=== PATIENT | female | born 1975 | race Caucasian/White ===

== ENCOUNTER 2021-10-15 09:28 | Emergency (ER) | payer OTHER, SELFPAY ==
[2021-10-15 09:35] VITALS: BP 112/79; PULSE 80; RESP 16; TEMP 37.4; O2SAT 98
--- NOTE | 2021-10-15 10:00 | ED.URI ---
HPI - URI/Sore Throat General Chief Complaint: Upper Respiratory Infection Stated Complaint: Sore Throat Time Seen by Provider: 10/15/21 10:01 Source: patient and RN notes reviewed Mode of arrival: ambulatory Limitations: no limitations History of Present Illness HPI Narrative: 46-year-old female presents concern for sore throat. Reports symptoms started several days ago. 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 Reports she has been taking Mucinex DM. She denies fever, bodies, chills, sweats. She reports painful swallowing. Reports she been vaccinated for Covid. MD elicited complaint: sore throat Related Data Allergies Allergy/AdvReac Type Severity Reaction Status Date / Time No Known Allergies Allergy Verified 10/15/21 10:04 Review of Systems Review of Systems: CONSTITUTIONAL: Denies malaise, chills, sweats, or fever. EYES: Denies visual changes, redness, or discharge. ENT: Reports rhinorrhea, sore throat. Denies congestion, sinus pain, otalgia CARDIOVASCULAR: Denies chest pain, palpitations, or edema. RESPIRATORY: Denies cough or dyspnea. GASTROINTESTINAL: Denies abdominal pain, nausea, vomiting, diarrhea SKIN: Denies rash or itching. MUSCULOSKELETAL: Denies myalgia. NEUROLOGIC: Denies headache. All systems reviewed & are unremarkable except as noted in HPI and below PMFSH Past Medical History Medical History BMI 37.0-37.9, adult BMI 39.0-39.9,adult Family History Family History Other Depression Diabetes mellitus Family history of hypercholesterolemia Hypertension Social History Social History Alcohol intake: never Substance use: never Substance use type: does not use Comments At time of signature, agree with nursing past medical, surgical, social and family history. There is no relevant family history pertinent to the presenting complaint Exam Narrative: GENERAL: Well-appearing, well-nourished, and in no acute distress. HEAD: Normocephalic EYES: PERRLA, conjunctivae clear ENT: Nares clear, clear discharge. Mucous membranes moist. TM pearly nance with dull light reflex bilaterally; no tragal tenderness. Oropharynx not erythematous without lesions. Tonsils not present, no drooling, no hoarseness, no trismus, uvula midline. NECK: Supple. No lymphadenopathy CHEST: Clear to auscultation, breath sounds equal. No wheezing, rhonchi, rales, or stridor. No respiratory distress, speaks in full sentences. HEART: Regular rate and rhythm. No murmur heard. SKIN: Warm, dry, no rash. NEURO: Alert and oriented x3. PSYCH: Normal mood and affect Course Course Emergency Course: Patient is aware of diagnosis, understands and agrees to treatment plan. Anticipatory guidance given. Patient agrees to follow-up as directed and is aware of reasons to seek care at the emergency department. Portions of this record may have been created with voice recognition software Vital Signs Vital signs: Vital Signs Temperature 99.3 F 10/15/21 09:35 Pulse Rate 80 10/15/21 09:35 Respiratory Rate 16 10/15/21 09:35 Blood Pressure 112/79 10/15/21 09:35 Pulse Oximetry 98 10/15/21 09:35 Temperature 99.3 F 10/15/21 09:35 Pulse Rate 80 10/15/21 09:35 Respiratory Rate 16 10/15/21 09:35 Blood Pressure 112/79 10/15/21 09:35 Pulse Oximetry 98 10/15/21 09:35 Reviewed. MDM - URI/Sore Throat MDM Narrative Medical decision making narrative: Differential diagnosis considered: Bejarano virus, strep pharyngitis, allergic rhinitis, upper respiratory tract infection, sinusitis, rhinosinusitis, nasopharyngitis. viral pharyngitis, otitis media, otitis externa, pneumonia, bronchitis, viral cough syndrome, viral syndrome, and influenza. Exam findings show no acute concerns or changes; patient is non-toxic appearing and is in
== END 2021-10-15 10:27 | disposition home or self-care (01) ==
PROVIDERS: Emergency Provider Nurse Practitioner; PCP Family Medicine
DX: J06.9 Acute upper respiratory infection, unspecified (principal); E78.00 Pure hypercholesterolemia, unspecified; I10 Essential (primary) hypertension; M19.90 Unspecified osteoarthritis, unspecified site
CPT/HCPCS: 87081; 87880; 99213; G0463

== ENCOUNTER 2021-11-04 18:29 | Emergency (ER) | payer OTHER, SELFPAY ==
--- NOTE | 2021-11-04 18:32 | ED.EAR ---
HPI - Ear Problem General Chief complaint: Upper Respiratory Infection Stated complaint: Ear Pain Time Seen by Provider: 11/04/21 18:32 Source: patient and RN notes reviewed History of Present Illness HPI Narrative: Patient is a 46-year-old female who presents the urgent care with complaints of bilateral ear pain and a mild sore throat off and on for the last 3 weeks. Patient states that she was seen at our facility as well as with her PCP and were placed on 2 rounds of azithromycin. Patient states symptoms have not improved and she is continued Mucinex, Flonase, Singulair, Zyrtec-D. Patient denies of any fever, chills, nausea, vomiting. Patient states that her Covid test was negative over the last couple weeks. No other acute complaints. No acute distress noted. Patient aware the plan of care. Some parts of this dictation were generated by voice recognition software and may contain typographical and/or grammatical inaccuracies. Related Data Allergies Allergy/AdvReac Type Severity Reaction Status Date / Time No Known Allergies Allergy Verified 10/15/21 10:04 Review of Systems Review of Systems: CONSTITUTIONAL: Denies fever, chills, or sweats. EYES: Denies visual changes, redness, or discharge. ENT: Denies rhinorrhea, congestion. Reports of sore throat and bilateral otalgia with hoarseness CARDIOVASCULAR: Denies chest pain, palpitations, or edema. RESPIRATORY: Denies cough or dyspnea. GASTROINTESTINAL: Denies abdominal pain, nausea, vomiting, or diarrhea. GENITOURINARY: Denies dysuria or hematuria. SKIN: Denies rash or itching. MUSCULOSKELETAL: Denies back pain, joint pain, or myalgia. NEUROLOGIC: Denies headache, numbness, or weakness. All other systems reviewed are negative, except as documented in HPI. [facility] Past Medical History Medical History BMI 37.0-37.9, adult BMI 39.0-39.9,adult Family History Family History Other Depression Diabetes mellitus Family history of hypercholesterolemia Hypertension Social History Social History Alcohol intake: never Substance use: never Substance use type: does not use Comments At the time of my signature, I reviewed and agree with the nursing past medical, surgical, social, and family history. There is no relevant family history pertinent to the patient complaint. Exam Narrative: GENERAL: This is a well-nourished, well-developed patient, in no apparent distress. HEAD: normocephalic, atraumatic. EYES: PERRL. Sclera clear/white. Vision is grossly intact. EARS: External ears normal, auditory canals clear and without drainage, mild fluid noted bilaterally without otitis. TMs normal without perforation. Hearing grossly intact. NOSE: External nose normal with no obvious nasal discharge, nares without redness, no rhinorrhea. THROAT: Mucous membranes moist, posterior pharynx clear. Moderate postnasal drainage NECK: Neck supple CARDIOVASCULAR: Regular rate and rhythm without murmurs, gallops, or rubs. RESPIRATORY: Clear to auscultation. Breath sounds equal bilaterally. No wheezes, rales, or rhonchi. SKIN: warm, intact with no suspicious lesions or rash, good texture and turgor. NEURO: awake, alert, and oriented to person, place and time. There were no obvious focal neurologic abnormalities. EXTREMITIES: No clubbing, cyanosis, or edema. Course Vital Signs Vital signs: Vital Signs Temperature 98.7 F 11/04/21 18:34 Pulse Rate 88 11/04/21 18:34 Respiratory Rate 16 11/04/21 18:34 Blood Pressure 135/70 11/04/21 18:34 Pulse Oximetry 100 11/04/21 18:34 Temperature 98.7 F 11/04/21 18:43 Pulse Rate 88 11/04/21 18:43 Respiratory Rate 16 11/04/21 18:43 Blood Pressure 135/70 11/04/21 18:43 Pulse Oximetry 100 11/04/21 18:43 Reviewed Medical Decision Making MDM Narrative Medical
[2021-11-04 18:34] VITALS: BP 135/70; PULSE 88; RESP 16; TEMP 37.1; O2SAT 100
[2021-11-04 18:43] VITALS: BP 135/70; PULSE 88; RESP 16; TEMP 37.1; O2SAT 100
== END 2021-11-04 18:50 | disposition home or self-care (01) ==
PROVIDERS: Emergency Provider Nurse Practitioner Family; PCP Family Medicine
DX: J32.9 Chronic sinusitis, unspecified (principal)
CPT/HCPCS: 99213; G0463

== ENCOUNTER 2021-12-04 09:15 | Emergency (ER) | payer OTHER, SELFPAY ==
[2021-12-04 09:27] VITALS: BP 136/70; PULSE 115; RESP 20; TEMP 37.4; O2SAT 98
--- NOTE | 2021-12-04 09:41 | ED.URI ---
HPI - URI/Sore Throat General Chief Complaint: Upper Respiratory Infection Stated Complaint: upper respirtory Time Seen by Provider: 12/04/21 09:42 Source: patient and family History of Present Illness HPI Narrative: Patient presents with a 4-week history of nasal congestion sinus pressure and postnasal drainage patient denies any shortness of breath no chest pain. Patient uses Flonase nasal spray daily as prescribed by primary care provider. Patient states 3 weeks ago she was given prednisone and it helped her symptoms immensely. Related Data Allergies Allergy/AdvReac Type Severity Reaction Status Date / Time No Known Allergies Allergy Verified 10/15/21 10:04 Review of Systems Review of Systems: CONSTITUTIONAL: Denies chills, or sweats. Reports fever and generalized body aches EYES: Denies visual changes, redness, or discharge. ENT: Denies otalgia. Reports nasal congestion runny nose and sore throat CARDIOVASCULAR: Denies chest pain, palpitations, or edema. RESPIRATORY: Denies dyspnea. Reports occasional cough GASTROINTESTINAL: Denies abdominal pain, nausea, vomiting, or diarrhea. GENITOURINARY: Denies dysuria or hematuria. SKIN: Denies rash or itching. MUSCULOSKELETAL: Denies back pain, joint pain, or myalgia. Reports generalized body aches NEUROLOGIC: Denies headache, numbness, or weakness. PSYCHIATRIC: Denies anxiety or depression. PMFSH Past Medical History Medical History BMI 37.0-37.9, adult BMI 39.0-39.9,adult Family History Family History Other Depression Diabetes mellitus Family history of hypercholesterolemia Hypertension Social History Social History Alcohol intake: never Substance use: never Substance use type: does not use Comments At time of signature, agree with nursing past medical, surgical, social and family history. There is no relevant family history pertinent to the presenting complaint Exam Narrative: The patient is a well-developed, well-nourished in no acute distress. SKIN: Skin is warm and dry without erythema, swelling or exudate. There is good turgor. No tenting. HEAD: Atraumatic. Normocephalic. No temporal or scalp tenderness. EYES: Moist and bright. Sclera and conjunctivae normal. No discharge. PERRLA. Extraocular motions intact. Gross visual acuity intact. EARS: Pinna is normal shape and contour. Clear external auditory canals. TM pearly barton with good cone of light, no erythema or suppuration. Bilateral cerumen noted no gross hearing deficit. NOSE: pink, moist mucosa with good air movement. Clear rhinorrhea without nasal flaring. Septum midline. Mouth: moist mucous membranes. Mild maxillary sinus tenderness THROAT; mild erythema noted to posterior oropharynx with moderate postnasal drainage. Without exudate or ulceration.. Uvula midline. Normal movement of soft palate. NECK: Supple and nontender with full range of motion without discomfort. No meningeal signs. LUNGS: Equal and bilateral breath sounds without wheezes, rales or rhonchi. CHEST: The chest wall is without retractions or use of accessory muscles. HEART: Has a regular rate and rhythm without murmur, gallops, click or rub. ABDOMEN: Soft, nontender with positive active bowel sounds. No rebound tenderness. EXTREMITIES: Without cyanosis, clubbing or edema. Equal 2+ distal pulses and 2 second capillary refill noted. NEUROLOGIC: alert, active, . The patient moves all extremities with normal muscle strength. Normal muscle tone is noted. Normal coordination is noted. NO focal neurological findings noted. Course Course Level of Care: Express Care Visit Vital Signs Vital signs: Vital Signs Temperature 37.4 C 12/04/21 09:27 Pulse Rate 115 H 12/04/21 09:27 Respiratory Rate 20 12/04/21 09:27 Blood Pressure 136/70 12/04/21 09:27 Pulse Oximetry 98
== END 2021-12-04 10:08 | disposition home or self-care (01) ==
PROVIDERS: Emergency Provider Nurse Practitioner Family; PCP Family Medicine
DX: J32.9 Chronic sinusitis, unspecified (principal); E78.00 Pure hypercholesterolemia, unspecified; I10 Essential (primary) hypertension; M19.90 Unspecified osteoarthritis, unspecified site
CPT/HCPCS: 99213; G0463

== ENCOUNTER 2021-12-12 08:32 | Outpatient (RCR) | payer OTHER, SELFPAY ==
[2021-12-12 10:26] VITALS: BP 143/71; PULSE 102; RESP 20; TEMP 35.9; O2SAT 98
[2021-12-12] MEDS: ACETAMINOPHEN 325 MG TABLET 650 MG PO (10:32)
[2021-12-12] MEDS: diphenhydrAMINE HCl CAP 25 MG CAPSULE PO (10:32)
[2021-12-12] MEDS: FAMOTIDINE 20 MG TABLET PO (10:32)
[2021-12-12 11:59] VITALS: BP 123/65; PULSE 79; O2SAT 98
== END 2021-12-12 16:09 ==
LOC: AMCINF 08:32
PROVIDERS: PCP Family Medicine; Visit Provider Internal Medicine Hematology & Oncology
DX: U07.1 COVID-19 (principal); I10 Essential (primary) hypertension; E11.9 Type 2 diabetes mellitus without complications; Z90.5 Acquired absence of kidney
CPT/HCPCS: A9270; M0247; Q0247

== ENCOUNTER 2022-08-04 12:51 | Outpatient (CLI) | payer OTHER, SELFPAY ==
[2022-08-04 13:05] LABS: Basophils Absolute Auto 0.1 K/mm3 (0.0-0.1); Basophils Percent Auto 0.7 % (0.2-1.2); Eosinophils Absolute Auto 0.2 K/mm3 (0-0.3); Hemoglobin 11.5 g/dL (12.0-15.0); Immature Granulocyte Absolute 0.03 K/mm3 (0.00-0.031); Immature Granulocyte Percent A 0.3 % (0-0.5); Lymphocytes Absolute Auto 3.83 K/mm3 (0.9-3.2); Lymphocytes Percent Auto 37.8 % (18.3-44.2); Mean Corpuscular HGB Conc 32.9 g/dl (32-36); Mean Corpuscular Hemoglobin 27.8 pg (26-34); Mean Corpuscular Volume 84.5 fl (80-100); Monocytes Absolute Auto 0.8 K/mm3 (0.1-0.6); Monocytes Percent Auto 7.5 % (2.6-8.5); Neutrophils Absolute Auto 5.3 K/mm3 (1.3-6.7); Neutrophils Percent Auto 51.7 % (45.5-73.1); Platelet Count Result 522 k/mm3 (150-375); Red Blood Count 4.14 M/mm3 (4.2-5.4); Red Cell Distribution Width 13.3 % (11.5-14.5); White Blood Count 10.1 K/mm3 (4.5-10.0)
[2022-08-04 13:17] LABS: Alanine Aminotransferase 33 U/L (6-35); Albumin Level 3.5 g/dL (3.5-5.1); Alkaline Phosphatase 129 U/L (38-126); Anion Gap 6 mmol/L (8-16); Aspartate Amino Transferase 29 U/L (14-36); Bilirubin,Total 0.4 mg/dL (0.2-1.3); Blood Urea Nitrogen 17 mg/dL (7-17); Calcium 9.1 mg/dL (8.4-10.2); Carbon Dioxide 34 mmol/L (22-30); Chloride 99 mmol/L (98-107); Estimated Glomerular Filt Rate > 60; Glucose 203 mg/dL (65-110); Potassium 3.3 mmol/L (3.4-5.0); Sodium 139 mmol/L (137-145)
== END 2022-08-04 12:52 | disposition home or self-care (01) ==
LOC: ANHLAB 12:54
PROVIDERS: PCP Family Medicine; Visit Provider Nurse Practitioner Family
DX: R58 Hemorrhage, not elsewhere classified (principal); A09 Infectious gastroenteritis and colitis, unspecified
CPT/HCPCS: 36415; 80053; 85025

== ENCOUNTER 2022-08-16 16:56 | Outpatient (CLI) | payer OTHER, SELFPAY ==
[2022-08-16 17:10] LABS: Hematocrit 39.8 % (37.0-47.0); Hemoglobin 13.1 g/dL (12.0-15.0); Mean Corpuscular HGB Conc 32.9 g/dl (32-36); Mean Corpuscular Hemoglobin 28.1 pg (26-34); Mean Corpuscular Volume 85.4 fl (80-100); Mean Platelet Volume 9.4 fl (7.4-10.4); Platelet Count Result 308 k/mm3 (150-375); Red Blood Count 4.66 M/mm3 (4.2-5.4)
[2022-08-16 17:21] LABS: Alkaline Phosphatase 138 U/L (38-126); Potassium 3.3 mmol/L (3.4-5.0)
[2022-08-16 18:02] LABS: Iron 60 ug/dL (37-170)
[2022-08-16 18:11] LABS: Percent Iron Saturation 15 % (20-50)
== END 2022-08-16 16:57 | disposition home or self-care (01) ==
LOC: ANHLAB 16:58
PROVIDERS: PCP Family Medicine; Visit Provider Nurse Practitioner Family
DX: R74.8 Abnormal levels of other serum enzymes (principal); D64.9 Anemia, unspecified; E87.6 Hypokalemia
CPT/HCPCS: 36415; 83540; 83550; 84075; 84132; 85027

== ENCOUNTER 2022-09-26 16:40 | Outpatient (CLI) | payer OTHER, SELFPAY | END 2022-09-26 16:41 | disposition home or self-care (01) | LOC: ANHLAB 16:43 | PROVIDERS: PCP Family Medicine; Visit Provider Nurse Practitioner Family | DX: E87.6 Hypokalemia (principal) | CPT/HCPCS: 36415; 84132 ==

== ENCOUNTER 2022-09-28 16:03 | Outpatient (CLI) | payer OTHER, SELFPAY ==
--- NOTE | ~2022-09-28 | US_ITS ---
EXAMINATION: US pelvic complete w TV DATE: 09/28/2022 17:02 INDICATION: Irregular menstruation. Vaginal bleeding. Comparison:Ultrasound dated 07/16/2022 TECHNIQUE: Multiple transabdominal and endovaginal sonographic images of the pelvis performed. FINDINGS: The uterus measures 9.6 x 4.9 x 5.5 cm. Cervix appears thickened and heterogeneous measurin g 10 mm. The endometrium measures 7 mm. There is a uterine fibroid at the fundus of the uterus measur ing 3.1 x 2.9 x 2.4 cm. The right ovary measures 4.1 x 3.1 x 2 cm and the left ovary is surgically absent. There are multiple right ovarian cysts, largest measuring 3 cm. There is no free fluid in the pelvis. There are no abnormal masses seen on either side. IMPRESSION: 1. Mildly enlarged uterus containing 3.1 cm fibroid at the fundus. 2: Thickened heterogeneous appearance to the cervix. Recommend clinical examination. Reviewed, dictated and finalized at location B. IMPRESSION: 1. Mildly enlarged uterus containing 3.1 cm fibroid at the fundus. 2: Thickened heterogeneous appearance to the cervix. Recommend clinical examin ation.
== END 2022-09-28 16:04 | disposition home or self-care (01) ==
LOC: ANHIMG 16:05
PROVIDERS: PCP Family Medicine; Visit Provider Obstetrics & Gynecology
DX: N93.9 Abnormal uterine and vaginal bleeding, unspecified (principal); N85.2 Hypertrophy of uterus; D25.9 Leiomyoma of uterus, unspecified; R93.89 Abnormal findings on diagnostic imaging of other specified body structures
CPT/HCPCS: 76830; 76856

== ENCOUNTER 2022-10-05 17:09 | Outpatient (CLI) | payer OTHER, SELFPAY ==
[2022-10-05 17:27] LABS: Potassium 3.3 mmol/L (3.4-5.0)
== END 2022-10-05 17:10 | disposition home or self-care (01) ==
LOC: ANHLAB 17:09
PROVIDERS: PCP Family Medicine; Visit Provider Nurse Practitioner Family
DX: E87.6 Hypokalemia (principal)
CPT/HCPCS: 36415; 84132

== ENCOUNTER 2022-10-24 12:00 | Outpatient (CLI) | payer OTHER, SELFPAY ==
[2022-10-24 12:32] LABS: Anion Gap 7 mmol/L (8-16); Blood Urea Nitrogen 15 mg/dL (7-17); Calcium 8.9 mg/dL (8.4-10.2); Carbon Dioxide 25 mmol/L (22-30); Chloride 104 mmol/L (98-107); Estimated Glomerular Filt Rate > 60; Glucose 163 mg/dL (65-110); Potassium 3.6 mmol/L (3.4-5.0); Sodium 136 mmol/L (137-145)
== END 2022-10-24 12:01 | disposition home or self-care (01) ==
LOC: ANHLAB 12:02
PROVIDERS: PCP Family Medicine; Visit Provider Nurse Practitioner Family
DX: E87.6 Hypokalemia (principal); L65.9 Nonscarring hair loss, unspecified
CPT/HCPCS: 36415; 80048; 84443

== ENCOUNTER 2022-11-01 16:51 | Outpatient (CLI) | payer OTHER, SELFPAY ==
[2022-11-01 18:26] LABS: Iron 61 ug/dL (37-170)
[2022-11-01 18:36] LABS: Percent Iron Saturation 15 % (20-50)
== END 2022-11-01 16:52 | disposition home or self-care (01) ==
LOC: ANHLAB 16:53
PROVIDERS: PCP Family Medicine; Visit Provider Physician Assistant Medical
DX: L65.9 Nonscarring hair loss, unspecified (principal)
CPT/HCPCS: 36415; 82728; 83540; 83550

== ENCOUNTER 2022-12-20 16:39 | Outpatient (CLI) | payer OTHER, SELFPAY ==
[2022-12-20 17:18] LABS: Basophils Absolute Auto 0.1 K/mm3 (0.0-0.1); Basophils Percent Auto 0.5 % (0.2-1.2); Eosinophils Absolute Auto 0.2 K/mm3 (0-0.3); Hematocrit 44.7 % (37.0-47.0); Hemoglobin 14.7 g/dL (12.0-15.0); Immature Granulocyte Absolute 0.02 K/mm3 (0.00-0.031); Immature Granulocyte Percent A 0.2 % (0-0.5); Lymphocytes Absolute Auto 3.62 K/mm3 (0.9-3.2); Lymphocytes Percent Auto 34.7 % (18.3-44.2); Mean Corpuscular HGB Conc 32.9 g/dl (32-36); Mean Corpuscular Hemoglobin 27.1 pg (26-34); Mean Corpuscular Volume 82.3 fl (80-100); Mean Platelet Volume 9.7 fl (7.4-10.4); Monocytes Absolute Auto 0.6 K/mm3 (0.1-0.6); Monocytes Percent Auto 6.1 % (2.6-8.5); Neutrophils Absolute Auto 5.9 K/mm3 (1.3-6.7); Neutrophils Percent Auto 56.5 % (45.5-73.1); Platelet Count Result 326 k/mm3 (150-375); Red Blood Count 5.43 M/mm3 (4.2-5.4); Red Cell Distribution Width 13.4 % (11.5-14.5); White Blood Count 10.4 K/mm3 (4.5-10.0)
[2022-12-20 17:30] LABS: Alanine Aminotransferase 26 U/L (6-35); Albumin Level 4.3 g/dL (3.5-5.1); Alkaline Phosphatase 140 U/L (38-126); Anion Gap 8 mmol/L (8-16); Aspartate Amino Transferase 20 U/L (14-36); Bilirubin,Total 0.5 mg/dL (0.2-1.3); Blood Urea Nitrogen 17 mg/dL (7-17); Calcium 9.1 mg/dL (8.4-10.2); Carbon Dioxide 31 mmol/L (22-30); Chloride 99 mmol/L (98-107); Estimated Glomerular Filt Rate > 60; Glucose 123 mg/dL (65-110); Potassium 3.2 mmol/L (3.4-5.0); Sodium 138 mmol/L (137-145)
[2022-12-20 20:51] LABS: Vitamin D 25 Hydroxy 61.1 ng/mL
[2022-12-20 21:26] LABS: Iron 60 ug/dL (37-170); Percent Iron Saturation 14 % (20-50)
[2022-12-24 12:51] LABS: DHEA-Sulfate 25 mcg/dL (19-231)
[2022-12-27 12:04] LABS: Testosterone Free 3.3 pg/mL (0.1-6.4); Testosterone Total 26 ng/dL (2-45)
== END 2022-12-20 16:40 | disposition home or self-care (01) ==
LOC: ANHLAB 16:45
PROVIDERS: PCP Family Medicine; Visit Provider Nurse Practitioner Family
DX: L65.0 Telogen effluvium (principal); L21.8 Other seborrheic dermatitis
CPT/HCPCS: 36415; 80053; 82306; 82627; 82728; 83540; 83550; 84402; 84403; 85025

== ENCOUNTER 2023-01-02 16:15 | Outpatient (CLI) | payer OTHER, SELFPAY ==
[2023-01-02 17:54] LABS: Potassium 3.5 mmol/L (3.4-5.0)
== END 2023-01-02 16:16 | disposition home or self-care (01) ==
PROVIDERS: PCP Family Medicine; Visit Provider Nurse Practitioner Family
DX: E87.6 Hypokalemia (principal)
CPT/HCPCS: 36415; 84132

== ENCOUNTER 2023-01-02 16:47 | Outpatient (CLI) | payer OTHER, SELFPAY ==
--- NOTE | ~2023-01-02 | MM_ITS ---
EXAMINATION: MM screening ammon BI w [place] HISTORY: Screening TECHNIQUE: Craniocaudal and mediolateral oblique 3-D tomosynthesis images were obtained and synthetic 2-D images were generated. CAD analysis was submitted and interpreted. COMPARISON: No prior mammogram is available for comparison at this institution. BREAST PARENCHYMAL COMPOSITION: There are scattered areas of fibroglandular density. FINDINGS: There is no evidence of suspicious mass, calcification, or architectural distortion to sugg est malignancy in either breast. There has been no suspicious interval change. IMPRESSION: 1. No mammographic evidence of malignancy. 2. Recommend routine screening mammography in one year. BI-RADS Category 1: Negative Reviewed, dictated and finalized at location A. RER ORCHARD
== END 2023-01-02 16:48 | disposition home or self-care (01) ==
PROVIDERS: PCP Family Medicine; Visit Provider Obstetrics & Gynecology
DX: Z12.31 Encounter for screening mammogram for malignant neoplasm of breast (principal)
CPT/HCPCS: 36415; 77063; 77067; 84132

== ENCOUNTER 2023-03-23 09:39 | Emergency (ER) | payer OTHER, SELFPAY ==
[2023-03-23 09:46] VITALS: BP 120/69; PULSE 88; RESP 20; TEMP 36.9; O2SAT 100
--- NOTE | 2023-03-23 10:11 | ED.URI ---
HPI - URI/Sore Throat General Chief Complaint: Upper Respiratory Infection Stated Complaint: cold/congestion History of Present Illness HPI Narrative: Patient presents with nasal congestion sinus pressure and head congestion. Patient also reports a sore throat but denies any trouble swallowing no drooling. Patient states she takes Zyrtec daily Flonase and Singulair. Related Data Home Medications Medication Instructions Recorded Confirmed esomeprazole magnesium 20 mg 20 mg PO DAILY PRN Acid Reflux 07/24/22 03/23/23 capsule,delayed release (Nexium) ferrous sulfate 325 mg (65 mg 650 mg PO QAM 02/06/23 03/23/23 iron) tablet Allergies Allergy/AdvReac Type Severity Reaction Status Date / Time No Known Allergies Allergy Verified 03/23/23 10:07 Review of Systems Review of Systems: CONSTITUTIONAL: Denies chills, or sweats. Reports fever and generalized body aches EYES: Denies visual changes, redness, or discharge. ENT: Denies otalgia. Reports nasal congestion runny nose and sore throat CARDIOVASCULAR: Denies chest pain, palpitations, or edema. RESPIRATORY: Denies dyspnea. Reports occasional cough GASTROINTESTINAL: Denies abdominal pain, nausea, vomiting, or diarrhea. GENITOURINARY: Denies dysuria or hematuria. SKIN: Denies rash or itching. MUSCULOSKELETAL: Denies back pain, joint pain, or myalgia. Reports generalized body aches NEUROLOGIC: Denies headache, numbness, or weakness. PSYCHIATRIC: Denies anxiety or depression. [facility] Past Medical History Medical History BMI 36.0-36.9,adult BMI 37.0-37.9, adult BMI 39.0-39.9,adult Diabetes GERD (gastroesophageal reflux disease) High cholesterol Rash Screening mammogram, encounter for Surgical History Surgical History History of cholecystectomy (11/18/20) History of left salpingo-oophorectomy (05/22/18) RA LSO, left adnexal mass--benign History of tonsillectomy (~1997) S/P skin biopsy (~1998) benign Family History Family History Father Atrial fibrillation Other Depression Diabetes mellitus Family history of hypercholesterolemia Hypertension Social History Social History Smoking status: Never smoker Alcohol intake: never Substance use: never Substance use type: does not use Living arrangements: other Additional living arrangements comments: Occupation/Education: occupation 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 There is no relevant family history pertinent to the presenting complaint Exam Narrative: The patient is a well-developed, well-nourished in no acute distress. SKIN: Skin is warm and dry without erythema, swelling or exudate. There is good turgor. No tenting. HEAD: Atraumatic. Normocephalic. No temporal or scalp tenderness. Moderate maxillary sinus tenderness with TURP relates inflamed and reddened EYES: Moist and bright. Sclera and conjunctivae normal. No discharge. PERRLA. Extraocular motions intact. Gross visual acuity intact. EARS: Pinna is normal shape and contour. Clear external auditory canals. TM pearly barton with good cone of light, no erythema or suppuration. Bilateral cerumen noted no gross hearing deficit. NOSE: pink, moist mucosa with good air movement. Clear rhinorrhea without nasal flaring. Septum midline. Mouth: moist mucous membranes. THROAT; mild erythema noted to posterior oropharynx with moderate postnasal drainage. Without exudate or ulceration.. Uvula midline. Normal movement of soft palate. NECK: Supple and nontender with full range o
== END 2023-03-23 10:20 | disposition home or self-care (01) ==
PROVIDERS: Emergency Provider Nurse Practitioner Family; PCP Family Medicine
DX: J32.9 Chronic sinusitis, unspecified (principal); J20.9 Acute bronchitis, unspecified; E11.9 Type 2 diabetes mellitus without complications; K21.9 Gastro-esophageal reflux disease without esophagitis; E78.00 Pure hypercholesterolemia, unspecified
CPT/HCPCS: 87081; 87880; 99213; G0463

== ENCOUNTER 2023-05-01 11:19 | Outpatient (CLI) | payer OTHER, SELFPAY ==
[2023-05-01 11:32] LABS: Basophils Absolute Auto 0.1 K/mm3 (0.0-0.1); Basophils Percent Auto 0.6 % (0.2-1.2); Eosinophils Absolute Auto 0.2 K/mm3 (0-0.3); Eosinophils Percent Auto 1.4 % (0-4.4); Hematocrit 46.7 % (37.0-47.0); Hemoglobin 15.8 g/dL (12.0-15.0); Immature Granulocyte Absolute 0.04 K/mm3 (0.00-0.031); Immature Granulocyte Percent A 0.4 % (0-0.5); Lymphocytes Absolute Auto 3.14 K/mm3 (0.9-3.2); Lymphocytes Percent Auto 28.4 % (18.3-44.2); Mean Corpuscular HGB Conc 33.8 g/dl (32-36); Mean Corpuscular Volume 82.8 fl (80-100); Mean Platelet Volume 9.2 fl (7.4-10.4); Monocytes Absolute Auto 0.8 K/mm3 (0.1-0.6); Monocytes Percent Auto 7.3 % (2.6-8.5); Neutrophils Absolute Auto 6.8 K/mm3 (1.3-6.7); Neutrophils Percent Auto 61.9 % (45.5-73.1); Platelet Count Result 352 k/mm3 (150-375); Red Blood Count 5.64 M/mm3 (4.2-5.4); Red Cell Distribution Width 12.7 % (11.5-14.5); White Blood Count 11.1 K/mm3 (4.5-10.0)
[2023-05-01 15:16] LABS: Erythrocyte Sedimentation Rate 14 mm/hr (0-20)
[2023-05-01 16:54] LABS: Alanine Aminotransferase 29 U/L (6-35); Albumin Level 4.5 g/dL (3.5-5.1); Alkaline Phosphatase 113 U/L (38-126); Anion Gap 8 mmol/L (8-16); Aspartate Amino Transferase 26 U/L (14-36); Bilirubin,Total 0.5 mg/dL (0.2-1.3); Blood Urea Nitrogen 15 mg/dL (7-17); CRP 0.6 mg/dL (<1.0); Calcium 9.8 mg/dL (8.4-10.2); Carbon Dioxide 32 mmol/L (22-30); Chloride 100 mmol/L (98-107); Estimated Glomerular Filt Rate > 60; Glucose 88 mg/dL (65-110); Potassium 3.9 mmol/L (3.4-5.0); Sodium 140 mmol/L (137-145)
[2023-05-01 21:07] LABS: Iron 63 ug/dL (37-170)
[2023-05-01 21:18] LABS: Percent Iron Saturation 15 % (20-50)
== END 2023-05-01 11:20 | disposition home or self-care (01) ==
LOC: ANHLAB 11:21
PROVIDERS: PCP Family Medicine; Visit Provider Internal Medicine Hematology & Oncology
DX: D80.9 Immunodeficiency with predominantly antibody defects, unspecified (principal); E61.1 Iron deficiency; D75.1 Secondary polycythemia
CPT/HCPCS: 36415; 80053; 82668; 82728; 83540; 83550; 85025; 85652; 86140

== ENCOUNTER 2023-05-17 14:08 | Outpatient (CLI) | payer OTHER, SELFPAY ==
[2023-05-17 16:07] LABS: Immunoglobulin A 153 mg/dL (70-400); Immunoglobulin G 1139 mg/dL (700-1600); Immunoglobulin M 110 mg/dL (40-230)
[2023-05-24 15:45] LABS: CALR Exon 9 Mutation Not Detected (Not Detected); CSF3R Exon 14/17 Mutation Not Detected (Not Detected); JAK2 Exon 12 Mutation Not Detected (Not Detected); JAK2 V617F Mutation Not Detected (Not Detected); MPL Exon 10 Mutation Not Detected (Not Detected); Specimen Source Blood
== END 2023-05-17 14:09 | disposition home or self-care (01) ==
PROVIDERS: PCP Family Medicine; Visit Provider Internal Medicine Hematology & Oncology
DX: D75.1 Secondary polycythemia (principal); D72.829 Elevated white blood cell count, unspecified
CPT/HCPCS: 36415; 81219; 81270; 81279; 81339; 81479; 82784; 88184

== ENCOUNTER 2023-05-28 10:43 | Outpatient (CLI) | payer OTHER, SELFPAY ==
[2023-05-31 13:11] LABS: BCR/abl Prior Result Not Given
[2023-05-31 13:57] LABS: BCR/abl P190 Not Detected; BCR/abl P210 Not Detected
[2023-05-31 13:58] LABS: BCR/abl P190 Chg YES; BCR/abl P210 Chg YES
== END 2023-05-28 10:44 | disposition home or self-care (01) ==
LOC: ANHLAB 10:45
PROVIDERS: PCP Family Medicine; Visit Provider Internal Medicine Hematology & Oncology
DX: D72.829 Elevated white blood cell count, unspecified (principal)
CPT/HCPCS: 36415; 81206; 81207

== ENCOUNTER 2023-06-24 11:26 | Outpatient (CLI) | payer OTHER, SELFPAY ==
--- NOTE | 2023-06-24 11:42 | ECG_ITS ---
Measurements Intervals [place] Rate: 87 P: 44 NH: 162 QRS: 32 QRSD: 93 T: 62 QT: 357 QTc: 430 Interpretive Statements SINUS RHYTHM MINIMAL Q WAVES- INFERIOR LEADS BORDERLINE ECG NO PREVIOUS ECG AVAILABLE FOR COMPARISON Electronically Signed On 06-24-2023 11:53:24 CDT by Andrew Arroyo D.O.
== END 2023-06-24 11:27 | disposition home or self-care (01) ==
LOC: ANHSURGERY 11:31
PROVIDERS: PCP Family Medicine; Visit Provider Obstetrics & Gynecology
DX: I10 Essential (primary) hypertension (principal); Z01.818 Encounter for other preprocedural examination; R94.31 Abnormal electrocardiogram [ECG] [EKG]
CPT/HCPCS: 93005

== ENCOUNTER 2023-06-28 00:31 | Day surgery (SDC) | payer OTHER, SELFPAY ==
--- NOTE | 2023-06-21 14:55 | SUR.PREOP ---
Report to the Outpatient Waiting Room, entrance under the green pavilion located off [facility], at time 1100 on date 06/28/23. Planned Procedure Time: 1300. Time changes happen often and if your time is changed the preop area will call you the afternoon before. - You and your visitor will be asked to self-screen and do not enter if you have any COVID symptoms. - A mask is optional within the hospital at this time. Patients may have clear liquids (water, carbonated beverages, clear teas, apple juice) until 3 hours prior to surgery with a maximum of 20 ounces. - No food from midnight until time of surgery - Infants may have breast milk until 4 hours before surgery, infant formula 6 hours prior to surgery. - Children will be allowed to drink immediately following surgery. If applicable, please bring a bottle or sippy cup to assist with drinking. Juice, water, soda, and popsicles are readily available. For infants on formula, please bring formula the day of surgery. Pacifiers are allowed. Take the following medications with a SIP of water the morning of surgery: TRAMADOL DO NOT STOP ANY OF YOUR OTHER PRESCRIPTION MEDICATIONS PRIOR TO SURGERY ?EXCEPT THE FOLLOWING Medications to discontinue per physician ____CALL DR MATTSON'S OFFICE IN REGARDS TO PAUSING ASPIRIN BEFORE SURGERY Date to take last dose Please no make-up, nail divehi, hairspray, perfume, deodorant, or body powder the day of surgery. No jewelry (including any body piercings) or valuables the day of surgery, leave them at home. Please take a shower or bath the night before, or the morning of, surgery with an antibacterial soap. Wear comfortable, loose fitting clothing. Children are encouraged to wear pajamas. - Jewelry must be removed prior to entering the operating room. Rings and piercings that are not removed may be cut off. - The hospital will not accept responsibility for valuables. - Please leave all valuables, including medications, at home the day of surgery. If you are going home after surgery, a licensed transport truck driver must drive you home. - NO public transportation without another adult if you receive anesthesia. - We recommend that an adult stay with you for 24 hours following discharge. - We also recommend that you do not drive, make important decision, drink alcoholic beverages, or take any drugs that were not prescribed by your health care provider for at least 24 hours after your discharge time. For Pediatric surgeries, we recommend two adults accompany the child home. Follow any additional instructions given to you from your surgeon. If you or anyone in your household have experienced Covid symptoms in the past week, please notify your surgeon or the nurse liaison at the phone number below for possible testing. Telephone instructions given to DONELL MEDRANO and asked if any additional questions and then verbalized understanding. Patient advised to call surgeon office or pre surgery nurse liaison [phone] if any additional questions.
[2023-06-21 15:20] VITALS: BMI 31.1
--- NOTE | 2023-06-27 08:16 | WPDANESEPPF ---
Anes - Initial Pre Proc Eval Procedure: Operation Date: 06/28/23 13:00 Proposed Procedures p Hysteroscopy, Dilatation and Curettage, Cecile Endometrial Ablation, Laparoscopic Bilateral Salpingectomy - Sajan Sellers MD Date/Time: 06/27/23 08:16 Surgeon: Sajan Sellers MD Pre Op Diagnosis: abn uterine bleeding, desires sterilization Patient Data Age: 47 Gender: F Height: 1.83 m Weight: 104 kg Allergies Allergy/AdvReac Type Severity Reaction Status Date / Time No Known Allergies Allergy Verified 06/28/23 12:26 Home Medications Medication Instructions Recorded Confirmed Type fluticasone propionate 50 1 spray intranasal DAILY #54.6 mL 04/09/22 06/28/23 Rx mcg/actuation nasal spray,suspension (Allergy Relief (fluticasone)) tramadol 50 mg tablet 50 mg PO Q6H PRN arthritic pain 09/14/22 06/28/23 Rx #180 tabs potassium chloride 10 mEq 10 meq PO DAILY #90 tabs 11/12/22 06/28/23 Rx tablet,extended release (Klor-Con) trazodone 100 mg tablet 100 mg PO QHS #90 tabs 12/21/22 06/28/23 Rx ferrous sulfate 325 mg (65 mg 650 mg PO HS 02/06/23 06/28/23 History iron) tablet semaglutide 2 mg/dose (8 mg/3 mL) 2 mg (0.75 mL) subcut WEEKLY #3 mL 05/09/23 06/28/23 Rx subcutaneous pen injector (Ozempic) progesterone micronized 100 mg 100 mg PO QPM #90 caps 05/13/23 06/28/23 Rx capsule (Prometrium) aspirin 81 mg tablet,delayed 81 mg PO DAILY 05/28/23 06/28/23 History release (Adult Aspirin Regimen) metformin 500 mg tablet 500 mg PO BID 05/29/23 06/28/23 History atorvastatin 40 mg tablet 40 mg PO HS 06/21/23 06/28/23 History celecoxib 100 mg capsule (Celebrex) 100 mg PO DAILY 06/21/23 06/28/23 History cetirizine 10 mg tablet 10 mg PO DAILY 06/21/23 06/28/23 History hydrochlorothiazide 25 mg tablet 12.5 mg PO DAILY 06/21/23 06/28/23 History montelukast 10 mg tablet 10 mg PO HS 06/21/23 06/28/23 History Patient hx anesthesia problems: none Family hx anesthesia problems: none Results Review: All pre-operative results and documents have been reviewed as part of the pre-operative evaluation. [facility] Past Medical History Medical History (Updated 06/27/23 @ 08:16 by Jonathan Soler, ) Anemia BMI 36.0-36.9,adult BMI 37.0-37.9, adult BMI 39.0-39.9,adult Diabetes Dysplasia of one kidney Elevated WBC count Essential hypertension GERD (gastroesophageal reflux disease) High cholesterol Rash Screening mammogram, encounter for Surgical History Surgical History History of cholecystectomy (11/18/20) History of left salpingo-oophorectomy (05/22/18) RA LSO, left adnexal mass--benign History of tonsillectomy (~1997) S/P skin biopsy (~1998) benign Family History Family History Father Atrial fibrillation Other Depression Diabetes mellitus Family history of hypercholesterolemia Hypertension Social History Social History (Updated 05/29/23 @ 14:16 by ALENA Paz) Smoking status: Never smoker Substance use: never Substance use type: does not use Lack of Transportation: No Lack of Food: Never True Current Housing: I Have Housing Concerned About Future Housing: No Difficulty Paying Gas/Electric Bills: No Difficulty Paying for Meds: No Currently Unemployed: No Education: Master's Degree or Higher Difficulty w/ Childcare or Family Care: No Living arrangements: other Additional living arrangements comments: Occupation/Education: occupation 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
[2023-06-28] VITALS (8 sets, daily range): BP systolic 115–134; BP diastolic 56–78; PULSE 61–87; RESP 2–20; TEMP 36.8–36.9; O2SAT 99–100
--- NOTE | 2023-06-28 11:53 | WPDHPUPDATE1 ---
History and Physical Update Update Date/Time: 06/28/23 11:53 History and Physical has been reviewed, including an updated exam of the patient. There are NO changes in the patient's condition. Risks, benefits, and alternatives have been discussed and questions answered. Patient agrees to proceed with procedure.
[2023-06-28] MEDS: LACTATED RINGERS 1,000 ML 30 ML IV CONT ×2 (12:13→14:00)
[2023-06-28] MEDS: ACETAMINOPHEN 500 MG TABLET 1000 MG PO (12:17)
[2023-06-28] MEDS: KETOROLAC 15 MG/ML VIAL (*BKC) IV PUSH (12:25)
[2023-06-28 12:54] LABS: Glucose Point of Care 109 mg/dl (65-105)
[2023-06-28] MEDS: ceFAZolin 2 GM/D5W 50 ML 2 GM/50 ML BAG IVPB (13:05)
--- NOTE | 2023-06-28 13:53 | W.PM.PROC2 ---
Procedure Note - Detailed Date of Procedure 06/28/23 Pre-op Diagnosis 1. Menometrorrhagia 2. Fibroid uterus 3. Undesired fertility Post-op Diagnosis Same Procedure Performed 1. Hysteroscopy with uterine curettings 2. Endometrial ablation 3. Laparoscopic right salpingectomy Surgeon Sajan Sellers MD Anesthesia General Findings Hysteroscopic exam revealed endometrial thickening but no abnormalities Laparoscopic evaluation revealed enlarged fibroid uterus with evidence of prior left salpingectomy Description of Procedure Patient prepped and draped usual manner for this procedure. Cervical instruments were placed for uterine mobility later in the case. Abdominal trocar sites were placed under direct visualization, instruments then placed as well. Findings were noted as above, mesial salpinx on the right was cauterized and cut the right tube was removed without difficulty. There was no bleeding, gas was allowed to escape, trocars removed and trocar sites were approximated using 4-0 Monocryl and skin glue. Cervix was dilated to allow the hysteroscope to find which revealed findings as above. Curettings were obtained, ablation instrument was placed, and instrument was activated. Cavity assessment was performed and the instrument after was complete cycle was removed. Hysteroscopic exam revealed good destruction throughout no other abnormalities appreciated. At this point the procedure was considered terminated with immediate postoperative condition excellent and she was sent to recovery room in stable condition. Estimated Blood Loss 10 Drains No Packing No Pathology Yes Complications No immediate complications Condition Stable Disposition PACU [facility] Billing Surgery - Charge Forward: Surgery Billing
[2023-06-28 14:07] LABS: Glucose Point of Care 112 mg/dl (65-105)
[2023-06-28] MEDS: fentaNYL CITRATE INJ (*CRX) 100 MCG/2 ML VIAL 25 MCG IV PUSH ×4 (14:20→14:32)
[2023-06-28] MEDS: ONDANSETRON INJ 4 MG/2 ML VIAL IV PUSH (14:32)
== END 2023-06-28 15:50 | disposition home or self-care (01) ==
PROVIDERS: PCP Family Medicine; Visit Provider Obstetrics & Gynecology
PROC: 0UDB8ZZ Extraction of Endometrium, Via Natural or Artificial Opening Endoscopic (ICD-10-PCS; CPT 58558; principal; 2023-06-28 13:00)
DX: N92.1 Excessive and frequent menstruation with irregular cycle (principal); Z30.2 Encounter for sterilization; N83.8 Other noninflammatory disorders of ovary, fallopian tube and broad ligament; E11.9 Type 2 diabetes mellitus without complications; D64.9 Anemia, unspecified; K21.9 Gastro-esophageal reflux disease without esophagitis; E78.00 Pure hypercholesterolemia, unspecified; Z79.82 Long term (current) use of aspirin; Z79.899 Other long term (current) drug therapy; E66.9 Obesity, unspecified; Z68.31 Body mass index [BMI] 31.0-31.9, adult
CPT/HCPCS: 58661; 58563; 82948; 88302; 88305; 93005; A9270; J0690; J1100; J1885; J2250; J2405; J2704; J3010; J7120

== ENCOUNTER 2023-07-13 09:19 | Outpatient (CLI) | payer OTHER, SELFPAY ==
[2023-07-13 10:03] LABS: Basophils Absolute Auto 0.1 K/mm3 (0.0-0.1); Eosinophils Absolute Auto 0.5 K/mm3 (0-0.3); Eosinophils Percent Auto 4.8 % (0-4.4); Hematocrit 43.7 % (37.0-47.0); Hemoglobin 14.4 g/dL (12.0-15.0); Immature Granulocyte Absolute 0.04 K/mm3 (0.00-0.031); Immature Granulocyte Percent A 0.4 % (0-0.5); Lymphocytes Absolute Auto 3.35 K/mm3 (0.9-3.2); Lymphocytes Percent Auto 32.1 % (18.3-44.2); Mean Corpuscular Hemoglobin 27.8 pg (26-34); Mean Corpuscular Volume 84.4 fl (80-100); Mean Platelet Volume 9.6 fl (7.4-10.4); Monocytes Absolute Auto 0.6 K/mm3 (0.1-0.6); Monocytes Percent Auto 5.4 % (2.6-8.5); Neutrophils Absolute Auto 5.9 K/mm3 (1.3-6.7); Neutrophils Percent Auto 56.3 % (45.5-73.1); Platelet Count Result 386 k/mm3 (150-375); Red Blood Count 5.18 M/mm3 (4.2-5.4); Red Cell Distribution Width 12.7 % (11.5-14.5); White Blood Count 10.4 K/mm3 (4.5-10.0)
[2023-07-13 10:19] LABS: Anion Gap 10 mmol/L (8-16); Blood Urea Nitrogen 14 mg/dL (7-17); Calcium 8.9 mg/dL (8.4-10.2); Carbon Dioxide 26 mmol/L (22-30); Chloride 101 mmol/L (98-107); Cholesterol 128 mg/dL (0-200); Estimated Glomerular Filt Rate > 60; Glucose 136 mg/dL (65-110); HDL Direct 32 mg/dL; Potassium 3.7 mmol/L (3.4-5.0); Sodium 137 mmol/L (137-145); Triglycerides 291 mg/dL (<150)
[2023-07-13 10:23] LABS: LDL Cholesterol Direct 58 mg/dL
[2023-07-13 10:34] LABS: Iron 81 ug/dL (37-170)
[2023-07-13 10:43] LABS: Percent Iron Saturation 22 % (20-50)
== END 2023-07-13 09:20 | disposition home or self-care (01) ==
PROVIDERS: PCP Family Medicine; Visit Provider Physician Assistant Medical
DX: D64.9 Anemia, unspecified (principal); E11.9 Type 2 diabetes mellitus without complications; I10 Essential (primary) hypertension; R79.89 Other specified abnormal findings of blood chemistry; E78.5 Hyperlipidemia, unspecified
CPT/HCPCS: 36415; 80048; 80061; 83540; 83550; 85025

== ENCOUNTER 2023-09-10 10:29 | Emergency (ER) | payer OTHER, SELFPAY ==
[2023-09-10 10:37] VITALS: BP 110/67; PULSE 117; RESP 16; TEMP 36.8; O2SAT 98
--- NOTE | 2023-09-10 11:03 | ED.GENADULT ---
HPI - General Adult General Chief complaint: Upper Respiratory Infection Stated complaint: Congestion Source: patient Mode of arrival: ambulatory Limitations: no limitations History of Present Illness HPI narrative: Patient presents for evaluation of sick symptoms since last week. Symptoms include sinus congestion, sore throat, thick green nasal drainage, ear pressure, chills, cough and body aches. No objective fever, nausea, vomiting, diarrhea. 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 She tried taking Mucinex and some other OTC agents for her symptoms but symptoms persist. She does not smoke. Related Data Home Medications Medication Instructions Recorded Confirmed ferrous sulfate 325 mg (65 mg 650 mg PO HS 02/06/23 09/10/23 iron) tablet montelukast 10 mg tablet 10 mg PO HS 06/21/23 09/10/23 aspirin 81 mg tablet,delayed 81 mg PO DAILY PRN 07/08/23 07/15/23 release (Adult Aspirin Regimen) celecoxib 200 mg capsule (Celebrex) 200 mg PO DAILY 07/08/23 09/10/23 metformin 500 mg tablet 1,000 mg PO BID 07/08/23 09/10/23 tolterodine 4 mg capsule,extended 4 mg PO DAILY 09/10/23 09/10/23 release 24 hr Allergies Allergy/AdvReac Type Severity Reaction Status Date / Time No Known Allergies Allergy Verified 09/10/23 10:46 Review of Systems Review of Systems: CONSTITUTIONAL: Reports chills and fatigue. Denies fever. EYES: Denies visual changes, redness, or discharge. ENT: Reports bilateral ear pressure, sore throat, nasal congestion and thick green drainage. CARDIOVASCULAR: Denies chest pain, palpitations, or edema. RESPIRATORY reports cough. Denies shortness of breath. GASTROINTESTINAL: Denies abdominal pain, nausea, vomiting, or diarrhea. GENITOURINARY: Denies dysuria or hematuria. SKIN: Denies rash or itching. MUSCULOSKELETAL: Reports generalized body aches. NEUROLOGIC: Reports headache. Denies numbness, dizziness, or weakness. PSYCHIATRIC: Denies anxiety or depression. [facility] Past Medical History Medical History Anemia BMI 36.0-36.9,adult BMI 37.0-37.9, adult BMI 39.0-39.9,adult Diabetes Dysplasia of one kidney Elevated WBC count Essential hypertension GERD (gastroesophageal reflux disease) High cholesterol Rash Screening mammogram, encounter for Surgical History Surgical History History of cholecystectomy (11/18/20) History of hysteroscopy (06/28/23) Hysteroscopy with uterine curettings/ Endometrial ablation/ Laparoscopic right salpingectomy History of left salpingo-oophorectomy (05/22/18) RA LSO, left adnexal mass--benign History of tonsillectomy (~1997) S/P skin biopsy (~1998) benign Family History Family History Father Atrial fibrillation Other Depression Diabetes mellitus Family history of hypercholesterolemia Hypertension Social History Social History Smoking status: Never smoker Substance use: never Substance use type: does not use Lack of Transportation: No Lack of Food: Never True Current Housing: I Have Housing Concerned About Future Housing: No Difficulty Paying Gas/Electric Bills: No Difficulty Paying for Meds: No Currently Unemployed: No Education: Master's Degree or Higher Difficulty w/ Childcare or Family Care: No Living arrangements: other Additional living arrangements comments: Occupation/Education: occupation 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 HEAD: Normocephalic,
== END 2023-09-10 11:26 | disposition home or self-care (01) ==
PROVIDERS: Emergency Provider Nurse Practitioner; PCP Family Medicine
DX: J01.90 Acute sinusitis, unspecified (principal); Z20.822 Contact with and (suspected) exposure to COVID-19; Z79.84 Long term (current) use of oral hypoglycemic drugs; E11.9 Type 2 diabetes mellitus without complications; I10 Essential (primary) hypertension; K21.9 Gastro-esophageal reflux disease without esophagitis; E78.00 Pure hypercholesterolemia, unspecified; D64.9 Anemia, unspecified; Z79.82 Long term (current) use of aspirin
CPT/HCPCS: 87426; 87804; 99213; C9803; G0463

== ENCOUNTER 2023-09-26 16:39 | Outpatient (CLI) | payer OTHER, SELFPAY ==
--- NOTE | ~2023-09-26 | XR_ITS ---
EXAMINATION: XR chest 2V DATE: 09/26/2023 16:54 INDICATION: Cough TECHNIQUE: PA and lateral views of the chest are obtained. COMPARISON: None available FINDINGS: There is mild atelectasis of the left lung base. No pleural effusion or pneumothorax. The c ardiomediastinal silhouette is normal. The visualized bones and soft tissues are unremarkable. IMPRESSION: 1. Mild atelectasis of the left lung base Reviewed, dictated and finalized at location F.
== END 2023-09-26 16:40 | disposition home or self-care (01) ==
PROVIDERS: PCP Family Medicine; Visit Provider Nurse Practitioner Family
DX: J98.11 Atelectasis (principal); R05.9 Cough, unspecified
CPT/HCPCS: 71046

== ENCOUNTER 2023-12-16 13:59 | Outpatient (CLI) | payer OTHER, SELFPAY ==
[2023-12-16 14:12] LABS: Basophils Absolute Auto 0.1 K/mm3 (0.0-0.1); Basophils Percent Auto 0.6 % (0.2-1.2); Eosinophils Absolute Auto 0.2 K/mm3 (0-0.3); Eosinophils Percent Auto 1.8 % (0-4.4); Hematocrit 45.6 % (37.0-47.0); Hemoglobin 14.9 g/dL (12.0-15.0); Immature Granulocyte Absolute 0.03 K/mm3 (0.00-0.031); Immature Granulocyte Percent A 0.3 % (0-0.5); Lymphocytes Absolute Auto 3.08 K/mm3 (0.9-3.2); Lymphocytes Percent Auto 30.7 % (18.3-44.2); Mean Corpuscular HGB Conc 32.7 g/dl (32-36); Mean Corpuscular Hemoglobin 26.6 pg (26-34); Mean Corpuscular Volume 81.3 fl (80-100); Mean Platelet Volume 9.5 fl (7.4-10.4); Monocytes Absolute Auto 0.6 K/mm3 (0.1-0.6); Monocytes Percent Auto 6.2 % (2.6-8.5); Neutrophils Absolute Auto 6.1 K/mm3 (1.3-6.7); Neutrophils Percent Auto 60.4 % (45.5-73.1); Platelet Count Result 346 k/mm3 (150-375); Red Blood Count 5.61 M/mm3 (4.2-5.4); Red Cell Distribution Width 13.1 % (11.5-14.5)
[2023-12-16 14:17] LABS: Blood Urea Nitrogen 21 mg/dL (8-26); Carbon Dioxide 25 mmol/L (22-30); Chloride 100 mmol/L (98-109); Estimated Glomerular Filt Rate > 60; Glucose 155 mg/dL (70-105); Ionized Calcium (POC) 1.22 mmol/L (1.11-1.31); Potassium 3.8 mmol/L (3.5-4.9); Sodium 141 mmol/L (138-146)
[2023-12-16 16:34] LABS: Alanine Aminotransferase 22 U/L (6-35); Alkaline Phosphatase 136 U/L (38-126); Anion Gap 8 mmol/L (8-16); Aspartate Amino Transferase 18 U/L (14-36); Bilirubin,Total 0.6 mg/dL (0.2-1.3); Blood Urea Nitrogen 20 mg/dL (7-17); Calcium 9.3 mg/dL (8.4-10.2); Carbon Dioxide 28 mmol/L (22-30); Chloride 101 mmol/L (98-107); Estimated Glomerular Filt Rate > 60; Glucose 155 mg/dL (65-110); Potassium 3.9 mmol/L (3.4-5.0); Sodium 137 mmol/L (137-145)
== END 2023-12-16 14:00 | disposition home or self-care (01) ==
PROVIDERS: PCP Family Medicine; Visit Provider Internal Medicine Hematology & Oncology
DX: D72.829 Elevated white blood cell count, unspecified (principal)
CPT/HCPCS: 36415; 80047; 80053; 85025

== ENCOUNTER 2024-03-02 11:16 | Outpatient (CLI) | payer OTHER, SELFPAY ==
[2024-03-02 11:40] LABS: Basophils Absolute Auto 0.1 K/mm3 (0.0-0.1); Basophils Percent Auto 0.7 % (0.2-1.2); Eosinophils Absolute Auto 0.3 K/mm3 (0-0.3); Immature Granulocyte Absolute 0.03 K/mm3 (0.00-0.031); Immature Granulocyte Percent A 0.3 % (0-0.5); Lymphocytes Absolute Auto 2.88 K/mm3 (0.9-3.2); Lymphocytes Percent Auto 28.5 % (18.3-44.2); Mean Corpuscular HGB Conc 32.6 g/dl (32-36); Mean Corpuscular Hemoglobin 26.7 pg (26-34); Mean Corpuscular Volume 81.9 fl (80-100); Mean Platelet Volume 9.5 fl (7.4-10.4); Monocytes Absolute Auto 0.7 K/mm3 (0.1-0.6); Monocytes Percent Auto 6.7 % (2.6-8.5); Neutrophils Absolute Auto 6.1 K/mm3 (1.3-6.7); Neutrophils Percent Auto 60.8 % (45.5-73.1); Platelet Count Result 364 k/mm3 (150-375); Red Blood Count 5.25 M/mm3 (4.2-5.4); Red Cell Distribution Width 12.6 % (11.5-14.5); White Blood Count 10.1 K/mm3 (4.5-10.0)
[2024-03-02 11:44] LABS: Carbon Dioxide 26 mmol/L (22-30); Chloride 101 mmol/L (98-109); Ionized Calcium (POC) 1.24 mmol/L (1.11-1.31); Sodium 139 mmol/L (138-146)
[2024-03-02 11:45] LABS: Blood Urea Nitrogen 11 mg/dL (8-26); Estimated Glomerular Filt Rate > 60; Glucose 117 mg/dL (70-105)
== END 2024-03-02 11:17 | disposition home or self-care (01) ==
LOC: ANHLAB 11:23
PROVIDERS: PCP Family Medicine; Visit Provider Internal Medicine Hematology & Oncology
DX: D75.1 Secondary polycythemia (principal)
CPT/HCPCS: 36415; 80047; 85025

== ENCOUNTER 2024-05-04 09:57 | Outpatient (CLI) | payer OTHER, SELFPAY ==
--- NOTE | ~2024-05-04 | MM_ITS ---
EXAMINATION: MM screening ammon BI w florence HISTORY: Screening TECHNIQUE: Craniocaudal and mediolateral oblique 3-D tomosynthesis images were obtained and synthetic 2-D images were generated. CAD analysis was submitted and interpreted. COMPARISON: 01/02/2023 BREAST PARENCHYMAL COMPOSITION: There are scattered areas of fibroglandular density. FINDINGS: There is no evidence of suspicious mass, calcification, or architectural distortion to sugg est malignancy in either breast. There has been no suspicious interval change. IMPRESSION: 1. No mammographic evidence of malignancy. 2. Recommend routine screening mammography in one year. BI-RADS Category 1: Negative Reviewed, dictated and finalized at location B.
== END 2024-05-04 09:58 | disposition home or self-care (01) ==
LOC: ANHIMG 10:01
PROVIDERS: PCP Family Medicine; Visit Provider Obstetrics & Gynecology
DX: Z12.31 Encounter for screening mammogram for malignant neoplasm of breast (principal)
CPT/HCPCS: 77063; 77067

== ENCOUNTER 2024-07-22 17:01 | Emergency (ER) | payer OTHER, SELFPAY | END 2024-07-22 17:30 | disposition home or self-care (01) | PROVIDERS: Emergency Provider Nurse Practitioner Family; PCP Family Medicine | DX: Z53.21 Procedure and treatment not carried out due to patient leaving prior to being seen by health care provider (principal) | CPT/HCPCS: 99199 ==

== ENCOUNTER 2024-09-26 08:10 | Outpatient (CLI) | payer OTHER, SELFPAY ==
[2024-09-26 09:20] LABS: Cortisol Random 1.39 ug/dL
== END 2024-09-26 08:11 | disposition home or self-care (01) ==
LOC: ANHLAB 08:13
PROVIDERS: PCP Family Medicine; Visit Provider Family Medicine
DX: G47.00 Insomnia, unspecified (principal); E11.9 Type 2 diabetes mellitus without complications; R63.5 Abnormal weight gain; I10 Essential (primary) hypertension
CPT/HCPCS: 36415; 82533

== ENCOUNTER 2024-10-02 09:34 | Outpatient (CLI) | payer OTHER, SELFPAY ==
[2024-10-02 09:48] LABS: Basophils Absolute Auto 0.1 K/mm3 (0.0-0.1); Basophils Percent Auto 0.5 % (0.2-1.2); Eosinophils Absolute Auto 0.1 K/mm3 (0-0.3); Eosinophils Percent Auto 0.6 % (0-4.4); Hemoglobin 14.2 g/dL (12.0-15.0); Immature Granulocyte Absolute 0.05 K/mm3 (0.00-0.031); Immature Granulocyte Percent A 0.4 % (0-0.5); Lymphocytes Absolute Auto 3.44 K/mm3 (0.9-3.2); Lymphocytes Percent Auto 26.6 % (18.3-44.2); Mean Corpuscular HGB Conc 32.3 g/dl (32-36); Mean Corpuscular Hemoglobin 26.8 pg (26-34); Mean Corpuscular Volume 83.2 fl (80-100); Mean Platelet Volume 9.4 fl (7.4-10.4); Monocytes Absolute Auto 0.9 K/mm3 (0.1-0.6); Monocytes Percent Auto 7.2 % (2.6-8.5); Neutrophils Absolute Auto 8.4 K/mm3 (1.3-6.7); Neutrophils Percent Auto 64.7 % (45.5-73.1); Platelet Count Result 340 k/mm3 (150-375); Red Blood Count 5.29 M/mm3 (4.2-5.4); Red Cell Distribution Width 12.1 % (11.5-14.5)
[2024-10-02 09:53] LABS: Blood Urea Nitrogen 18 mg/dL (8-26); Carbon Dioxide 29 mmol/L (22-30); Chloride 101 mmol/L (98-109); Estimated Glomerular Filt Rate > 60; Glucose 133 mg/dL (70-105); Potassium 4.1 mmol/L (3.5-4.9); Sodium 140 mmol/L (138-146)
== END 2024-10-02 09:35 | disposition home or self-care (01) ==
LOC: ANHLAB 09:37
PROVIDERS: PCP Family Medicine; Visit Provider Internal Medicine Hematology & Oncology
DX: D75.1 Secondary polycythemia (principal)
CPT/HCPCS: 36415; 80047; 85025

== ENCOUNTER 2024-11-28 11:08 | Outpatient (CLI) | payer OTHER, SELFPAY ==
[2024-12-01 02:19] LABS: FSH 5.5 mIU/mL
[2024-12-04 05:29] LABS: Estradiol, Ultrasensitive 109 pg/mL
== END 2024-11-28 11:09 | disposition home or self-care (01) ==
LOC: ANHLAB 11:09
PROVIDERS: PCP Family Medicine; Visit Provider Obstetrics & Gynecology
DX: L65.9 Nonscarring hair loss, unspecified (principal)
CPT/HCPCS: 36415; 82670; 83001

== ENCOUNTER 2024-12-05 11:28 | Emergency (ER) | payer OTHER, SELFPAY ==
[2024-12-05 11:34] VITALS: BP 107/88; PULSE 88; RESP 18; TEMP 37.3; O2SAT 98
--- NOTE | 2024-12-05 11:52 | ED_ITS ---
HPI - URI/Sore Throat General Chief Complaint: Upper Respiratory Infection Stated Complaint: SORE THROAT Time Seen by Provider: 12/05/24 11:53 Source: patient, RN notes reviewed and old records reviewed Mode of arrival: ambulatory Limitations: no limitations History of Present Illness HPI Narrative: 49-year-old female presents to the [facility] with complaints of a sore throat and congestion as well as feeling like everything is ?swollen. ? Patient has been taking Benadryl and using Flonase. Symptoms started approximately 6 days ago. Related Data Home Medications ?Medication ?Instructions ?Recorded ?Confirmed ?Last Taken ?Type hydrochlorothiazide 25 mg tablet 12.5 mg .Route .COMPLEX 11/05/23 12/05/24 Unknown History omeprazole 20 mg capsule,delayed mg 12/05/24 Unknown History release Allergies Allergy/AdvReac Type Severity Reaction Status Date / Time No Known Allergies Allergy Verified 12/05/24 11:30 Review of Systems Review of Systems: All systems reviewed & are unremarkable except as noted in HPI and below Constitutional: Constitutional: Reports no additional constitutional complaints ENT: Reports as per HPI Cardiovascular: Cardiovascular: Reports no additional cardiovascular complaints, Denies chest pain and Denies dyspnea Respiratory: Respiratory: Reports no additional respiratory complaints, Denies chest congestion, Denies cough and Denies dyspnea Musculoskeletal: Musculoskeletal: Reports no additional musculoskeletal complaints Integumentary/Breasts: Skin/Breast: Reports system reviewed and no additional complaints, except as docu PMFSH Past Medical History Medical History BMI 34.0-34.9,adult KAYDEN (stress urinary incontinence, female) Consultation for female sterilization Urine frequency Irritation of left eye Elevated WBC count Hair loss Screening mammogram, encounter for GERD (gastroesophageal reflux disease) Sciatic nerve pain Hypokalemia Anemia Blood loss Travelers' diarrhea Menometrorrhagia Diabetes High cholesterol Rash COVID-19 BMI 37.0-37.9, adult Dysplasia of one kidney Essential hypertension Surgical History Surgical History History of hysteroscopy (06/28/23) Hysteroscopy with uterine curettings/ Endometrial ablation/ Laparoscopic right salpingectomy S/P skin biopsy (~1998) benign History of tonsillectomy (~1997) History of left salpingo-oophorectomy (05/22/18) RA LSO, left adnexal mass--benign History of cholecystectomy (11/18/20) Family History Family History Father Atrial fibrillation Pleurisy Diabetes mellitus Mother No problems noted. Sibling No problems noted. Other Depression Family history of hypercholesterolemia Hypertension Social History Social History Smoking status: Never smoker Second hand tobacco smoke exposure: No Alcohol intake: never Substance use: never Substance use type: does not use Do You Feel Safe in your Home?: Yes Lack of Transportation: No Lack of Food: Never True Current Housing: I Have Housing Concerned About Future Housing: No Difficulty Paying Gas/Electric Bills: No Difficulty Paying for Meds: No Currently Unemployed: No Education: Master's Degree or Higher Difficulty w/ Childcare or Family Care: No Living arrangements: with family Additional living arrangements comments: Occupation/Education: occupation 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 Gender identity (if verbalized by the patient): Female Sexual Orientation (if Verbalized by the Patient): Straight or Heterosexual Spiritual care concerns: No Comments At the time of my signature, I reviewed and agree with the nursing past medical, surgical, social, and family history. There is no relevant family history pertinent to the patient complaint. Exam Const: General: cooperative, healthy appearing, comfortable, no acute distress, well developed, alert and well nourished Nutritional Appearance: well nourished Orientation/consciousness: patient oriented x3 Limitations: no limitations HENMT: Head: normal to inspection Ears: hearing grossly normal bilaterally, external ears normal, EAC's normal, mastoids normal, no periauricular adenopathy and TM abnormal with fluid behind the TM bilateral Mouth: Yes Normal oral and palatal mucosa present, Yes lip normal, Yes tongue normal and Yes moist mucous membranes Throat: posterior oropharynx normal, uvula midline, postnasal drainage and no uvular edema Eyes: General: appearance normal, both eyes and all related structures Alignment and Position: alignment normal Eyelids: eyelids normal Neck: Neck: normal visual inspection, full ROM, no lymphadenopathy and no meningeal signs Chest: Chest palpation & inspection: normal inspection of the chest Resp: Effort & Inspection: normal respiratory effort and able to speak in complete sentences Auscultation: clear to auscultation bilaterally, no crackles, no rales, no rhonchi and no wheezes Cardio: Rate: regular rate Skin: General skin exam: normal color and no rashes or lesions noted Neuro: General: patient oriented x3, gait normal, moves all extremities and no meningeal signs Cognition (Neuro): normal cognition Speech: normal speech Gait exam (Neuro): Normal gait present Extrem: General: normal to inspection, full ROM, capillary refill normal and normal gait Psych: Appearance: grossly normal and well kempt Mental Status: mental status grossly normal Speech and movement: Normal speech and movement present and Clear speech present Affect: normal affect Attitude: cooperative Course Course Level of Care: Express Care Visit Vital Signs Vital signs: Vital Signs Temperature 99.1 F 12/05/24 11:34 Pulse Rate 88 12/05/24 11:34 Respiratory Rate 18 12/05/24 11:34 Blood Pressure 107/88 12/05/24 11:34 Pulse Oximetry 98 12/05/24 11:34 Oxygen Delivery Room Air 12/05/24 11:34 Temperature 99.1 F 12/05/24 11:34 Pulse Rate 88 12/05/24 11:34 Respiratory Rate 18 12/05/24 11:34 Blood Pressure 107/88 12/05/24 11:34 Pulse Oximetry 98 12/05/24 11:34 Oxygen Delivery Room Air 12/05/24 11:34 Reviewed MDM - URI/Sore Throat MDM Narrative Medical decision making narrative: Patient sitting in exam room. Nontoxic, vitals stable. Patient in no acute distress. Patient presents with 6 days of URI symptoms. Discussed is most likely viral, will treat with antibiotics due to his patient's past medical history. Patient appropriate for outpatient treatment and follow-up Discharge instructions reviewed with patient, as well as provided in writing per nursing staff. The instructions also include specific and strict return/GO TO THE ER as well as f/u information. All questions have been answered, and the patient deny any further questions with discharge and discharge plan. Some parts of this dictation were generated by voice recognition software and may contain typographical and/or grammatical inaccuracies. Differential Diagnosis Differential diagnosis: Likely upper respiratory infection, otitis media, sinusitis, viral infection, bronchitis and pharyngitis Lab Data Labs: Lab Results 12/05/24 Range/Units 12:27 POC Grp A Strep Screen Negative (Negative) Reviewed Critical Care Time Critical Care Time Critical Care Time: No Discharge Plan Discharge Clinical Impression: PND (post-nasal drip) Sinusitis Qualifiers: Sinusitis location: pansinusitis Chronicity: acute Recurrence: not specified as recurrent Qualified Code(s): J01.40 - Acute pansinusitis, unspecified Patient Disposition: Home, Self-Care Condition: Stable Instructions: Antibiotic Form, Sinusitis (ED), Postnasal Drip (DC) Additional Instructions: Your rapid strep swab was negative today at [facility]. A throat culture will be sent to the laboratory for further testing. If the test is positive, you will receive a phone call within 48 hours and an appropriate antibiotic will be initiated at that time. It is very important to treat your symptoms. Drink plenty of water, Gatorade, Pedialyte, ice pops or Jell-O. -Alternate Tylenol and Motrin per package directions for fever or pain. You can alternate every 4 hours -Antihistamine medication such as Zyrtec/Claritin/Luz Elena during the day can h elp improve symptoms. -doing daily nasal irrigations can help relieve pressure your sinuses. Things like a Neti pot -Use Flonase twice a day for 5 days then daily to help reduce the inflammation and dry up your sinuses. -You can also use Mucinex. Be sure to drink plenty of water with this medication at least 8 ounces with every dose and it is important to drink 8 to 10 glasses of water per day. Water is a natural decongestant -Eat and drink things that are easy to swallow, like tea or soup, or popsicles. -Oral rinses such as: Salt water gargles and/or may use topical anesthetic (eg. Chloraseptic spray) or lozenges to relieve dryness or throat pain). -Frequent hand washing or hand chief nursing executive is one of the best ways to prevent spread of infection. -Using a vaporizer or humidifier at night will also help thin secretions and help with coughing up phlegm. -Follow up with primary care provider in 7-10 days if condition is not improving - For new or worsening symptoms go directly to the nearest ER Patient Language: Frisian Prescriptions: New amoxicillin-pot clavulanate 875-125 mg tablet 1 tablet PO Q12H Qty: 14 0RF methylprednisolone [Medrol (Ammon)] 4 mg tablets,dose pack See Rx Instructions PO .COMPLEX Qty: 21 0RF Rx Instructions: orally per package directions No Action omeprazole 20 mg capsule,delayed release(DR/EC) tramadol 50 mg tablet See Rx Instructions PO Q6H PRN (Reason: arthritic pain) Qty: 180 1RF Rx Instructions: 1-2 tabs orally every 6 hours PRN; 3mo supply hydrochlorothiazide 25 mg tablet 12.5 mg .ROUTE .COMPLEX Rx Instructions: 12.5 mg; Linzess 145 mcg capsule 145 mcg PO DAILY Qty: 30 2RF omeprazole 40 mg capsule,delayed release(DR/EC) 40 mg PO DAILY Qty: 30 2RF atorvastatin 40 mg tablet See Rx Instructions .ROUTE .COMPLEX Qty: 90 3RF Dose Instruction: TAKE 1 TABLET DAILY AT BEDTIME Rx Instructions: TAKE 1 TABLET DAILY AT BEDTIME tolterodine 4 mg capsule,extended release 24hr 4 mg PO DAILY Qty: 90 1RF trazodone 100 mg tablet 100 mg PO QHS Qty: 90 1RF metformin 500 mg tablet See Rx Instructions .ROUTE .COMPLEX Qty: 360 3RF Dose Instruction: TAKE 2 TABLETS (1000 MG) TWICE A DAY (FOLLOW UP EVERY 3 MONTHS) Rx Instructions: TAKE 2 TABLETS (1000 MG) TWICE A DAY (FOLLOW UP EVERY 3 MONTHS) fluticasone propionate [Allergy Relief (fluticasone)] 50 mcg/actuation spray,suspension 1 spray NASAL DAILY Qty: 54.6 2RF Rx Instructions: 3 month supply celecoxib [Celebrex] 100 mg capsule 100 mg PO BID Qty: 180 3RF loratadine [Claritin] 10 mg tablet 10 mg PO DAILY PRN (Reason: allergic symptoms) Qty: 90 0RF progesterone micronized 200 mg capsule 200 mg PO QHS 30 Days Qty: 90 0RF Follow-up/Referrals: Kana Rankin MD [Primary Care Provider] - 2 Weeks ([facility] follow-up) Stand Alone Forms: Work/School Release IP Time of Disposition: 12:24
[2024-12-05 12:29] LABS: EDSTREPNEGPOS1 Negative (Negative)
--- OUTSIDE RECORDS SUMMARY | 2024-12-12 16:27 | XMS_ITS | Encounter Summary ---
Author Organization [facility] Address [address] [place] [address] Care Team Providers Care General Sales Manager Name Role Phone Kana Rankin MD Primary Care Provider [phone] Encounter Details Date Type Department Care Team (Late st Contact Info) Description 12/27/2023 External Device Data [facility] ABSTRACTION Provider, Abstract NO ADDRESS ON FILE Social History Tobacco Use Types Packs/Day Years Used Date Smoking Tobacco: Never Assessed Sex and Gender Information Value Date Recorded Sex Assigned at Not on file Gender Identity Not on file Sexual Orientation Not on file documented as of this encounter Plan of Treatment Upcoming Encounters Date Type Department Care Team (Late st Contact Info) Description 04/29/2025 11:00 AM CDT Office Visit [facility] Oncology and Hematology - [address] [place] [address] Eduard Baumann MD [address] [facility] [address] [place] [address] documented as of this encounter Visit Diagnoses Not on filedocumented in this encounter Care Teams General Sales Manager Relationship Specialty Start Date End Date Kana Rankin MD [address] [place] [address] PCP - General Family Practice 05/01/23 documented as of this encounter
--- OUTSIDE RECORDS SUMMARY | 2024-12-12 16:27 | XMS_ITS | Encounter Summary ---
Author Organization [facility] [employer] [facility] Address [address] [place] [address] Care Team Providers Care Mess Attendant Crew Name Role Phone Kana Rankin MD Primary Care Provider [phone] Encounter Details Date Type Department Care Team (Late st Contact Info) Description 05/27/2023 Orders Only [facility] Oncology and Hematology - [address] [place] [id number] Eduard Baumann MD [facility] [employer] [address] [place] [address] Social History Tobacco Use Types Packs/Day Years Used Date Smoking Tobacco: Never Assessed Sex and Gender Information Value Date Recorded Sex Assigned at Not on file Gender Identity Not on file Sexual Orientation Not on file documented as of this encounter Plan of Treatment Upcoming Encounters Date Type Department Care Team (Late st Contact Info) Description 04/29/2025 11:00 AM CDT Office Visit [facility] Oncology and Hematology - [address] [place] [phone] Eduard Baumann MD [address] [employer] [address] [place] [address] documented as of this encounter Procedures Procedure Name Priority Date/Time Associated Diagnosis Comments JAK2 MUTATION Routine 05/17/2023 9:45 AM CDT documented in this encounter Results * JAK2 MUTATION (05/17/2023 9:45 AM CDT) Blood BLOOD SPECIMEN / Unknown Eduard Baumann MD CHEMISTRY ORDERABLES documented in this encounter Visit Diagnoses Not on filedocumented in this encounter Care Teams Mess Attendant Crew Relationship Specialty Start Date End Date Kana Rankin MD [address] [place] [address] PCP - General Family Practice 05/01/23 documented as of this encounter
--- OUTSIDE RECORDS SUMMARY | 2024-12-12 16:27 | XMS_ITS | Encounter Summary ---
Author Organization [facility] Address [address] [place] [address] Care Team Providers Care Senior Linux Unix Administrator Name Role Phone Kana Rankin MD Primary Care Provider [phone] Encounter Details Date Type Department Care Team (Late st Contact Info) Description 11/13/2023 External Device Data STL ABSTRACTION Provider, Abstract [...] Description 04/29/2025 11:00 AM CDT Office Visit [facility] Oncology and Hematology - [address] [place] [address] Eduard Baumann MD [address] [facility] [address] [place] [address] documented as of this encounter Visit Diagnoses Not on filedocumented in this encounter Care Teams Senior Linux Unix Administrator Relationship Specialty Start Date End Date Kana Rankin MD [address] [place] [address] PCP - General Family Practice 05/01/23 documented as of this encounter
--- OUTSIDE RECORDS SUMMARY | 2024-12-12 16:27 | XMS_ITS | Encounter Summary ---
Author Organization [facility] Address [address] [place] [address] Care Team Providers Care Promotional Advertising Assistant Name Role Phone Kana Rankin MD Primary Care Provider [phone] Encounter Details Date Type Department Care Team (Late st Contact Info) Description 07/23/2024 External Device Data [facility] ABSTRACTION Provider, Abstract NO ADDRESS ON FILE Social History Tobacco Use Types Packs/Day Years Used Date Smoking Tobacco: Never Alcohol Use Standard Drinks/Week Comments Yes 0 (1 standard drink = 0.6 oz pur e alcohol) socaily Sex and Gender Information Value Date Recorded Sex Assigned at Not on file Gender Identity Not on file Sexual Orientation Not on file documented as of this encounter Plan of Treatment Upcoming Encounters Date Type Department Care Team (Late st Contact Info) Description 04/29/2025 11:00 AM CDT Office Visit [facility] Oncology and Hematology - [place] [place] [address] [address] [place] [address] Eduard Baumann MD [address] [place] [address] [address] [place] [address] documented as of this encounter Visit Diagnoses Not on filedocumented in this encounter Care Teams Promotional Advertising Assistant Relationship Specialty Start Date End Date Kana Rankin MD [address] [place] [address] PCP - General Family Practice 05/01/23 documented as of this encounter
--- OUTSIDE RECORDS SUMMARY | 2024-12-12 16:27 | XMS_ITS | Encounter Summary ---
Author Organization [facility] Address [address] [place] [address] Care Team Providers Care Civil Transportation Engineer Name Role Phone Kana Rankin MD Primary Care Provider [phone] Encounter Details Date Type Department Care Team (Late st Contact Info) Description 12/29/2023 External Device Data STL ABSTRACTION Provider, Abstract [...] Description 04/29/2025 11:00 AM CDT Office Visit [facility] Oncology and Hematology - [address] [place] [address] Eduard Baumann MD [address] [facility] [address] [place] [address] documented as of this encounter Visit Diagnoses Not on filedocumented in this encounter Care Teams Civil Transportation Engineer Relationship Specialty Start Date End Date Kana Rankin MD [address] [place] [address] PCP - General Family Practice 05/01/23 documented as of this encounter
--- OUTSIDE RECORDS SUMMARY | 2024-12-12 16:27 | XMS_ITS | Encounter Summary ---
Author Organization [facility] Address [address] [place] [address] Care Team Providers Care Ic Designer Custom Name Role Phone Kana Rankin MD Primary Care Provider [phone] Encounter Details Date Type Department Care Team (Late st Contact Info) Description 12/10/2023 External Device Data STL ABSTRACTION Provider, Abstract [...] Description 04/29/2025 11:00 AM CDT Office Visit [facility] Oncology and Hematology - [address] [place] [address] Eduard Baumann MD [address] [facility] [address] [place] [address] documented as of this encounter Visit Diagnoses Not on filedocumented in this encounter Care Teams Ic Designer Custom Relationship Specialty Start Date End Date Kana Rankin MD [address] [place] [address] PCP - General Family Practice 05/01/23 documented as of this encounter
--- OUTSIDE RECORDS SUMMARY | 2024-12-12 16:27 | XMS_ITS | Encounter Summary ---
Author Organization [facility]3] [facility] Address [address] [place] [address] Care Team Providers Care Sports Medicine Coordinator Name Role Phone Kana Rankin MD Primary Care Provider [phone] Reason for Visit * Reason Comments Follow Up Encounter Details Date Type Department Care Team (Late st Contact Info) Description 06/12/2023 3:45 PM CDT Video Visit [facility] ([facility] Oncology and Hematology - [address] [facility] [address] [place] [address] Eduard Baumann MD [address] [facility] [address] [place] [address] Leukocytosis, unspecified type (Primary Dx) Social History Tobacco Use Types Packs/Day Years Used Date Smoking Tobacco: Never Assessed Sex and Gender Information Value Date Recorded Sex Assigned at Not on file Gender Identity Not on file Sexual Orientation Not on file documented as of this encounter Progress Notes * Eduard Baumann MD - 06/12/2023 6:01 PM CDT HEMATOLOGY / ONCOLOGY PROGRESS NOTE Patient Identification: Name: Lorelei Hall Age: 47 y.o. Sex: female : 1975 DIAGNOSIS Leukocytosis Erythrocytosis CURRENT TREATMENT Expectant TREATMENT HISTORY SUBJECTIVE This is a video visit with patient. She denies any night sweats fever chills and weight loss. Denies any chest pain and abdominal pain. No other signs of infection. Review of system Constitutional: Patient did not mention fevers, sweats, fatigue, malaise, weight loss HEENT: Patient did not mention sinus congestion, hearing or vision problems Respiratory: Patient did not mention cough, dyspnea, wheeze Cardiovascular: Patient did not mention chest pain, exertional chest pressure/discomfort, nausea, syncope, shortness of breath GI: Patient did not mention constipation, diarrhea, dsyphagia, reflux symptoms, vomiting, melena : Patient did not mention dysuria, frequency, incontinence, urgency Integumentary system: no lymphadenopathy, sweats, flushing Musculoskeletal: Patient not mention: myalgia, arthralgia Neurological: Patient did not mention blurry or disturbed vision, numbness/weakness, dizziness Skin: No lumps, bumps or rashes. 12 point review system was reviewed Objective: Vital signs in last 24 hours: As per nursing note Exam: This is a video visit. [facility] Labs from May 01, 2023 showed erythropoietin level 8.0 immunoglobin G 1139 IgA 153 IgM 110 iron 63 saturation 15% ferritin 28 C-reactive protein 0.6 JAK2 mutation negative ESR 14 hemoglobin 11.1 hematocrit 46.7 hemoglobin 15.8 @IMAGEIMP@ Assessment: Plan: There are no problems to display for this patient. 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 Erythropoietin level. Could be secondary to obesity. Previous labs showed hematocrit of 46.7. No need for phlebotomy. Continue baby aspirin. Leukocytosis. Flow cytometric analysis showed no evidence of leukemia and lymphoma. Testing for theBCR ABL translocation came back negative for CML. Reactive markers were normal. At this point we will continue to observe and see her back in 6 months with repeat labs. Arthralgia. Continue Celebrex. . 06/12/2023 Eduard Baumann MD Patient's identity confirmed yes Patient gave verbal consent to have these services billed to their insurance and expressed understanding that co-insurance and deductible may apply: yes This encounter was completed via two-way synchronous audio and video communication. documented in this encounter Plan of Treatment Upcoming Encounters Date Type Department Care Team (Late st Contact Info) Description 04/29/2025 11:00 AM CDT Office Visit [facility] Oncology and Hematology - [address] [place] [address] Eduard Baumann MD [address] [facility] [address] [place] [address] documented as of this encounter Visit Diagnoses Diagnosis Leukocytosis, unspecified type- Primary documented in this encounter Care Teams Sports Medicine Coordinator Relationship Specialty Start Date End Date Kana Rankin MD [address] [place] [address] PCP - General Family Practice 05/01/23 documented as of this encounter
--- OUTSIDE RECORDS SUMMARY | 2024-12-12 16:27 | XMS_ITS | Encounter Summary ---
Author Organization [facility] Address [address] [place] [address] Care Team Providers Care Meat Grader Name Role Phone Kana Rankin MD Primary Care Provider [phone] Reason for Visit * CT Scan (Routine) - Closed Specialty Diagnoses / Procedures Referred By Zoe arndt Referred To Contact Diagnoses Stomach ache Procedures CT ABDOMEN [place] [address] [place] [address] Referral ID Status Reason Start Date Expiration Date Visits Re quested Visits Authorized [id number] Closed 03/03/2024 06/01/2024 1 1 Encounter Details Date Type Department Care Team (Late Contact Info) Description 03/08/2024 9:00 AM CDT Ancillary Procedure [facility] [address] [place] [address] [place] [address] [place] [address] Stomach ache Social History Tobacco Use Types Packs/Day Years [...] Encounters Date Type Department Care Team (Late Contact Info) Description 04/29/2025 11:00 AM CDT Office Visit [facility] Oncology and Hematology - Anibal [facility] [address] [place] [address] Eduard Baumann MD [address] [facility] [address] [place] [address] documented as of this encounter Procedures Procedure Name Priority Date/Time Associated Diagnosis Comments CT ABDOMEN PELVIS WO CONTRAST Routine 03/08/2024 9:11 AM CDT Stomach ache documented in this encounter Results * CT ABDOMEN PELVIS WO CONTRAST (03/08/2024 9:11 AM CDT) Anatomical Region Laterality Modality Abdomen Computed Tomogra phy 03/08/2024 9:00 AM CDT Impressions 03/09/2024 7:34 AM CDT IMPRESSION: The right kidney is mildly compensatorily large. There is lobulation of the left kidney consistent with the sequelae of chronic scarring. There are 3 calcifications versus stones of the left kidney. 3.3 cm cyst of the right ovary. Mild anterolisthesis of L4 upon L5. Narrative 03/09/2024 7:34 AM CDT EXAM: CT ABDOMEN PELVIS WO CONTRAST DATE: 03/09/2024 7:24 AM HISTORY: Stomach ache TECHNIQUE: Helically acquired images were obtained from hemidiaphragms to the pelvic floor without IV contrast. COMPARISON: None. FINDINGS: ??On these images without IV contrast, which limits solid organ evaluation, the liver, spleen, adrenal glands and pancreas are unremarkable. There has been a cholecystectomy. The right kidney is mildly compensatorily large but otherwise normal. There is abnormal lobulation of the left kidney most consistent with the sequelae of chronic scarring. There are 3 round calcifications of the left kidney consistent with calcifications versus stones. The largest measures 6.5 mm. The abdominal aorta is normal in caliber. The appendix is normal. Small and large bowel loops are normal in caliber. No abnormalities of the stomach are noted. The uterus and bladder are unremarkable. There is a 3.3 cm cyst of the right ovary. A tampon is present in the vagina. Lung bases are clear. There is grade 1 anterolisthesis of L4 upon L5 measuring 3 mm. Procedure Note Josefina Gupta MD - 03/09/2024 EXAM: CT ABDOMEN PELVIS WO CONTRAST DATE: 03/09/2024 7:24 AM HISTORY: Stomach ache TECHNIQUE: Helically acquired images were obtained from hemidiaphragms to the pelvic floor without IV contrast. COMPARISON: None. FINDINGS: On these images without IV contrast, which limits solid organ evaluation, the liver, spleen, adrenal glands and pancreas are unremarkable. There has been a cholecystectomy. The right kidney is mildly compensatorily large but otherwise normal. There is abnormal lobulation of the left kidney most consistent with the sequelae of chronic scarring. There are 3 round calcifications of the left kidney consistent with calcifications versus stones. The largest measures 6.5 mm. The abdominal aorta is normal in caliber. The appendix is normal. Small and large bowel loops are normal in caliber. No abnormalities of the stomach are noted. The uterus and bladder are unremarkable. There is a 3.3 cm cyst of the right ovary. A tampon is present in the vagina. Lung bases are clear. There is grade 1 anterolisthesis of L4 upon L5 measuring 3 mm. IMPRESSION: The right kidney is mildly compensatorily large. There is lobulation of the left kidney consistent with the sequelae of chronic scarring. There are 3 calcifications versus stones of the left kidney. 3.3 cm cyst of the right ovary. Mild anterolisthesis of L4 upon L5. Srikanth Robledo MD CT ORDERABLES documented in this encounter Visit Diagnoses Diagnosis Stomach ache Dyspepsia and other specified disorders of function of stomach documented in this encounter Care Teams Meat Grader Relationship Specialty Start Date End Date Kana Rankin MD [address] [place] [address] PCP - General Family Practice 05/01/23 documented as of this encounter
--- OUTSIDE RECORDS SUMMARY | 2024-12-12 16:27 | XMS_ITS | Encounter Summary ---
Author Organization [facility] Address [address] [place] [address] Care Team Providers Care Emergency Medicine Nurse Practitioner Name Role Phone Kana Rankin MD Primary Care Provider [phone] Encounter Details Date Type Department Care Team (Late st Contact Info) Description 09/15/2024 External Device Data STL ABSTRACTION Provider, Abstract [...] Description 04/29/2025 11:00 AM CDT Office Visit [facility] Oncology and Hematology - [address] [place] [address] Eduard Baumann MD [address] [place] [address] [address] [place] [address] documented as of this encounter Visit Diagnoses Not on filedocumented in this encounter Care Teams Emergency Medicine Nurse Practitioner Relationship Specialty Start Date End Date Kana Rankin MD [address] [place] [address] PCP - General Family Practice 05/01/23 documented as of this encounter
--- OUTSIDE RECORDS SUMMARY | 2024-12-12 16:27 | XMS_ITS | Clinical Summary ---
Author Organization [facility] Address [address] [place] [address] Care Team Providers Care Zoning Engineer Name Role Phone Kana Rankin MD Primary Care Provider [phone] Allergies No known active allergies Medications Medication Sig Dispensed Refills Start Date End Date Status celecoxib (CeleBREX) 100 mg capsule 04/04/2021 Active cetirizine (ZyrTEC) 10 mg tablet Take 10 mg by mouth. Ac tive montelukast (SINGULAIR) 10 mg tablet Take 10 mg by mouth daily at bedtime. Active acetaminophen (TYLENOL) 325 mg tablet Take 650 mg by mouth. 08/20/2020 Act juana traZODone (DESYREL) 100 mg tablet 03/29/2021 Active Multivitamin Capsule Take 1 Capsule by mouth. Active metFORMIN (GLUCOPHAGE) 500 mg tablet Take 500 mg by mouth 2 times daily with meals. Active hydroCHLOROthiazide 25 mg tablet Take 25 mg by mouth daily. Active tirzepatide (Mounjaro) 7.5 mg/0.5 mL Pen Injector Inject by subcutaneous injection. Active Magnesium Oxide 420 mg Tablet Take by mouth. Active omeprazole (PriLOSEC) 20 mg Capsule, Delayed Release(E.C.) Take 20 mg by mouth daily. Active Active Problems No known active problems Encounters Date Type Department Care Team Description 10/02/2024 10:00 AM CDT Office Visit [facility] Oncology and Hematology [facility] [address] [place] [address] Elvia Benton MD Polycythemia, secondary (Primary Dx) 10/02/2024 Orders Only [facility] Oncology and Hematology [facility] [address] [place] [phone] Eduard Baumann MD 09/15/2024 External Device Data STL ABSTRACTION Provider, Abstract from Last 3 Months Family History Relation Name Status Comments Daughter Alive Father Alive Mother Alive Sister 1 Alive Sister 2 Alive Son Alive Social History Tobacco Use Types Packs/Day Years Used Date Smoking Tobacco: Never Tobacco Cessation:Counseling Given: Not Answered Alcohol Use Standard Drinks/Week Comments Yes 0 (1 standard drink = 0.6 oz pur e alcohol) socaily Sex and Gender Information Value Date Recorded Sex Assigned at Not on file Gender Identity Not on file Sexual Orientation Not on file Last Filed Vital Signs Vital Sign Reading Time Taken Comments Blood Pressure 118/76 10/02/2024 9:51 AM CDT Pulse 70 10/02/2024 9:51 AM CDT Temperature 36.6 ??C (97.8 ??F) 10/02/2024 9:51 AM CD T Respiratory Rate 16 10/02/2024 9:51 AM CDT Oxygen Saturation 98% 10/02/2024 9:51 AM CDT Inhaled Oxygen Concentration - - Weight 107.5 kg (237 lb) 10/02/2024 9:51 AM CDT Height - - Body Mass Index - - Plan of Treatment Upcoming Encounters Date Type Department Care Team (Late st Contact Info) Description 04/29/2025 11:00 AM CDT Office Visit [facility] Oncology and Hematology [facility] [address] [facility] [address] [place] [phone] Eduard Baumann MD [address] [facility] [address] [place] [address] Health Maintenance Due Date Last Done Comments Pre-Diabetes and Diabetes Screening 1975 PNEUMOCOCCAL VACCINE 0-64 YE ARS (1 of 2 - PCV) 1983 DTAP/TDAP/TD VACCINES (1 - Tdap) 1996 HEPATITIS B VACCINES (1 of 3 - 19+ 3-dose series) 1996 CERVICAL CANCER SCREENING 2007 BREAST CANCER SCREENING 2017 COLORECTAL SCREENING 2022 Colorectal Cancer Screening 2022 FIT-DNA Q 3 years 2022 FIT/FOBT Q 1 year 2022 Flex Sig/CT Colonography Q 5 years 2022 INFLUENZA VACCINE (#1) 2024 , 09/05/2019, 09/01/2014 COVID-19 Vaccine ( season) 2024, 02/17/2021 Procedures Procedure Name Priority Date/Time Associated Diagnosis Comments BASIC METABOLIC PANEL Routine 10/02/2024 11:57 AM CDT CBC WITH DIFFERENTIAL Routine 10/02/2024 11:54 AM CDT from Last 3 Months Results * BASIC METABOLIC PANEL (10/02/2024 11:57 AM CDT) Blood Eduard Baumann MD CHEMISTRY ORDERABLES * CBC WITH DIFFERENTIAL (10/02/2024 11:54 AM CDT) Blood Eduard Baumann MD HEMATOLOGY ORDERABLE S from Last 3 Months Care Teams Zoning Engineer Relationship Specialty Start Date End Date Kana Rankin MD [address] [place] [address] PCP - General Family Practice 05/01/23
--- OUTSIDE RECORDS SUMMARY | 2024-12-12 16:27 | XMS_ITS | Encounter Summary ---
Author Organization [facility] [employer] [facility] Address [address] [place] [address] Care Team Providers Care Spooler Operator Automatic Name Role Phone Kana Rankin MD Primary Care Provider [phone] Encounter Details Date Type Department Care Team (Late st Contact Info) Description 12/17/2023 Orders Only [facility] Oncology and Hematology - [address] [place] [address] Eduard Baumann MD [facility] [employer] [address] [place] [phone] Social History Tobacco Use Types Packs/Day Years Used Date Smoking Tobacco: Never Assessed Sex and Gender Information Value Date Recorded Sex Assigned at Not on file Gender Identity Not on file Sexual Orientation Not on file documented as of this encounter Plan of Treatment Upcoming Encounters Date Type Department Care Team (Late st Contact Info) Description 04/29/2025 11:00 AM CDT Office Visit [facility] Oncology and Hematology - [address] [place] [address] Eduard Baumann MD [address] [employer] [address] [place] [address] documented as of this encounter Procedures Procedure Name Priority Date/Time Associated Diagnosis Comments CBC WITH DIFFERENTIAL Routine 12/16/2023 10:01 AM FLOOR TECHNICIAN BASIC METABOLIC PANEL Routine 12/16/2023 10:00 AM FLOOR TECHNICIAN COMPREHENSIVE METABOLIC PANEL Routine 12/16/2023 9:26 AM FLOOR TECHNICIAN documented in this encounter Results * CBC WITH DIFFERENTIAL (12/16/2023 10:01 AM FLOOR TECHNICIAN) Blood Eduard Baumann MD HEMATOLOGY ORDERABLE S * BASIC METABOLIC PANEL (12/16/2023 10:00 AM FLOOR TECHNICIAN) Blood Eduard Baumann MD CHEMISTRY ORDERABLES * COMPREHENSIVE METABOLIC PANEL (12/16/2023 9:26 AM FLOOR TECHNICIAN) Blood Eduard Baumann MD CHEMISTRY ORDERABLES documented in this encounter Visit Diagnoses Not on filedocumented in this encounter Care Teams Spooler Operator Automatic Relationship Specialty Start Date End Date Kana Rankin MD [address] [place] [address] PCP - General Family Practice 05/01/23 documented as of this encounter
--- OUTSIDE RECORDS SUMMARY | 2024-12-12 16:27 | XMS_ITS | Encounter Summary ---
Author Organization [facility] [employer] [facility] Address [address] [place] [address] Care Team Providers Care Winch Stripper Name Role Phone Kana Rankin MD Primary Care Provider [phone] Encounter Details Date Type Department Care Team (Late Contact Info) Description 03/04/2024 Orders Only [facility] Oncology and Hematology - [address] [place] [address] Eduard Baumann MD [facility] [employer] [address] [place] [address] Social History Tobacco Use Types Packs/Day [...] Description 04/29/2025 11:00 AM CDT Office Visit [facility] Oncology and Hematology - [address] [place] [address] Eduard Baumann MD [address] [employer] [address] [place] [address] documented as of this encounter Procedures Procedure Name Priority Date/Time Associated Diagnosis Comments COMPREHENSIVE METABOLIC PANEL Routine 03/02/2024 9:46 AM CDT documented in this encounter Results * COMPREHENSIVE METABOLIC PANEL (03/02/2024 9:46 AM CDT) Blood Eduard Baumann MD CHEMISTRY ORDERABLES documented in this encounter Visit Diagnoses Not on filedocumented in this encounter Care Teams Winch Stripper Relationship Specialty Start Date End Date Kana Rankin MD [address] [place] [address] PCP - General Family Practice 05/01/23 documented as of this encounter
--- OUTSIDE RECORDS SUMMARY | 2024-12-12 16:27 | XMS_ITS | Encounter Summary ---
Author Organization [facility] [employer] Address [address] [place] [address] Care Team Providers Care Technical Support Consultant Name Role Phone Kana Rankin MD Primary Care Provider [phone] Encounter Details Date Type Department Care Team (Late st Contact Info) Description 05/02/2023 Orders Only [facility] Oncology and Hematology - [place] [address] [facility] [address] [place] [address] IcenogleRickeyna Dietary iron deficiency without anemia Social History Tobacco Use Types Packs/Day Years Used Date Smoking Tobacco: Never Assessed Sex and Gender Information Value Date Recorded Sex Assigned at Not on file Gender Identity Not on file Sexual Orientation Not on file documented as of this encounter Plan of Treatment Upcoming Encounters Date Type Department Care Team (Late st Contact Info) Description 04/29/2025 11:00 AM CDT Office Visit [facility] Oncology and Hematology - [place] [address] [place] [address] Eduard Baumann MD [address] [facility] [address] [place] [address] documented as of this encounter Visit Diagnoses Diagnosis Dietary iron deficiency without anemia Other disorders of iron metabolism documented in this encounter Care Teams Technical Support Consultant Relationship Specialty Start Date End Date Kana Rankin MD [address] [place] [address] PCP - General Family Practice 05/01/23 documented as of this encounter
--- OUTSIDE RECORDS SUMMARY | 2024-12-12 16:27 | XMS_ITS | Encounter Summary ---
Author Organization [facility] Address [address] [place] [address] Care Team Providers Care Radio Frequency Technician Name Role Phone Kana Rankin MD Primary Care Provider [phone] Encounter Details Date Type Department Care Team [...] Description 04/29/2025 11:00 AM CDT Office Visit [facility] Oncology and Hematology - [place] [address] [place] [address] [address] [place] [address] Eduard Baumann MD [address] [place] [address] [address] [place] [address] documented as of this encounter Visit Diagnoses Not on filedocumented in this encounter Care Teams Radio Frequency Technician Relationship Specialty Start Date End Date Kana Rankin MD [address] [place] [address] PCP - General Family Practice 05/01/23 documented as of this encounter
--- OUTSIDE RECORDS SUMMARY | 2024-12-12 16:27 | XMS_ITS | Encounter Summary ---
Author Organization [facility] Address [address] [place] [address] Care Team Providers Care Schedule Supervisor Name Role Phone Kana Rankin MD Primary Care Provider [phone] Encounter Details Date Type Department Care Team (Late st Contact Info) Description 08/18/2024 External Device Data STL ABSTRACTION Provider, Abstract [...] Description 04/29/2025 11:00 AM CDT Office Visit [facility] Oncology and Hematology - [place] [address] [place] [address] [address] [place] [address] Eduard Baumann MD [address] [place] [address] [address] [place] [address] documented as of this encounter Visit Diagnoses Not on filedocumented in this encounter Care Teams Schedule Supervisor Relationship Specialty Start Date End Date Kana Rankin MD [address] [place] [address] PCP - General Family Practice 05/01/23 documented as of this encounter
--- OUTSIDE RECORDS SUMMARY | 2024-12-12 16:27 | XMS_ITS | Encounter Summary ---
Author Organization [facility] Address [address] [place] [address] Care Team Providers Care Personal Development Mentor Name Role Phone Kana Rankin MD Primary Care Provider [phone] Encounter Details Date Type Department Care Team (Late st Contact Info) Description 06/02/2024 External Device Data STL ABSTRACTION Provider, Abstract [...] Description 04/29/2025 11:00 AM CDT Office Visit [facility] Oncology and Hematology - [place] [address] [place] [address] [address] [place] [address] Eduard Baumann MD [address] [place] [address] [address] [place] [address] documented as of this encounter Visit Diagnoses Not on filedocumented in this encounter Care Teams Personal Development Mentor Relationship Specialty Start Date End Date Kana Rankin MD [address] [place] [address] PCP - General Family Practice 05/01/23 documented as of this encounter
--- OUTSIDE RECORDS SUMMARY | 2024-12-12 16:27 | XMS_ITS | Encounter Summary ---
Author Organization [facility] [employer] [facility] Address [address] [place] [address] Care Team Providers Care Vice President Of Software Engineering Name Role Phone Kana Rankin MD Primary Care Provider [phone] Encounter Details Date Type Department Care Team (Late Contact Info) Description 10/02/2024 Orders Only [facility] Oncology and Hematology - Anibal [address] [place] [address] Eduard Baumann MD [facility] Service Seeking [address] [place] [address] Social History Tobacco Use Types Packs/Day [...] and Hematology - Anibal [address] [place] [address] Eduard Baumann MD [address] Se[address] [place] [address] documented as of this encounter Procedures Procedure Name Priority Date/Time Associated Diagnosis Comments BASIC METABOLIC PANEL Routine 10/02/2024 11:57 AM CDT CBC WITH DIFFERENTIAL Routine 10/02/2024 11:54 AM CDT documented in this encounter Results * BASIC METABOLIC PANEL (10/02/2024 11:57 AM CDT) Blood Eduard Baumann MD CHEMISTRY ORDERABLES * CBC WITH DIFFERENTIAL (10/02/2024 11:54 AM CDT) Blood Eduard Baumann MD HEMATOLOGY ORDERABLE S documented in this encounter Visit Diagnoses Not on filedocumented in this encounter Care Teams Vice President Of Software Engineering Relationship Specialty Start Date End Date Kana Rankin MD [address] [place] [address] PCP - General Family Practice 05/01/23 documented as of this encounter
--- OUTSIDE RECORDS SUMMARY | 2024-12-12 16:27 | XMS_ITS | Encounter Summary ---
Author Organization [facility] [employer] [facility] Address [address] [place] [address] Care Team Providers Care Forest Fire Equipment Operator Name Role Phone Kana Rankin MD Primary Care Provider [phone] Encounter Details Date Type Department Care Team (Late Contact Info) Description 05/31/2023 Orders Only [facility] Oncology and Hematology [address] [place] [phone] Eduard Baumann MD [facility] [employer] [address] [place] [address] Social History Tobacco Use Types Packs/Day Years Used Date Smoking Tobacco: Never Assessed Sex and Gender Information Value Date Recorded Sex Assigned at Not on file Gender Identity Not on file Sexual Orientation Not on file documented as of this encounter Plan of Treatment Upcoming Encounters Date Type Department Care Team (Late Contact Info) Description 04/29/2025 11:00 AM CDT Office Visit [facility] Oncology and Hematology - [place]ibal [address] [place] [address] Eduard Baumann MD [address] [address] [place] [address] documented as of this encounter Procedures Procedure Name Priority Date/Time Associated Diagnosis Comments BCR/ABL BY PCR Routine 05/28/2023 3:02 PM CDT documented in this encounter Results * BCR/ABL1, MONITORING QUANTITATIVE (05/28/2023 3:02 PM CDT) Eduard Baumann MD BODY FLUIDS AND STOO LS documented in this encounter Visit Diagnoses Not on filedocumented in this encounter Care Teams Forest Fire Equipment Operator Relationship Specialty Start Date End Date Kana Rankin MD [address] [place] [address] PCP - General Family Practice 05/01/23 documented as of this encounter
--- OUTSIDE RECORDS SUMMARY | 2024-12-12 16:27 | XMS_ITS | Encounter Summary ---
Author Organization [facility] [employer] [facility] Address [address] [place] [address] Care Team Providers Care Hot Shot Name Role Phone Kana Rankin MD Primary Care Provider [phone] Encounter Details Date Type Department Care Team (Late Contact Info) Description 05/23/2023 Orders Only [facility] Oncology and Hematology - [place]ibal [address] [place] [phone] Eduard Baumann MD [facility] [employer] [address] [place] [phone] Social History Tobacco Use Types Packs/Day Years Used Date Smoking Tobacco: Never Assessed Sex and Gender Information Value Date Recorded Sex Assigned at Not on file Gender Identity Not on file Sexual Orientation Not on file documented as of this encounter Plan of Treatment Upcoming Encounters Date Type Department Care Team (Late Contact Info) Description 04/29/2025 11:00 AM CDT Office Visit [facility] Oncology and Hematology - Anibal [address] [place] [address] Eduard Baumann MD [address] [employer] [address] [place] [address] documented as of this encounter Procedures Procedure Name Priority Date/Time Associated Diagnosis Comments FLOW CYTOMETRY REPORT Routine 05/22/2023 3:27 PM CDT PATHOLOGY REPORT Routine 05/20/2023 9:13 AM CDT documented in this encounter Results * FLOW CYTOMETRY REPORT (05/22/2023 3:27 PM CDT) Eduard Baumann MD PATHOLOGY/CYTOLOGY O RDERABLES * PATHOLOGY REPORT (05/20/2023 9:13 AM CDT) Eduard Baumann MD PATHOLOGY/CYTOLOGY O RDERABLES documented in this encounter Visit Diagnoses Not on filedocumented in this encounter Care Teams Hot Shot Relationship Specialty Start Date End Date Kana Rankin MD [address] [place] [address] PCP - General Family Practice 05/01/23 documented as of this encounter
--- OUTSIDE RECORDS SUMMARY | 2024-12-12 16:27 | XMS_ITS | Encounter Summary ---
Author Organization [facility] Address [address] [place] [address] Care Team Providers Care Open Hearth Melter Name Role Phone Kana Rankin MD Primary Care Provider [phone] Encounter Details Date Type Department Care Team (Late st Contact Info) Description 01/01/2024 External Device Data STL ABSTRACTION Provider, Abstract [...] Description 04/29/2025 11:00 AM CDT Office Visit [facility] Oncology and Hematology - [address] [place] [address] Eduard Baumann MD [address] [facility] [address] [place] [address] documented as of this encounter Visit Diagnoses Not on filedocumented in this encounter Care Teams Open Hearth Melter Relationship Specialty Start Date End Date Kana Rankin MD [address] [place] [address] PCP - General Family Practice 05/01/23 documented as of this encounter
--- OUTSIDE RECORDS SUMMARY | 2024-12-12 16:27 | XMS_ITS | Encounter Summary ---
Author Organization [facility] [employer] [facility] Address [address] [place] [address] Care Team Providers Care Lab Pack Chemist Name Role Phone Kana Rankin MD Primary Care Provider [phone] Encounter Details Date Type Department Care Team (Late st Contact Info) Description 05/07/2023 Orders Only [facility] Oncology and Hematology - Anibal [address] [place] [address] Eduard Baumann MD [facility] [employer] [address] [place] [address] Social History Tobacco Use Types Packs/Day Years Used Date Smoking Tobacco: Never Assessed Sex and Gender Information Value Date Recorded Sex Assigned at Not on file Gender Identity Not on file Sexual Orientation Not on file documented as of this encounter Plan of Treatment Upcoming Encounters Date Type Department Care Team (Late Contact Info) Description 04/29/2025 11:00 AM CDT Office Visit [facility] Oncology and Hematology - Anibal [address] [place] [address] Eduard Baumann MD [address] [employer] [address] [place] [address] documented as of this encounter Procedures Procedure Name Priority Date/Time Associated Diagnosis Comments ERYTHROPOIETIN LEVEL Routine 05/01/2023 9:33 AM CDT documented in this encounter Results * ERYTHROPOIETIN LEVEL (05/01/2023 9:33 AM CDT) Blood Eduard Baumann MD CHEMISTRY ORDERABLES documented in this encounter Visit Diagnoses Not on filedocumented in this encounter Care Teams Lab Pack Chemist Relationship Specialty Start Date End Date Kana Rankin MD [address] [place] [address] PCP - General Family Practice 05/01/23 documented as of this encounter
--- OUTSIDE RECORDS SUMMARY | 2024-12-12 16:27 | XMS_ITS | Encounter Summary ---
Author Organization [facility] [employer] [facility] Address [address] [place] [address] Care Team Providers Care Centrifugal Drier Operator Name Role Phone Kana Rankin MD Primary Care Provider [phone] Reason for Visit * Reason Comments Follow Up Encounter Details Date Type Department Care Team (Late st Contact Info) Description 05/28/2023 10:15 AM CDT Office Visit [facility] Oncology and Hematology - [place] [address] [place] [address] [address] [place] [address] Eduard Baumann MD [address] [facility] [address] [place] [address] Leukocytosis, unspecified type (Primary Dx) Social History Tobacco Use Types Packs/Day Years Used Date Smoking Tobacco: Never Assessed Sex and Gender Information Value Date Recorded Sex Assigned at Not on file Gender Identity Not on file Sexual Orientation Not on file documented as of this encounter Last Filed Vital Signs Vital Sign Reading Time Taken Comments Blood Pressure 123/71 05/28/2023 10:07 AM CDT Pulse 81 05/28/2023 10:07 AM CDT Temperature 36 ??C (96.8 ??F) 05/28/2023 10:07 AM CDT Respiratory Rate 10 05/28/2023 10:07 AM CDT Oxygen Saturation 97% 05/28/2023 10:07 AM CDT Inhaled Oxygen Concentration - - Weight 104.8 kg (231 lb) 05/28/2023 10:07 AM CDT Height - - Body Mass Index - - documented in this encounter Progress Notes * Eduard Baumann MD - 05/28/2023 10:30 AM CDT HEMATOLOGY / ONCOLOGY PROGRESS NOTE Patient Identification: Name: Lorelei Hall Age: 47 y.o. Sex: female : 1975 DIAGNOSIS Leukocytosis Erythrocytosis CURRENT TREATMENT Expectant TREATMENT HISTORY SUBJECTIVE Patient came into the office for follow-up visit. She denies any fevers and chills. Denies any chest pain or shortness of breath. No bleeding and bruising. No other new complaints. Review of system Constitutional: Patient did not [...] dizziness Skin: No lumps, bumps or rashes. Objective: Vital signs in last 24 hours: As per nursing note Exam: General appearance: alert, cooperative, no distress, appears stated age Head: normocephalic, without obvious abnormality, atraumatic Eyes: conjunctivae/corneas clear, EOM's intact Ears: normal external ear canals AU Nose: Nares normal. Septum midline. Mucosa normal. No drainage or sinus tenderness Throat: Lips, mucosa, and tongue normal. Teeth and gums normal Neck: supple, symmetrical, trachea midline. Lungs: clear to auscultation bilaterally Heart: regular rate and rhythm, S1, S2 normal, no murmur, click, rub or gallop Abdomen: soft, non-tender. Bowel sounds normal. No masses, No organomegaly Extremities: extremities normal, atraumatic, no cyanosis or edema Skin: Skin color, texture, turgor normal. No rashes or lesions Lymph nodes: No lymphadenopathy Neuro: No obvious focal deficit PATH LABS Labs from May 01, 2023 showed erythropoietin level 8.0 immunoglobin G 1139 IgA 153 IgM 110 iron 63 saturation 15% ferritin 28 C-reactive protein 0.6 JAK2 mutation negative ESR 14 hemoglobin 11.1 hematocrit 46.7 hemoglobin 15.8 @IMAGEIMP@ Assessment: Plan: There are no problems to display for this patient. 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 Erythropoietin level. Could be secondary to obesity. No need for phlebotomy. I recommended her to take baby aspirin on the days when she is not having menstrual bleeding. Leukocytosis. Flow cytometric analysis showed no evidence of leukemia or lymphoma. Reactive markersare normal. We will order testing for BCR ABL translocation. Video visit in 2 weeks. Frequent sinus infection. Immunoglobulin levels are normal. Arthralgia. She is on Celebrex. ? TOBACCO COUNSELING She is not a tobacco/nicotine user. 05/28/2023 Eduard Baumann MD documented in this encounter Plan of Treatment Upcoming Encounters Date Type Department Care Team (Late st Contact Info) Description 04/29/2025 11:00 AM CDT Office Visit [facility] Oncology and Hematology [facility] [address] [place] [address] [address] [place] [address] Eduard Baumann MD [address] [facility] [address] [place] [address] documented as of this encounter Visit Diagnoses Diagnosis Leukocytosis, unspecified type- Primary documented in this encounter Care Teams Centrifugal Drier Operator Relationship Specialty Start Date End Date Kana Rankin MD [address] [place] [phone] PCP - General Family Practice 05/01/23 documented as of this encounter
--- OUTSIDE RECORDS SUMMARY | 2024-12-12 16:27 | XMS_ITS | Encounter Summary ---
Author Organization [facility] [employer] [facility] Address [address] [place] [address] Care Team Providers Care Medical Research Associate Name Role Phone Kana Rankin MD Primary Care Provider [phone] Reason for Visit * Reason Comments Follow Up Encounter Details Date Type Department Care Team (Late st Contact Info) Description 10/02/2024 10:00 AM CDT Office Visit [facility] Oncology and Hematology - [place] [address] [place] [address] Elvia Benton MD [address] [place] [address] Polycythemia, secondary (Primary Dx) Social History Tobacco Use Types [...] documented in this encounter Progress Notes * Elvia Benton MD - 10/02/2024 5:18 PM CDT HEMATOLOGY / ONCOLOGY PROGRESS NOTE Patient Identification: Name: Lorelei Hall Age: 49 y.o. Sex: female : 1975 DIAGNOSIS Leukocytosis Erythrocytosis CURRENT TREATMENT Expectant TREATMENT HISTORY SUBJECTIVE Patient came to the office for follow-up visit. She denies any fevers and chills. She is complaining of some lower back pain and going to have CT scan done. Denies any dysuria but occasional blood inthe urine. No other new complaint. Review of system Constitutional: Patient did not mention fevers, sweats, denies any tiredness or fatigue. Weight andappetite stable. HEENT: Patient did not mention sinus congestion, [...] sweats, flushing Musculoskeletal: Patient not mention: myalgia, arthralgia, complain of lower back pain Neurological: Patient did not mention blurry or disturbed vision, numbness/weakness, dizziness Skin: No lumps, bumps or rashes. 12 point review of system was reviewed Objective: Vital signs in [...] No lymphadenopathy Neuro: No obvious focal deficit Exam as above LABS Labs from May 01, 2023 showed erythropoietin level 8.0 immunoglobin G 1139 IgA 153 IgM 110 iron 63 saturation 15% ferritin 28 C-reactive protein 0.6 JAK2 mutation negative ESR 14 hemoglobin 11.1 hematocrit 46.7 hemoglobin 15.8 Labs from December 16 showed WBC 10.0 hemoglobin 14.9 platelet 346,000 creatinine 0.8 Labs from March 02 showed WBC 10.1 hemoglobin 14 platelet 3 64,000 creatinine 0.7 Labs from 10/02/24 showed WBC 13 hemoglobin 14.2 platelet 340K Assessment: Plan: There are no problems to display for this patient. 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 Erythropoietin level. Could be secondary to obesity. Labs noted. Hematocrit and hemoglobin is stable. Continue baby aspirin. Recommended regular exercise and weight loss. No need for phlebotomy. Reactive leukocytosis. BCR-ABL translocation and flow cytometric analysis was negative for malignancy. WBC mildly elevated. Will continue to observe. Arthralgia. Stable on Celebrex. Back pain and hematuria. Patient is going to have CT scan done. She will follow- up with the primarycare physician. Will see Dr. Baumann in 6 months TOBACCO COUNSELING She is not a tobacco/nicotine user. 10/02/2024 documented in this encounter Plan of Treatment Upcoming Encounters Date Type Department Care Team (Late st Contact Info) Description 04/29/2025 11:00 AM CDT Office Visit [facility] Oncology and Hematology - [place] [address] [place] [address] [address] [place] [address] Eduard Baumann MD [address] [facility] [address] [place] [address] Scheduled Orders Name Type Priority Associated Diagnoses Orde r Schedule CBC WITH DIFFERENTIAL Lab Routine Polycythemia, secondary Expected: 04/01/2025, Expires: 10/02/2025 COMPREHENSIVE METABOLIC PANEL Lab Stat Polycythemia, secondary Expected: 04/01/2025, Expires: 10/02/2025 documented as of this encounter Visit Diagnoses Diagnosis Polycythemia, secondary- Primary documented in this encounter Care Teams Medical Research Associate Relationship Specialty Start Date End Date Kana Rankin MD [address] [place] [address] PCP - General Family Practice 05/01/23 documented as of this encounter
--- OUTSIDE RECORDS SUMMARY | 2024-12-12 16:27 | XMS_ITS | Encounter Summary ---
Author Organization [facility] [employer] [facility] Address [address] [place] [address] Care Team Providers Care Wash Rack Operator Name Role Phone Kana Rankin MD Primary Care Provider [phone] Reason for Visit * Reason Comments Follow Up Encounter Details Date Type Department Care Team (Late st Contact Info) Description 12/16/2023 2:15 PM BILL CLERK Office Visit [facility] Oncology and Hematology - [place] [address] [place] [address] [address] [place] [address] Eduard Baumann MD [address] [facility] [address] [place] [address] Polycythemia, secondary (Primary Dx) Social History Tobacco Use Types Packs/Day Years Used Date Smoking Tobacco: Never Assessed Sex and Gender Information Value Date Recorded Sex Assigned at Not on file Gender Identity Not on file Sexual Orientation Not on file documented as of this encounter Last Filed Vital Signs Vital Sign Reading Time Taken Comments Blood Pressure 141/88 12/16/2023 2:25 PM BILL CLERK Pulse 89 12/16/2023 2:23 PM BILL CLERK Temperature 36.3 ??C (97.3 ??F) 12/16/2023 2:23 PM CS T Respiratory Rate 10 12/16/2023 2:23 PM BILL CLERK Oxygen Saturation 96% 12/16/2023 2:23 PM BILL CLERK Inhaled Oxygen Concentration - - Weight 103.9 kg (229 lb) 12/16/2023 2:23 PM BILL CLERK Height - - Body Mass Index - - documented in this encounter Progress Notes * Eduard Baumann MD - 12/16/2023 3:55 PM CST HEMATOLOGY / ONCOLOGY PROGRESS NOTE Patient Identification: Name: Loerlei Hall Age: 48 y.o. Sex: female : 1975 DIAGNOSIS Leukocytosis Erythrocytosis CURRENT TREATMENT Expectant TREATMENT HISTORY SUBJECTIVE Patient came to the office for follow-up visit. She denies any bleeding and bruising. She has lost 2 pound weight. No chest pain and shortness of breath. No other new concerns. Review of system Constitutional: Patient did not mention fevers, sweats, denies any tiredness and fatigue, lost 2 pound weight. HEENT: Patient did not mention sinus congestion, [...] No obvious focal deficit Exam as above PATH LABS Labs from May 01, 2023 showed erythropoietin level 8.0 immunoglobin G 1139 IgA 153 IgM 110 iron 63 saturation 15% ferritin 28 C-reactive protein 0.6 JAK2 mutation negative ESR 14 hemoglobin 11.1 hematocrit 46.7 hemoglobin 15.8 Labs from December 16 showed WBC 10.0 hemoglobin 14.9 platelet 346,000 creatinine 0.8 @IMAGEIMP@ Assessment: Plan: There are no problems to display for this patient. 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 Erythropoietin level. Could be secondary to obesity. Labs showed stable hematocrit and hemoglobin. RBC count is slightly elevated. I have again recommended taking baby aspirin X of the days of the menstrual bleeding. I have recommended regular exerciseand weight loss. She will discontinue oral iron as well. No need for phlebotomy. Leukocytosis. Previous workup showed negative testing for BCR-ABL translocation and flow cytometricanalysis for leukemia. WBC normal. Will continue to observe. Arthralgia. Stable on Celebrex. Follow-up in 3 months. TOBACCO COUNSELING She is not a tobacco/nicotine user. 12/16/2023 Eduard Baumann MD CLERK documented in this encounter Plan of Treatment Upcoming Encounters Date Type Department Care Team (Late st Contact Info) Description 04/29/2025 11:00 AM CDT Office Visit [facility] Oncology and Hematology - [place] [address] [place] [address] [address] [place] [address] Eduard Baumann MD [address] [facility] [address] [place] [address] Scheduled Orders Name Type Priority Associated Diagnoses Orde r Schedule CBC WITH DIFFERENTIAL Lab Stat Polycythemia, secondary Expected: 03/09/2024, Expires: 12/16/2024 BASIC METABOLIC PANEL Lab Stat Polycythemia, secondary Expected: 03/09/2024, Expires: 12/16/2024 documented as of this encounter Visit Diagnoses Diagnosis Polycythemia, secondary- Primary documented in this encounter Care Teams Wash Rack Operator Relationship Specialty Start Date End Date Kana Rankin MD [address] [place] [phone] PCP - General Family Practice 05/01/23 documented as of this encounter
--- OUTSIDE RECORDS SUMMARY | 2024-12-12 16:27 | XMS_ITS | Encounter Summary ---
Author Organization [facility] Address [address] [place] [address] Care Team Providers Care Ell Tutor Name Role Phone Kana Rankin MD Primary Care Provider [phone] Encounter Details Date Type Department Care Team (Late st Contact Info) Description 01/21/2024 External Device Data STL ABSTRACTION Provider, Abstract [...] Description 04/29/2025 11:00 AM CDT Office Visit [facility] Oncology and Hematology - [address] [place] [address] Eduard Baumann MD [address] [facility] [address] [place] [address] documented as of this encounter Visit Diagnoses Not on filedocumented in this encounter Care Teams Ell Tutor Relationship Specialty Start Date End Date Kana Rankin MD [address] [place] [address] PCP - General Family Practice 05/01/23 documented as of this encounter
--- OUTSIDE RECORDS SUMMARY | 2024-12-12 16:27 | XMS_ITS | Encounter Summary ---
Author Organization [facility] Address [address] [place] [address] Care Team Providers Care Information Systems Director Name Role Phone Kana Rankin MD Primary Care Provider [phone] Encounter Details Date Type Department Care Team [...] Description 04/29/2025 11:00 AM CDT Office Visit [facility] Oncology and Hematology - [place]ibal [address] [place] [address] [address] [place] [address] Eduard Baumann MD [address] [place] [address] [address] [place] [address] documented as of this encounter Visit Diagnoses Not on filedocumented in this encounter Care Teams Information Systems Director Relationship Specialty Start Date End Date Kana Rankin MD [address] [place] [address] PCP - General Family Practice 05/01/23 documented as of this encounter
--- OUTSIDE RECORDS SUMMARY | 2024-12-12 16:27 | XMS_ITS | Encounter Summary ---
Author Organization [facility] Address [address] [place] [address] Care Team Providers Care Card Seller Name Role Phone Kana Rankin MD Primary Care Provider [phone] Reason for Visit * Reason Comments Follow Up Encounter Details Date Type Department Care Team (Late st Contact Info) Description 03/02/2024 11:30 AM CDT Office Visit [facility] Oncology and Hematology - Anibal [address] [facility] [address] [place] [address] Eduard Baumann MD [address] [facility] [address] [place] [address] Polycythemia, secondary (Primary Dx) Social [...] Sign Reading Time Taken Comments Blood Pressure 113/73 03/02/2024 11:48 AM CDT Pulse 88 03/02/2024 11:48 AM CDT Temperature 36.4 ??C (97.6 ??F) 03/02/2024 11:48 AM C DT Respiratory Rate 18 03/02/2024 11:48 AM CDT Oxygen Saturation 97% 03/02/2024 11:48 AM CDT Inhaled Oxygen Concentration - - Weight 105.2 kg (232 lb) 03/02/2024 11:48 AM CDT Height - - Body Mass Index - - documented in this encounter Progress Notes * Eduard Baumann MD - 03/02/2024 12:22 PM CDT HEMATOLOGY / ONCOLOGY PROGRESS NOTE Patient Identification: Name: Lorelei Hall Age: 48 y.o. Sex: female : [...] hemoglobin 14 platelet 3 64,000 creatinine 0.7 Assessment: Plan: There are no problems to display for this patient. 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 Erythropoietin level. Could be secondary to obesity. Labs noted. Hematocrit and hemoglobin is stable. Continue baby aspirin. I recommended regular exercise and weight loss. No need for phlebotomy. Reactive leukocytosis. BCR-ABL translocation and flow cytometric analysis was negative for malignancy. WBC stable. Will continue to observe. Arthralgia. Stable on Celebrex. Back pain and hematuria. Patient is going to have CT scan done. She will follow- up with the primarycare physician. TOBACCO COUNSELING She is not a tobacco/nicotine user. 03/02/2024 Eduard Baumann MD documented in this encounter Plan of Treatment Upcoming Encounters Date Type Department Care Team (Late st Contact Info) Description 04/29/2025 11:00 AM CDT Office Visit [facility] Oncology and Hematology - Anibal [address] [facility] [address] [place] [address] Eduard Baumann MD [address] [facility] [address] [place] [address] Scheduled Orders Name Type Priority Associated Diagnoses Orde r Schedule CBC WITH DIFFERENTIAL Lab Stat Polycythemia, secondary Expected: 09/01/2024, Expires: 03/02/2025 BASIC METABOLIC PANEL Lab Stat Polycythemia, secondary Expected: 09/01/2024, Expires: 03/02/2025 documented as of this encounter Visit Diagnoses Diagnosis Polycythemia, secondary- Primary documented in this encounter Care Teams Card Seller Relationship Specialty Start Date End Date Kana Rankin MD [address] [place] [address] PCP - General Family Practice 05/01/23 documented as of this encounter
--- OUTSIDE RECORDS SUMMARY | 2024-12-12 16:27 | XMS_ITS | Encounter Summary ---
Author Organization [facility] [employer] [facility] Address [address] [place] [address] Care Team Providers Care Wood Milling Machine Tender Name Role Phone Kana Rankin MD Primary Care Provider [phone] Encounter Details Date Type Department Care Team (Late Contact Info) Description 05/20/2023 Orders Only [facility] Oncology and Hematology - Anibal [address] [place] [address] Eduard Baumann MD [facility] [address] [place] [address] Social History Tobacco Use Types Packs/Day Years Used Date Smoking Tobacco: Never Assessed Sex and Gender Information Value Date Recorded Sex Assigned at Not on file Gender Identity Not on file Sexual Orientation Not on file documented as of this encounter Plan of Treatment Upcoming Encounters Date Type Department Care Team (Late Contact Info) Description 04/29/2025 11:00 AM CDT Office Visit [facility] Oncology and Hematology - Anibal [address] [place] [address] Eduard Baumann MD [address] [place] [address] documented as of this encounter Procedures Procedure Name Priority Date/Time Associated Diagnosis Comments IMMUNOGLOBULINS IGG IGA IGM Routine 05/17/2023 1:33 PM CDT documented in this encounter Results * IMMUNOGLOBULINS IGG IGA IGM (05/17/2023 1:33 PM CDT) Blood Eduard Baumann MD CHEMISTRY ORDERABLES documented in this encounter Visit Diagnoses Not on filedocumented in this encounter Care Teams Wood Milling Machine Tender Relationship Specialty Start Date End Date Kana Rankin MD [address] [place] [address] PCP - General Family Practice 05/01/23 documented as of this encounter
--- OUTSIDE RECORDS SUMMARY | 2024-12-12 16:28 | XMS_ITS | Encounter Summary ---
Author Organization [facility] Address [address] [place] [address] Care Team Providers Care Furniture Dipper Name Role Phone Kana Rankin MD Primary Care Provider [phone] Reason for Referral * Diagnostic Imaging (Routine) - Closed Specialty Diagnoses / Procedures Referred By Contac t Referred To Contact Diagnoses Pain in both knees, unspecified chronicity Procedures XR Knee Left 4 or More Views Bradley Hackett PA Phone: tel: fax: [place] [address] [place] [address] Referral ID Status Reason Start Date Expiration Date Visits Re quested Visits Authorized [id number] Closed 07/04/2020 08/03/2021 1 1 * Diagnostic Imaging (Routine) - Closed Specialty Diagnoses / Procedures Referred By Contac t Referred To Contact Diagnoses Pain in both knees, unspecified chronicity Procedures XR Knee Right 4 or More Views Bradley aHckett PA Phone: tel: fax: [place] [address] [place] [address] Referral ID Status Reason Start Date Expiration Date Visits Re quested Visits Authorized [id number] Closed 07/04/2020 08/03/2021 1 1 Reason for Visit * Diagnostic Imaging (Routine) - Closed Specialty Diagnoses / Procedures Referred By Contac t Referred To Contact Diagnoses Pain in both knees, unspecified chronicity Procedures XR Knee Right 4 or More Views Bradley Hackett PA Phone: tel: fax: [facility] [address] [address] [place] [address] Referral ID Status Reason Start Date Expiration Date Visits Re quested Visits Authorized [id number] Closed 07/04/2020 08/03/2021 1 1 Encounter Details Date Type Department Care Team (Latest Contact Info) Description 07/07/2020 1:15 PM CDT - 07/07/2020 11:59 PM CDT Hospital Encounter [id number] [address] [facility] [address] [place] [address] Gabino Montes MD [address] [place], [place] [id number] Bradley Hackett PA [address] [facility] [place], [place] [id number] Pain in both knees, unspecified chronicity Discharge Disposition: Discharge to home or self care Social History Tobacco Use Types Packs/Day Years Used Date Smoking Tobacco: Never Smokeless Tobacco: Never Alcohol Use Standard Drinks/Week Comments Yes 0 (1 standard drink = 0.6 oz pur e alcohol) Comments Unknown Sex and Gender Information Value Date Recorded Sex Assigned at Not on file 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 Gender Identity Not on file Sexual Orientation Straight 08/04/2020 2: 23 PM CDT 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 Not on file Not on file documented as of this encounter Medications at Time of Discharge albuterol HFA (PROVENTIL HFA,VENTOLIN HFA,PROAIR HFA) 90 mcg/actuation inhaler ProAir HFA 90 mcg/actuation aerosol inhaler celecoxib (CeleBREX) 200 mg capsule 200 in am and 100 in pm 1 04/09/2019 cetirizine (ZyrTEC) 10 mg tablet Take 1 tablet (10 mg total) by mouth vocational horticulture instructor before breakfast fluticasone propionate (FLONASE) 50 mcg/actuation nasal spray fluticasone propionate 50 mcg/actuation nasal spray,suspension hydroCHLOROthiaz lencho (HYDRODIURIL) 25 mg tabletIndication s:hypertension Take 1 tablet (25 mg total) by mouth vocational horticulture instructor before breakfast 1 05/11/2019 metFORMIN (GLUCOPHAGE) 500 mg tablet 1 tablet (500 mg total) 2 (two) times a day with meals 5 04/24/2019 montelukast (SINGULAIR) 10 mg tablet Take 1 tablet (10 mg total) by mouth nightly traZODone (DESYREL) 50 mg tablet Take 100 mg by mouth nightly 0 05/01/2019 atorvastatin (LIPITOR) 20 mg tablet Take 20 mg by mouth nightly 2 dexlansoprazole (DEXILANT) 60 mg capsule Dexilant 60 mg capsule, delayed release Take 1 capsule(s) every day by oral route for [address] (NexIUM) 40 mg capsule Take 40 mg by mouth daily before breakfast 2 traMADol (ULTRAM) 50 mg tablet Take 50 mg by mouth every 6 (six) hours 0 documented as of this encounter Discharge Disposition Disposition Code Departure Means Destination Discharge to home or self care documented in this encounter Plan of Treatment Not on file documented as of this encounter Procedures Procedure Name Priority Date/Time Associated Diagnosis Comments XR KNEE RIGHT 4 OR MORE VIEWS Schedule Routine, Read Routine (OP Routine) 07/07/2020 1:39 PM CDT Pain in both knees, unspecified chronicity XR KNEE LEFT 4 OR MORE VIEWS Schedule Routine, Read Routine (OP Routine) 07/07/2020 1:39 PM CDT Pain in both knees, unspecified chronicity documented in this encounter Results * XR Knee Left 4 or More Views (07/07/2020 1:39 PM CDT) Anatomical Region Laterality Modality Lower Extremities, Knee Left Computed Radiography 07/07/2020 1:46 PM CDT Impressions 07/07/2020 1:46 PM CDT 1. ??Mild right knee lateral and patellofemoral joint osteoarthritis. 2. ??Mild left knee patellofemoral joint osteoarthritis. 3. ??Unchanged low-grade chondroid lesion of the right distal femoral diaphysis. Electronically signed by: Bernadine Jensen MD Narrative 07/07/2020 1:46 PM CDT EXAMINATION: XR KNEE RIGHT 4 OR MORE VIEWS, XR KNEE LEFT 4 OR MORE VIEWS HISTORY: ??Bilateral knee pain FINDINGS: 4 views of each knee submitted for interpretation with comparison 05/21/2019. Right knee: No acute fracture or dislocation. No significant effusion. There is mild patellofemoral joint space narrowing and osteophyte formation in the lateral tibiofemoral and patellofemoral compartments. Unchanged 5.7 cm lesion demonstrating chondral mineralization within the intramedullary cavity of the distal left femoral diaphysis. There is no deep endosteal scalloping or fracture associated with this lesion. Left knee: Alignment is normal. No acute fracture or effusion. There is mild patellofemoral joint space narrowing. Procedure Note Stephanie Jensen MD - 07/07/2020 EXAMINATION: XR KNEE RIGHT 4 OR MORE VIEWS, XR KNEE LEFT 4 OR MORE VIEWS HISTORY: Bilateral knee pain FINDINGS: 4 views of each knee submitted for interpretation with comparison 05/21/2019. Right knee: No acute fracture or dislocation. No significant effusion. There is mild patellofemoral joint space narrowing and osteophyte formation in the lateral tibiofemoral and patellofemoral compartments. Unchanged 5.7 cm lesion demonstrating chondral mineralization within the intramedullary cavity of the distal left femoral diaphysis. There is no deep endosteal scalloping or fracture associated with this lesion. Left knee: Alignment is normal. No acute fracture or effusion. There is mild patellofemoral joint space narrowing. IMPRESSION: 1. Mild right knee lateral and patellofemoral joint osteoarthritis. 2. Mild left knee patellofemoral joint osteoarthritis. 3. Unchanged low-grade chondroid lesion of the right distal femoral diaphysis. Electronically signed by: Bernadine Jensen MD Bradley [facility] XR PROCEDURES Final Resul t * XR Knee Right 4 or More Views (07/07/2020 1:39 PM CDT) Anatomical Region Laterality Modality Lower Extremities, Knee Right Computed Radiography 07/07/2020 1:46 PM CDT Impressions 07/07/2020 1:46 PM CDT 1. ??Mild right knee lateral and patellofemoral joint osteoarthritis. 2. ??Mild left knee patellofemoral joint osteoarthritis. 3. ??Unchanged low-grade chondroid lesion of the right distal femoral diaphysis. Electronically signed by: Bernadine Jensen MD Narrative 07/07/2020 1:46 PM CDT EXAMINATION: XR KNEE RIGHT 4 OR MORE VIEWS, XR KNEE LEFT 4 OR MORE VIEWS HISTORY: ??Bilateral knee pain FINDINGS: 4 views of each knee submitted for interpretation with comparison 05/21/2019. Right knee: No acute fracture or dislocation. No significant effusion. There is mild patellofemoral joint space narrowing and osteophyte formation in the lateral tibiofemoral and patellofemoral compartments. Unchanged 5.7 cm lesion demonstrating chondral mineralization within the intramedullary cavity of the distal left femoral diaphysis. There is no deep endosteal scalloping or fracture associated with this lesion. Left knee: Alignment is normal. No acute fracture or effusion. There is mild patellofemoral joint space narrowing. Procedure Note Stephanie Jensen MD - 07/07/2020 EXAMINATION: XR KNEE RIGHT 4 OR MORE VIEWS, XR KNEE LEFT 4 OR MORE VIEWS HISTORY: Bilateral knee pain FINDINGS: 4 views of each knee submitted for interpretation with comparison 05/21/2019. Right knee: No acute fracture or dislocation. No significant effusion. There is mild patellofemoral joint space narrowing and osteophyte formation in the lateral tibiofemoral and patellofemoral compartments. Unchanged 5.7 cm lesion demonstrating chondral mineralization within the intramedullary cavity of the distal left femoral diaphysis. There is no deep endosteal scalloping or fracture associated with this lesion. Left knee: Alignment is normal. No acute fracture or effusion. There is mild patellofemoral joint space narrowing. IMPRESSION: 1. Mild right knee lateral and patellofemoral joint osteoarthritis. 2. Mild left knee patellofemoral joint osteoarthritis. 3. Unchanged low-grade chondroid lesion of the right distal femoral diaphysis. Electronically signed by: Bernadine Jensen MD Bradley [facility] XR PROCEDURES Final Resul t documented in this encounter Visit Diagnoses Diagnosis Pain in both knees, unspecified chronicity documented in this encounter Care Teams Furniture Dipper Relationship Specialty Start Date End Date Kana Rankin MD PCP - General Family Medicine 05/15/19 documented as of this encounter
--- OUTSIDE RECORDS SUMMARY | 2024-12-12 16:28 | XMS_ITS | Encounter Summary ---
Author Organization [facility] Address [address] [place] [address] Phone Care Team Providers Care Chief Customer Officer Name Role Phone Kana Rankin MD Primary Care Provider [phone] Encounter Details Date Type Department Care Team (Late st Contact Info) Description 08/26/2020 Telephone [facility] Surgery [address] [facility] 8th [place] [address] [place] [id number] Johana Siddiqi RN Social History Tobacco Use Types Packs/Day Years Used Date Smoking Tobacco: Never Smokeless Tobacco: Never Alcohol Use Standard Drinks/Week Comments Not Currently 0 (1 standard drink = 0.6 oz pur e alcohol) Comments No Sex and Gender Information Value Date Recorded Sex Assigned at Not on file 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 De Paz had signed Oxycodone prescription yesterday prior to 3:30 pm when I spoke with the pharmacist at [facility] stated they hadn't received a prescription. Patient advised Dr. De Paz discontinued and then re-prescribed this medication, again with the pharmacy having no record of receiving it an hour after. Patient advised tramadol 50mg PO q6hr prescribed via phone to her pharmacy per Dr. De Paz. Patient states she takes this medication regularly and it isn't effective. Nurse offered patient the ability to have someone picker / packer a physical script at our [place] office. Patient unsure if she can find someone to do so. Patient advised nurse she's going to reach out to her PCP for help prescribing. Nurse informed patient I will provide documentation to her PCP if this can help support her request documented in this encounter Plan of Treatment Not on file documented as of this encounter Visit Diagnoses Not on filedocumented in this encounter Care Teams Chief Customer Officer Relationship Specialty Start Date End Date Kana Rankin MD PCP - General Family Medicine 05/15/19 documented as of this encounter
--- OUTSIDE RECORDS SUMMARY | 2024-12-12 16:28 | XMS_ITS | Encounter Summary ---
Author Organization [facility] Address [address] [place] [address] Phone Care Team Providers Care Cloth Presser Name Role Phone Kana Rankin MD Primary Care Provider [phone] Reason for Referral * MRI/CAT/PET Scan (Routine) - Closed Specialty Diagnoses / Procedures Referred By Contac t Referred To Contact Radiology Diagnoses Right knee pain, unspecified chronicity Procedures MRI Thigh Femur Right WO Contrast Luly Cheney PA [address] [place] [address] Phone: tel: fax: [address] [address] Referral ID Status Reason Start Date Expiration Date Visits Re quested Visits Authorized [id number] Closed 04/30/2024 05/30/2025 1 1 Encounter Details Date Type Department Care Team (Late st Contact Info) Description 04/30/2024 Orders Only [facility] Orthopaedic Surgery [address] [facility] [address] [place] [address] Luly Cheney PA [address] [place] [address] Right knee pain, unspecified chronicity (Primary Dx) Social History Tobacco Use Types Packs/Day Years Used Date Smoking Tobacco: Never Smokeless Tobacco: Never Alcohol Use Standard Drinks/Week Comments Not Currently 0 (1 standard drink = 0.6 oz pur e alcohol) Comments No Sex and Gender Information Value Date Recorded Sex Assigned at Not on file 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 ??Unchanged 5 cm low-grade chondroid lesion of the right distal femoral shaft Electronically signed by: Tk Canales MD, PHD Narrative 05/10/2024 4:35 PM CDT EXAMINATION: MRI right femur without contrast HISTORY: ??Right distal femur chondroid lesion FINDINGS: Multisequence, multiplanar MRI images of the right femur were obtained without intravenous contrast utilizing a phased array coil. ??Radiographs from 04/30/2024 and back to 05/21/2019 were reviewed. Again noted is an approximately 5 cm low-grade chondroid lesion of the distal right femoral shaft without endosteal scalloping, soft tissue extension or associated pathologic fracture. ??The remainder of the marrow throughout the visualized right thigh and that of the left thigh appears normal without fracture, stress reaction, osteonecrosis, or marrow replacing lesion. ??The muscles of the anterior and posterior compartments of both thighs and proximal legs appear normal and symmetric in signal intensity without myositis or soft tissue lesion. The visualized sciatic nerves appear normal and symmetric. Procedure Note Tk Canales MD PhD - 05/10/2024 EXAMINATION: MRI right femur without contrast HISTORY: Right distal femur chondroid lesion FINDINGS: Multisequence, multiplanar MRI images of the right femur were obtained without intravenous contrast utilizing a phased array coil. Radiographs from 04/30/2024 and back to 05/21/2019 were reviewed. Again noted is an approximately 5 cm low-grade chondroid lesion of the distal right femoral shaft without endosteal scalloping, soft tissue extension or associated pathologic fracture. The remainder of the marrow throughout the visualized right thigh and that of the left thigh appears normal without fracture, stress reaction, osteonecrosis, or marrow replacing lesion. The muscles of the anterior and posterior compartments of both thighs and proximal legs appear normal and symmetric in signal intensity without myositis or soft tissue lesion. The visualized sciatic nerves appear normal and symmetric. IMPRESSION: 1. Unchanged 5 cm low-grade chondroid lesion of the right distal femoral shaft Electronically signed by: Tk Canales MD, PHD L[facility] MRI PROCEDURES Fin al Result documented in this encounter Visit Diagnoses Diagnosis Right knee pain, unspecified chronicity- Primary Right knee pain, unspecified chronicity documented in this encounter Care Teams Cloth Presser Relationship Specialty Start Date End Date Kana Rankin MD PCP - General Family Medicine 05/15/19 documented as of this encounter
--- OUTSIDE RECORDS SUMMARY | 2024-12-12 16:28 | XMS_ITS | Encounter Summary ---
Author Organization [facility] Address [address] [place] [address] Care Team Providers Care Global Marketing Specialist Name Role Phone Kana Rankin MD Primary Care Provider [phone] Encounter Details Date Type Department Care Team (Late st Contact Info) Description 08/17/2020 3:35 PM CDT Lab [address] [address] María De Paz MD [address] [facility] [id number] [place] [address] Pre-procedure lab exam Discharge Disposition: Discharge to home or self care Social History Tobacco Use Types Packs/Day Years Used Date Smoking Tobacco: Never Smokeless Tobacco: Never Alcohol Use Standard Drinks/Week Comments Not Currently 0 (1 standard drink = 0.6 oz pur e alcohol) Comments No Sex and Gender Information Value Date Recorded Sex Assigned at Not on file 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 Gender Identity Not on file Sexual Orientation Straight 08/04/2020 2: 23 PM CDT 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 Not on file Not on file documented as of this encounter Discharge Disposition Disposition Code Departure Means Destination Discharge to home or self care documented in this encounter Plan of Treatment Not on file documented as of this encounter Procedures Procedure Name Priority Date/Time Associated Diagnosis Comments COVID-19 CORONAVIRUS RNA Routine 08/17/2020 3:30 PM CDT Pre-procedure lab exam documented in this encounter Results * COVID-19 Coronavirus RNA Nasopharyngeal (08/17/2020 3:30 PM CDT) COVID-19 RNA Not Detected DEJA MURRAY (ROMMEL) Comment: Interpretive Data Testing performed at [facility]. The 2019-Novel Coronavirus Assay (COVID-19) Real Time RT-PCR assay is for in vitro diagnostic use under FDA emergency use authorization only. A negative RT-PCR result does not preclude infection with COVID-19 and should not be used as the sole basis for treatment or other patient management decisions. Additional sample types have been validated according to CLIA regulations. ?? Current Interpretive Data was last revised on 2020. Testing performed by: [facility], [address] [facility], [place]., [address] Nasopharyngeal 08/17/2020 3: 30 PM CDT 08/17/2020 11:18 PM CDT Narrative ANNE MURRAY (ROMMEL) - 08/18/2020 2:57 PM CDT Is the patient experiencing any symptoms consistent with COVID (eg. Fever, cough, shortness of breath)?->No What is the reason for testing?->Screening prior to scheduled (>12 hr) surgery or procedure us María De Paz MD LAB MICROBIOLOGY - [facility] AL ORDERABLES Final Result ANNE MURRAY (ROMMEL) 1 [facility] [place] [address] documented in this encounter Visit Diagnoses Diagnosis Pre-procedure lab exam Pre-procedural laboratory examination documented in this encounter Care Teams Global Marketing Specialist Relationship Specialty Start Date End Date Kana Rankin MD PCP - General Family Medicine 05/15/19 documented as of this encounter
--- OUTSIDE RECORDS SUMMARY | 2024-12-12 16:28 | XMS_ITS | Encounter Summary ---
Author Organization [facility] Address [address] [place] [address] Phone Care Team Providers Care Core Winder Machine Operator Name Role Phone Kana Rankin MD Primary Care Provider + [phone] Encounter Details Date Type Department Care Team (Late st Contact Info) Description 08/25/2020 Telephone [facility] Surgery [address] [facility] 8th [place] [address] [place] [address] Johana Siddiqi RN Social History Tobacco Use Types Packs/Day Years Used Date Smoking Tobacco: Never Smokeless Tobacco: Never Alcohol Use Standard Drinks/Week Comments Not Currently 0 (1 standard drink = 0.6 oz pur e alcohol) Comments No Sex and Gender Information Value Date Recorded Sex Assigned at Not on file 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 Nurse messagedDr. De Paz to inform her of same. Nurse reviewed comfort methods that can be used to alleviate pain and encouraged patient to take 650 mg of Tylenol scheduled. Patient encouraged to call our officenumber for on-call provider this evening if her pain medication remains unavailable. documented in this encounter Plan of Treatment Not on file documented as of this encounter Visit Diagnoses Not on filedocumented in this encounter Care Teams Core Winder Machine Operator Relationship Specialty Start Date End Date Kana Rankin MD PCP - General Family Medicine 05/15/19 documented as of this encounter
--- OUTSIDE RECORDS SUMMARY | 2024-12-12 16:28 | XMS_ITS | Encounter Summary ---
Author Organization [facility] Address [address] [place] [address] Phone Care Team Providers Care Control Technician Name Role Phone Kana Rankin MD Primary Care Provider + [phone] Encounter Details Date Type Department Care Team (Late st Contact Info) Description 08/25/2020 Telephone [facility] Surgery [address] [facility] 8th [place] [address] [place] [phone] Johana Siddiqi RN Social History Tobacco Use Types Packs/Day Years Used Date Smoking Tobacco: Never Smokeless Tobacco: Never Alcohol Use Standard Drinks/Week Comments Not Currently 0 (1 standard drink = 0.6 oz pur e alcohol) Comments No Sex and Gender Information Value Date Recorded Sex Assigned at Not on file 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 Order entered and sent to patient's pharmacy. Nurse spoke with pharmacy to advise them a new order would be sent. documented in this encounter Plan of Treatment Not on file documented as of this encounter Visit Diagnoses Not on filedocumented in this encounter Care Teams Control Technician Relationship Specialty Start Date End Date Kana Rankin MD PCP - General Family Medicine 05/15/19 documented as of this encounter
--- OUTSIDE RECORDS SUMMARY | 2024-12-12 16:28 | XMS_ITS | Encounter Summary ---
Author Organization [facility] Address [address] [place] [address] Phone Care Team Providers Care Cheese Sprayer Name Role Phone Kana Rankin MD Primary Care Provider + [phone] Encounter Details Date Type Department Care Team (Late st Contact Info) Description 08/25/2020 Telephone [facility] 8th [place] [address] [place] [address] Johana Siddiqi RN Social History Tobacco Use Types Packs/Day Years Used Date Smoking Tobacco: Never Smokeless Tobacco: Never Alcohol Use Standard Drinks/Week Comments Not Currently 0 (1 standard drink = 0.6 oz pur e alcohol) Comments No Sex and Gender Information Value Date Recorded Sex Assigned at Not on file Legal Sex Female 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 Request sent to Dr. De Paz for her review. Patient advised to alternate ice and heat, 15 minutes per hour as needed for comfort. We discussed propping herself up more and positioning with pillows to ease pulling on her incisions. Patient encouraged to take 650 mg of Tylenol scheduled until refill is approved or denied. We discussed taking Zofran to ease nausea due to pain. Patient encouraged to call or send a [employer] message with any questions or concerns. documented in this encounter Plan of Treatment Not on file documented as of this encounter Visit Diagnoses Not on filedocumented in this encounter Care Teams Cheese Sprayer Relationship Specialty Start Date End Date Kana Rankin MD PCP - General Family Medicine 05/15/19 documented as of this encounter
--- OUTSIDE RECORDS SUMMARY | 2024-12-12 16:28 | XMS_ITS | Encounter Summary ---
Author Organization [facility] Address [address] [place] [address] Care Team Providers Care Fresh Foods Technician Name Role Phone Kana Rankin MD Primary Care Provider [phone] Reason for Visit * Reason Comments Establish Care Encounter Details Date Type Department Care Team (Late st Contact Info) Description 05/01/2023 10:30 AM CDT Office Visit [facility] Oncology and Hematology - [place] [address] [place] [address] [address] [place] [address] Eduard Baumann MD [address] [facility] [address] [place] [address] Leukocytosis, unspecified type (Primary Dx); Polycythemia, secondary; Dietary iron deficiency without anemia; Immunoglobulin deficiency Social History Tobacco Use Types Packs/Day Years Used Date Smoking Tobacco: Never Assessed Sex and Gender Information Value Date Recorded Sex Assigned at Not on file Gender Identity Not on file Sexual Orientation Not on file documented as of this encounter Last Filed Vital Signs Vital Sign Reading Time Taken Comments Blood Pressure 114/72 05/01/2023 10:34 AM CDT Pulse 87 05/01/2023 10:34 AM CDT Temperature 36.2 ??C (97.2 ??F) 05/01/2023 10:34 AM C DT Respiratory Rate 10 05/01/2023 10:34 AM CDT Oxygen Saturation 97% 05/01/2023 10:34 AM CDT Inhaled Oxygen Concentration - - Weight 103 kg (227 lb) 05/01/2023 10:34 AM CDT Height - - Body Mass Index - - documented in this encounter Progress Notes * Eduard Baumann MD - 05/01/2023 11:09 AM CDT Hematology-oncology consult Note Requesting Physician Kana Rankin MD Primary Care Physician Kana Rankin MD Problem list There is no problem list on file for this patient. Previous TREATMENT ? Measurable Disease ? Reason for Visit Lorelei Hall is a 47 y.o. female who was referred for consultation for leukocytosis and erythrocytosis. History of present illness This is a pleasant 47-year-old female with history of arthralgia involving the knees and fingers along with diabetes and hypertension referred to me for leukocytosis and erythrocytosis. Patient had labs done in July 2022 due to heavy menstrual bleeding and found to have ovarian cyst andfibroid tumor. She was started on iron twice a day. She was also started on progesterone for bleeding cessation. Her labs done in July showed WBC count of 12,000. Hemoglobin was normal at 13.9 but iron level was low with iron saturation of 15%. He had recent labs done in December 2022 that showed persistently elevated WBC count of 10.4 with RBC count of 5.43 million. Iron level remains low at 14% iron saturation. She denies any night sweats and hot flashes. She has lost 45 pound weight since started Ozempic about a year ago. She denies any new lung bumps or lymphadenopathy. Denies any history of smoking and COPD. There is no history of sleep apnea. No other new complaints. Past Medical History Past Medical History: Diagnosis Date Diabetes mellitus Hyperlipidemia Hypertension Knee and finger arthralgia Surgical History Past Surgical History: Procedure Laterality Date HX CHOLECYSTECTOMY HX OVARY SURGERY Medications Current Outpatient Medications Medication Sig Dispense Refill celecoxib (CeleBREX) 100 mg capsule acetaminophen (TYLENOL) 325 mg tablet Take 650 mg by mouth. traZODone (DESYREL) 100 mg tablet metFORMIN (GLUCOPHAGE) 500 mg tablet Take 500 mg by mouth 2 times daily with meals. progesterone micronized (PROMETRIUM) 100 mg Capsule Take by mouth daily. hydroCHLOROthiazide 25 mg tablet Take 25 mg by mouth daily. semaglutide (Ozempic) 2 mg/dose (8 mg/3 mL) Pen Injector Inject by subcutaneous injection. cetirizine (ZyrTEC) 10 mg tablet Take 10 mg by mouth. montelukast (SINGULAIR) 10 mg tablet Take 10 mg by mouth daily at bedtime. Multivitamin Capsule Take 1 Capsule by mouth. No current facility-administered medications for this visit. Allergies No Known Allergies Immunizations: Immunization History Administered Date(s) Administered (SPIKEVAX) (12 YRS UP PRIMARY SERIES) COVID-19 VACCINE - MRNA-1273(PF) 100 MCG/0.5 ML IM SUSP 02/17/2021, 03/17/2021 Family History No family history on file. Social History Social History Tobacco Use Smoking status: Not on file Smokeless tobacco: Not on file Substance Use Topics Alcohol use: Not on file Review of Systems Constitutional: Patient did not mention fever; no night sweats; no anorexia; no weight loss; no fatique NEENT: Patient did not mention headache; no change in vision; no change in hearing; no sore throat;no dysphagia Respiratory: Patient did not mention shortness of breath; no pleuritic chest pain; no cough; no hemoptysis Cardiac: Patient did not mention cardiac-like chest pain; no palpitations; no orthopnea; no PND; noDOE Breasts: Patient did not mention tenderness; no masses GI: Patient did not mention abdominal pain; no nausea; no vomiting; no diarrhea; no hematochezia; no melena : Patient did not mention dysuria; no frequency; no hesitancy; no hematuria EXCEPTIONAL STUDENT EDUCATION AIDE: Musculosketetal: Patient did not mention bone pain; knees and fingers arthralgia; no joint swelling; no myalgia; Skin: Patient did not mention pruritis; no rash; no petechiae; no ecchymoses Endocrine: Patient did not mention polydipsia; no polyuria; no unusual weight gain Neuro: Patient did not mention headache; no change in vision; no sensory changes; no muscle weakness; no confusion; no seizures Psych: Patient did not mention anxiety; no depression; Physical Exam Vitals: As per nursing note Constitutional: Well developed, well nourished, no acute distress, non-toxic appearance Teeth and gum. No signs of infection or swelling. Eyes: PERRL, conjunctiva normal HEENT: Atraumatic, external ears normal, nose normal, oropharynx moist, no pharyngeal exudates. no sinus tenderness Neck- normal range of motion, no tenderness, supple Respiratory: No respiratory distress, normal breath sounds, no rales, no wheezing Cardiovascular: Normal rate, normal rhythm, no murmurs, no gallops, no rubs GI: Soft, nondistended, normal bowel sounds, nontender, no splenomegaly, no hepatomegaly, no mass, no rebound, no guarding : No costovertebral angle tenderness Musculoskeletal: No edema, no tenderness, no deformities. Back- no tenderness Integument: Well hydrated, no rash, Digits and nails inspection normal Lymphatic: No lymphadenopathy noted Neurologic: Alert & oriented x 3, CN 2-12 normal, normal motor function, normal sensory function, no focal deficits noted Psychiatric: Speech and behavior appropriate ? labs No results found for this or any previous visit (from the past 24 hour(s)). Labs from December 20, 2022 showed iron saturation 14% WBC 10.4 RBC count 5.4 million hemoglobin 14.7 platelet 326,000 neutrophils 56% lymphocyte 34% Pathology ? Imaging & Other Studies Performance Status? Assessment / Plan: ? Mild leukocytosis and elevated RBC count. Patient is a 47-year-old female with history ofarthralgia involving knees and fingers as well as diabetes and hypertension. She was started on oral iron twice a day when she was found to have iron deficiency without anemia in July 2022. At thattime she was having heavy menstrual bleeding and diagnosed with fibroid and ovarian cyst. She was st arted on progesterone for menstrual bleeding which has now improved. She has lost 45 pound weight in 1 year since Ozempic was started. Denies any night sweats fevers and chills. On my examination there is no evidence of lymphadenopathy and hepatosplenomegaly. Likely her leukocytosis due to arthralgi a and reactive in nature. We will check C-reactive protein, sedimentation rate and flow cytometry for leukemia. We discussed the differential diagnosis of erythrocytosis. She denies any history of smoking and COPD. No history of sleep apnea. She has lost significant weight recently. At this point we will checkerythropoietin level and JAK2 mutation. We will also check iron studies. Frequent sinus infection. We will check immunoglobulin levels. Type 2 diabetes. She is on Ozempic. Arthralgia. Patient is on Celebrex. Thank you very much for allowing me to participate in Lorelei Rafael's evaluation and management.Please feel free to contact if I can be of any further assistance in your patient???s care requiring hematology or oncology evaluation. Sincerely, ? ? Eduard Baumann M.D. cell TOBACCO COUNSELING She is not a tobacco/nicotine user. Eduard Baumann MD ,05/01/2023 11:09 AM ? Total time spent 60 minutes, two third of the total time spent counseling patient [id number]. CC:?Kana Rankin MD documented in this encounter Plan of Treatment Upcoming Encounters Date Type Department Care Team (Late st Contact Info) Description 04/29/2025 11:00 AM CDT Office Visit [facility] Oncology and Hematology - [place] [address] [facility] [address] [address] [place] [address] Eduard Baumann MD [address] [facility] [address] [place] [address] Scheduled Orders Name Type Priority Associated Diagnoses Orde r Schedule COMPREHENSIVE METABOLIC PANEL Lab Stat Dietary iron deficiency without anemia Expected: 05/01/2023, Expires: 05/01/2024 IRON, TIBC, AND PERCENT SATURATION Lab Routine Dietary iron deficiency without anemia Expected: 05/01/2023, Expires: 04/30/2024 documented as of this encounter Visit Diagnoses Diagnosis Leukocytosis, unspecified type- Primary Polycythemia, secondary Dietary iron deficiency without anemia Other disorders of iron metabolism 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 [address] PCP - General Family Practice 05/01/23 documented as of this encounter
--- OUTSIDE RECORDS SUMMARY | 2024-12-12 16:28 | XMS_ITS | Encounter Summary ---
Author Organization [facility] Healthcare Address [address] [place] [address] Care Team Providers Care Manager Interventional Name Role Phone Kana Rankin MD Primary Care Provider Encounter Details Date Type Department Care Team (Latest Contact Info) Description 08/19/2020 1:19 PM CDT - 08/20/2020 2:00 PM CDT Hospital Encounter [facility] [address] [place] [address] María De Paz MD [address] [facility] [id number] [place] [address] Symptomatic cholelithiasis Discharge Disposition: Discharge to home or self care Social History Tobacco Use Types Packs/Day Years Used Date Smoking Tobacco: Never Smokeless Tobacco: Never Alcohol Use Standard Drinks/Week Comments Not Currently 0 (1 standard drink = 0.6 oz pur e alcohol) Comments No Sex and Gender Information Value Date Recorded Sex Assigned at Not on file 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 Gender Identity Not on file Sexual Orientation Straight 08/04/2020 2: 23 PM CDT 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 Not on file Not on file Not on file documented as of this encounter Last Filed Vital Signs Vital Sign Reading Time Taken Comments Blood Pressure 141/70 08/20/2020 8:20 AM CDT Pulse 73 08/20/2020 8:20 AM CDT Temperature 37.1 ??C (98.8 ??F) 08/20/2020 8:20 AM CD T Respiratory Rate 16 08/20/2020 8:20 AM CDT Oxygen Saturation 97% 08/20/2020 8:20 AM CDT Inhaled Oxygen Concentration - - Weight 124.7 kg (275 lb) 08/19/2020 3:24 PM CDT Height 180.3 cm (5' 11 ) 08/19/2020 3:24 PM CDT Body Mass Index 38.35 08/19/2020 3:24 PM CDT documented in this encounter Discharge Diagnoses Diagnosis Calculus of gallbladder with chronic cholecystitis without obstruction - CALCULUS OF GALLBLADDER WITH CHRONIC CHOLECYSTITIS WITHOUT OBSTRUCTION Fatty (change of) liver, not elsewhere classified - FATTY (CHANGE OF) LIVER, NOT ELSEWHERE CLASSIFIED Essential (primary) hypertension - ESSENTIAL (PRIMARY) HYPERTENSION Unspecified essential hypertension Hyperlipidemia, unspecified - HYPERLIPIDEMIA, UNSPECIFIED Type 2 diabetes mellitus with diabetic polyneuropathy (HCC) - TYPE 2 DIABETES MELLITUS WITH DIABETIC POLYNEUROPATHY Gastro-esophageal reflux disease without esophagitis - GASTRO-ESOPHAGEAL REFLUX DISEASE WITHOUT ESOPHAGITIS Unspecified osteoarthritis, unspecified site - UNSPECIFIED OSTEOARTHRITIS, UNSPECIFIED SITE Morbid (severe) obesity due to excess calories (HCC) - MORBID (SEVERE) OBESITY DUE TO EXCESS CALORIES Unspecified asthma, uncomplicated - UNSPECIFIED ASTHMA, UNCOMPLICATED Body mass index (bmi) 38.0-38.9, adult - BODY MASS INDEX (BMI) 38.0-38.9, ADULT Other chronic pain - OTHER CHRONIC PAIN Major depressive disorder, single episode, unspecified - MAJOR DEPRESSIVE DISORDER, SINGLE EPISODE, UNSPECIFIED Anxiety disorder, unspecified - ANXIETY DISORDER, UNSPECIFIED 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) use of oral hypoglycemic drugs - FPC (CURRENT) USE OF ORAL HYPOGLYCEMIC DRUGS Other 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 (current) drug therapy - OTHER FPC (CURRENT) DRUG THERAPY custodial (current) use of non-steroidal anti-inflammatories (nsaid) - DIRECTOR OF ANNUAL GIVING (CURRENT) USE OF NON-STEROIDAL ANTI-INFLAMMATORIES (NSAID) Family history of ischemic heart disease and other diseases of the circulatory system - FAMILY HISTORY OF ISCHEMIC HEART DISEASE AND OTHER DISEASES OF THE CIRCULATORY SYSTEM documented in this encounter Discharge Summaries * Cassie Brunner MD - 08/20/2020 3:20 PM CDT Inpatient Discharge Summary BRIEF OVERVIEW Admitting Provider: María De Paz MD Discharge Provider: María De Paz MD Primary Care Physician at Discharge: Kana Rankin MD [phone] Admission Date: 08/19/2020 Discharge Date: 08/20/2020 Admission Location: [facility] Problems/Diagnoses: Principal Problem: Symptomatic cholelithiasis Active Problems: Asthma Essential hypertension Gastroesophageal reflux disease Hyperlipidemia Morbid obesity (CMS/HCC) Osteoarthritis Calculus of gallbladder without cholecystitis without obstruction Resolved Problems: No resolved hospital problems. DETAILS OF HOSPITAL STAY Presenting Problem/History of Present Illness: The patient is a 44 y.o. female with cholelithiasis. Patient reports having intermittent right upper quadrant abdominal pain over the summer, which is increased in frequency. She reports the pain is mainly located in the right upper quadrant. During prior ED visit, US notable for gallstone concerning for cholelithiasis. She was given the diagnosis symptomatic cholelithiasis and referred to us forsurgical evaluation. Patient states that the pain mainly occurs right upper quadrant having any fatty or heavy foods, it does not last for more than approximately 45 minutes to an hour, has never woken up at night has never had relenting ongoing symptoms. In review of her laboratory evaluation patient was found have an elevated white blood cell count of 12.2, no evidence of increase in AST ALT bilirubin or alk-phos. She presents for scheduled laparoscopic cholecystectomy. Hospital Course: The patient was admitted on 08/19/20 and taken to the operating room by María De Paz MD for alaparoscopic cholecystectomy. She tolerated the procedure well. Operative details were notable for intrahepatic gallbladder with significant fatty liver disease and gallbladder filled with multiple stones greater than 0.5cm. For full operative details, please see the dictated operative report. Post-operatively the patient was admitted to the MIS service for routine post-op management. On POD1, patient started ambulating, pain well controlled on oral pain meds, home medications were resumed and diet was advanced from clear liquid diet to regular diet. The patient was then discharge home on POD1 in stable condition, tolerating a regular diet, experiencing return of bowel functions, voiding spontaneously, ambulating well and with her pain well controlled on oral pain meds. She was instructedto follow up with María De Paz MD in clinic in 2-4 weeks. Active Issues Requiring Follow-up: S/p lap cholecystectomy, f/u with Dr. De Paz Test Results Pending at Discharge: Pending Labs Order Current Status CBC without differential Collected (08/20/20 0641) Surgical pathology Collected (08/19/20 8854) Operative Procedures Performed: Procedure(s): LAPAROSCOPIC CHOLECYSTECTOMY Other Procedures: none Pertinent Test Results: none Discharge Details Physical Exam at Discharge: Discharge Condition: good Pulse: 73 Resp: 16 BP: 141/70 Temp: 37.1 ??C (98.8 ??F) Weight: 124.7 kg (275 lb) Pertinent Exam Findings at Discharge: Gen: well-nourished, NAD, comfortable Neuro: non-focal Psych: alert and calm HEENT: normocephalic, atraumatic, MMM CV: regular rate Pulm: normal work of breathing Abd: soft, minimally tender, nondistended. Incisions c/d/i with glue. No drains. : no wright Ext: no deformities, intact pulses Skin: warm, no edema Discharge Disposition: home Code Status at Discharge: full Discharge Instructions: Activity Instructions Discharge Activity: Driving restrictions -Do not drive for while taking pain medications. Discharge Activity: Walking -You may walk as tolerated. Diet Instructions Adult Discharge Diet Diet Type: Low fat intake Instructions for follow-up (appointment date and time): Start out low fat. You can slowly increase fat intake as you tolerate. Other Instructions Call provider for: increased temperature -Temperature greater than 101 degrees F Call provider for: nausea, vomiting, diarrhea -If you have persistent nausea, vomiting or diarrhea that does not stop Call provider for: redness, tenderness, or signs of infection (pain, swelling, redness, odor or green/yellow discharge around incision site) Call provider for: severe uncontrolled pain Call provider if: you feel dizzy, very tired or like you may faint Care Instructions: Incisions -Keep incisions clean and dry Discharge Wound Type: Open to air -You may leave your incision open to air Discharge Wound Type: Skin Glue Special glue has been placed on your incision. It will flake off over 1 week. Do not pick, scratch or rub. This may cause it to come off before your incision has healed. Discharge Medications: Current Medications TAKE these medications acetaminophen 325 mg tablet Take 2 tablets (650 mg total) by mouth every 4 (four) hours as needed for pain For: pain Commonly known as: TYLENOL atorvastatin 20 mg tablet Take 20 mg by mouth nightly Commonly known as: LIPITOR celecoxib 200 mg capsule 200 in am and 100 in pm Commonly known as: CeleBREX cetirizine 10 mg tablet Take 10 mg by mouth convertible top installer before breakfast Commonly known as: ZyrTEC docusate sodium 100 mg capsule Take 1 capsule (100 mg total) by mouth 2 (two) times a day For: constipation Commonly known as: COLACE esomeprazole DR 40 mg capsule Take 40 mg by mouth daily before breakfast Commonly known as: NexIUM fish oil-dha-epa 1,200-144-216 mg capsule Take by mouth convertible top installer before breakfast fluticasone propionate 50 mcg/actuation nasal spray fluticasone propionate 50 mcg/actuation nasal spray,suspension Commonly known as: FLONASE hydroCHLOROthiazide 25 mg tablet Take 25 mg by mouth convertible top installer before breakfast For: high blood pressure Commonly known as: HYDRODIURIL metFORMIN 500 mg tablet 500 mg 2 (two) times a day with meals Commonly known as: GLUCOPHAGE montelukast 10 mg tablet Take 10 mg by mouth nightly Commonly known as: SINGULAIR multivitamin capsule Take 1 capsule by mouth convertible top installer before breakfast multivitamin with minerals tablet Take 1 tablet by mouth convertible top installer before breakfast For: hair skin nails vitamin ondansetron ODT 4 mg disintegrating tablet Take 1 tablet (4 mg total) by mouth every 6 (six) hours as needed for nausea or vomiting For: nausea and vomiting Commonly known as: ZOFRAN-ODT oxyCODONE 5 mg immediate release tablet Take 1 tablet (5 mg total) by mouth every 4 (four) hours as needed for pain For: pain Commonly known as: ROXICODONE ProAir HFA 90 mcg/actuation inhaler ProAir HFA 90 mcg/actuation aerosol inhaler Generic drug: albuterol HFA traMADoL 50 mg tablet Take 50 mg by mouth every 6 (six) hours Commonly known as: ULTRAM traZODone 50 mg tablet Take 100 mg by mouth nightly Commonly known as: DESYREL zinc 50 mg tablet Take by mouth nightly Outpatient Follow-Up: Future Appointments Date Time Provider Department Center 09/06/2020 2:30 PM aMría De Paz MD [facility] [address] Cosigned by María De Paz MD at 08/21/2020 7:09 AM CDT Associated attestation - María De Paz MD - 08/21/2020 7:09 AM CDT I have seen and examined the patient on 08/20/2020. I agree with the findings and plan of care as documented in the resident's/fellow's note. documented in this encounter Discharge Instructions * Discharge Instructions* María De Paz MD - 08/19/2020 6:45 PM CDT LAPAROSCOPIC OR ROBOTIC CHOLECYSTECTOMY Discharge Instructions WHAT YOU NEED TO KNOW: A laparoscopic cholecystectomy is surgery to remove your gallbladder through small incisions. CARE AFTER: Refer to this sheet in the next few weeks. These instructions provide you with information on caring for yourself after surgery. Your treatment has been planned according to current medical practices, but problems sometimes occur. Call our office at if you have any problems or questions after your surgery, Saturday through Saturday, 8am to 4pm. If necessary, to get in touch with the on-call doctor after hours or on the weekend you may call . RETURN OFFICE VISIT: Please return to my office for a post-operative appointment 2 to 4 weeks after discharge. Please call our office as soon as possible to schedule your follow-up appointment if one was not already madefor you. Our patient offices are located in the following locations, so please ensure the correct location when scheduling your appointment: ?? [facility], 8th Floor, [address] [place] [address] ?? [facility] [address], [address] [place] [address] ACTIVITY: ?? Walking is encouraged. Try to take a short (5 minute) walk around the house every hour while awake. Climbing stairs is also permitted. You may experience some discomfort with these activities for the first few days after surgery. ?? Avoid lifting more than 20 pounds for 10 to 14 days after surgery or placing stress on your skinincisions. ?? Limit activity to light exercise for 1 to 2 weeks after surgery. As you continue to feel better,you may then slowly increase your activity, including abdominal muscle exercises, back to your previous level over the next several weeks (for example, do 3 sit-ups 2 weeks after surgery, the next day 5 sit-ups, etc., until back to full power). If this increase in activity causes pain, then reduce the intensity back down and talk to your surgeon. You may resume sexual activity when comfortable. DRIVING: ??? Do not drive until you have been off prescription (narcotic) pain medication for 2 days, and you have minimal pain which would allow you to brake the car in an emergency. RECOVERY: ?? You may have some shoulder discomfort after surgery due to the gas (carbon dioxide) used to insufflate your abdomen during surgery. This pain should improve within 1 to 3 days after surgery. A heating pack on your shoulders or upper back may offer some relief. ?? You may return to work as soon as your pain is controlled and you feel comfortable. For many patients, this is 5 to 7 days after surgery depending on the physical requirements of your job (such asheavy lifting). Your surgeon can help you make this decision. If you need a letter listing any activity restrictions for work, please call the office. WOUND CARE: ?? You may place an ice pack over the skin incisions for 20 minutes at a time every 1 to 2 hours for the first few days after surgery. Use an ice pack or put crushed ice into a plastic bag and cover it with a towel before applying to your skin. Ice will help reduce pain and swelling at the incisionsites. ?? You may notice a small amount of bruising around the incisions. ?? Your skin incisions were closed with dissolving/absorbable suture underneath the skin, and covered either skin glue or steri-strips, gauze, and tape. ?? If covered with skin glue: ?? Do not remove the skin glue. It will peel off over the next 2 to 3 weeks. ?? You may shower hours 24 hours after surgery. ?? Do not scrub the incisions, but let soap and water run over it and gently pat the area dry. ?? If covered with steri-strips, gauze, and tape: ?? Remove the tape and gauze pad 2 days after surgery, but leave the steri- strips in place. Steri-stripes should be removed if they have not fallen of in 2 to 3 weeks. ?? You may shower 24 hours after surgery with the dressings in place. After the shower, remove gauze pads and tape (outer dressings) and leave the steri-strips (inner dressing) in place. Do not scrubthe incisions, but let soap and water run over them and gently pat them dry. ?? Please do not take tub baths or use swimming pools, hot tubs, or otherwise submerge the incisions under water for 2 weeks after surgery. This can cause an infection. ?? Check your incisions daily for signs of infection, such as redness, swelling, or pus. ?? Keep the wound clean and dry. ?? DO NOT use powders, lotion, or petroleum products on your incisions (Neosporin or Vaseline). DIET: ?? Resume a light diet today and advance to a regular diet as tolerated. Eat high fiber foods as fiber may prevent constipation and straining during bowel movements. Foods that contains fiber includefruits, vegetables, legumes, and whole grains. You may need to take pees-vss-gxkpsvv fiber supplements if you do not get enough fiber in your diet. Ask your healthcare provider if supplements are right for you. ?? Drink plenty of liquids (8 glasses or 64 ounces). Liquids may prevent constipation and strainingduring bowel movements. MEDICATIONS: ??? Resume your normal prescription medications as directed by your medical doctor. ??? Prescription pain medication, Vicodin/Josephine (Hydrocodone-Acetaminophen), was prescribed. You may take 1 to 2 tabs (5-10mg) every 4 to 6 hours as needed for pain. These medications have Tylenol included (325mg of Tylenol in each tab), and you SHOULD NOT take additional rhpe-cmg-debddkv plain Tylenol if you are taking 2 tabs of Vicodin/Josephine at a time. As the pain lessens, you may substitute ilvs-uuy-kkzumua plain Tylenol (325-500mg) for one or both of your prescription pain pills. DO NOT take more than 3,000mg (3 grams) of Tylenol in a 24 hour period. ??? DO NOT take Ibuprofen/Advil/Motrin for at least 24 hours after surgery. If these medications were safe for you to take before surgery, speak to your surgeon about when it may be safe for you to take these pain medications after surgery. ??? Prescription pain medication may cause constipation. Please take your prescribed stool softener(docusate or senna) until your bowel movements are regular. You may also need an mmqe-gse-wgjvpmy laxative (Miralax) in addition to the prescribed stool softener. ??? Contact the office if you think your medication is not helping or if you are having side effects. ??? Keep a list of all medication you are taking and bring the list and pill bottles to follow-up visits. GO TO THE EMERGENCY ROOM, URGENT CARE, OR CALL IF: ??? You feel lightheaded, dizzy, or faint. ??? You develop severe chest pain, difficulty breathing, or shortness of breath. ??? Your heart rate is greater than 120 beats per minute. ??? You develop severe abdominal pain. CALL THE OFFICE (8am to 4pm) OR AFTER HOURS LINE (after 4pm and weekends) IF: ??? Your skin or eyes are yellow, or your bowel movements are pale/barton. ??? You have a fever greater than 101.5o Fahrenheit. ??? You have concerns about your wounds or dressings: ??? There is redness, swelling, or increasing pain at the incision sites. ??? A large amount of blood soaks through the incisions or bandages. ??? There is yellowish-white fluid (pus) coming from the incisions. ??? There is a bad smell coming from the incisions. ??? There is any drainage from the incisions that last longer than 1 day. ??? Your pain does not get better after taking pain medication. ??? You feel sick to your stomach (nauseous) or throw up (vomit) and this lasts for more than 1 day. ??? You do not have a bowel movement for 3 days or more. ??? You develop diarrhea lasting 24 hours or more. ??? You develop any reaction or side effects to medicines given. ??? You develop a skin rash, hives, or itching. ??? You develop extreme leg or arm pain, significant swelling, redness, or they are warm and tender. documented in this encounter Medications at Time of Discharge albuterol HFA (PROVENTIL HFA,VENTOLIN HFA,PROAIR HFA) 90 mcg/actuation inhaler ProAir HFA 90 mcg/actuation aerosol inhaler celecoxib (CeleBREX) 200 mg capsule 200 in am and 100 in pm 1 04/09/2019 cetirizine (ZyrTEC) 10 mg tablet Take 1 tablet (10 mg total) by mouth convertible top installer before breakfast fish oil-dha-epa 1,200-144-216 mg capsule Take by mouth convertible top installer before breakfast fluticasone propionate (FLONASE) 50 mcg/actuation nasal spray fluticasone propionate 50 mcg/actuation nasal spray,suspension hydroCHLOROthiazide (HYDRODIURIL) 25 mg tabletIndications:h ypertension Take 1 tablet (25 mg total) by mouth convertible top installer before breakfast 1 05/11/2019 metFORMIN (GLUCOPHAGE) 500 mg tablet 1 tablet (500 mg total) 2 (two) times a day with meals 5 04/24/2019 montelukast (SINGULAIR) 10 mg tablet Take 1 tablet (10 mg total) by mouth nightly multivitamin capsule Take 1 capsule by mouth convertible top installer before breakfast traZODone (DESYREL) 50 mg tablet Take 100 mg by mouth nightly 0 05/01/2019 zinc 50 mg tablet Take by mouth nightly acetaminophen (TYLENOL) 325 mg tabletIndications:P ain Take 2 tablets (650 mg total) by mouth every 4 (four) hours as needed for pain 30 tablet 08/20/2020 docusate sodium (COLACE) 100 mg capsuleIndications: constipation Take 1 capsule (100 mg total) by mouth 2 (two) times a day 20 capsule 08/20/2020 ondansetron ODT (ZOFRAN-ODT) 4 mg disintegrating tabletIndications:N ausea and Vomiting Take 1 tablet (4 mg total) by mouth every 6 (six) hours as needed for nausea or vomiting 20 tablet 08/20/2020 atorvastatin (LIPITOR) 20 mg tablet Take 20 mg by mouth nightly 05/10/[address] (NexIUM) 40 mg capsule Take 40 mg by mouth daily before breakfast 05/10/20 22 multivitamin with minerals tabletIndications:h air skin nails vitamin Take 1 tablet by mouth convertible top installer before breakfast 05/10/20 22 traMADol (ULTRAM) 50 mg tablet Take 50 mg by mouth every 6 (six) hours 08/26/20 20 oxyCODONE (ROXICODONE) 5 mg immediate release tabletIndications:P ain Take 1 tablet (5 mg total) by mouth every 4 (four) hours as needed for pain 15 tablet 08/20/2020 08/25/20 20 documented as of this encounter Ordered Prescriptions Prescription Sig Dispense Quantity Refills Last Filled Start Date End Date acetaminophen (TYLENOL) 325 mg tabletIndications:Pa in Take 2 tablets (650 mg total) by mouth every 4 (four) hours as needed for pain 30 tablet 08/20/2020 docusate sodium (COLACE) 100 mg capsuleIndications:c onstipation Take 1 capsule (100 mg total) by mouth 2 (two) times a day 20 capsule 08/20/2020 ondansetron ODT (ZOFRAN-ODT) 4 mg disintegrating tabletIndications:Na usea and Vomiting Take 1 tablet (4 mg total) by mouth every 6 (six) hours as needed for nausea or vomiting 20 tablet 08/20/2020 oxyCODONE (ROXICODONE) 5 mg immediate release tabletIndications:Pa in Take 1 tablet (5 mg total) by mouth every 4 (four) hours as needed for pain 15 tablet 08/20/2020 0 documented in this encounter Discharge Disposition Disposition Code Departure Means Destination Discharge to home or self care documented in this encounter H&P Notes * María De Paz MD - 08/19/2020 4:15 PM CDT I have reviewed the H&P, examined the patient, and endorse the findings as written. Plan of Care : Based on the above findings, I consider Lorelei Hall to be an acceptable risk for : Procedure(s): LAPAROSCOPIC CHOLECYSTECTOMY The following conditions are considered to be present on admission and will be evaluated, treated and/or monitored as appropriate during this admission: Diabetes Mellitus: Type 2 DM (if complication present, then include as diagnosis) Debility: Reduced mobility Obesity: Class III Obesity (BMI > 40.0). Source Note - María De Paz MD - 08/09/2020 1:00 PM CDT [facility] In[facility] New Patient Consultation / Evaluation REASON FOR CONSULTATION: Symptomatic Cholelithiasis REQUESTING PROVIDER: Kana Rankin HISTORY OF PRESENT ILLNESS: The patient is a 44 y.o. female presenting with cholelithiasis. Patientreports having intermittent right upper quadrant abdominal pain over the summer, which is increasedin frequency. She reports the pain is mainly located in the right upper quadrant, and is due for different from some acid reflux like symptoms she has had a past. She has seen an outside ED was foundto have according to her worrisome liver number underwent a right upper quadrant ultrasound. On that ultrasound be noted the patient did have a gallstone concerning for cholelithiasis. She was given the diagnosis symptomatic cholelithiasis and referred to us for surgical evaluation. Patient states that the pain mainly occurs right upper quadrant having any fatty or heavy foods, it does not last for more than approximately 45 minutes to an hour, has never woken up at night has never had relenting ongoing symptoms. The patient has had no EGD in the past and no previous ultrasound. In review of her laboratory evaluation patient was found have an elevated white blood cell count of 12.2, no evidence of increase and AST ALT bilirubin or alk-phos. Hepatitis panel was negative for seeing patient was found to be immune to have the period MEDICAL CONDITIONS: Patient Active Problem List Diagnosis ??? Allergy to environmental factors ??? Allergic rhinitis ??? Asthma ??? Bronchitis ??? Essential hypertension ??? Gastroesophageal reflux disease ??? Hyperlipidemia ??? Insomnia ??? Nasal congestion ??? Morbid obesity (CMS/HCC) ??? Osteoarthritis ??? Otitis media of right ear ??? Upper respiratory infection ??? Calculus of gallbladder without cholecystitis without obstruction PAST MEDICAL HISTORY: She has a past medical history of Anxiety, Arthritis, Depression, Diabetes mellitus (CMS/HCC), Gastric reflux, GERD (gastroesophageal reflux disease), Hypercholesteremia, Hypertension, Obesity, Osteoarthritis, and Peripheral neuropathy. PAST SURGICAL HISTORY: She has a past surgical history that includes Ovarian cyst surgery and Tonsillectomy. MEDICATIONS: She has a current medication list which includes the following prescription(s): atorvastatin, celecoxib, cetirizine, esomeprazole dr, fluticasone propionate, hydrochlorothiazide, metformin, montelukast, tramadol, trazodone, albuterol hfa, and dexlansoprazole. ALLERGIES: She has No Known Allergies. FAMILY HISTORY: Her family history includes Arthritis in her father and mother; Asthma in her daughter; Degenerative Disk Disease in her sister; Diabetes in her father; Fibromyalgia in her mother; Hypertension in her father; Osteoarthritis in her father and mother; Scoliosis in her mother. SOCIAL HISTORY: She reports that she has never smoked. She has never used smokeless tobacco. She reports current alcohol use. She reports that she does not use drugs. REVIEW OF SYSTEMS: Review of Systems Constitutional: Negative for activity change, appetite change, chills and fever. HENT: Negative. Negative for congestion, dental problem and hearing loss. Eyes: Negative. Negative for pain and visual disturbance. Respiratory: Negative. Negative for cough, shortness of breath and wheezing. Cardiovascular: Negative. Negative for chest pain, palpitations and leg swelling. Gastrointestinal: Positive for abdominal pain. Negative for constipation, diarrhea, nausea and vomiting. Endocrine: Negative for cold intolerance, polydipsia and polyuria. Genitourinary: Negative. Negative for decreased urine volume, difficulty urinating, dysuria, hematuria and urgency. Musculoskeletal: Positive for arthralgias, joint swelling and myalgias. Negative for gait problem. Skin: Negative. Negative for rash and wound. Neurological: Negative for dizziness, syncope, weakness and light-headedness. Hematological: Negative. Negative for adenopathy. Does not bruise/bleed easily. Psychiatric/Behavioral: Negative. Negative for suicidal ideas. The patient is not nervous/anxious. Breast: Negative. PHYSICAL EXAMINATION: Ht: 175.9 cm (5' 9.25 ) Wt: 125.7 kg (277 lb 3.2 oz) BMI: Body mass index is 40.64 kg/m??. BP 129/83 (BP Location: Left arm, Patient Position: Sitting) Pulse 102 Temp (!) 35.8 ??C (96.4 ??F) (Temporal) Ht 175.9 cm (5' 9.25 ) Wt 125.7 kg (277 lb 3.2 oz) BMI 40.64 kg/m?? Physical Exam Constitutional: General: She is not in acute distress. Appearance: Normal appearance. She is obese. She is not toxic-appearing or diaphoretic. HENT: Head: Normocephalic and atraumatic. Nose: Nose normal. Mouth/Throat: Mouth: Mucous membranes are moist. Eyes: Extraocular Movements: Extraocular movements intact. Conjunctiva/sclera: Conjunctivae normal. Pupils: Pupils are equal, round, and reactive to light. Neck: Musculoskeletal: Normal range of motion. Cardiovascular: Rate and Rhythm: Normal rate. Pulmonary: Effort: Pulmonary effort is normal. No respiratory distress. Abdominal: General: Abdomen is flat. Bowel sounds are normal. There is no distension. Palpations: Abdomen is soft. Tenderness: There is no abdominal tenderness. There is no right CVA tenderness or guarding. Musculoskeletal: Normal range of motion. Skin: General: Skin is warm and dry. Neurological: General: No focal deficit present. Mental Status: She is alert and oriented to person, place, and time. Cranial Nerves: No cranial nerve deficit. Psychiatric: Mood and Affect: Mood normal. Thought Content: Thought content normal. Patient's ultrasound personally reviewed, 1 large gallstone and will be seen approximately 1.3 cm. ASSESSMENT AND PLAN: The patient is a 44 y.o. female with symptomatic cholelithiasis. Patient also has intermittent symptoms confirming symptomatic cholelithiasis given her onset of symptoms with fatty foods they last approximately 45 minutes to 1 hour. I do believe the patient will benefit from a laparoscopic cholecystectomy. All the risks, benefits, and alternatives were discussed with the patient including bleeding infection, damage to surrounding structures, need for further procedures, cystic duct leak, commonbile duct injury, fistula, abscesses, heart attacks, strokes, VTE, pneumonia, kidney problems, and . Patient was given evaluation information regarding a low-fat diet both preoperatively and postoperatively to help decrease gallbladder symptoms preop and 50 adjustment after removing her gallbladder.Patient will undergo preoperative COVID -19 testing prior to surgical intervention, and will be sche duled at the patient's convenience. I have seen and examined the patient. I agree with the findings and plan of care as discussed with the resident/fellow. María De Paz MD servicing manager Minimally Invasive Surgery Department of Surgery p: [phone] documented in this encounter Miscellaneous Notes * Hospital Course - Heaven Juarez BS - 08/20/2020 2:54 PM CDT The patient was admitted on 08/19/20 and taken to the operating room by María De Paz MD for alaparoscopic cholecystectomy. She tolerated the procedure well. Operative details were notable for intrahepatic gallbladder with significant fatty liver disease and gallbladder filled with multiple stones greater than 0.5cm. For full operative details, please see the dictated operative report. Post-operatively the patient was admitted to the MIS service for routine post-op management. On POD1, patient started ambulating, pain well controlled on oral pain meds, home medications were resumed and diet was advanced from clear liquid diet to regular diet. The patient was then discharge home on POD1 in stable condition, tolerating a regular diet, experiencing return of bowel functions, voiding spontaneously, ambulating well and with her pain well controlled on oral pain meds. She was instructedto follow up with María De Paz MD in clinic in 2-4 weeks. * Post-Procedure Note - Gino Molina MD - 08/19/2020 7:05 PM CDT Postoperative Assessment Subjective Pain controlled. Denies N/V. Objective Vitals: Vitals: 08/19/20 1540 BP: 135/86 Pulse: 80 Resp: 15 Temp: SpO2: 94% Gen: AAOX3, NAD Pulm: NLB with symmetrical expansion CV: RRR, no m/r/g Abd: Soft, ND, appropriately tender, wounds w/ dressings c/d/i w dermabond Skin: wwp Assessment 44 y.o. female h/o symptomatic gallstones POD0 s/p lap Soraya. Doing well. Plan Admitted for overnight obs Void check 10pm Home Meds restarted CBC at 10pm and in AM Neuro: Pain control CV: VSS Pulm: IS GI: CLD , IVF ID: Periop abx Activity: OOB, Ambulate TID PPx: SCDs, SQ injections Cosigned by Shaun Méndez MD at 08/20/2020 7:07 AM CDT * Op Note - María De Paz MD - 08/19/2020 3:30 PM CDT [facility] Minimally Invasive Surgery Operative Report SURGEON: María De Paz MD SURGICAL TEAM: Surgeon(s) and Role: * María De Paz MD - Primary * Catrachito Escalante III, MD - Fellow DATE OF SURGERY : 08/19/2020 PREOPERATIVE DIAGNOSIS: Pre-op Diagnosis * Symptomatic cholelithiasis [K80.20] POSTOPERATIVE DIAGNOSIS: Post-op Diagnosis * Symptomatic cholelithiasis [K80.20] PROCEDURE: LAPAROSCOPIC CHOLECYSTECTOMY INDICATION FOR PROCEDURE: The patient is a 44 y.o. female with a history of symptomatic gallstones. After risks, benefits, and alternatives were discussed, the patient was posted and consented for a laparoscopic, possible open, cholecystectomy with possible intraoperative cholangiogram. ANESTHESIA: General FINDINGS: Intrahepatic gallbladder with significant fatty liver disease. The critical view of safety was obtained after a tedious and difficult dissection. The gallbladder was filled with multiple stones over the size of 0.5cm. OPERATIVE DETAILS After informed consent was obtained from the patient, the patient was brought to the operating roomand laid in supine position. After induction of anesthesia the patient was intubated. A wright catheter was placed under sterile condition. Kimberly-operative antibiotics and DVT chemoprophylaxis were administered. The patient's abdomen was then prepped and draped in sterile fashion. Next, a formal timeout was performed with the whole operative team. A veress needle was placed in the left subcostal margin in the midclavicular line and pneumoperitoneum was achieved to 15 mmHg of CO2. A 5 mm optical port and a 30 degree laparoscope was used to enter the abdominal cavity 17cm below the xyphoid process in the supraumbilical midline. There was no evidence of injury from initial trocar placement. Under direct visualization two additional right subcostal 5 millimeter ports, and one 12 millimeter right epigastric port were placed. The gallbladder was grasped to provide superior and lateral retraction. The peritoneum over the gallbladder was incised on the lateral and medial wall of the gallbladder. Next, the hepatocystic triangle was cleared of all fatty and fibrous tissue. The lower third of the gallbladder is from the liver to expose the cystic plate. These steps were made significantly more difficult due to the patient's fatty and enlarged liver in the setting of an intrahepatic gallbladder. The cystic artery and the cystic duct were identified as the only two structures entering the gallbladder. The critical view of safety was obtained. Next, the cystic duct and artery weredivided between surgical clips at their junction with the gallbladder, leaving two clips on the patient side.The remainder of the gallbladder was then freed from the liver bed using electrocautery. It was placed in an endocatch bag and brought out through the 12mm trocar site. The liver bed was inspected for hemostasis. This was confirmed. Proper position of the surgical clips on the cystic duct was visually confirmed. An 0 Vicryl tie was used to close the 12mm trocar fascia. The remaining trocars were removed. All wounds were irrigated. Of note, local anesthetic using 0.25% Marcaine plain was infiltrated as a TAP block prior to trocar placement. All skin incisions were closed with subcuticular 4-0 vicryl suture and dermabond. The patient was awakened and extubated and transferred to the Recovery Room in stable condition. He/She tolerated the procedure well. Incision type: Laparoscopic Estimated Blood Loss: 75 mL Intraoperative Fluids: 1000 mls Specimens: Order Name Source Comment Collection Info Order Time SURGICAL PATHOLOGY Gallbladder Collected By: María De Paz MD 08/19/2020 6:37 PM Complications: None Condition on Discharge from the operating room was stable María De Paz MD Date: 08/19/2020 Time: 6:45 PM TEACHING ATTESTATION : I was present and directly participated in the entire procedure (including opening and closing). * Perioperative Nursing Note - Shameka Corley RN - 08/15/2020 9:29 AM CDT [facility] for Preoperative Assessment and Planning Perioperative Nursing Note Telephone Preoperative Evaluation ([facility]) - TELEPHONE ONLY, NO PHYSICAL EXAM Date: 08/15/20 Vitals: 08/15/20 0920 Weight: 125.6 kg (277 lb) Height: 180.3 cm (5' 11 ) CHEST CIRCUMFERENCE: n/a Social History Tobacco Use Smoking Status Never Smoker Smokeless Tobacco Never Used Substance and Sexual Activity Alcohol Use Not Currently Substance and Sexual Activity Drug Use Never Outpatient Medications Marked as Taking for the 08/19/20 encounter (Hospital Encounter) with María De Paz MD Medication Sig Dispense Refill ??? albuterol HFA (PROAIR HFA) 90 mcg/actuation inhaler ProAir HFA 90 mcg/actuation aerosol inhaler ??? atorvastatin (LIPITOR) 20 mg tablet Take 20 mg by mouth nightly ??? celecoxib (CeleBREX) 200 mg capsule 200 in am and 100 in pm 1 ??? cetirizine (ZyrTEC) 10 mg tablet Take 10 mg by mouth convertible top installer before breakfast ??? esomeprazole DR (NexIUM) 40 mg capsule Take 40 mg by mouth daily before breakfast ??? fish oil-dha-epa 1,200-144-216 mg capsule Take by mouth convertible top installer before breakfast ??? fluticasone propionate (FLONASE) 50 mcg/actuation nasal spray fluticasone propionate 50 mcg/actuation nasal spray,suspension ??? hydroCHLOROthiazide (HYDRODIURIL) 25 mg tablet Take 25 mg by mouth convertible top installer before breakfast 1 ??? metFORMIN (GLUCOPHAGE) 500 mg tablet 500 mg 2 (two) times a day with meals 5 ??? montelukast (SINGULAIR) 10 mg tablet Take 10 mg by mouth nightly ??? multivitamin capsule Take 1 capsule by mouth convertible top installer before breakfast ??? multivitamin with minerals tablet Take 1 tablet by mouth convertible top installer before breakfast ??? traMADol (ULTRAM) 50 mg tablet Take 50 mg by mouth every 6 (six) hours ??? traZODone (DESYREL) 50 mg tablet TK 1 T PO QHS 0 ??? zinc 50 mg tablet Take by mouth nightly Implants No active implants to display in this view. SKIN Piercings Remaining: Yes Wound (LDAs) Type of Wound (LDA): (none) SCREENINGS Riley Fall Risk Score (Retired): 0 Verónica index score: 100 Is someone currently physically or emotionally hurting you or your family?: Denies NUTRITION PATIENT CARE PLANNING Advance Directives (For Healthcare) Have you reviewed your Advance Directive and is it valid for this stay?: No Advance Directive: Patient does not have advance directive Communication/Graduate Studies Dean Needs Communication Needs: None Assistive Devices/DME: None Discharge Planning Type of Residence: Private residence Living Arrangements: Spouse/significant other, Children Support Systems: Spouse/significant other Assistance Needed: mom to provide DC ride post-op COVID Screening Covid-19 Screening In the last 10 days have you had any new or worsening cough, SOB, fever (>=100F), body aches, loss of taste or smell, diarrhea or vomiting, or sore throat: No Have you had close contact with anyone with confirmed or suspected COVID-19 in the past 3 weeks?: No Do you live in or work in a congregate living facility (ex. 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 No TESTING PLAN-See Instructions for plan We recommend you Self-Isolate after COVID Testing: Stay at home, if possible until your surgery date. Maintain a 6 foot distance from other people (social distancing). Avoid touching your eyes, nose and mouth with unwashed hands. Wash your hands often with soap and water for at least 20 seconds. Use an alcohol- based hand street light servicer that contains at least 60% alcohol if soap and water are not available. ADDITIONAL COMMENTS/ FOLLOW UP * Pre-Procedure Instructions - Shameka Corley RN - 08/15/2020 9:27 AM CDT PRE-SURGICAL INSTRUCTIONS ??? General Information ?? Surgery location provided to patient. ?? Arrival time and surgical time will be provided by your surgeon. ?? Wear something clean, loose, comfortable and easy to get in and out of. ?? Leave your valuables and any jewelry at home (No metal or piercings are allowed in the operatingroom) ?? Bring your insurance card, a photo ID (like a Insurance Claims Representative's license) and a method of payment for any insurance copay, deductible, or copay for discharge medications. ?? Bring a complete, up to date list of all of your medications including any over the counter medications or supplements you may take. ? How To Prepare Your Skin For Surgery Antiseptic/antibacterial soap will decrease the amount of germs on your skin. It is important to minimize the risk of getting an infection by doing the following: ?? Change all the linens on the bed the night before surgery so you are sleeping on clean fresh sheets and pillowcases. ?? Shower the evening before and the morning of surgery with an antibacterial soap such as Dial or a surgical soap known as chlorhexidine (Hibiclens). You can purchase this soap at any pharmacy or department store or come by our CPAP clinic and we will give it to you free of charge. Do not use thissoap on your face or hair. ?? Wash your hair and face with your regular shampoo (no conditioners) and facial cleanser. ?? Take a shower using ?? cup (2 oz.) of antiseptic soap applied to a clean fresh washcloth. Scrub your entire body from the neck down. If you can't reach the surgical site, such as your back, have someone help you with your shower. Step out of the water and leave soap on your skin for 2 minutes prior to rinsing off. Rinse thoroughly and dry yourself off with a clean fresh dry towel. ?? Wear clean clothes or pajamas to sleep in and on morning of surgery. ?? Nothing extra on the skin or hair such as deodorant, makeup, hair products, lotions, powders, Vaseline, creams, or perfumes the evening before and the morning of surgery. ?? The morning of the surgery repeat the shower process with the remaining ?? cup (2 oz.) of surgical scrub using another fresh wash cloth and towel. ?? Do not shave the morning of surgery. ?? REMEMBER no deodorant, make-up, lotions, powders, creams, Vaseline, oils, conditioners or hair products the morning of the surgery. COVID TESTING PLAN COVID Test Request Placed in Epic to [facility]. Test to be performed on 08/17. If you need to reschedule your COVID test to a different location or if your surgery gets rescheduled, you MUST call [phone] Saturday-Saturday 8am-4:30pm to get your COVID testing rescheduled or your lab order will not be available at Testing Sites. COVID Testing is only valid for up to 96 hours prior to surgery date, unless otherwise specified. If you are unable to reach staff at the above phone number, please call the CPAP Staff at [phone]. This number cannot order a lab test, but can attempt to contact the above number/staff to assist you. We are available Saturday-Saturday 8am-4:30pm . We recommend you Self-Isolate after COVID Testing: Stay at home, if possible until your surgery date. Maintain a 6 foot distance from other people (social distancing). Avoid touching your eyes, nose and mouth with unwashed hands. Wash your hands often with soap and water for at least 20 seconds. Use an alcohol- based hand street light servicer that contains at least 60% alcohol if soap and water are not available. All visitors/patients are being asked to wear a clean mask when entering the hospital. COVID 19 Updates & Visitor Policy: Please access [email or web address] for the most updated information. Surgery Times: ??? For patients having surgery @ [facility], if your surgeon's office has not notified you of your surgery time by NOON THE BUSINESS DAY BEFORE your surgery, please call [phone] and ask for your surgeon's office ??? * Pre-Procedure Instructions - Laina Wolfe NP - 08/15/2020 9:26 AM CDT [facility] Preoperative Assessment and Planning CPAP Clinic Location: [facility] The night before your surgery: * Do not eat or drink anything after midnight. This includes candy, mint, gums, chewable antacids (TUMS, Rolaids) and cough drops * Do not smoke after midnight the night before surgery. It is best to stop smoking now to improve your health. The morning of your surgery: * You may brush your teeth and rinse your mouth out. * Do not wear jewelry, body piercings, makeup, hairpins, false eyelashes or contact lenses to the hospital. * Leave any valuables at home or with your family. You may want to bring a credit card if you want to use our Mobile Pharmacy for your discharge medications. * If you are still having menstrual cycles, you should come with a full bladder on the morning of surgery in order to provide a urine sample. * If you have an implantable device with a remote, bring the remote with you on the day of surgery. Outpatient Surgery: * You must have a responsible adult drive you home and stay with you for 24 hours after your surgery * You cannot be alone at home or in a hotel * Please call your surgeon's office if you do not have someone to drive you home and/or stay with you after surgery * Please bring any items you may need to spend the night in the hospital. Sometimes patients need to be cared for in the hospital overnight. Instructions For Your Medications: Pre-Surgery Instructions: Medication Instructions ??? albuterol HFA (PROAIR HFA) 90 mcg/actuation inhaler Take on day of surgery if needed ??? atorvastatin (LIPITOR) 20 mg tablet Take night before as prescribed ??? celecoxib (CeleBREX) 200 mg capsule Take morning of surgery ??? cetirizine (ZyrTEC) 10 mg tablet Don't take on day of surgery ??? esomeprazole DR (NexIUM) 40 mg capsule Take morning of surgery ??? fish oil-dha-epa 1,200-144-216 mg capsule Don't take on day of surgery ??? fluticasone propionate (FLONASE) 50 mcg/actuation nasal spray Don't take on day of surgery ??? hydroCHLOROthiazide (HYDRODIURIL) 25 mg tablet Don't take on day of surgery ??? metFORMIN (GLUCOPHAGE) 500 mg tablet Don't take on day of surgery ??? montelukast (SINGULAIR) 10 mg tablet Don't take on day of surgery ??? multivitamin capsule Stop taking 1 week prior to surgery ??? multivitamin with minerals tablet Stop taking 1 week prior to surgery ??? traMADol (ULTRAM) 50 mg tablet Take on day of surgery if needed ??? traZODone (DESYREL) 50 mg tablet Take night before as prescribed ??? zinc 50 mg tablet Don't take on day of surgery General Instructions For Medications: ?? * You may continue your non-steroidal anti-inflammatory medication: Celebrex ?? Stop all of these medications 7-14 days prior to your surgery: Vitamin E, Herbal medicines, DietPills ?? If you use inhalers, please bring them with you on the day of your procedure. ?? If you have pain, you may take tylenol (acetaminophen). Do not take more than 6 tablets or 3000 mg (3 g) within a 24 period. Call your surgeon and the CPAP clinic if any of the following happens before surgery: ?? Any changes in your health ?? You have a fever ?? You have any signs of an infection (chest, urinary tract or tooth) ?? You have been to the Emergency Room or were in the hospital ?? You have started taking any new medications ?? You have questions about a bowel prep or special diet before surgery documented in this encounter Plan of Treatment Not on file documented as of this encounter Procedures Procedure Name Priority Date/Time Associated Diagnosis Comments CBC WITHOUT DIFFERENTIAL Timed 08/19/2020 11:56 PM CDT POCT GLUCOSE DEVICE Routine 08/19/2020 7 :40 PM CDT SURGICAL PATHOLOGY Routine 08/19/2020 5: 29 PM CDT Symptomatic cholelithiasis LAPAROSCOPIC CHOLECYSTECTOMY 08/19/2020 5:03 PM CDT Symptomatic cholelithiasis POCT GLUCOSE DEVICE Routine 08/19/2020 3 :24 PM CDT POCT HCG, URINE Routine 08/19/2020 3:19 PM CDT documented in this encounter Results * (ABNORMAL) CBC without differential (08/19/2020 11:56 PM CDT) WBC 13.7(H) 3.8 - 9.9 K/cumm [facility] Hgb 14.0 11.9 - 15.5 g/dL [facility] Hct 41.4 35.6 - 45.5 % [facility] Plt 257 150 - 400 K/cumm [facility] MPV 10.3 9.1 - 12.3 fL [facility] RBC 5.02 3.90 - 5.20 M/cumm [facility] MCV 82.5 81.3 - 96.4 fL [facility] MCH 27.9 27.1 - 33.3 pg [facility] MCHC 33.8 32.3 - 35.7 g/dL [facility] RDW CV 12.8 11.1 - 14.9 % [facility] RDW SD 38.2 35.7 - 48.1 fL [facility] NRBC abs 0.00 0.00 - 0.01 K/cumm [facility] Blood specimen (specimen) 08/19/2020 11:56 PM CDT 08/20/2020 1:02 AM CDT us Catrachito Escalante III, MD LAB BLOOD ORDER SURYA Final Result Performing Organization Address City/[facility]/ZIP Co de Phone Number [facility] [facility] [place] [address] * (ABNORMAL) POCT glucose (08/19/2020 7:40 PM CDT) Pathologist [facility] Glucose, POC 203(H) 70 - 199 mg/dL [facility] Blood specimen (specimen) 08/19/2020 7:40 PM CDT 08/19/2020 7:40 PM CDT us María De Paz MD LAB POCT ORDERABLES - DE VICE Final Result [facility] [place] [address] * Surgical pathology (08/19/2020 5:29 PM CDT) Tissue (Gallbladder) 08/19/2020 5:29 PM CDT Narrative PATHOLOGY [facility] - 08/24/2020 4:22 PM CDT EPIC results best viewed via link to PDF [facility] [place] [address] SURGICAL PATHOLOGY REPORT FINAL Patient Name: ?? LORELEI HALL Gender: ??F : ??1975 (Age: 44) Address: ??[address] [place] [id number] Hospital #: ??[id number] Taken:08/19/2020 Received:08/22/2020 Reported: 08/24/2020 Patient Type: [facility] OP In Bed ?? Service: Surgery Location: [place] [address] Physician(s): ??Kana Pascale Weller M.D. María De Paz M.D. Catrachito Escalante III, M.D. Diagnosis: A. ??Gallbladder, laparoscopic cholecystectomy ? - Chronic cholecystitis and cholelithiasis fvw/08/24/2020 16:22 By this signature, I attest that the above diagnosis is based upon my personal examination of the slides(and/or other material indicated in the diagnosis). Patricia Martinez M.D. Report Electronically Reviewed and Signed Out By ??Patricia Martinez M.D. 08/24/2020 16:22:51 Microscopic Description and Comment: Microscopic examination substantiates the above diagnosis. ?? History: The patient is a 44-year-old woman with history of symptomatic cholelithiasis. ??Operative procedure: Laparoscopic cholecystectomy. Specimen(s) Received: A: Gallbladder Gross Description: Received in formalin labeled with the patient's name and gallbladder is a 10.5 x 2.8 x 2.4 cm gallbladder. ??The lumen contains dark cain bile and greater than 20 multifaceted brown calculi (0.1 to 1.3 cm in greatest dimension. ??Several stones are found in the cystic duct. ??No lymph node is included. ??The mucosa is brown and granular. ??The wall measures 0.1 to 0.2 cm in thickness. ??Labeled A1. ??Jar 0. mab/08/22/2020 09:45 PA(s): Sushila Medina, MS, PA (ASCP) By this signature, I attest that the above diagnosis is based upon my personal examination of the slides(and/or other material). Addenda/Procedures The performance characteristics of some immunohistochemical stains, fluorescence in-situ hybridization tests and immunophenotyping by flow cytometry cited in this report (if any) were determined by the Surgical Pathology Department at [facility] as part of an ongoing quality systems technician program and in compliance with federally mandated regulations drawn from the Clinical Laboratory Improvement Act of 1988 (CLIA '88). ??Some of these tests rely on the use of analyte specific reagents and are subject to specific labeling requirements by the US Food and Drug Administration. ??Such diagnostic tests may only be performed in a facility that is certified by the Department of Health and Human Services as a high complexity laboratory under CLIA '88. ??The FDA has determined that such clearance or approval is not necessary. ??This test is used for clinical purposes. ??It should not be regarded as investigational or for research. ??Nevertheless, federal rules concerning the medical use of analyte specific reagents require that the following disclaimer be attached to the report: This test was developed and its performance characteristics determined by the Surgical Pathology Department of [facility]. ??It has not been cleared or approved by the U. S. Food and Drug Administration. IMAGES AND SCANNED DOCUMENTS, IF INCLUDED, ONLY VIEWABLE IN PDF VERSION OF REPORT us María De Paz MD LAB PATHOLOGY ORDERABLES Final Result PATHOLOGY [facility] 3rd Floor [place], [place] [phone] * POCT glucose (08/19/2020 3:24 PM CDT) Glucose, POC 147 70 - 199 mg/dL [facility] Blood specimen (specimen) 08/19/2020 3:24 PM CDT 08/19/2020 3:24 PM CDT us María De Paz MD LAB POCT ORDERABLES - DE VICE Final Result [facility] Department [place] [address] * POCT hCG, urine (08/19/2020 3:19 PM CDT) HCG, ur, POC Negative Lot Number [id number] QC Backgroud Clear Acceptable QC Control Line Acceptable Urine 08/19/2020 3:19 PM CDT us Laina St NP POINT OF CARE TEST JOSEF CAREY Final Result documented in this encounter Visit Diagnoses Diagnosis Symptomatic cholelithiasis- Primary Calculus of gallbladder without cholecystitis without obstruction Essential hypertension Unspecified essential hypertension Gastroesophageal reflux disease Esophageal reflux Hyperlipidemia Other and unspecified hyperlipidemia Morbid obesity (HCC) Morbid obesity Asthma Unspecified asthma Osteoarthritis Osteoarthrosis, unspecified whether generalized or localized, unspecified site documented in this encounter Admitting Diagnoses Diagnosis Symptomatic cholelithiasis documented in this encounter Administered Medications Inactive Administered Medications - up to 3 most recent administrations Medication Order MAR Action Action Date Dose Rate Site acetaminophen (TYLENOL) tablet 1,000 mg 1,000 mg, oral, Once, On Sat08/19/20 at 1630, For 1 dose, Pre-Op Given 08/19/2020 3:55 PM CDT 1,000 mg acetaminophen (TYLENOL) tablet 650 mg 650 mg, oral, Every 4 hours PRN, 1st line for pain, Starting on Sat08/19/20 at 2152, Indications: PainIndications:Pain Given 08/20/2020 1:57 PM CDT 650 mg Given 08/20/2020 8:21 AM CDT 650 mg atorvastatin (LIPITOR) tablet 20 mg 20 mg, oral, Nightly, First dose on Sat08/19/20 at 2230 Given 08/19/2020 10:17 PM CDT 20 mg celecoxib (CeleBREX) capsule 200 mg 200 mg, oral, 2 times daily, First dose on Sat08/19/20 at 2230 Given 08/20/2020 8:20 AM CDT 200 mg Given 08/19/2020 10:37 PM CDT 200 mg cetirizine (ZyrTEC) tablet 10 mg 10 mg, oral, Daily (early AM), First dose on Sat08/20/20 at 0600 Given 08/20/2020 5:37 AM CDT 10 mg dextrose 5% and sodium chloride 0.45% with potassium chloride 20 mEq/L infusion (premix) 100 mL/hr, intravenous, Continuous, Starting on Sat08/19/20 at 1930, Phase I & Post-op Floor, May discontinue when tolerating PO (more than 250 mL in 8 hours) New Bag 08/19/2020 7:34 PM CDT 100 mL/hr 100 mL/hr docusate sodium (COLACE) capsule 100 mg 100 mg, oral, 2 times daily, First dose on Sat08/19/20 at 2230, Indications: constipationIndications:constipa tion Given 08/20/2020 8:21 AM CDT 100 mg Given 08/19/2020 10:17 PM CDT 100 mg haloperidol (HALDOL) injection 0.5 mg 0.5 mg, intravenous, Once as needed, nausea, vomiting, Starting on Sat08/19/20 at 1858, For 1 dose, Phase I, If administered IV push, administer over 5 min for adults Given 08/19/2020 7:10 PM CDT 0.5 mg heparin 5,000 unit/mL injection 5,000 Units 5,000 Units, subcutaneous, Every 8 hours scheduled, First dose on Sat08/19/20 at 2230, Indications: Deep Vein Thrombosis PreventionIndications:Deep Vein Thrombosis Prevention Given 08/20/2020 5:36 AM CDT 5,000 Units Right Lower Abdomen Given 08/19/2020 10:17 PM CDT 5,000 Units Left Lower Abdomen heparin 5,000 unit/mL injection 7,500 Units 7,500 Units, subcutaneous, Once, On Sat08/19/20 at 1515, For 1 dose, Pre-Op, Indications: Deep Vein Thrombosis PreventionIndications:Deep Vein Thrombosis Prevention Given 08/19/2020 3:34 PM CDT 7,500 Units Left Lower Abdomen hydroCHLOROthiazide (HYDRODIURIL) tablet 25 mg 25 mg, oral, Daily (early AM), First dose on 08/20/20 at 0600, Indications: hypertensionIndications:hypert ension Given 08/20/2020 5:36 AM CDT 25 mg HYDROmorphone (DILAUDID) injection 0.2 mg 0.2 mg, intravenous, Administer over 2 Minutes, Every 10 min PRN, 1st line for pain, Starting on Sat08/19/20 at 1858, Phase I, Notify Anesthesiologist if total PACU dose reaches 2 mg and pain score 5/10 or more., Indications: PainIndications:Pain Given 08/19/2020 8:33 PM CDT 0.2 mg Given 08/19/2020 8:24 PM CDT 0.2 mg Given 08/19/2020 8:13 PM CDT 0.2 mg Lactated Ringer's (LR) infusion 30 mL/hr, intravenous, Continuous, Starting on Sat08/19/20 at 1515, Pre-Op New Bag 08/19/2020 3:07 PM CDT 30 mL/hr 30 mL/hr metFORMIN (GLUCOPHAGE) tablet 500 mg 500 mg, oral, 2 times daily with meals (bkfst, dinner), First dose on 08/20/20 at 0800, Take with food Given 08/20/2020 8:21 AM CDT 500 mg oxyCODONE (ROXICODONE) tablet 5 mg 5 mg, oral, Every 4 hours PRN, 2nd line for pain, Starting on Sat08/19/20 at 2152, May administer 1 hour after 1st line agent for uncontrolled or increasing pain., Indications: PainIndications:Pain Given 08/20/2020 1:57 PM CDT 5 mg Given 08/20/2020 10:05 AM CDT 5 mg Given 08/20/2020 5:36 AM CDT [address] (PROTONIX) extended release tablet 40 mg 40 mg, oral, Daily, First dose on 08/20/20 at 0900, Do not crush, chew, cut, dissolve, open or otherwise manipulate tablet/capsule., Indications: Stress Ulcer ProphylaxisIndicatio ns:Stress Ulcer Prophylaxis Given 08/20/2020 8:21 AM CDT 40 mg prochlorperazine (COMPAZINE) injection 5 mg 5 mg, intravenous, Administer over 2 Minutes, As needed, nausea, vomiting, Starting on Sat08/19/20 at 1918, For 2 doses, Phase I Given 08/19/2020 8:00 PM CDT 5 mg scopolamine patch 72 hour 1 patch 1 patch, transdermal, Administer over 72 Hours, Once, On Sat08/19/20 at 1600, For 1 dose, Phase I Medication Applied 08/19/2020 3:33 PM CDT 1 patch Behind Left Ear sodium chloride 0.45% infusion 100 mL/hr, intravenous, Continuous, Starting on Sat08/19/20 at 2015, Phase I New Bag 08/20/2020 5:36 AM CDT 100 mL/hr 100 mL/hr New Bag 08/19/2020 7:50 PM CDT 100 mL/hr 100 mL/hr traMADoL (ULTRAM) tablet 50 mg 50 mg, oral, Every 6 hours, First dose on Sat08/19/20 at 2230 Given 08/20/2020 10:06 AM CDT 50 mg Given 08/20/2020 4:01 AM CDT 50 mg Given 08/19/2020 10:16 PM CDT 50 mg traZODone (DESYREL) tablet 100 mg 100 mg, oral, Nightly, First dose on Sat08/19/20 at 2230 Given 08/19/2020 11:04 PM CDT 100 mg documented in this encounter Discontinued Medications Medication Sig Discontinue Reason Start Date End Da te dexlansoprazole (DEXILANT) 60 mg capsule Dexilant 60 mg capsule, delayed release Take 1 capsule(s) every day by oral route for 56 days. Therapy completed 08/15/2020 documented as of this encounter Historical Medications * This list may reflect changes made after this encounter. 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 Scheduled Medication Order 08/18/2020 08/19/2020 08/20/2020 acetaminophen (TYLENOL) tablet 1,000 mg (COMPLETED) 1,000 mg, oral, Once, On Sat08/19/20 at 1630, For 1 dose, Pre-Op 1555 (Given - Provider: Rodney Davis RN) atorvastatin (LIPITOR) tablet 20 mg 20 mg, oral, Nightly, First dose on Sat08/19/20 at 2230 2217 (Given - Provider: Lamar Allen RN) ceFAZolin (ANCEF) 1 gram/10 mL in sterile water (premix) 3,000 mg (COMPLETED) 3,000 mg, intravenous, at 600 mL/hr, Administer over 3 Minutes, Once, On Sat08/19/20 at 1515, For 1 dose, Pre-Op, Administer within 60 minutes of incision., Indications: Prophylaxis, Surgical 1720 (Given - Provider: Roseanne Rock CRNA) celecoxib (CeleBREX) capsule 200 mg 200 mg, oral, 2 times daily, First dose on Sat08/19/20 at 2230 2237 (Given - Provider: Lamar Allen RN) 0820 (Given - Provider: Soumya Soliz RN) cetirizine (ZyrTEC) tablet 10 mg 10 mg, oral, Daily (early AM), First dose on Sat08/20/20 at 0600 0537 (Given - Provid er: Lamar Allen RN) docusate sodium (COLACE) capsule 100 mg 100 mg, oral, 2 times daily, First dose on Sat08/19/20 at 2230, Indications: constipation 2217 (Given - Provider: Lamar Allen RN) 0821 (Given - Provider: Soumya Soliz RN) heparin 5,000 unit/mL injection 5,000 Units 5,000 Units, subcutaneous, Every 8 hours scheduled, First dose on Sat08/19/20 at 2230, Indications: Deep Vein Thrombosis Prevention 2217 (Given - Provider: Lamar Allen RN) 0536 (Given - Provider: Lamar Allen RN)1400 (Due) heparin 5,000 unit/mL injection 7,500 Units (COMPLETED) 7,500 Units, subcutaneous, Once, On Sat08/19/20 at 1515, For 1 dose, Pre-Op, Indications: Deep Vein Thrombosis Prevention 1534 (Given - Provider: Rodney Davis RN) hydroCHLOROthiazide (HYDRODIURIL) tablet 25 mg 25 mg, oral, Daily (early AM), First dose on Sat08/20/20 at 0600, Indications: hypertension 0536 (Given - Provid er: Lamar Allen RN) metFORMIN (GLUCOPHAGE) tablet 500 mg 500 mg, oral, 2 times daily with meals (bkfst, dinner), First dose on Sat08/20/20 at 0800, Take with food 0821 (Given - Provid er: Soumya Soliz, JOSEFINA) pantoprazole DR (PROTONIX) extended release tablet 40 mg 40 mg, oral, Daily, First dose on Sat08/20/20 at 0900, Do not crush, chew, cut, dissolve, open or otherwise manipulate tablet/capsule., Indications: Stress Ulcer Prophylaxis 0821 (Given - Provid er: Soumya Soliz RN) scopolamine patch 72 hour 1 patch (CANCELED) 1 patch, transdermal, Administer over 72 Hours, Once, On Sat08/19/20 at 1600, For 1 dose, Phase I 1533 (Medication Applied - Provider: Rodney Davis RN)2317 (Medication Removed - Provider: Lamar Allen RN - Comment: Time automatically adjusted from order being discontinued) sodium chloride 0.9% flush 0.5-20 mL 0.5-20 mL, intra-catheter, Every 8 hours scheduled, First dose on Sat08/19/20 at 2230, Flush volume based on line type and size. 2218 (Not Given - Provider: Lamar Allen RN - Reason: IV Infusing) 0537 (Not Given - Provider: Lamar Allen RN - Reason: IV Infusing)1400 (Due) traMADoL (ULTRAM) tablet 50 mg 50 mg, oral, Every 6 hours, First dose on Sat08/19/20 at 2230 2216 (Given - Provider: Lamar Allen RN) 0401 (Given - Provider: Lamar Allen RN)1006 (Given - Provider: Soumya Soliz RN) traZODone (DESYREL) tablet 100 mg 100 mg, oral, Nightly, First dose on Sat08/19/20 at 2230 2304 (Given - Provider: Lamar Allen RN) Continuous Medication Order 08/18/2020 08/19/2020 08/20/2020 dextrose 5% and sodium chloride 0.45% with potassium chloride 20 mEq/L infusion (premix) (CANCELED) 100 mL/hr, intravenous, Continuous, Starting on Sat08/19/20 at 1930, Phase I & Post-op Floor, May discontinue when tolerating PO (more than 250 mL in 8 hours) 1934 (New Bag - Provider: Everardo Bacon, JOSEFINA) Lactated Ringer's (LR) infusion (CANCELED) 30 mL/hr, intravenous, Continuous, Starting on Sat08/19/20 at 1515, Pre-Op 1507 (New Bag - Provider: Rodney Davis, JOSEFINA)1905 (Stopped - Provider: Jerome Avalos MD) sodium chloride 0.45% infusion (CANCELED) 100 mL/hr, intravenous, Continuous, Starting on Sat08/19/20 at 2015, Phase I 1950 (New Bag - Provider: Everardo Bacon RN) 0536 (New Bag - Provider: Lamar Allen RN) PRN Medication Order 08/18/2020 08/19/2020 08/20/2020 acetaminophen (TYLENOL) tablet 650 mg 650 mg, oral, Every 4 hours PRN, 1st line for pain, Starting on Sat08/19/20 at 2152, Indications: Pain 0821 (Given - Provider: Soumya Soliz RN)1357 (Given - Provider: Soumya Soliz RN) albuterol HFA (PROVENTIL HFA,VENTOLIN HFA,PROAIR HFA) 90 mcg/actuation inhaler 1 puff 1 puff, inhalation, Every 4 hours PRN (correspondence coordinator), wheezing, Starting on Sat08/19/20 at 2152 bupivacaine (MARCAINE) 0.25 % (2.5 mg/mL) preservative free injection (CANCELED) As needed, Starting on Sat08/19/20 at 1729, Intra-Op 1729 (Given - Provider: María De Paz MD - Comment: TAP block) haloperidol (HALDOL) injection 0.5 mg (COMPLETED) 0.5 mg, intravenous, Once as needed, nausea, vomiting, Starting on Sat08/19/20 at 1858, For 1 dose, Phase I, If administered IV push, administer over 5 min for adults 1909 (Given - Provider: Everardo Bacon RN) HYDROmorphone (DILAUDID) injection 0.2 mg (CANCELED) 0.2 mg, intravenous, Administer over 2 Minutes, Every 10 min PRN, 1st line for pain, Starting on Sat08/19/20 at 1858, Phase I, Notify Anesthesiologist if total PACU dose reaches 2 mg and pain score 5/10 or more., Indications: Pain 1913 (Given - Provider: Everardo Bacon RN)1923 (Given - Provider: Everardo Bacon RN)1933 (Given - Provider: Everardo Bacon RN)1944 (Given - Provider: Everardo Bacon RN)1953 (Given - Provider: Everardo Bacon RN)1999 (Given - Provider: Everardo Bacon RN)2012 (Given - Provider: Everardo Bacon RN)2023 (Given - Provider: Everardo Bacon RN)2032 (Given - Provider: Everardo Bacon RN) ondansetron ODT (ZOFRAN-ODT) disintegrating tablet 4 mg 4 mg, oral, Every 6 hours PRN, nausea, vomiting, Starting on Sat08/19/20 at 2152, Indications: Nausea and Vomiting oxyCODONE (ROXICODONE) tablet 5 mg 5 mg, oral, Every 4 hours PRN, 2nd line for pain, Starting on Sat08/19/20 at 2152, May administer 1 hour after 1st line agent for uncontrolled or increasing pain., Indications: Pain 2217 (Given - Provider: Lamar Allen RN) 0536 (Given - Provider: Lamar Allen RN)1005 (Given - Provider: Soumya Soliz, JOSEFINA)1357 (Given - Provider: Soumya Soliz, JOSEFINA) prochlorperazine (COMPAZINE) injection 5 mg (CANCELED) 5 mg, intravenous, Administer over 2 Minutes, As needed, nausea, vomiting, Starting on Sat08/19/20 at 1918, For 2 doses, Phase I 1999 (Given - Provider: Everardo Bibi Jordi, RN) sodium chloride 0.9 % irrigation (CANCELED) As needed, Starting on Sat08/19/20 at 1729, Intra-Op 1729 (Given - Provider: María De Paz MD) sodium chloride 0.9% flush 0.5-20 mL 0.5-20 mL, intra-catheter, As needed, line care, Starting on Sat08/19/20 at 2152, Flush volume based on line type and size. Flush before and after each use. documented in this encounter Orders Medications Ordered That Carlos ht Not Have Been Administered Count Last Ordered Date First Ordered Date albuterol HFA (PROVENTIL HFA ,VENTOLIN HFA,PROAIR HFA) 90 mcg/actuation inhaler 1 puff 1 08/19/2020 bupivacaine (MARCAINE) 0.25 % (2.5 mg/mL) preservative free injection 1 08/19/2020 ceFAZolin (ANCEF) 1 gram/10 mL in sterile water (premix) 3,000 mg 1 08/19/2020 celecoxib (CeleBREX) capsule 400 mg 1 08/19 naloxone (NARCAN) 0.4 mg/mL injection 0.04-0.4 mg 1 08/19/2020 ondansetron ODT (ZOFRAN-ODT) disintegrating tablet 4 mg 1 08/19/2020 sodium chloride 0.9 % irrigation 08/19/20 20 sodium chloride 0.9% flush 0.5-20 mL 3 08/02 Diet Count Last Ordered Date First Orde red Date ADULT DISCHARGE DIET 1 08/20/2020 Nursing Count Last Ordered Date First Orde red Date DISCHARGE ACTIVITY 2 08/20/2020 DISCHARGE CALL PROVIDER 5 08/20/2020 DISCHARGE DRESSING 3 08/20/2020 documented in this encounter Care Teams Manager Interventional Relationship Specialty Start Date End Date Kana Rankin MD PCP - General Family Medicine 05/15/19 documented as of this encounter
--- OUTSIDE RECORDS SUMMARY | 2024-12-12 16:28 | XMS_ITS | Encounter Summary ---
Author Organization [facility] Address [address] [place] [address] Care Team Providers Care Senior Media Director Name Role Phone Kana Rankin MD Primary Care Provider [phone] Reason for Referral * Diagnostic Imaging (Routine) - Closed Specialty Diagnoses / Procedures Referred By Contac t Referred To Contact Diagnoses Pain in both knees, unspecified chronicity Procedures XR Knee Left 4 or More Views Luly Cheney PA Phone: tel: fax: [place] [address] [place] [address] Referral ID Status Reason Start Date Expiration Date Visits Re quested Visits Authorized [id number] Closed 05/04/2022 06/03/2023 1 1 * Diagnostic Imaging (Routine) - Closed Specialty Diagnoses / Procedures Referred By Contac t Referred To Contact Diagnoses Pain in both knees, unspecified chronicity Procedures XR Knee Right 4 or More Views Luly Cheney PA Phone: tel: fax: [place] [address] [place] [address] Referral ID Status Reason Start Date Expiration Date Visits Re quested Visits Authorized [id number] Closed 05/04/2022 06/03/2023 1 1 Reason for Visit * Diagnostic Imaging (Routine) - Closed Specialty Diagnoses / Procedures Referred By Contac t Referred To Contact Diagnoses Pain in both knees, unspecified chronicity Procedures XR Knee Right 4 or More Views Luly Cheney PA Phone: tel: fax: [facility] [address] [address] Referral ID Status Reason Start Date Expiration Date Visits Re quested Visits Authorized [id number] Closed 05/04/2022 06/03/2023 1 1 Encounter Details Date Type Department Care Team (Latest Contact Info) Description 05/10/2022 12:59 PM CDT - 05/10/2022 11:59 PM CDT Hospital Encounter [id number] [address] [place] [phone] Pain in both knees, unspecified chronicity Discharge [...] on file 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 Gender Identity Not on file Sexual Orientation Straight 08/04/2020 2: 23 PM CDT 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 on file Not on file Not on file documented as of this encounter Medications at Time of Discharge acetaminophen (TYLENOL) 325 mg tabletIndications:P ain Take 2 tablets (650 mg total) by mouth every 4 (four) hours as needed for pain 30 tablet 08/20/2020 adapalene-benzoyl peroxide 0.3-2.5 % gel with pump Epiduo Forte 0.3 %-2.5 % topical gel with pump albuterol HFA (PROVENTIL HFA,VENTOLIN HFA,PROAIR HFA) 90 mcg/actuation inhaler ProAir HFA 90 mcg/actuation aerosol inhaler atorvastatin (LIPITOR) 40 mg tablet 03/02/2022 celecoxib (CeleBREX) 100 mg capsule 04/04/2021 celecoxib (CeleBREX) 200 mg capsule 200 in am and 100 in pm 1 04/09/2019 cetirizine (ZyrTEC) 10 mg tablet Take 1 tablet (10 mg total) by mouth auto technician mechanic before breakfast ciclesonide (Omnaris) 50 mcg nasal spray Omnaris 50 mcg nasal spray Hankins 2 sprays every day by intranasal route. docusate sodium (COLACE) 100 mg capsuleIndications: constipation Take 1 capsule (100 mg total) by mouth 2 (two) times a day 20 capsule 08/20/[address] (NexIUM) 20 mg capsule 03/29/2021 fish oil-dha-epa 1,200-144-216 mg capsule Take by mouth auto technician mechanic before breakfast fluticasone propionate (FLONASE) 50 mcg/actuation nasal spray fluticasone propionate 50 mcg/actuation nasal spray,suspension hydroCHLOROthiazide (HYDRODIURIL) 25 mg tabletIndications:h ypertension Take 1 tablet (25 mg total) by mouth auto technician mechanic before breakfast 1 05/11/2019 metFORMIN (GLUCOPHAGE) 500 mg tablet 1 tablet (500 mg total) 2 (two) times a day with meals 5 04/24/2019 mirabegron ER (MYRBETRIQ) 50 mg tablet extended release 24 hr daily montelukast (SINGULAIR) 10 mg tablet Take 1 tablet (10 mg total) by mouth nightly multivitamin capsule Take 1 capsule by mouth auto technician mechanic before breakfast mupirocin (BACTROBAN) 2 % ointment APPLY TOPICALLY TO THE AFFECTED AREA TWICE DAILY 03/05/2022 niacin ER (NIASPAN) 500 mg CR tablet niacin ER 500 mg tablet,extended release 24 hr ondansetron ODT (ZOFRAN-ODT) 4 mg disintegrating tabletIndications:N ausea and Vomiting Take 1 tablet (4 mg total) by mouth every 6 (six) hours as needed for nausea or vomiting 20 tablet 08/20/2020 oseltamivir (TAMIFLU) 75 mg capsule Tamiflu 75 mg capsule take one twice daily for 5 days Ozempic 0.25 mg or 0.5 mg(2 mg/1.5 mL) pen injector injection 05/03/2022 tolterodine LA (DETROL LA) 4 mg 24 hr capsule 03/30/2021 topiramate (TOPAMAX) 25 mg tablet topiramate 25 mg tablet traMADoL (ULTRAM) 50 mg tablet 03/29/2021 traZODone (DESYREL) 100 mg tablet 03/29/2021 traZODone (DESYREL) 50 mg tablet Take 100 mg by mouth nightly 0 05/01/2019 zinc 50 mg tablet Take by mouth nightly ZyrTEC-D 5-120 mg per 12 hr tablet 03/19/2022 documented as of this encounter Discharge Disposition Disposition Code Departure Means Destination Discharge to home or self care documented in this encounter Plan of Treatment Not on file documented as of this encounter Procedures Procedure Name Priority Date/Time Associated Diagnosis Comments XR KNEE RIGHT 4 OR MORE VIEWS Schedule Routine, Read Routine (OP Routine) 05/10/2022 1:12 PM CDT Pain in both knees, unspecified chronicity XR KNEE LEFT 4 OR MORE VIEWS Schedule Routine, Read Routine (OP Routine) 05/10/2022 1:12 PM CDT Pain in both knees, unspecified chronicity documented in this encounter Results * XR Knee Left 4 or More Views (05/10/2022 1:12 PM CDT) Anatomical Region Laterality Modality Lower Extremities, Knee Left Computed Radiography 05/10/2022 1:39 PM CDT Impressions 05/10/2022 1:39 PM CDT 1. Unchanged mild bilateral knee osteoarthritis. 2. Unchanged 5.9 cm low-grade chondroid lesion in the distal right femur. Electronically signed by: Jaylon Barbosa M.D. Narrative 05/10/2022 1:39 PM CDT EXAMINATION: XR KNEE RIGHT 4 OR MORE VIEWS, XR KNEE LEFT 4 OR MORE VIEWS HISTORY: Bilateral knee pain FINDINGS: 4 view examinations of each knee are compared with studies from 07/07/2020. There is an unchanged low-grade chondroid lesion in the central medullary compartment of the distal right femoral shaft, measuring 5.9 cm in craniocaudal extent. There is no periosteal reaction, endosteal scalloping, or cortical destruction to indicate aggressive behavior. There is unchanged, mild tricompartmental osteoarthritis of both knees. There are tiny posterior loose bodies bilaterally. There is no fracture or effusion. Procedure Note Jaylon Barbosa MD - 05/10/2022 EXAMINATION: XR KNEE RIGHT 4 OR MORE VIEWS, XR KNEE LEFT 4 OR MORE VIEWS HISTORY: Bilateral knee pain FINDINGS: 4 view examinations of each knee are compared with studies from 07/07/2020. There is an unchanged low-grade chondroid lesion in the central medullary compartment of the distal right femoral shaft, measuring 5.9 cm in craniocaudal extent. There is no periosteal reaction, endosteal scalloping, or cortical destruction to indicate aggressive behavior. There is unchanged, mild tricompartmental osteoarthritis of both knees. There are tiny posterior loose bodies bilaterally. There is no fracture or effusion. IMPRESSION: 1. Unchanged mild bilateral knee osteoarthritis. 2. Unchanged 5.9 cm low-grade chondroid lesion in the distal right femur. Electronically signed by: Jaylon Barbosa M.D. [facility] XR PROCEDURES Ana l Result * XR Knee Right 4 or More Views (05/10/2022 1:12 PM CDT) Anatomical Region Laterality Modality Lower Extremities, Knee Right Computed Radiography 05/10/2022 1:39 PM CDT Impressions 05/10/2022 1:39 PM CDT 1. Unchanged mild bilateral knee osteoarthritis. 2. Unchanged 5.9 cm low-grade chondroid lesion in the distal right femur. Electronically signed by: Jaylon Barbosa M.D. Narrative 05/10/2022 1:39 PM CDT EXAMINATION: XR KNEE RIGHT 4 OR MORE VIEWS, XR KNEE LEFT 4 OR MORE VIEWS HISTORY: Bilateral knee pain FINDINGS: 4 view examinations of each knee are compared with studies from 07/07/2020. There is an unchanged low-grade chondroid lesion in the central medullary compartment of the distal right femoral shaft, measuring 5.9 cm in craniocaudal extent. There is no periosteal reaction, endosteal scalloping, or cortical destruction to indicate aggressive behavior. There is unchanged, mild tricompartmental osteoarthritis of both knees. There are tiny posterior loose bodies bilaterally. There is no fracture or effusion. Procedure Note Jaylon Barbosa MD - 05/10/2022 EXAMINATION: XR KNEE RIGHT 4 OR MORE VIEWS, XR KNEE LEFT 4 OR MORE VIEWS HISTORY: Bilateral knee pain FINDINGS: 4 view examinations of each knee are compared with studies from 07/07/2020. There is an unchanged low-grade chondroid lesion in the central medullary compartment of the distal right femoral shaft, measuring 5.9 cm in craniocaudal extent. There is no periosteal reaction, endosteal scalloping, or cortical destruction to indicate aggressive behavior. There is unchanged, mild tricompartmental osteoarthritis of both knees. There are tiny posterior loose bodies bilaterally. There is no fracture or effusion. IMPRESSION: 1. Unchanged mild bilateral knee osteoarthritis. 2. Unchanged 5.9 cm low-grade chondroid lesion in the distal right femur. Electronically signed by: Jaylon Barbosa M.D. [facility] XR PROCEDURES Ana l Result documented in this encounter Visit Diagnoses Diagnosis Pain in both knees, unspecified chronicity documented in this encounter Care Teams Senior Media Director Relationship Specialty Start Date End Date Kana Rankin MD PCP - General Family Medicine 05/15/19 documented as of this encounter
--- OUTSIDE RECORDS SUMMARY | 2024-12-12 16:28 | XMS_ITS | Encounter Summary ---
Author Organization [facility] Address [address] [place] [address] Phone Care Team Providers Care Used Car Manager Name Role Phone Kana Rankin MD Primary Care Provider + [phone] Encounter Details Date Type Department Care Team (Late st Contact Info) Description 08/30/2020 Telephone [facility] [place] [facility] 8th [place] [address] [place] [id number] Johana Siddiqi RN Social History Tobacco Use Types Packs/Day Years Used Date Smoking Tobacco: Never Smokeless Tobacco: Never Alcohol Use Standard Drinks/Week Comments Not Currently 0 (1 standard drink = 0.6 oz pur e alcohol) Comments No Sex and Gender Information Value Date Recorded Sex Assigned at Not on file 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 Nurse advised patient to take over the counter Benadryl and apply Hydrocortisone cream around but notdirectly on her incisions. Requested return call if patient has further questions or concerns. documented in this encounter Plan of Treatment Not on file documented as of this encounter Visit Diagnoses Not on filedocumented in this encounter Care Teams Used Car Manager Relationship Specialty Start Date End Date Kana Rankin MD PCP - General Family Medicine 05/15/19 documented as of this encounter
--- OUTSIDE RECORDS SUMMARY | 2024-12-12 16:28 | XMS_ITS | Encounter Summary ---
Author Organization [facility] Address [address] [place] [address] Phone Care Team Providers Care Studio Control Operator Name Role Phone Kana Rankin MD Primary Care Provider + [phone] Encounter Details Date Type Department Care Team (Late st Contact Info) Description 08/25/2020 Orders Only [facility] Surgery [address] [facility] [address] [place] [address] [place] [address] María De Paz MD [address] [facility] [place] [place] [phone] [place] [address] Social History Tobacco Use Types Packs/Day Years Used Date Smoking Tobacco: Never Smokeless Tobacco: Never Alcohol Use Standard Drinks/Week Comments Not Currently 0 (1 standard drink = 0.6 oz pur e alcohol) Comments No Sex and Gender Information Value Date Recorded Sex Assigned at Not on file 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 Gender Identity Not on file Sexual Orientation Straight 08/04/2020 2: 23 PM CDT 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 Not on file Not on file documented as of this encounter Ordered Prescriptions Prescription Sig Dispense Quantity Refills Last Filled Start Date End Date oxyCODONE (ROXICODONE) 5 mg immediate release tabletIndications: Pain Take 1 tablet (5 mg total) by mouth every 4 (four) hours as needed for pain 20 tablet 08/25/2020 08/25/2020 documented in this encounter Plan of Treatment Not on file documented as of this encounter Visit Diagnoses Not on filedocumented in this encounter Discontinued Medications Medication Sig Discontinue Reason Start Date End Da te oxyCODONE (ROXICODONE) 5 mg immediate release tabletIndications:Pain Take 1 tablet (5 mg total) by mouth every 4 (four) hours as needed for pain 08/20/2020 08/25/2020 documented as of this encounter Care Teams Studio Control Operator Relationship Specialty Start Date End Date Kana Rankin MD PCP - General Family Medicine 05/15/19 documented as of this encounter
--- OUTSIDE RECORDS SUMMARY | 2024-12-12 16:28 | XMS_ITS | Encounter Summary ---
Author Organization [facility] Address [address] [facility] [address] [place] [address] Phone Care Team Providers Care C Engineer Name Role Phone Kana Rankin MD Primary Care Provider [phone] Reason for Visit * Consultation (Routine) - Closed Specialty Diagnoses / Procedures Referred By Contac t Referred To Contact Bariatrics / Bariatric Surgery Diagnoses Morbid obesity due to excess calories (HCC) Kana Rankin MD Phone: tel: fax: [facility] (All Locations) Referral ID Status Reason Start Date Expiration Date V isits Requested Visits Authorized [id number] Closed Specialty Services Required 08/03/2020 09/02/[phone] Encounter Details Date Type Department Care Team (Late st Contact Info) Description 09/06/2020 2:30 PM CDT Telemedicine [facility] Building [address] [place] [phone] María De Paz MD [address] [facility] [phone] [place] [address] Postop check (Primary Dx) Social History Tobacco Use Types Packs/Day Years Used Date Smoking Tobacco: Never Smokeless Tobacco: Never Alcohol Use Standard Drinks/Week Comments Not Currently 0 (1 standard drink = 0.6 oz pur e alcohol) Comments No Sex and Gender Information Value Date Recorded Sex Assigned at Not on file 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 Slowly build back up. Your energy will continue to improve the further you get out from surgery. Stop the colace. You can re-introduce fatty foods back into your diet in the next month Alternative ice packs and heat packs to your incisions. It is really important to get up and move around to improve your activity Low Fat Diet WHAT YOU NEED TO KNOW: A low-fat diet is an eating plan that is low in total fat, unhealthy fat, and cholesterol. You may need to follow a low-fat diet if you have trouble digesting or absorbing fat. You may also need to follow this diet if you have high cholesterol. You can also lower your cholesterol by increasing the amount of fiber in your diet. Soluble fiber is a type of fiber that helps to decrease cholesterol levels. DISCHARGE INSTRUCTIONS: Different types of fat in food: ? Limit unhealthy fats. A diet that is high in cholesterol, saturated fat, and trans fat may cause unhealthy cholesterol levels. Unhealthy cholesterol levels increase your risk of heart disease. ?? ? Saturated fat: Limit saturated fat to less than 7% of your total daily calories. Ask your dietitian how many calories you need each day. Saturated fat is found in butter, cheese, ice cream, whole milk, and palm oil. Saturated fat is also found in meat, such as beef, pork, chicken skin, and processed meats. Processed meats include sausage, hot dogs, and bologna. ?? ? Trans fat: Avoid trans fat as much as possible. Trans fat is used in fried and baked foods. Foodsthat say trans fat free on the label may still have up to 0.5 grams of trans fat per serving. ? Include healthy fats. Replace foods that are high in saturated and trans fat with foods high in healthy fats. This may help to decrease high cholesterol levels. ?? ? Monounsaturated fats: These are found in avocados, nuts, and vegetable oils, such as olive, canola, and sunflower oil. ?? ? Polyunsaturated fats: These can be found in vegetable oils, such as soybean or corn oil. [place]-3 fats can help to decrease the risk of heart disease. [place]-3 fats are found in fish, such as salmon,howell, trout, and tuna. [place]-3 fats can also be found in plant foods, such as walnuts, flaxseed,soybeans, and canola oil. Foods to limit or avoid: ?? Grains: ?? ? Snacks that are made with partially hydrogenated oils, such as chips, regular crackers, and butter-flavored popcorn ?? ? High-fat baked goods, such as biscuits, croissants, doughnuts, pies, cookies, and pastries ? Dairy: ?? ? Whole milk, 2% milk, and yogurt and ice cream made with whole milk ?? ? Half and half creamer, heavy cream, and whipping cream ?? ? Cheese, cream cheese, and sour cream ? Meats and proteins: ?? ? High-fat cuts of meat (T-bone steak, regular hamburger, and ribs) ?? ? Fried meat, poultry (turkey and chicken), and fish ?? ? Poultry (chicken and turkey) with skin ?? ? Cold cuts (salami or bologna), hot dogs, anderson, and sausage ?? ? Whole eggs and egg yolks ? Vegetables and fruits with added fat: ?? ? Fried vegetables or vegetables in butter or high-fat sauces, such as cream or cheese sauces ?? ? Fried fruit or fruit served with butter or cream ? Fats: ?? ? Butter, stick margarine, and shortening ?? ? Coconut, palm oil, and palm kernel oil Foods to include: ?? Grains: ?? ? Whole-grain breads, cereals, pasta, and brown rice ?? ? Low-fat crackers and pretzels ? Vegetables and fruits: ?? ? Fresh, frozen, or canned vegetables (no salt or low-sodium) ?? ? Fresh, frozen, dried, or canned fruit (canned in light syrup or fruit juice) ?? ? Avocado ? Low-fat dairy products: ?? ? Nonfat (skim) or 1% milk ?? ? Nonfat or low-fat cheese, yogurt, and cottage cheese ? Meats and proteins: ?? ? Chicken or turkey with no skin ?? ? Baked or broiled fish ?? ? Lean beef and pork (loin, round, extra lean hamburger) ?? ? Beans and peas, unsalted nuts, soy products ?? ? Eggs, egg whites and substitutes ?? ? Seeds and nuts ? Fats: ?? ? Unsaturated oil, such as canola, olive, peanut, soybean, or sunflower oil ?? ? Soft or liquid margarine and vegetable oil spread ?? ? Low-fat salad dressing Other ways to decrease fat: ?? Read food labels before you buy foods. Choose foods that have less than 30% of calories from fat. Choose low-fat or fat-free dairy products. Remember that fat free does not mean calorie free. These foods still contain calories, and too many calories can lead to weight gain. ? Trim fat from meat and avoid fried food. Trim all visible fat from meat before you cook it. Remove the skin from poultry. Do not schulte meat, fish, or poultry. Bake, roast, boil, or broil these foodsinstead. Avoid fried foods. Eat a baked potato instead of Mexican fries. Steam vegetables instead ofsaut??ing them in butter. ? Add less fat to foods. Use imitation anderson bits on salads and baked potatoes instead of regular anderson bits. Use fat-free or low-fat salad dressings instead of regular dressings. Use low-fat or nonfat butter-flavored topping instead of regular butter or margarine on popcorn and other foods. Ways to decrease fat in recipes: Replace high-fat ingredients with low-fat or nonfat ones. This maycause baked goods to be stretcher and drier than usual. You may need to use nonfat cooking spray on pans to prevent food from sticking. You also may need to change the amount of other ingredients, such as water, in the recipe. Try the following: ?? Use low-fat or light margarine instead of regular margarine or shortening. ? Use lean ground turkey breast or chicken, or lean ground beef (less than 5% fat) instead of hamburger. ? Add 1 teaspoon of canola oil to 8 ounces of skim milk instead of using cream or half and half. ? Use grated zucchini, carrots, or apples in breads instead of coconut. ? Use blenderized, low-fat cottage cheese, plain tofu, or low-fat ricotta cheese instead of cream cheese. ? Use 1 egg white and 1 teaspoon of canola oil, or use ?? cup (2 ounces) of fat-free egg substitute instead of a whole egg. ? Replace half of the oil that is called for in a recipe with applesauce when you bake. Use 3 tablespoons of cocoa powder and 1 tablespoon of canola oil instead of a square of baking chocolate. How to increase fiber: Eat enough high-fiber foods to get 20 to 30 grams of fiber every day. Slowlyincrease your fiber intake to avoid stomach cramps, gas, and other problems. ?? Eat 3 ounces of whole-grain foods each day. An ounce is about 1 slice of bread. Eat whole-grain breads, such as whole-wheat bread. Whole wheat, whole- wheat flour, or other whole grains should be listed as the first ingredient on the food label. Replace white flour with whole-grain flour or use half of each in recipes. Whole-grain flour is heavier than white flour, so you may have to add more yeast or baking powder. ? Eat a high-fiber cereal for breakfast. Oatmeal is a good source of soluble fiber. Look for cereals that have bran or fiber in the name. Choose whole-grain products, such as brown rice, barley, andwhole-wheat pasta. ? Eat more beans, peas, and lentils. For example, add beans to soups or salads. Eat at least 5 cups of fruits and vegetables each day. Eat fruits and vegetables with the peel because the peel is high in fiber. ?? 2017 [employer] Information is for End User's use only and may not be sold, redistributed or otherwise used for commercial purposes. All illustrations and images included in CareNotes?? are the copyrighted property of [employer] or [employer] The above information is an president educational institution only. It is not intended as medical advice for individual conditions or treatments. Talk to your doctor, nurse or pharmacist before following any medical regimen to see if it is safe and effective for you. ?? documented in this encounter Progress Notes * María De Paz MD - 09/06/2020 2:30 PM CDT Images from the original note were not included. [facility] Post-Operative Clinic Note This was a telemedicine visit with Lorelei Hall alone which took place via Real-time video connection (Apexigen, Zoom or similar). During the visit, I was located in the office and the patient was located [place] in the [facility]. The patient visit started at 1447 09/06/20 and ended at 1457 09/06/20. Greater than 50% of the video/phone call was spent on counseling and coordinating care. Patientwas counseled on diet changes following lap roxi and activity increases. The patient: has been informed that the visit may not be secure and acknowledged the information. The option of participating in a telephone or video visit during the [facility] emergencywas explained to them. After being given an opportunity to ask questions about and discuss this type of visit, they verbally consented to proceeding with the telephone/video visit and understand thatthis service replaces an office visit. María De Paz MD CHIEF COMPLAINT: Lorelei Hall presents for a post-operative clinic visit following recent surgery. INTERVAL HISTORY: The patient is a 44 y.o. female who has been doing well in her postoperative course following Laparoscopic Cholecystectomy. She is tolerating a diet without difficulty (yesterday: bagel/scrambled egg for breakfast, soups and lunch meat for lunch, baked meat/fish for dinner). She has no complaints today except: The patient reports softer BMs (1-2 per day) when she was previously h aving loose stools. She is backing off the colace. Overall the patient reports decreased energy. Denies fevers, chills, lightheadedness, vertigo. PHYSICAL EXAMINATION: [facility] 08/13/2020 (Exact Date) GENERAL: Well nourished, well-groomed, in no acute distress. NEURO: Alert and oriented x3. Mood and affect are appropriate. ABDOMEN: Well-healing incisions without evidence of any erythema or drainage. EXTREMITIES: No edema or cyanosis. PATHOLOGY: chronic cholecystitis with cholelithiasis ASSESSMENT AND PLAN: The patient is a 44 y.o. female who presents to clinic today status-post the above surgery. The patient is doing well in her postoperative course. She was counseled on increasing activity and movement. She was also counseled that her stool will continue to improve the further she gets out from surgery. We will plan to see the patient back as needed. Patient is otherwise encouraged to call the clinic with any questions, concerns in the meantime. The patient demonstrates understanding, and is amenable to the above outlined plan, there are no barriers to education today. María De Paz MD software product manager Minimally Invasive Surgery Department of Surgery p: [phone] documented in this encounter Plan of Treatment Not on file documented as of this encounter Visit Diagnoses Diagnosis Postop check- Primary Follow-up examination, following unspecified surgery documented in this encounter Care Teams C Engineer Relationship Specialty Start Date End Date Kana Rankin MD PCP - General Family Medicine 05/15/19 documented as of this encounter
--- OUTSIDE RECORDS SUMMARY | 2024-12-12 16:28 | XMS_ITS | Encounter Summary ---
Author Organization [facility] Address [address] [place] [address] Phone Care Team Providers Care Customer Business Manager Name Role Phone Kana Rankin MD Primary Care Provider [phone] Encounter Details Date Type Department Care Team (Late st Contact Info) Description 08/26/2020 Telephone [facility] Surgery [facility] 8th [place] [address] [place] [phone] Johana Siddiqi RN Social History Tobacco Use Types Packs/Day Years Used Date Smoking Tobacco: Never Smokeless Tobacco: Never Alcohol Use Standard Drinks/Week Comments Not Currently 0 (1 standard drink = 0.6 oz pur e alcohol) Comments No Sex and Gender Information Value Date Recorded Sex Assigned at Not on file 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 Nurse provided prescription details and notes to provider's office verbally and will send via fax. documented in this encounter Plan of Treatment Not on file documented as of this encounter Visit Diagnoses Not on filedocumented in this encounter Care Teams Customer Business Manager Relationship Specialty Start Date End Date Kana Rankin MD PCP - General Family Medicine 05/15/19 documented as of this encounter
--- OUTSIDE RECORDS SUMMARY | 2024-12-12 16:28 | XMS_ITS | Encounter Summary ---
Author Organization [facility] Address [address] [place] [address] Care Team Providers Care Quality Lab Technician Name Role Phone Kana Rankin MD Primary Care Provider [phone] Encounter Details Date Type Department Care Team (Late st Contact Info) Description 08/15/2020 Orders Only [facility] Testing Site - [address] [address] [address] [place] [address] María De Paz MD [address] [phone] [place] [address] Pre-procedure lab exam (Primary Dx) Social History Tobacco Use Types Packs/Day Years Used Date Smoking Tobacco: Never Smokeless Tobacco: Never Alcohol Use Standard Drinks/Week Comments Not Currently 0 (1 standard drink = 0.6 oz pur e alcohol) Comments No Sex and Gender Information Value Date Recorded Sex Assigned at Not on file 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 Set up testing for [facility] for Covid testing documented in this encounter Plan of Treatment Not on file documented as of this encounter Results * COVID-19 Coronavirus RNA Nasopharyngeal (08/17/2020 3:30 PM CDT) COVID-19 RNA Not Detected DEJA MURRAY (ROM[place]) Comment: Interpretive Data Testing performed at [facility]. The 2019-Novel Coronavirus [...] last revised on 2020. Testing performed by: [facility], [address] [place]., [address] Nasopharyngeal 08/17/2020 3: 30 PM CDT 08/17/2020 11:18 PM CDT Narrative ANNE MURRAY ([place]) - 08/18/2020 2:57 PM CDT Is the patient experiencing any symptoms consistent with COVID (eg. Fever, cough, shortness of breath)?->No What is the reason for testing?->Screening prior to scheduled (>12 hr) surgery or procedure us María De Paz MD LAB MICROBIOLOGY - [facility] AL ORDERABLES Final Result ANNE MURRAY ([place]) [address] [facility] Department [place] [address] documented in this encounter Visit Diagnoses Diagnosis Pre-procedure lab exam- Primary Pre-procedural laboratory examination Pre-procedure lab exam Pre-procedural laboratory examination documented in this encounter Care Teams Quality Lab Technician Relationship Specialty Start Date End Date Kana Rankin MD PCP - General Family Medicine 05/15/19 documented as of this encounter
--- OUTSIDE RECORDS SUMMARY | 2024-12-12 16:28 | XMS_ITS | Encounter Summary ---
Author Organization [facility] Healthcare Address [address] [place] [address] Care Team Providers Care Air Route Controller Name Role Phone Kana Rankin MD Primary Care Provider Encounter Details Date Type Department Care Team (Late st Contact Info) Description 08/19/2020 3:30 PM CDT - 08/19/2020 6:35 PM CDT Surgery [facility] Operating Room [address] [place] [address] María De Paz MD [address] [facility] [id number] [place] [address] LAPAROSCOPIC CHOLECYSTECTOMY Surgery Details Date/Time Status Location OR Service Patient Class Case Cl ass Case Type Trauma Case? 08/19/2020 3:30 PM Posted [facility] OR POD 1 330 Minimally Invasive Surgery Outpatient Elective Panel 1 Procedure LRB Anes Op Region Wound Class Comments LAPAROSCOPIC CHOLECYSTECTOMY N/A General Abdomen Class II - Clean Contaminated Surgeon Surgeon Role Service Panel María De Paz MD Primary Minimally Invas juana Surgery 1 Catrachito Escalante III, MD Fellow General Surgery 1 documented in this encounter Social History Tobacco Use Types Packs/Day Years Used Date Smoking Tobacco: Never Smokeless Tobacco: Never Alcohol Use Standard Drinks/Week Comments Not Currently 0 (1 standard drink = 0.6 oz pur e alcohol) Comments No Sex and Gender Information Value Date Recorded Sex Assigned at Not on file Legal Sex Female 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 Gender Identity Not on file Sexual Orientation Straight 08/04/2020 2: 23 PM CDT 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 Not on file Not on file documented as of this encounter Last Filed Vital Signs Vital Sign Reading Time Taken Comments Blood Pressure 135/86 08/19/2020 3:40 PM CDT Pulse 80 08/19/2020 3:40 PM CDT Temperature 36.3 ??C (97.3 ??F) 08/19/2020 3:24 PM CD T Respiratory Rate 15 08/19/2020 3:40 PM CDT Oxygen Saturation 94% 08/19/2020 3:40 PM CDT Inhaled Oxygen Concentration - - Weight 124.7 kg (275 lb) 08/19/2020 3:24 PM CDT Height 180.3 cm (5' 11 ) 08/19/2020 3:24 PM CDT Body Mass Index 38.35 08/19/2020 3:24 PM CDT documented in this encounter Discharge Summaries * Cassie Brunner MD - 08/20/2020 3:20 PM CDT Inpatient Discharge Summary BRIEF OVERVIEW Admitting Provider: María De Paz MD Discharge Provider: María De Paz MD Primary Care Physician at Discharge: Kana Rankin MD [phone] Admission Date: 08/19/2020 Discharge Date: 08/20/2020 Admission Location: [facility] Problems/Diagnoses: Principal Problem: Symptomatic cholelithiasis Active Problems: [...] Current Status CBC without differential Collected (08/20/20 0670) Surgical pathology Collected (08/19/20 5433) Operative Procedures Performed: Procedure(s): LAPAROSCOPIC CHOLECYSTECTOMY Other [...] mg tablet Take 10 mg by mouth kit assembler before breakfast Commonly known as: ZyrTEC docusate sodium 100 mg capsule Take 1 capsule (100 mg total) by mouth 2 (two) times a day For: constipation Commonly known as: COLACE esomeprazole DR 40 mg capsule Take 40 mg by mouth daily before breakfast Commonly known as: NexIUM fish oil-dha-epa 1,200-144-216 mg capsule Take by mouth kit assembler before breakfast fluticasone propionate 50 mcg/actuation nasal spray fluticasone propionate 50 mcg/actuation nasal spray,suspension Commonly known as: FLONASE hydroCHLOROthiazide 25 mg tablet Take 25 mg by mouth kit assembler before breakfast For: high blood pressure Commonly known as: HYDRODIURIL metFORMIN 500 mg tablet 500 mg 2 (two) times a day with meals Commonly known as: GLUCOPHAGE montelukast 10 mg tablet Take 10 mg by mouth nightly Commonly known as: SINGULAIR multivitamin capsule Take 1 capsule by mouth kit assembler before breakfast multivitamin with minerals tablet Take 1 tablet by mouth kit assembler before breakfast For: hair skin nails vitamin [...] Time Provider Department Center 09/06/2020 2:30 PM María De Paz MD MIS MOB1 [address] [...] correct location when scheduling your appointment: ?? [facility], 8th Floor, [address] [place] [address] ?? [facility] [address], [address] [place] [address] ACTIVITY: ?? Walking is encouraged. Try to [...] whole grains. You may need to take sklt-kqy-hzsjhsn fiber supplements if you do not get enough fiber in your diet. Ask your healthcare provider if supplements are right for you. ?? Drink plenty of liquids (8 glasses or 64 ounces). Liquids may prevent constipation and strainingduring bowel movements. MEDICATIONS: ??? Resume your normal prescription medications as directed by your medical doctor. ??? Prescription pain medication, Vicodin/[place] (Hydrocodone-Acetaminophen), was prescribed. You may take 1 to 2 tabs (5-10mg) every 4 to 6 hours as needed for pain. These medications have Tylenol included (325mg of Tylenol in each tab), and you SHOULD NOT take additional jeyr-pho-dfdkkoj plain Tylenol if you are taking 2 tabs of Vicodin/[place] at a time. As the pain lessens, you may substitute uqxj-rek-asqdlbp plain Tylenol (325-500mg) for one or both [...] are regular. You may also need an oejw-ynt-oqxlquq laxative (Miralax) in addition to the prescribed [...] 1 tablet (10 mg total) by mouth kit assembler before breakfast fish oil-dha-epa 1,200-144-216 mg capsule Take by mouth kit assembler before breakfast fluticasone propionate (FLONASE) 50 mcg/actuation nasal spray fluticasone propionate 50 mcg/actuation nasal spray,suspension hydroCHLOROthiazide (HYDRODIURIL) 25 mg tabletIndications:h ypertension Take 1 tablet (25 mg total) by mouth kit assembler before breakfast 1 05/11/2019 metFORMIN (GLUCOPHAGE) 500 mg tablet 1 tablet (500 mg total) 2 (two) times a day with meals 5 04/24/2019 montelukast (SINGULAIR) 10 mg tablet Take 1 tablet (10 mg total) by mouth nightly multivitamin capsule Take 1 capsule by mouth kit assembler before breakfast traZODone (DESYREL) 50 mg tablet [...] nails vitamin Take 1 tablet by mouth kit assembler before breakfast 05/10/20 22 traMADol (ULTRAM) 50 [...] Paz MD - 08/09/2020 1:00 PM CDT [facility] Minimally Invasive Surgery New Patient Consultation / [...] with the resident/fellow. María De Paz MD event promoter Minimally Invasive Surgery Department of Surgery p: [phone] documented in this encounter Miscellaneous Notes * [...] Paz MD - 08/19/2020 3:30 PM CDT [facility] Minimally Invasive Surgery Operative Report SURGEON: María [...] Discharge from the operating room was stable Mraía De Paz MD Date: 08/19/2020 Time: 6:45 PM TEACHING ATTESTATION : I was present and directly participated in the entire procedure (including opening and closing). * Perioperative Nursing Note - Shameka Corley RN - 08/15/2020 9:29 AM CDT [facility] Perioperative Nursing Note Telephone Preoperative Evaluation ([facility]) - TELEPHONE ONLY, NO PHYSICAL EXAM Date: 08/15/20 Vitals: 08/15/20919 Weight: 125.6 kg (277 lb) Height: 180.3 [...] mg tablet Take 10 mg by mouth kit assembler before breakfast ??? esomeprazole DR (NexIUM) 40 mg capsule Take 40 mg by mouth daily before breakfast ??? fish oil-dha-epa 1,200-144-216 mg capsule Take by mouth kit assembler before breakfast ??? fluticasone propionate (FLONASE) 50 mcg/actuation nasal spray fluticasone propionate 50 mcg/actuation nasal spray,suspension ??? hydroCHLOROthiazide (HYDRODIURIL) 25 mg tablet Take 25 mg by mouth kit assembler before breakfast 1 ??? metFORMIN (GLUCOPHAGE) 500 mg tablet 500 mg 2 (two) times a day with meals 5 ??? montelukast (SINGULAIR) 10 mg tablet Take 10 mg by mouth nightly ??? multivitamin capsule Take 1 capsule by mouth kit assembler before breakfast ??? multivitamin with minerals tablet Take 1 tablet by mouth kit assembler before breakfast ??? traMADol (ULTRAM) 50 mg [...] Directive: Patient does not have advance directive Communication/Helicopter Specialist Needs Communication Needs: None Assistive Devices/DME: None [...] in a congregate living facility (ex. 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 Use an alcohol- based hand ground crewman mission support that contains at least 60% alcohol if [...] insurance card, a photo ID (like a Jump Iron Machine Presser's license) and a method of payment for [...] COVID Test Request Placed in Epic to [facility]. Test to be performed on 08/17. If you need to reschedule your COVID test to a different location or if your surgery gets rescheduled, you MUST call [phone] Saturday-Saturday 8am-4:30pm to get your COVID testing rescheduled or your lab order will not be available at Testing Sites. COVID Testing is only valid for up to 96 hours prior to surgery date, unless otherwise specified. If you are unable to reach staff at the above phone number, please call the CPAP Staff at [phone]. This number cannot order a lab test, but can attempt to contact the above number/staff to assist you. We are available Saturday-Saturday 8am-4:30pm . We recommend you Self-Isolate after COVID Testing: Stay at home, if possible until your surgery date. Maintain a 6 foot distance from other people (social distancing). Avoid touching your eyes, noseand mouth with unwashed hands. Wash your hands often with soap and water for at least 20 seconds. Use an alcohol- based hand ground crewman mission support that contains at least 60% alcohol if soap and water are not available. All visitors/patients are being asked to wear a clean mask when entering the hospital. COVID 19 Updates & Visitor Policy: Please access [email or web address] for the most updated information. Surgery Times: ??? For [facility], if your surgeon's office has not notified you of your surgery time by NOON THE BUSINESS DAY BEFORE your surgery, please call [phone] and ask for your surgeon's office ??? * Pre-Procedure Instructions - Laina Wolfe NP - 08/15/2020 9:26 AM CDT [facility] CPAP Clinic Location: [facility] The night before your surgery: * Do [...] CDT) WBC 13.7(H) 3.8 - 9.9 K/cumm [facility] Hgb 14.0 11.9 - 15.5 g/dL [facility] Hct 41.4 35.6 - 45.5 % [facility] Plt 257 150 - 400 K/cumm [facility] MPV 10.3 9.1 - 12.3 fL [facility] RBC 5.02 3.90 - 5.20 M/cumm [facility] MCV 82.5 81.3 - 96.4 fL [facility] MCH 27.9 27.1 - 33.3 pg [facility] MCHC 33.8 32.3 - 35.7 g/dL [facility] RDW CV 12.8 11.1 - 14.9 % [facility] RDW SD 38.2 35.7 - 48.1 fL [facility] NRBC abs 0.00 0.00 - 0.01 K/cumm [facility] Blood specimen (specimen) 08/19/2020 11:56 PM CDT 08/20/2020 1:02 AM CDT us Catrachito Escalante III, MD LAB BLOOD ORDER SURYA Final Result Performing Organization Address [facility] Co de Phone Number [facility] Department [place] [address] * (ABNORMAL) POCT glucose (08/19/2020 7:40 PM CDT) Glucose, POC 203(H) 70 - 199 mg/dL [facility] Blood specimen (specimen) 08/19/2020 7:40 PM CDT 08/19/2020 7:40 PM CDT us María De Paz MD LAB POCT ORDERABLES - DE VICE Final Result Performing Organization Address [facility] de Phone Number [facility] Department [place] [address] * Surgical pathology (08/19/2020 5:29 PM CDT) Tissue (Gallbladder) 08/19/2020 5:29 PM CDT Narrative PATHOLOGY [facility] - 08/24/2020 4:22 PM CDT EPIC results best viewed via link to PDF [facility] Danielle Flanagan [facility] [place] [address] SURGICAL PATHOLOGY REPORT FINAL Patient Name: ?? LORELEI HALLJoyce Gender: ??F : ??1975 (Age: 44) Address: ??[address] [place] [id number] Hospital #: ??[id number] Taken:08/19/2020 Received:08/22/2020 Reported: 08/24/2020 Patient Type: [facility] OP In Bed ?? Service: Surgery Location: [facility] 6110 Physician(s): ??Kana Pascale Weller M.D. María De [...] A1. ??Jar 0. mab/08/22/2020 09:45 PA(s): Sushila Medina MS, PA (ASCP) By this signature, I attest that the above diagnosis is based upon my personal examination of the slides(and/or other material). Addenda/Procedures The performance characteristics of some immunohistochemical stains, fluorescence in-situ hybridization tests and immunophenotyping by flow cytometry cited in this report (if any) were determined by the Surgical Pathology Department at [facility] as part of an ongoing quality control checker program and in compliance with federally mandated [...] determined by the Surgical Pathology Department of [facility]. ??It has not been cleared or approved by the U. S. Food and Drug Administration. IMAGES AND SCANNED DOCUMENTS, IF INCLUDED, ONLY VIEWABLE IN PDF VERSION OF REPORT María De Paz MD LAB PATHOLOGY ORDERABLES Final Result PATHOLOGY [facility] IO 3rd Floor [place], [place] [phone] * POCT glucose (08/19/2020 3:24 PM CDT) Glucose, POC 147 70 - 199 mg/dL [facility] Blood specimen (specimen) 08/19/2020 3:24 PM CDT 08/19/2020 3:24 PM CDT Result [facility] María De Paz MD LAB POCT ORDERABLES - DE VICE Final Result Performing Organization Address City/[facility]/ZIP Co de Phone Number [facility] Department [place] [address] * POCT hCG, urine (08/19/2020 3:19 PM CDT) HCG, ur, POC Negative Lot Number [id number] QC Backgroud Clear Acceptable QC Control Line Acceptable Urine 08/19/2020 3:[address] LBD TEACHER POINT OF CARE TEST JOSEF CAREY Final Result documented in this encounter Visit Diagnoses Diagnosis Symptomatic cholelithiasis- Primary Calculus of gallbladder without cholecystitis without obstruction Essential hypertension Unspecified essential hypertension Gastroesophageal reflux disease Esophageal reflux Hyperlipidemia Other and unspecified hyperlipidemia Morbid obesity (HCC) Morbid obesity Asthma Unspecified asthma Osteoarthritis Osteoarthrosis, unspecified whether generalized or localized, unspecified site Symptomatic cholelithiasis documented in this encounter Admitting Diagnoses Diagnosis [...] Given 08/19/2020 10:17 PM CDT 20 mg bupivacaine (MARCAINE) 0.25 % (2.5 mg/mL) preservative free injection As needed, Starting on Sat08/19/20 at 1729, Intra-Op Given 08/19/2020 5:29 PM CDT 60 mL Surgical Site celecoxib (CeleBREX) capsule 200 mg 200 mg, [...] First dose on Sat08/20/20 at 0600, Indications: hypertensionIndications:hypert ension Given 08/20/2020 [...] 7:50 PM CDT 100 mL/hr 100 mL/hr sodium chloride 0.9 % irrigation As needed, Starting on Sat08/19/20 at 1729, Intra-Op Given 08/19/2020 5:29 PM CDT 1,000 mL Surgical Site traMADoL (ULTRAM) tablet 50 mg 50 mg, [...] oil-dha-epa 1,200-144-216 mg capsule Take by mouth kit assembler before breakfast multivitamin capsule Take 1 capsule by mouth kit assembler before breakfast multivitamin with minerals tabletIndication s:hair skin nails vitamin Take 1 tablet by mouth kit assembler before breakfast 2 added in this encounter [...] food 0821 (Given - Provid er: Soumya Soliz RN) pantoprazole DR (PROTONIX) extended release tablet 40 [...] and size. 2218 (Not Given - Provider: aLmar Allen RN - Reason: IV Infusing) 0537 (Not Given - Provider: Lamar Allen RN - Reason: IV Infusing)1400 (Due) traMADoL (ULTRAM) tablet 50 mg 50 mg, oral, Every 6 hours, First dose on Sat08/19/20 at 2230 2216 (Given - Provider: Lamar Allen RN) 0401 (Given - Provider: Lamar Allen RN)1006 (Given - Provider: Soumya Soliz, JOSEFINA) traZODone (DESYREL) tablet 100 mg 100 mg, [...] Pre-Op 1507 (New Bag - Provider: Rodney Davis RN)1905 (Stopped - Provider: Jerome Avalos MD) sodium [...] 1 puff, inhalation, Every 4 hours PRN (manager corporate responsibility), wheezing, Starting on Sat08/19/20 at 2152 bupivacaine [...] push, administer over 5 min for adults 191 (Given - Provider: Everardo Bacon RN) HYDROmorphone (DILAUDID) injection 0.2 mg (CANCELED) 0.2 mg, intravenous, Administer over 2 Minutes, Every 10 min PRN, 1st line for pain, Starting on Sat08/19/20 at 1858, Phase I, Notify Anesthesiologist if total PACU dose reaches 2 mg and pain score 5/10 or more., Indications: Pain 191 (Given - Provider: Everardo Bacon RN)192 (Given - Provider: Everardo Bacon RN)1933 (Given [...] Lamar Allen RN)1005 (Given - Provider: Soumya Soliz RN)1357 (Given - Provider: Soumya Soliz, JOSEFINA) prochlorperazine (COMPAZINE) injection 5 mg (CANCELED) 5 mg, intravenous, Administer over 2 Minutes, As needed, nausea, vomiting, Starting on Sat08/19/20 at 1918, For 2 doses, Phase I 1999 (Given - Provider: Everardo Bacon RN) sodium chloride 0.9 % irrigation (CANCELED) [...] 90 mcg/actuation inhaler 1 puff 1 08/19/2020 ceFAZolin (ANCEF) 1 gram/10 mL in sterile water (premix) 3,000 mg 1 08/19/2020 celecoxib (CeleBREX) capsule 400 mg 1 08/19 naloxone (NARCAN) 0.4 mg/mL injection 0.04-0.4 mg 1 08/19/2020 ondansetron ODT (ZOFRAN-ODT) disintegrating tablet 4 mg 1 08/19/2020 sodium chloride 0.9% flush 0.5-20 mL 3 08/02 Diet Count Last Ordered Date First Orde red Date ADULT DISCHARGE DIET 1 08/20/2020 Nursing Count Last Ordered Date First Orde red Date DISCHARGE ACTIVITY 2 08/20/2020 DISCHARGE CALL PROVIDER 5 08/20/2020 DISCHARGE DRESSING 3 08/20/2020 documented in this encounter Care Teams Air Route Controller Relationship Specialty Start Date End Date Kana Rankin MD PCP - General Family Medicine 05/15/19 documented as of this encounter
--- OUTSIDE RECORDS SUMMARY | 2024-12-12 16:28 | XMS_ITS | Encounter Summary ---
Author Organization [facility] Address [address] [place] [address] Care Team Providers Care Maintenance Service Supervisor Name Role Phone Kana Rankin MD Primary Care Provider [phone] Encounter Details Date Type Department Care Team (Late st Contact Info) Description 10/13/2005 Outpatient Historical [facility] Mian Farah PT, MD Social History Tobacco Use Types Packs/Day Years Used Date Smoking Tobacco: Never Assessed Sex and Gender Information Value Date Recorded Sex Assigned at Not on file Gender Identity Not on file Sexual Orientation Not on file documented as of this encounter Plan of Treatment Upcoming Encounters Date Type Department Care Team (Late st Contact Info) Description 04/29/2025 11:00 AM CDT Office Visit [facility] Oncology and Hematology - [address] [place] [address] [place] [address] [place] [address] [address] [place] [address] documented as of this encounter Visit Diagnoses Not on filedocumented in this encounter Care Teams Maintenance Service Supervisor Relationship Specialty Start Date End Date Kana Rankin MD [address] [place] [address] PCP - General Family Practice 05/01/23 documented as of this encounter
--- OUTSIDE RECORDS SUMMARY | 2024-12-12 16:28 | XMS_ITS | Encounter Summary ---
Author Organization [facility] Address [address] [place] [address] Care Team Providers Care Tube Fitter Name Role Phone Kana Rankin MD Primary Care Provider [phone] Encounter Details Date Type Department Care Team (Late st Contact Info) Description 09/11/2005 Outpatient Historical [facility] Mian Farah PT, MD BACKACHE NOS (Primary Dx) Social History Tobacco Use Types [...] [facility] Oncology and Hematology - [address] [place] [address] [place] [address] [place] [address] [address] [place] [address] documented as of this encounter Visit Diagnoses Diagnosis Backache, unspecified- Primary documented in this encounter Care Teams Tube Fitter Relationship Specialty Start Date End Date Kana Rankin MD [address] [place] [address] PCP - General Family Practice 05/01/23 documented as of this encounter
--- OUTSIDE RECORDS SUMMARY | 2024-12-12 16:28 | XMS_ITS | Encounter Summary ---
Author Organization [facility] Healthcare Address [address] [place] [address] Care Team Providers Care Hearth Feeder Name Role Phone Kana Rankin MD Primary Care Provider [phone] Encounter Details Date Type Department Care Team (Latest Contact Info) Description 08/09/2020 1:57 PM CDT - 08/09/2020 11:59 PM CDT Hospital Encounter [facility] [address] [place] [id number] Discharge Disposition: Discharge to home or self care Social History Tobacco Use Types Packs/Day Years Used Date Smoking Tobacco: Never Smokeless Tobacco: Never Alcohol Use Standard Drinks/Week Comments Yes 0 (1 standard drink = 0.6 oz pur e alcohol) Comments Unknown Sex and Gender Information Value Date Recorded Sex Assigned at Not on file 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 Sex Female 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 Gender Identity Not on file Sexual Orientation Straight 08/04/2020 2: 23 PM CDT 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 Not on file Not on file documented as of this encounter Medications at Time of Discharge albuterol HFA (PROVENTIL HFA,VENTOLIN HFA,PROAIR HFA) 90 mcg/actuation inhaler ProAir HFA 90 mcg/actuation aerosol inhaler celecoxib (CeleBREX) 200 mg capsule 200 in am and 100 in pm 1 04/09/2019 cetirizine (ZyrTEC) 10 mg tablet Take 1 tablet (10 mg total) by mouth water tester before breakfast fluticasone propionate (FLONASE) 50 mcg/actuation nasal spray fluticasone propionate 50 mcg/actuation nasal spray,suspension hydroCHLOROthiaz lencho (HYDRODIURIL) 25 mg tabletIndication s:hypertension Take 1 tablet (25 mg total) by mouth water tester before breakfast 1 05/11/2019 metFORMIN (GLUCOPHAGE) 500 [...] Procedure Name Priority Date/Time Associated Diagnosis Comments US TRANSFER OF OUTSIDE FILMS Routine 08/09/2020 1:57 PM CDT Diagnosis unknown documented in this encounter Results * US Outside Reference (08/09/2020 1:57 PM CDT) Impressions [facility] - 08/09/2020 1:57 PM CDT These images are for Reference purposes only and have not been reviewed by [facility]. ??There will be no report generated by a [facility]iologist. Narrative [facility] - 08/09/2020 1:57 PM CDT EXAMINATION: ??Images For Reference Purposes Only us Gino Molina MD IMG US PROCEDURES Final R esult [facility] documented in this encounter Visit Diagnoses Not on filedocumented in this encounter Care Teams Hearth Feeder Relationship Specialty Start Date End Date Kana Ranikn MD PCP - General Family Medicine 05/15/19 documented as of this encounter
--- OUTSIDE RECORDS SUMMARY | 2024-12-12 16:28 | XMS_ITS | Encounter Summary ---
Author Organization [facility] Address [address] [place] [address] Phone Care Team Providers Care Air Traffic Control Specialist Center Name Role Phone Kana Rankin MD Primary Care Provider [phone] Encounter Details Date Type Department Care Team (Late st Contact Info) Description 05/08/2024 Orders Only [facility] Orthopaedic Surgery [address] [facility] [address] [place] [id number] Luly Cheney PA [address] [facility] [address] [place] [address] Social History Tobacco Use Types Packs/Day Years Used Date Smoking Tobacco: Never Smokeless Tobacco: Never Alcohol Use Standard Drinks/Week Comments Not Currently 0 (1 standard drink = 0.6 oz pur e alcohol) Comments No Sex and Gender Information Value Date Recorded Sex Assigned at Not on file Legal Sex Female 6:11 PM 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
--- OUTSIDE RECORDS SUMMARY | 2024-12-12 16:28 | XMS_ITS | Encounter Summary ---
Author Organization [facility] Address [address] [facility] [address] [place] [address] Phone Care Team Providers Care Offal Roller Name Role Phone Kana Rankin MD Primary Care Provider [phone] Reason for Visit * Consultation (Routine) - Closed Specialty Diagnoses / Procedures Referred By Contac t Referred To Contact Bariatrics / Bariatric Surgery Diagnoses Morbid obesity due to excess calories (HCC) Kana Rankin MD Phone: tel: fax: [facility] (All Locations) Referral ID Status Reason Start Date Expiration Date V isits Requested Visits Authorized [id number] Closed Specialty Services Required 08/03/2020 09/02/[phone] Encounter Details Date Type Department Care Team (Latest Contact Info) Description 08/09/2020 1:00 PM CDT Office Visit [facility] Surgery [facility] [address] [place] [phone] María De Paz MD [address] [facility] [phone] [place] [address] Calculus of gallbladder without cholecystitis without obstruction (Primary Dx); Morbid obesity due to excess calories (CMS/HCC); Dietary counseling and surveillance Social History Tobacco Use Types Packs/Day Years Used Date Smoking Tobacco: Never Smokeless Tobacco: Never Alcohol Use Standard Drinks/Week Comments Yes 0 (1 standard drink = 0.6 oz pur e alcohol) Comments Unknown Sex and Gender Information Value Date Recorded Sex Assigned at Not on file 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 Gender Identity Not on file Sexual Orientation Straight 08/04/2020 2: 23 PM CDT 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 Not on file Not on file documented as of this encounter Last Filed Vital Signs Vital Sign Reading Time Taken Comments Blood Pressure 129/83 08/09/2020 1:09 PM CDT Pulse 102 08/09/2020 1:09 PM CDT Temperature 35.8 ??C (96.4 ??F) 08/09/2020 1:09 PM CD T Respiratory Rate - - Oxygen Saturation - - Inhaled Oxygen Concentration - - Weight 125.7 kg (277 lb 3.2 oz) 08/09/2020 1:09 PM CDT Height 175.9 cm (5' 9.25 ) 08/09/2020 1:09 PM CD T Body Mass Index 40.64 08/09/2020 1:09 PM CDT documented in this encounter Patient Instructions * Patient Instructions* María De Paz MD - 08/09/2020 1:00 PM CDT Low Fat Diet WHAT YOU NEED TO [...] oils, such as soybean or corn oil. [place]-3 fats can help to decrease the risk of heart disease. [place]-3 fats are found in fish, such as salmon,howell, trout, and tuna. [place]-3 fats can also be found in plant [...] foods. Eat a baked potato instead of [place] fries. Steam vegetables instead ofsaut??ing them in [...] ones. This maycause baked goods to be drier take off tender than usual. You may need to use [...] peel is high in fiber. ?? 2017 [employer] Information is for End User's use only and may not be sold, redistributed or otherwise used for commercial purposes. All illustrations and images included in CareNotes?? are the copyrighted property of [employer], [employer] or [employer]. The above information is an pharmacist aide only. It is not intended as medical advice for individual conditions or treatments. Talk to your doctor, nurse or pharmacist before following any medical regimen to see if it is safe and effective for you. ?? documented in this encounter Progress Notes * María De Paz MD - 08/09/2020 1:00 PM CDT [facility] Minimally Invasive Surgery New Patient Consultation / [...] with the resident/fellow. María De Paz MD anesthesiology crna Minimally Invasive Surgery Department of Surgery p: [phone] documented in this encounter Plan of Treatment Not on file documented as of this encounter Visit Diagnoses Diagnosis Calculus of gallbladder without cholecystitis without obstruction- Primary Morbid obesity due to excess calories (HCC) Dietary counseling and surveillance documented in this encounter Orders Outpatient Referral Count Last Ordered Date Fir st Ordered Date AMB REFERRAL TO BARIATRIC SURGERY 1 020 documented in this encounter Care Teams Offal Roller Relationship Specialty Start Date End Date Kana Rankin MD PCP - General Family Medicine 05/15/19 documented as of this encounter
--- OUTSIDE RECORDS SUMMARY | 2024-12-12 16:28 | XMS_ITS | Encounter Summary ---
Author Organization [facility] Address [address] [place] [address] Care Team Providers Care Grain Mill Worker Name Role Phone Kana Rankin MD Primary Care Provider [phone] Encounter Details Date Type Department Care Team (Latest Contact Info) Description 08/24/2020 3:09 PM CDT - 08/24/2020 11:59 PM CDT Hospital Encounter [facility] [address] [place] [id number] Discharge Disposition: Discharge to home or self care Social History Tobacco Use Types Packs/Day Years Used Date Smoking Tobacco: Never Smokeless Tobacco: Never Alcohol Use Standard Drinks/Week Comments Not Currently 0 (1 standard drink = 0.6 oz pur e alcohol) Comments No Sex and Gender Information Value Date Recorded Sex Assigned at Not on file 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 Gender Identity Not on file Sexual Orientation Straight 08/04/2020 2: 23 PM CDT 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 Not on file Not on file documented as of this encounter Medications at Time of Discharge acetaminophen (TYLENOL) 325 mg tabletIndications:P ain Take 2 tablets (650 mg total) by mouth every 4 (four) hours as needed for pain 30 tablet 08/20/2020 albuterol HFA (PROVENTIL HFA,VENTOLIN HFA,PROAIR HFA) 90 mcg/actuation inhaler ProAir HFA 90 mcg/actuation aerosol inhaler celecoxib (CeleBREX) 200 mg capsule 200 in am and 100 in pm 1 04/09/2019 cetirizine (ZyrTEC) 10 mg tablet Take 1 tablet (10 mg total) by mouth boat joiner 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 before breakfast docusate sodium (COLACE) 100 mg capsuleIndications: constipation Take 1 capsule (100 mg total) by mouth 2 (two) times a day 20 capsule 08/20/2020 fish oil-dha-epa 1,200-144-216 mg capsule Take by mouth boat joiner helper before breakfast fluticasone propionate (FLONASE) 50 mcg/actuation nasal spray fluticasone propionate 50 mcg/actuation nasal spray,suspension hydroCHLOROthiazide (HYDRODIURIL) 25 mg tabletIndications:h ypertension Take 1 tablet (25 mg total) by mouth boat joiner helper before breakfast 1 05/11/2019 metFORMIN (GLUCOPHAGE) 500 mg tablet 1 tablet (500 mg total) 2 (two) times a day with meals 5 04/24/2019 montelukast (SINGULAIR) 10 mg tablet Take 1 tablet (10 mg total) by mouth nightly multivitamin capsule Take 1 capsule by mouth boat joiner helper before breakfast ondansetron ODT (ZOFRAN-ODT) 4 mg disintegrating tabletIndications:N ausea and Vomiting Take 1 tablet (4 mg total) by mouth every 6 (six) hours as needed for nausea or vomiting 20 tablet 08/20/2020 traZODone (DESYREL) 50 mg tablet Take 100 mg by mouth nightly 0 05/01/2019 zinc 50 mg tablet Take by mouth nightly atorvastatin (LIPITOR) 20 mg tablet Take 20 mg by mouth nightly 05/10/[address] (NexIUM) 40 mg capsule Take 40 mg by mouth daily before breakfast 05/10/20 22 multivitamin with minerals tabletIndications:h air skin nails vitamin Take 1 tablet by mouth boat joiner helper before breakfast 05/10/20 22 oxyCODONE (ROXICODONE) 5 mg immediate release tabletIndications:P ain Take 1 tablet (5 mg total) by mouth every 4 (four) hours as needed for pain 15 tablet 08/20/2020 08/25/20 20 traMADol (ULTRAM) 50 mg tablet Take 50 mg by mouth every 6 (six) hours 08/26/20 20 documented as of this encounter Discharge Disposition Disposition Code Departure Means Destination Discharge to home or self care documented in this encounter Plan of Treatment Not on file documented as of this encounter Procedures Procedure Name Priority Date/Time Associated Diagnosis Comments US TRANSFER OF OUTSIDE FILMS Routine 08/24/2020 3:09 PM CDT Diagnosis unknown documented in this encounter Results * US Outside Reference (08/24/2020 3:09 PM CDT) Impressions [facility] - 08/24/2020 3:09 PM CDT These images are for Reference purposes only and have not been reviewed by [facility] Radiology. ??There will be no report generated by a [facility] Radiologist. Narrative [facility] - 08/24/2020 3:09 PM CDT EXAMINATION: ??Images For Reference Purposes Only us María De Paz MD IMG US PROCEDURES Final Result [facility] documented in this encounter Visit Diagnoses Not on filedocumented in this encounter Care Teams Grain Mill Worker Relationship Specialty Start Date End Date Kana Rankin MD PCP - General Family Medicine 05/15/19 documented as of this encounter
--- OUTSIDE RECORDS SUMMARY | 2024-12-12 16:28 | XMS_ITS | Encounter Summary ---
Author Organization [facility] Address [address] [place] [address] Phone Care Team Providers Care Acid Tender Name Role Phone Kana Rankin MD Primary Care Provider + [phone] Reason for Referral * Procedure (Routine) - Authorized Specialty Diagnoses / Procedures Referred By Zoe t Referred To Contact Diagnoses Primary osteoarthritis of knees, bilateral Procedures Large Joint Injection: bilateral knee Luly Cheney PA [address] [place] [address] Phone: tel: fax: [facility] (All Locations) Referral ID Status Reason Start Date Expiration Date V isits Requested Visits Authorized [id number] Authorized 04/30/2024 05/30/2025 1 1 * Diagnostic Imaging (Routine) - Closed Specialty Diagnoses / Procedures Referred By Zoe t Referred To Contact Diagnoses Left knee pain, unspecified chronicity Procedures XR Knee Left 4 or More Views Luly Cheney PA [address] [place] [address] Phone: tel: fax: [facility] [address] [address] Phone: tel: Referral ID Status Reason Start Date Expiration Date Visits Re quested Visits Authorized [id number] Closed 04/15/2024 05/15/2025 1 1 Reason for Visit * Reason Comments Injections Injections Encounter Details Date Type Department Care Team (Latest Contact Info) Description 04/30/2024 11:30 AM CDT Office Visit [facility] Orthopaedic Surgery [address] [facility] [address] [place] [address] Luly Cheney PA [address] [facility] [address] [place] [address] Primary osteoarthritis of knees, bilateral (Primary Dx); Right knee pain, unspecified chronicity Social History Tobacco Use Types Packs/Day Years Used Date Smoking Tobacco: Never Smokeless Tobacco: Never Alcohol Use Standard Drinks/Week Comments Not Currently 0 (1 standard drink = 0.6 oz pur e alcohol) Comments No Sex and Gender Information Value Date Recorded Sex Assigned at Not on file 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 You may resume taking ANY pain relieving medications immediately after the procedures, including anti-inflammatories. You may resume any blood thinners after the procedures. The numbing medication usually wears off 2-4 hours after the procedure. Ice the area 20 minutes at a time the day of the injection and the day after. The day after the injection you may feel worse than you did before you received the injection (refer to #5). If you are a diabetic please monitor your blood sugars the day of the injection and the day after. The cortisone may increase your blood sugars. The steroid medication usually takes up to TEN days to start to take effect and TWO WEEKS to have afull beneficial effect. If you have any questions regarding your procedure, please do not hesitate to contact the performing doctor???s office. documented in this encounter Progress Notes * Luly Cheney PA - 04/30/2024 11:30 AM CDTAssociated Order(s): Large Joint Injection: bilateral knee Post-Procedure Diagnose(s): Primary osteoarthritis of knees, bilateral EST PATIENT VISIT CHIEF COMPLAINT: Chief Complaint Patient presents with Left Knee - Injections Right Knee - Injections HISTORY OF PRESENT ILLNESS: Lorelei Hall is a 48 y.o. female who presents for bilateral knee pain. I last saw her for this issue 05/10/2022 and treated her with bilateral knee cortisone injections. She had adequate relief with these injections. 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 Pain is worse with stairs, increased activity. Pain is improved with rest, ice,activity modification, cortisone injections, Celebrex. She is diabetic. Her last hemoglobin A1c wasreportedly 6.0. She is on Ozempic and metformin without any significant changes. PATIENT QUESTIONNAIRE: No questionnaires on file. PAST MEDICAL HISTORY: Past Medical History: Diagnosis Date Anxiety Arthritis Depression Diabetes mellitus (HCC) Gastric reflux GERD (gastroesophageal reflux disease) Hypercholesteremia Hypertension Obesity Osteoarthritis Peripheral neuropathy PAST SURGICAL HISTORY: Past Surgical History: Procedure Laterality Date ABLATION 06/2023 Uterine Ablation CHOLECYSTECTOMY 08/19/2020 OVARIAN CYST SURGERY TONSILLECTOMY VAGINAL DELIVERY x2 MEDICATIONS: Current Outpatient Medications on File Prior to Visit Medication Sig Dispense Refill atorvastatin (LIPITOR) 40 mg tablet celecoxib (CeleBREX) 100 mg capsule celecoxib (CeleBREX) 200 mg capsule 200 in am and 100 in pm 1 cetirizine (ZyrTEC) 10 mg tablet Take 1 tablet (10 mg total) by mouth lap maker before breakfast fluticasone propionate (FLONASE) 50 mcg/actuation nasal spray fluticasone propionate 50 mcg/actuation nasal spray,suspension hydroCHLOROthiazide (HYDRODIURIL) 25 mg tablet Take 1 tablet (25 mg total) by mouth lap maker before breakfast 1 metFORMIN (GLUCOPHAGE) 500 mg tablet 1 tablet (500 mg total) 2 (two) times a day with meals 5 montelukast (SINGULAIR) 10 mg tablet Take 1 tablet (10 mg total) by mouth nightly multivitamin capsule Take 1 capsule by mouth lap maker before breakfast Ozempic 0.25 mg or 0.5 mg(2 mg/1.5 mL) pen injector injection traMADoL (ULTRAM) 50 mg tablet traZODone (DESYREL) 100 mg tablet zinc 50 mg tablet Take by mouth nightly ZyrTEC-D 5-120 mg per 12 hr tablet acetaminophen (TYLENOL) 325 mg tablet Take 2 tablets (650 mg total) by mouth every 4 (four) hours as needed for pain (Patient not taking: Reported on 03/22/2024) 30 tablet 0 adapalene-benzoyl peroxide 0.3-2.5 % gel with pump Epiduo Forte 0.3 %-2.5 % topical gel with pump (Patient not taking: Reported on 03/22/2024) albuterol HFA (PROVENTIL HFA,VENTOLIN HFA,PROAIR HFA) 90 mcg/actuation inhaler ProAir HFA 90 mcg/actuation aerosol inhaler (Patient not taking: Reported on 05/10/2022) ciclesonide (Omnaris) 50 mcg nasal spray Omnaris 50 mcg nasal spray Lapaz 2 sprays every day by intranasal route. (Patient not taking: Reported on 05/10/2022) docusate sodium (COLACE) 100 mg capsule Take 1 capsule (100 mg total) by mouth 2 (two) times a day (Patient not taking: Reported on 03/22/2024) [address] (NexIUM) 20 mg capsule (Patient not taking: Reported on 03/22/2024) fish oil-dha-epa 1,200-144-216 mg capsule Take by mouth lap maker before breakfast (Patient nottaking: Reported on 03/22/2024) mirabegron ER (MYRBETRIQ) 50 mg tablet extended release 24 hr daily (Patient not taking: Reported on 03/22/2024) mupirocin (BACTROBAN) 2 % ointment APPLY TOPICALLY TO THE AFFECTED AREA TWICE DAILY (Patient not taking: Reported on 05/10/2022) niacin ER (NIASPAN) 500 mg CR tablet niacin ER 500 mg tablet,extended release 24 hr (Patient not taking: Reported on 05/10/2022) ondansetron ODT (ZOFRAN-ODT) 4 mg disintegrating tablet Take 1 tablet (4 mg total) by mouth every 6(six) hours as needed for nausea or vomiting (Patient not taking: Reported on 05/10/2022) 20 tablet 0 oseltamivir (TAMIFLU) 75 mg capsule Tamiflu 75 mg capsule take one twice daily for 5 days (Patient not taking: Reported on 05/10/2022) tolterodine LA (DETROL LA) 4 mg 24 hr capsule (Patient not taking: Reported on 03/22/2024) topiramate (TOPAMAX) 25 mg tablet topiramate 25 mg tablet (Patient not taking: Reported on 05/10/2022) traZODone (DESYREL) 50 mg tablet Take 100 mg by mouth nightly (Patient not taking: Reported on 05/10/2022) 0 No current facility-administered medications on file prior to visit. ALLERGIES: No Known Allergies SOCIAL HISTORY: Social History Tobacco Use Smoking status: Never Smokeless tobacco: Never Substance and Sexual Activity Drug use: Never Sexual activity: Defer Alcohol Use: Not on file FAMILY HISTORY: Family History Problem Relation Age of Onset Scoliosis Mother Arthritis Mother Osteoarthritis Mother Fibromyalgia Mother Arthritis Father Hypertension Father Diabetes Father Osteoarthritis Father Atrial fibrillation Father Degenerative Disk Disease Sister Asthma Daughter PHYSICAL EXAMINATION: There were no vitals taken for this visit. Right Knee Exam Tenderness The patient is experiencing tenderness in the medial joint line. Range of Motion Extension: 0 Flexion: 120 Other Erythema: absent Scars: absent Sensation: normal Pulse: present Swelling: none Effusion: no effusion present Left Knee Exam Tenderness The patient is experiencing tenderness in the medial joint line. Range of Motion Extension: 0 Flexion: 120 Other Erythema: absent Scars: absent Sensation: normal Pulse: present Swelling: none Effusion: no effusion present Large Joint Injection: bilateral knee Performed by: Luly Cheney PA Authorized by: Luly Cheney PA Large Joint Injection/Aspiration: Consent Given by: Patient Site marked: the procedure site was marked Verbal consent obtained: Yes Supporting Documentation: Indications: Pain Procedure Details: Location: Knee Site: Bilateral knee Prep: patient was prepped and draped in usual sterile fashion Needle Size: 22 G Approach: Superior lateral Medications Right Large Joint Injection: 80 mg triamcinolone 40 mg/mL; 4 mL BUPivacaine HCl 0.25 % (2.5 mg/mL) Medications Left Large Joint Injection: 80 mg triamcinolone 40 mg/mL; 4 mL BUPivacaine HCl 0.25 % (2.5 mg/mL) Patient tolerance: Patient tolerated the procedure well with no immediate complications XRAYS/REVIEW OF STUDIES: Bilateral knee x-rays reviewed and interpreted by me shows mild bilateral tricompartmental osteoarthritis with joint space narrowing. No significant changes noted compared to previous x-rays. No fractures noted. Unchanged low- grade chondroid lesion in the distal right femur. DIAGNOSIS: Bilateral knee osteoarthritis ASSESSMENT/PLAN: X-ray and exam findings reviewed with the patient and her daughter. The natural progression of osteoarthritis and treatment options were discussed. Today she elected to proceed with bilateral knee cortisone injections. PT/HEP: She may continue with her HEP. NSAIDS: She may continue with her Celebrex. Tylenol: She can supplement with Tylenol as needed for pain. Topicals: She can apply a topical anti-inflammatory as needed for pain. Activity: She was reminded to limit activity the next couple of days and then she can gradually increase activity as tolerated. Follow Up: Pmorgan Cheney PA-C [facility] Orthopedic Surgery documented in this encounter Plan of Treatment Not on file documented as of this encounter Procedures Procedure Name Priority Date/Time Associated Diagnosis Comments RI ARTHROCENTESIS ASPIR&/INJ MAJOR JT/BURSA W/O US Routine 04/30/2024 11:30 AM CDT Primary osteoarthritis of knees, bilateral documented in this encounter Results * RI ARTHROCENTESIS ASPIR&/INJ MAJOR JT/BURSA W/O US (04/30/2024 11:30 AM CDT) Narrative Luly Cheney PA - 04/30/2024 11:30 AM CDT Luly Cheney PA ? 04/30/2024 12:22 PM Large Joint Injection: bilateral knee Performed by: Luly Cheney PA Authorized by: Luly Cheney PA ?? Large Joint Injection/Aspiration: ??Consent Given by: ??Patient ??Site marked: the procedure site was marked ?Verbal consent obtained: Yes ?? Supporting Documentation: ??Indications: ??Pain Procedure Details: ??Location: ??Knee ??Site: ??Bilateral knee ??Prep: patient was prepped and draped in usual sterile fashion ?Needle Size: ??22 G ??Approach: ??Superior lateral ??Medications Right Large Joint Injection: ??80 mg triamcinolone 40 mg/mL; 4 mL BUPivacaine HCl 0.25 % (2.5 mg/mL) ??Medications Left ??Large Joint Injection: ??80 mg triamcinolone 40 mg/mL; 4 mL BUPivacaine HCl 0.25 % (2.5 mg/mL) ??Patient tolerance: ??Patient tolerated the procedure well with no immediate complications us [facility] Final Result * XR Knee Right 4 or More Views (04/30/2024 11:20 AM CDT) Anatomical Region Laterality Modality Lower Extremities, Knee Right Computed Radiography 04/30/2024 11:4 4 AM CDT Impressions 04/30/2024 3:01 PM CDT 1. ??Unchanged mild bilateral knee osteoarthritis. 2. Slight progressive interval increase in size and fullness associated with the right distal femoral chondroid lesion since 2019. Recommend correlation with patient's symptoms and potential consideration for further evaluation with MRI. The radiology attending physician has personally reviewed this study, and had reviewed and/or edited this written report and agrees with it. Electronically signed by: Brandon Kaur MD Narrative 04/30/2024 3:01 PM CDT EXAMINATION: XR KNEE LEFT 4 OR MORE VIEWS, XR KNEE RIGHT 4 OR MORE VIEWS HISTORY: ??48-year-old female with bilateral knee pain FINDINGS: 5 views of bilateral knees were obtained, comparison is made to prior knee radiographs 05/10/2022. No acute fracture. ??Unchanged low-grade chondroid lesion in the central medullary compartment of the distal right femoral shaft. ??No periosteal reaction, endosteal scalloping, or cortical destruction. Mild progressive increase in size and fullness compared to prior exams, measuring 6 cm in craniocaudal dimension versus 5.4 cm in 2019. ??Unchanged mild tricompartmental osteoarthritis of the bilateral knees. ??Tiny posterior loose bodies bilaterally. ??No significant soft tissue swelling or knee joint effusions. Procedure Note Brandon Kaur MD - 04/30/2024 EXAMINATION: XR KNEE LEFT 4 OR MORE VIEWS, XR KNEE RIGHT 4 OR MORE VIEWS HISTORY: 48-year-old female with bilateral knee pain FINDINGS: 5 views of bilateral knees were obtained, comparison is made to prior knee radiographs 05/10/2022. No acute fracture. Unchanged low-grade chondroid lesion in the central medullary compartment of the distal right femoral shaft. No periosteal reaction, endosteal scalloping, or cortical destruction. Mild progressive increase in size and fullness compared to prior exams, measuring 6 cm in craniocaudal dimension versus 5.4 cm in 2019. Unchanged mild tricompartmental osteoarthritis of the bilateral knees. Tiny posterior loose bodies bilaterally. No significant soft tissue swelling or knee joint effusions. IMPRESSION: 1. Unchanged mild bilateral knee osteoarthritis. 2. Slight progressive interval increase in size and fullness associated with the right distal femoral chondroid lesion since 2019. Recommend correlation with patient's symptoms and potential consideration for further evaluation with MRI. The radiology attending physician has personally reviewed this study, and had reviewed and/or edited this written report and agrees with it. Electronically signed by: Brandon Kaur MD Luly [facility] IM XR PROCEDURES Ana l Result * XR Knee Left 4 or More Views (04/30/2024 11:20 AM CDT) Anatomical Region Laterality Modality Lower Extremities, Knee Left Computed Radiography 04/30/2024 11:4 4 AM CDT Impressions 04/30/2024 3:01 PM CDT 1. ??Unchanged mild bilateral knee osteoarthritis. 2. Slight progressive interval increase in size and fullness associated with the right distal femoral chondroid lesion since 2019. Recommend correlation with patient's symptoms and potential consideration for further evaluation with MRI. The radiology attending physician has personally reviewed this study, and had reviewed and/or edited this written report and agrees with it. Electronically signed by: Brandon Kaur MD Narrative 04/30/2024 3:01 PM CDT EXAMINATION: XR KNEE LEFT 4 OR MORE VIEWS, XR KNEE RIGHT 4 OR MORE VIEWS HISTORY: ??48-year-old female with bilateral knee pain FINDINGS: 5 views of bilateral knees were obtained, comparison is made to prior knee radiographs 05/10/2022. No acute fracture. ??Unchanged low-grade chondroid lesion in the central medullary compartment of the distal right femoral shaft. ??No periosteal reaction, endosteal scalloping, or cortical destruction. Mild progressive increase in size and fullness compared to prior exams, measuring 6 cm in craniocaudal dimension versus 5.4 cm in 2019. ??Unchanged mild tricompartmental osteoarthritis of the bilateral knees. ??Tiny posterior loose bodies bilaterally. ??No significant soft tissue swelling or knee joint effusions. Procedure Note Brandon Kaur MD - 04/30/2024 EXAMINATION: XR KNEE LEFT 4 OR MORE VIEWS, XR KNEE RIGHT 4 OR MORE VIEWS HISTORY: 48-year-old female with bilateral knee pain FINDINGS: 5 views of bilateral knees were obtained, comparison is made to prior knee radiographs 05/10/2022. No acute fracture. Unchanged low-grade chondroid lesion in the central medullary compartment of the distal right femoral shaft. No periosteal reaction, endosteal scalloping, or cortical destruction. Mild progressive increase in size and fullness compared to prior exams, measuring 6 cm in craniocaudal dimension versus 5.4 cm in 2019. Unchanged mild tricompartmental osteoarthritis of the bilateral knees. Tiny posterior loose bodies bilaterally. No significant soft tissue swelling or knee joint effusions. IMPRESSION: 1. Unchanged mild bilateral knee osteoarthritis. 2. Slight progressive interval increase in size and fullness associated with the right distal femoral chondroid lesion since 2019. Recommend correlation with patient's symptoms and potential consideration for further evaluation with MRI. The radiology attending physician has personally reviewed this study, and had reviewed and/or edited this written report and agrees with it. Electronically signed by: Brandon Kaur MD [facility] IM[facility] XR PROCEDURES Ana l Result documented in this encounter Visit Diagnoses Diagnosis Primary osteoarthritis of knees, bilateral- Primary Right knee pain, unspecified chronicity Right knee pain, unspecified chronicity Left knee pain, unspecified chronicity documented in this encounter Administered Medications Inactive Administered Medications - up to 3 most recent administrations Medication Order MAR Action Action Date Dose Rate Site BUPivacaine HCl (MARCAINE) 0.25 % (2.5 mg/mL) injection 4 mL 4 mL, other, One-Time Injection, Starting on Damaris 04/30/24 at 1130, For 1 doseIndications:Primary osteoarthritis of knees, bilateral Given 04/30/2024 11:30 AM CDT 4 mL BUPivacaine HCl (MARCAINE) 0.25 % (2.5 mg/mL) injection 4 mL 4 mL, other, One-Time Injection, Starting on Damaris 04/30/24 at 1130, For 1 doseIndications:Primary osteoarthritis of knees, bilateral Given 04/30/2024 11:30 AM CDT 4 mL triamcinolone (KENALOG) 40 mg/mL injection 80 mg 80 mg, intra-articular, One-Time Injection, Starting on Damaris 04/30/24 at 1130, For 1 doseIndications:Primary osteoarthritis of knees, bilateral Given 04/30/2024 11:30 AM CDT 80 mg triamcinolone (KENALOG) 40 mg/mL injection 80 mg 80 mg, intra-articular, One-Time Injection, Starting on Damaris 04/30/24 at 1130, For 1 doseIndications:Primary osteoarthritis of knees, bilateral Given 04/30/2024 11:30 AM CDT 80 mg documented in this encounter Care Teams Acid Tender Relationship Specialty Start Date End Date Kana Rankin MD PCP - General Family Medicine 05/15/19 documented as of this encounter
--- OUTSIDE RECORDS SUMMARY | 2024-12-12 16:28 | XMS_ITS | Encounter Summary ---
Author Organization [facility] Address [address] [place] [address] Care Team Providers Care Assistant Foreman Name Role Phone Kana Rankin MD Primary Care Provider [phone] Encounter Details Date Type Department Care Team (Late st Contact Info) Description 08/19/2020 4:59 PM CDT Anesthesia Event [facility] [address] [place] [address] Jerome Avalos MD [address] [facility] [id number] [place] [address] Elise Garcia MD [address] [place] [address] Anesthesia Record Procedure Summary Procedure Name Responsible Anesthesiologist Anesthesia Start Time Anesthesia Stop Time LAPAROSCOPIC CHOLECYSTECTOMY (Abdomen) Jerome Avalos MD 08/19/20 1659 08/19/20 1906 Events Date Time Event Comment 08/19/2020 1430 In Preop 1628 1659 An Start 1703 In Room 1709 An Start Data 1710 An Induction The patient was reevaluated immediately before moderate or deep sedation use and before anesthesia induction. 1712 An Intubation Atraumatic int ubation. No injury to the patient's teeth or mouth. Eyes taped/protected. 1715 Anesthesia Ready 1724 Proc Start 1724 Incision Start 1852 Proc Fin 1855 An Extubation Uneventful violeta rgence. Awake spontaneous respirations. Adequate muscle strength. Oropharynx suctioned. Successful extubation. Patient placed on oxygen face mask. 1899 an stop data 1900 Out of Room 1904 Handoff to RN I completed my handoff to the receiving nurse during which we: 1. Patient identified 2. Responsible provider identified 3. Pertinent medical history reviewed 4. Procedure type and surgical course discussed 5. Intraoperative anesthetic management and any significant issues discussed 6. Expectations and concerns for postop period discussed 7. Questions solicited from receiving nurse 8. Patient disposition at the time of handoff: No value filed. 1905 An Stop Meds Name Total midazolam PF 3 mg lidocaine 1 % PF 100 mg fentaNYL 300 mcg propofol 150 mg rocuronium 60 mg succinylcholine 100 mg ondansetron PF (ZOFRAN) 2 mg/mL injectio n 4 mg glycopyrrolate 0.4 mg neostigmine injection 1 mg/mL 2 mg ceFAZolin (ANCEF) 1 gram/10 mL in steril e water (premix) 3,000 mg 3,000 mg metoprolol 2 mg famotidine PF 20 mg dexamethasone 4 mg/ml 4 mg dexmedetomidine vial 4 mcg/mL 16 mcg ketorolac 30 mg Lactated Ringer's (LR) infusion 1,200 mL * Agents Name O2% N2O O2 Air Sevoflurane Inspired Sevoflurane * Blood No blood administrations on file. Lines, Drains, and Airways Type Details Placement Removal Peripheral IV Placement Date: 08/19/20; Placement Time: 1521; Catheter Size: 20 G; Orientation: Right; Location: Hand; Inserted by: hermelindo; Insertion Attempts: 1; Patient Tolerance: Tolerated well; Removal Date: 08/20/20; Removal Time: 1212 08/19/20 1521 by Rodney Davis RN 08/20/20 1212 by Soumya Soliz RN RETIRED Surgical Site 08/19/20; 1716; Abdomen; 4 LAP SITES; 11/03/24 (Retired LDA, Removed/Completed by Ondax with LDA Utility); 121 (Retired LDA, Removed/Completed by Ondax with LDA Utility) 08/19/20 1716 by Lala Lujan RN 11/03/24 1213 by Discharge Provider, Automatic ETT Placement Date: 08/19/20; Placement Time: 172 (created via procedure documentation); Mask Ventilation: 0; Technique: Direct laryngoscopy; Type: ETT - single; Single Lumen Tube Size: 7.5 mm; Cuffed: Yes; Laryngoscope: Kelechi; Blade Size: 3; Location: Oral; Grade View: Grade IIa; Insertion Attempts: 1; Placement Verification: Auscultation, Capnometry; Removal Date: 08/19/20; Removal Time: 185408/19/20 172 by Roseanne Rock CRNA 08/19/201854 by Isidoro Sharma CRNA documented in this encounter Social History Tobacco Use Types Packs/Day Years Used Date Smoking Tobacco: Never Smokeless Tobacco: Never Alcohol Use Standard Drinks/Week Comments Not Currently 0 (1 standard drink = 0.6 oz pur e alcohol) Comments No Sex and Gender Information Value Date Recorded Sex Assigned at Not on file Legal Sex Female 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 Gender Identity Not on file Sexual Orientation Straight 08/04/2020 2: 23 PM CDT 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 on file Not on file Not on file documented as of this encounter OR Notes * Anesthesia Postprocedure Evaluation - Jerome Avalos MD - 08/19/2020 8:43 PM CDT Patient: Lorelei Hall Procedure Summary Date: 08/19/20 Room / Location: [facility] OR POD 1 ROOM 330 / [facility] OR POD 1 Anesthesia Start: 1658 Anesthesia Stop: 1905 Procedure: LAPAROSCOPIC CHOLECYSTECTOMY (N/A Abdomen) Diagnosis: Symptomatic cholelithiasis (Symptomatic cholelithiasis [K80.20]) Surgeon: María De Paz MD Responsible Provider: Jerome Avalos MD Anesthesia Type: general ASA Status: 2 Anesthesia Type: general Last vitals BP 135/73 Pulse 71 Temp 37.1 ??C (98.8 ??F) (Temporal) Resp 22 SpO2 96% Anesthesia Post Evaluation Patient location during evaluation: PACU Patient participation: complete - patient participated Level of consciousness: follows simple commands and arouses americanization teacher Pain scale: says her pain is manageable. Pain management: adequate Airway patency: adequate Evidence of recall: no Anesthetic complications: no Cardiovascular status: hemodynamically stable Respiratory status: acceptable and room air Hydration status: acceptable Pt is: normothermic Nausea/Vomiting status: resolved and tolerable Comments: The patient is suitable for discharge from the recovery area. * Anesthesia Procedure Notes - Roseanne Rock CRNA - 08/19/2020 5:28 PM CDTAssociated Order(s): Airway Airway Patient location: OR Urgency: elective Indications for airway management: anesthesia and airway protection Difficult airway: no Staff: Placed by: CEMENT BLOCK MAKER: Roseanne Rock CRNA Emergent airway documentation: Risks and benefits discussed: yes Consent obtained: yes Consent given by: patient Airway prep: Preoxygenated: yes Patient position: sniffing Mask difficulty assessment: 0 - not attempted Spontaneous ventilation during airway: absent Sedation level during airway: GA Final airway details: Final airway type: endotracheal airway Tube type: ETT ETT size: 7.5 mm Cuffed: yes Technique used for successful ETT placement: direct laryngoscopy Devices/Methods used in placement: intubating stylet and cricoid pressure Insertion site: oral Blade type: Kelechi Blade size: 3 Cormack-Lehane (direct): grade IIa - partial view of glottis Cuff volume: 8 mL Cuff inflated with: air ETT to teeth: 24 cm Placement verified by: auscultation and CO2 detection Airway secured with: silk tape Number of attempts: 1 * Anesthesia Preprocedure Evaluation - Michael Villagran MD - 08/15/2020 9:22 AM CDT Images from the original note were not included. [facility] Preoperative [facility] and Planning Preoperative Evaluation Record Evaluation type/location: TPAP from [facility] Planned procedure site: [facility] PVT OR (Pod 1) Date: 08/15/20 NOTE: This note represents a preoperative evaluation initiated via telephone interview. NO PHYSICALEXAM was performed at the time of initial assessment. A physical exam may be added to this note anddocumented below. Anesthesia Evaluation Lorelei Hall is a 44 y.o. female Procedure(s): LAPAROSCOPIC CHOLECYSTECTOMY Pre-Op Diagnosis Codes: * Symptomatic cholelithiasis [K80.20] HISTORY HPI 44 year old female with symptomatic cholelithiasis for LAPAROSCOPIC CHOLECYSTECTOMY. Past Medical History Information obtained from: patient and chart. Neurological Pertinent negatives: seizures; CVA/stroke; TIA; dementia/mild cognitive impairment and psychiatric history Cardiovascular + Hypertension Hypertension year diagnosed: 2008. Typical diastolic BP - 80 + Hyperlipidemia (on statin) Pertinent negatives: CAD ; UT ; CABG ; atrial fibrillation; arrhythmia; pacemaker/ICD; DVT/PE; negative for CHF; drug-eluting stent(s); bare metal stent(s) and unknown stent(s) type Respiratory Pertinent negatives: COPD; asthma; sleep apnea (GRETTA); no O2 use outside the hospital and non-smoker Hepatic / Heme Pertinent negatives: liver disease; history of anemia; history of thrombocytopenia and history of Dinesh positive Gastrointestinal + GERD (r/t surgical etiology) Renal / Pertinent negatives: renal disease; dialysis and nephrolithiasis Musculoskeletal/Pain + Chronic pain (knees, shoulders) + Osteoarthritis Pertinent negatives: headaches Endocrine / Other + Diabetes mellitus (does not check home blood sugar levels) - Diabetes type 2. Diagnosed: 2018. Outpatient insulin use: none. + Obesity (BMI >30) (BMI 38.63) Pertinent negatives: thyroid disease and cancer history Functional Capacity Functional capacity: 4-6 METs Comments: Denies SOB and CP with 2 flights of stairs Day of Surgery assessments + Possibility of assessed (LMP: 08/13/20, urine HCG ordered DOS) Review of Systems + pedal edema (on diuretic) + chronic pain (knees, shoulders) + abdominal pain (r/t surgical etiology) Pertinent negatives: productive cough; wheezing; SOB; recent cold/flu; fever; chest pain; palpitations; orthopnea; PND; heavy menses; previous transfusion; melena/hematochezia; easy bruising; bleeding problems; syncope; dizziness; muscle weakness; numbness/tingling; hard of hearing; vision loss; nausea; dysphagia; diarrhea; dentures/partials; chipped/loose teeth and no unexpected weight change Comments: Denies UTI symptoms PAT Summary and Plans Cardiac risk classification of planned procedure: low cardiac risk. Preoperative assessment status: complete. Initial preoperative evaluation discussed with: Darian Carnes MD Additional comments: Lorelei Hall is a 44 y.o. female who is being evaluated prior to undergoing a low cardiac risk surgery. Revised Cardiac Risk Index factors are (none) for a total RCRI of 0 out of 6. Functional capacity is 4-6 METs. Patient states surgery is not until 1530, with arrival time of 1330 and was wondering if she could drink past midnight. Discussed with CPAP attending, and patient is okay to drink water or black coffee until until 0900. Patient verbalized understanding. Patient with no known exposure to COVID19 and no concerning symptoms of COVID19. Plan for pre-procedure COVID19 testing: Telephone assessment performed. Request placed for pre-procedure COVID19 testing to be performed on 08/17/20. [facility] will contact patient to schedule testing. Obstructive sleep apnea (GRETTA) screening status is unknown due to TPAP assessment. Pending neck circumference. Blood bank needs for day of procedure: No type and screen needed Pending labs/tests include: no labs indicated at this time Urine HCG and POCT glucose ordered DOS This assessment was performed via telephone. Therefore the physical exam has been deferred to the day of surgery team. The patient was provided with preoperative instructions for their medications. The patient was instructed to shower/bathe the night prior and the morning of the planned procedure using an antibacterial soap. Patient instructions were provided by telephone and in writing sent via [employer]PS mail. Patient verbalized understanding of preoperative plan. TPAP assessment complete Preoperative evaluation performed by Laina Wolfe NP on 08/15/20 at 9:25 AM.. Patient Active Problem List Diagnosis ??? Allergy to environmental factors ??? Allergic rhinitis ??? Asthma ??? Bronchitis ??? Essential hypertension ??? Gastroesophageal reflux disease ??? Hyperlipidemia ??? Insomnia ??? Nasal congestion ??? Morbid obesity (CMS/HCC) ??? Osteoarthritis ??? Otitis media of right ear ??? Upper respiratory infection ??? Calculus of gallbladder without cholecystitis without obstruction ??? Symptomatic cholelithiasis Past Medical History: Diagnosis Date ??? Anxiety ??? Arthritis ??? Depression ??? Diabetes mellitus (CMS/HCC) ??? Gastric reflux ??? GERD (gastroesophageal reflux disease) ??? Hypercholesteremia ??? Hypertension ??? Obesity ??? Osteoarthritis ??? Peripheral neuropathy Past Surgical History: Procedure Laterality Date ??? OVARIAN CYST SURGERY ??? TONSILLECTOMY OB History No obstetric history on file. No Known Allergies Med List Status: Nurse Complete Set By: Shameka Corley RN at 08/15/2020 9:21 AM Taking? Last Dose Start Date End Date Provider albuterol HFA (PROAIR HFA) 90 mcg/actuation inhaler -- -- Historical Provider, atorvastatin (LIPITOR) 20 mg tablet -- -- Historical Provider, celecoxib (CeleBREX) 200 mg capsule 04/09/19 -- Historical Provider, Notes: 200 mg in morning. 100 mg in evening. cetirizine (ZyrTEC) 10 mg tablet -- -- Historical Provider, esomeprazole DR (NexIUM) 40 mg capsule -- -- Historical Provider, fluticasone propionate (FLONASE) 50 mcg/actuation nasal spray -- -- Historical Provider, hydroCHLOROthiazide (HYDRODIURIL) 25 mg tablet 05/11/19 -- Historical Provider, metFORMIN (GLUCOPHAGE) 500 mg tablet 04/24/19 -- Historical Provider, montelukast (SINGULAIR) 10 mg tablet -- -- Historical Provider, traMADol (ULTRAM) 50 mg tablet -- -- Historical Provider, traZODone (DESYREL) 50 mg tablet 05/01/19 -- Historical Provider, No current facility-administered medications for this encounter. Current Outpatient Medications: ??? albuterol HFA (PROAIR HFA) 90 mcg/actuation inhaler ??? atorvastatin (LIPITOR) 20 mg tablet ??? celecoxib (CeleBREX) 200 mg capsule ??? cetirizine (ZyrTEC) 10 mg tablet ??? esomeprazole DR (NexIUM) 40 mg capsule ??? fluticasone propionate (FLONASE) 50 mcg/actuation nasal spray ??? hydroCHLOROthiazide (HYDRODIURIL) 25 mg tablet ??? metFORMIN (GLUCOPHAGE) 500 mg tablet ??? montelukast (SINGULAIR) 10 mg tablet ??? traMADol (ULTRAM) 50 mg tablet ??? traZODone (DESYREL) 50 mg tablet Social History Tobacco Use Smoking Status Never Smoker Smokeless Tobacco Never Used Substance and Sexual Activity Alcohol Use Yes Substance and Sexual Activity Drug Use Never Family History Problem Relation Age of Onset ??? Scoliosis Mother ??? Arthritis Mother ??? Osteoarthritis Mother ??? Fibromyalgia Mother ??? Arthritis Father ??? Hypertension Father ??? Diabetes Father ??? Osteoarthritis Father ??? Degenerative Disk Disease Sister ??? Asthma Daughter There were no vitals filed for this visit. PT: No results found for requested labs within last 720 hours. INR: No results found for requested labs within last 720 hours. APTT: No results found for requested labs within last 720 hours. Hgb A1C: No results found for requested labs within last 720 hours. CBC RBC: No results found for requested labs within last 720 hours. RDW: No results found for requested labs within last 720 hours. MCHC: No results found for requested labs within last 720 hours. MCH: No results found for requested labs within last 720 hours. MCV: No results found for requested labs within last 720 hours. Hct: No results found for requested labs within last 720 hours. Hgb: No results found for requested labs within last 720 hours. WBC: No results found for requested labs within last 720 hours. MPV: No results found for requested labs within last 720 hours. Platelets: No results found for requested labs within last 720 hours. RDW CV: No results found for requested labs within last 720 hours. RDW Sd: No results found for requested labs within last 720 hours. BMP Glucose: No results found for requested labs within last 720 hours. Calcium: No results found for requested labs within last 720 hours. Sodium: No results found for requested labs within last 720 hours. Potassium: No results found for requested labs within last 720 hours. CO2: No results found for requested labs within last 720 hours. Chloride: No results found for requested labs within last 720 hours. BUN: No results found for requested labs within last 720 hours. Creatinine: No results found for requested labs within last 720 hours. DOS Physical Exam Medical history, medications, and allergies reviewed. Attestation: This PAT evaluation Cardiovascular Exam: Rate: regular Rhythm: regular Pulmonary Exam: LCTA EENT Exam: trachea midline Dental Exam: Appears intact Current state: Patient's current state is cooperative and interactive. Anesthesia Plan ASA 2 My patient is approved for the Anesthesia Controlled Medication protocol when under care of a CEMENT BLOCK MAKER Planned anesthesia: General Informed Consent: Discussed plan with attending and CEMENT BLOCK MAKER. Anesthesia plan and risks discussed with patient. Plan and Consent Comments: Discussed risks, benefits, alternatives to general anesthesia including damage to oral/oropharyngeal structures, PONV, pain, need for prolonged postoperative ventilation, serious or even fatal cardiopulmonary or other complications. All questions answered to patient's satisfaction. Consent and Attending signature: I and/or my designee have discussed the anesthesia plan, benefits, possible alternatives, parental presence at time of induction (if indicated), and clinically relevant risks that may include dental injury, unintentional awareness, and/or other complications. The patient and/or parent/legal guardian understand, and agree to proceed. All questions answered. documented in this encounter Plan of Treatment Not on file documented as of this encounter Procedures Procedure Name Priority Date/Time Associated Diagnosis Comments FL AN PROCEDURE PLACEHOLDER Routine 08/19/2020 5:28 PM CDT FL AN ELECTIVE ENDOTRACHEAL AIRWAY Routine 08/19/2020 5:28 PM CDT documented in this encounter Results * FL AN ELECTIVE ENDOTRACHEAL AIRWAY, FL AN PROCEDURE PLACEHOLDER (08/19/2020 5:28 PM CDT) Narrative Roseanne Rock CRNA - 08/19/2020 5:28 PM CDT Roseanne Rock CRNA ? 08/19/2020 ??5:29 PM Airway Patient location: OR Urgency: elective Indications for airway management: anesthesia and airway protection Difficult airway: no Staff: Placed by: CEMENT BLOCK MAKER: Roseanne Rock CRNA Emergent airway documentation: Risks and benefits discussed: yes Consent obtained: yes Consent given by: patient Airway prep: Preoxygenated: yes Patient position: sniffing Mask difficulty assessment: 0 - not attempted Spontaneous ventilation during airway: absent Sedation level during airway: GA Final airway details: Final airway type: endotracheal airway Tube type: ETT ETT size: 7.5 mm Cuffed: yes Technique used for successful ETT placement: direct laryngoscopy Devices/Methods used in placement: intubating stylet and cricoid pressure Insertion site: oral Blade type: Kelechi Blade size: 3 Cormack-Lehane (direct): grade IIa - partial view of glottis Cuff volume: 8 mL Cuff inflated with: air ETT to teeth: 24 cm Placement verified by: auscultation and CO2 detection Airway secured with: silk tape Number of attempts: 1 Jermoe Avalos MD ANESTHE NAGA ORDERABLES Final Result documented in this encounter Visit Diagnoses Not on filedocumented in this encounter Administered Medications Inactive Administered Medications - up to 3 most recent administrations Medication Order MAR Action Action Date Dose Rate Site ceFAZolin (ANCEF) 1 gram/10 mL in sterile water (premix) 3,000 mg 3,000 mg, intravenous, at 600 mL/hr, Administer over 3 Minutes, Once, On Sat08/19/20 at 1515, For 1 dose, Pre-Op, Administer within 60 minutes of incision., Indications: Prophylaxis, SurgicalIndications:Prophylaxis, Surgical Given 08/19/2020 5:20 PM CDT 3,000 mg dexAMETHasone (DECADRON) 4 mg/mL injection Administer over 2 Minutes, As needed, Starting on Sat08/19/20 at 1737, Anesthesia Intra-op Given 08/19/2020 5:37 PM CDT 4 mg dexMEDEtomidine (PRECEDEX) 80 mcg/20 mL (4 mcg/mL) in sodium chloride 0.9% (premix) As needed, Starting on Sat08/19/20 at 1740, Anesthesia Intra-op Given 08/19/2020 6:13 PM CDT 4 mcg Given 08/19/2020 6:03 PM CDT 4 mcg Given 08/19/2020 5:40 PM CDT 4 mcg famotidine (PEPCID) injection Administer over 2 Minutes, As needed, Starting on Sat08/19/20 at 1737, Anesthesia Intra-op Given 08/19/2020 5:37 PM CDT 20 mg fentaNYL (SUBLIMAZE) preservative free injection intravenous, As needed, Starting on Sat08/19/20 at 1726, Anesthesia Intra-op Given 08/19/2020 6:37 PM CDT 100 mcg Given 08/19/2020 5:26 PM CDT 100 mcg Given 08/19/2020 5:08 PM CDT 100 mcg glycopyrrolate (ROBINUL) injection intravenous, Administer over 1 Minutes, As needed, Starting on Sat08/19/20 at 1846, Anesthesia Intra-op Given 08/19/2020 6:46 PM CDT 0.4 mg ketorolac (TORADOL) injection As needed, Starting on Sat08/19/20 at 1844, Anesthesia Intra-op Given 08/19/2020 6:44 PM CDT 30 mg lidocaine PF (XYLOCAINE) 10 mg/mL (1 %) preservative free injection As needed, Starting on Sat08/19/20 at 1710, Anesthesia Intra-op Given 08/19/2020 5:10 PM CDT 100 mg metoprolol (LOPRESSOR) injection Administer over 1 Minutes, As needed, Starting on Sat08/19/20 at 1737, Anesthesia Intra-op Given 08/19/2020 6:18 PM CDT 1 mg Given 08/19/2020 5:37 PM CDT 1 mg midazolam (VERSED) preservative free injection intravenous, Administer over 2 Minutes, As needed, Starting on Sat08/19/20 at 1659, Anesthesia Intra-op Given 08/19/2020 5:09 PM CDT 1 mg Given 08/19/2020 4:59 PM CDT 2 mg neostigmine (PROSTIGMIN) injection intravenous, Administer over 3 Minutes, As needed, Starting on Sat08/19/20 at 1844, Anesthesia Intra-op Given 08/19/2020 6:44 PM CDT 2 mg ondansetron (ZOFRAN) injection intravenous, Administer over 2 Minutes, As needed, Starting on Sat08/19/20 at 1843, Anesthesia Intra-op Given 08/19/2020 6:43 PM CDT 4 mg propofoL (DIPRIVAN) IV intravenous, As needed, Starting on Sat08/19/20 at 1710, Anesthesia Intra-op Given 08/19/2020 5:10 PM CDT 150 mg rocuronium (ZEMURON) injection intravenous, As needed, Starting on Sat08/19/20 at 1710, Anesthesia Intra-op Given 08/19/2020 6:03 PM CDT 10 mg Given 08/19/2020 5:15 PM CDT 40 mg Given 08/19/2020 5:10 PM CDT 10 mg succinylcholine (ANECTINE) injection intravenous, As needed, Starting on Sat08/19/20 at 1710, Anesthesia Intra-op Given 08/19/2020 5:10 PM CDT 100 mg documented in this encounter Care Teams Assistant Foreman Relationship Specialty Start Date End Date Kana Rankin MD PCP - General Family Medicine 05/15/19 documented as of this encounter
--- OUTSIDE RECORDS SUMMARY | 2024-12-12 16:28 | XMS_ITS | Encounter Summary ---
Author Organization [facility] Address [address] [place] [address] Phone Care Team Providers Care Assistant Front Office Manager Name Role Phone Kana Rankin MD Primary Care Provider + [phone] Encounter Details Date Type Department Care Team (Late st Contact Info) Description 08/25/2020 Telephone [facility] 8th [place] [address] [place] [phone] Johana Siddiqi RN Social History Tobacco Use Types Packs/Day Years Used Date Smoking Tobacco: Never Smokeless Tobacco: Never Alcohol Use Standard Drinks/Week Comments Not Currently 0 (1 standard drink = 0.6 oz pur e alcohol) Comments No Sex and Gender Information Value Date Recorded Sex Assigned at Not on file Legal Sex Female 6:11 PM CONTRACTS INTERN Gender Identity Not on file Sexual Orientation Straight 08/04/2020 2: 23 PM CDT 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 De Paz has authorized refill of Oxycodone. Patient encouraged to call or senda [employer] message with any questions or concerns. documented in this encounter Plan of Treatment Not on file documented as of this encounter Visit Diagnoses Not on filedocumented in this encounter Care Teams Assistant Front Office Manager Relationship Specialty Start Date End Date Kana Rankin MD PCP - General Family Medicine 05/15/19 documented as of this encounter
--- OUTSIDE RECORDS SUMMARY | 2024-12-12 16:28 | XMS_ITS | Encounter Summary ---
Author Organization [facility] Address [address] [place] [address] Phone Care Team Providers Care Explosive Operator Fuse Name Role Phone Kana Rankin MD Primary Care Provider [phone] Reason for Referral * Procedure (Routine) - Closed Specialty Diagnoses / Procedures Referred By Contac t Referred To Contact Diagnoses Primary osteoarthritis of both knees Procedures Large Joint Injection: bilateral knee Bradley Hackett PA Phone: tel: fax: [facility] (All Locations) Referral ID Status Reason Start Date Expiration Date Visits Re quested Visits Authorized [id number] Closed 05/16/2021 06/15/2022 1 1 Reason for Visit * Reason Comments Pain Injections Pain Injections Encounter Details Date Type Department Care Team (Latest Contact Info) Description 05/16/2021 9:30 AM CDT Office Visit [facility] Orthopaedic Surgery [address] [facility] Medical Office Building [address] [place] [id number] Bradley Hackett PA [address] [place] [address] [address] [place] [address] Primary osteoarthritis of both knees (Primary Dx) Social History Tobacco Use Types Packs/Day Years Used Date Smoking Tobacco: Never Smokeless Tobacco: Never Alcohol Use Standard Drinks/Week Comments Not Currently 0 (1 standard drink = 0.6 oz pur e alcohol) Comments No Sex and Gender Information Value Date Recorded Sex Assigned at Not on file Legal Sex Female 6:11 PM REVIEW SPECIALIST Gender Identity Not on file Sexual Orientation Straight 08/04/2020 2: 23 PM CDT 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 2.) You may resume taking ANY pain relieving medications immediately after the procedures, including anti-inflammatories. 3.) You may resume any blood thinners after the procedures. 4.) The numbing medication usually wears off 2-4 hours after the procedure. 5.) Ice the area 20 minutes at a time the day of the injection and the day after. 6.) The day after the injection you may feel worse than you did before you received the injection (refer to #5). 7.) If you are a diabetic please monitor your blood sugars the day of the injection and the day after. The cortisone may increase your blood sugars. 8.) The steroid medication usually takes up to TEN days to start to take effect and TWO WEEKS to have a full beneficial effect. 9.) If you have any questions regarding your procedure, please do not hesitate to contact the performing doctor???s office. documented in this encounter Progress Notes * Bradley Hackett PA - 05/16/2021 9:30 AM CDTAssociated Order(s): Large Joint Injection: bilateral knee Post-Procedure Diagnose(s): Primary osteoarthritis of both knees ESTABLISHED PATIENT VISIT CHIEF COMPLAINT: Chief Complaint Patient presents with ??? Left Knee - Pain, Injections ??? Right Knee - Pain, Injections HISTORY OF PRESENT ILLNESS: 45-year-old female known to the service for conservative management of bilateral knee osteoarthritis returns today requesting repeat steroid injections. We injected both knees with steroid back on 07/07/2020 with adequate relief of symptoms for a few months. She has had to place repeat steroid injections on hold as she has undergone COVID vaccination. It has been greater than 2 weeks since her 2nd COVID vaccine. PHYSICAL EXAMINATION: Patient transfer [id number] pushing up on the arms chair ambulates with slow steady gait using noassistive devices. Inspection both knees fails to demonstrate signs infection joint effusion XRAYS/REVIEW OF STUDIES: None ASSESSMENT/PLAN: Bilateral knee osteoarthritis responding intermittent steroid injections Today we injected both knees with steroid. Patient was reminded to take it easy and continue working on weight loss. Follow-up as needed. Large Joint Injection: bilateral knee Performed by: Bradley Hackett PA Authorized by: Bradley Hackett PA Large Joint Injection/Aspiration: Timeout: prior to procedure the correct patient, procedure, and site was verified Verbal consent obtained: Yes Procedure Details: Location: Knee Site: Bilateral knee Needle Size: 21 G Approach: Superior lateral Ultrasound guided: No Medications Right Large Joint Injection: 6 mL bupivacaine 0.5 % (5 mg/mL); 80 mg methylPREDNISoloneacetate 40 mg/mL Medications Left Large Joint Injection: 6 mL bupivacaine 0.5 % (5 mg/mL); 80 mg methylPREDNISolone acetate 40 mg/mL Today under sterile conditions the knees were injected with the above medications. Patient tolerated the procedure well and we discussed postinjection care which includes decreased weightbearing activities for the next few days. Bradley Hackett PA-C Joint Reconstructive [facility] Orthopedic Surgery documented in this encounter Plan of Treatment Not on file documented as of this encounter Procedures Procedure Name Priority Date/Time Associated Diagnosis Comments [place] ARTHROCENTESIS ASPIR&/INJ MAJOR JT/BURSA W/O US Routine 05/16/2021 9:30 AM CDT Primary osteoarthritis of both knees documented in this encounter Results * [place] ARTHROCENTESIS ASPIR&/INJ MAJOR JT/BURSA W/O US (05/16/2021 9:30 AM CDT) Narrative Bradley Hackett PA - 05/16/2021 9:30 AM CDT Bradley Hackett PA ? 05/16/2021 11:41 AM Large Joint Injection: bilateral knee Performed by: Bradley Hackett PA Authorized by: Bradley Hackett PA Large Joint Injection/Aspiration: ??Timeout: prior to procedure the correct patient, procedure, and site was verified ?Verbal consent obtained: Yes ?? Procedure Details: ??Location: ??Knee ??Site: ??Bilateral knee ??Needle Size: ??21 G ??Approach: ??Superior lateral ??Ultrasound guided: No ?Medications Right Large Joint Injection: ??6 mL bupivacaine 0.5 % (5 mg/mL); 80 mg methylPREDNISolone acetate 40 mg/mL ??Medications Left ??Large Joint Injection: ??6 mL bupivacaine 0.5 % (5 mg/mL); 80 mg methylPREDNISolone acetate 40 mg/mL ?? Today under sterile conditions the knees were injected with the above medications. Patient tolerated the procedure well and we discussed postinjection care which includes decreased weightbearing activities for the next few days. Bradley [facility]/BEDSIDE ORDERABLES Final Result documented in this encounter Visit Diagnoses Diagnosis Primary osteoarthritis of both knees- Primary documented in this encounter Administered Medications Inactive Administered Medications - up to 3 most recent administrations Medication Order MAR Action Action Date Dose Rate Site bupivacaine (MARCAINE) 0.5 % (5 mg/mL) preservative free injection 6 mL 6 mL, One-Time Injection, Starting on Sat05/16/21 at 1141, For 1 doseIndications:Primary osteoarthritis of both knees Given 05/16/2021 11:41 AM CDT 6 mL bupivacaine (MARCAINE) 0.5 % (5 mg/mL) preservative free injection 6 mL 6 mL, One-Time Injection, Starting on Sat05/16/21 at 1141, For 1 doseIndications:Primary osteoarthritis of both knees Given 05/16/2021 11:41 AM CDT 6 mL methylPREDNISolone acetate (DEPO-medrol) injection 80 mg 80 mg, intra-articular, One-Time Injection, Starting on Sat05/16/21 at 1141, For 1 doseIndications:Primary osteoarthritis of both knees Given 05/16/2021 11:41 AM CDT 80 mg methylPREDNISolone acetate (DEPO-medrol) injection 80 mg 80 mg, intra-articular, One-Time Injection, Starting on Sat05/16/21 at 1141, For 1 doseIndications:Primary osteoarthritis of both knees Given 05/16/2021 11:41 AM CDT 80 mg documented in this encounter Historical Medications * This list may reflect changes made after this encounter. traZODone (DESYREL) 100 mg tablet 03/29/[address] (NexIUM) 20 mg capsule 03/29/2021 celecoxib (CeleBREX) 100 mg capsule 04/04/2021 traMADoL (ULTRAM) 50 mg tablet 03/29/2021 tolterodine LA (DETROL LA) 4 mg 24 hr capsule 03/30/2021 fluconazole (DIFLUCAN) 150 mg tablet TAKE 1 TABLET BY MOUTH ONCE FOR 1 DOSE DIRECTED 04/17/2021 05/10/2022 added in this encounter Care Teams Explosive Operator Fuse Relationship Specialty Start Date End Date Kana Rankin MD PCP - General Family Medicine 05/15/19 documented as of this encounter
--- OUTSIDE RECORDS SUMMARY | 2024-12-12 16:28 | XMS_ITS | Encounter Summary ---
Author Organization [facility] Address [address] [place] [address] Care Team Providers Care Journeyman Molder Name Role Phone Kana Rankin MD Primary Care Provider [phone] Reason for Referral * Diagnostic Imaging (Routine) - Closed Specialty Diagnoses / Procedures Referred By Contac t Referred To Contact Diagnoses Left knee pain, unspecified chronicity Procedures XR Knee Left 4 or More Views Luly Cheney PA [address] [facility] [[email or web address] [address] [place] [address] Phone: tel: fax: [facility] [address] [place] [address] Phone: tel: Referral ID Status Reason Start Date Expiration Date Visits Re quested Visits Authorized [id number] Closed 04/15/2024 05/15/2025 1 1 Reason for Visit * Diagnostic Imaging (Routine) - Closed Specialty Diagnoses / Procedures Referred By Contac t Referred To Contact Diagnoses Left knee pain, unspecified chronicity Procedures XR Knee Left 4 or More Views Luly Cheney PA [address] [facility] [address] [place] [id number] Phone: tel: fax: [facility] [address] [place] [address] [address] [place] [address] Phone: tel: Referral ID Status Reason Start Date Expiration Date Visits Re quested Visits Authorized [id number] Closed 04/15/2024 05/15/2025 1 1 Encounter Details Date Type Department Care Team (Latest Contact Info) Description 04/30/2024 11:00 AM CDT - 04/30/2024 11:59 PM CDT Hospital Encounter [id number] [address] [facility] [address] [place] [address] Right knee pain, unspecified chronicity; Left knee pain, unspecified chronicity Discharge Disposition: Discharge to home or self care Social History Tobacco Use Types Packs/Day Years Used Date Smoking Tobacco: Never Smokeless Tobacco: Never Alcohol Use Standard Drinks/Week Comments Not Currently 0 (1 standard drink = 0.6 oz pur e alcohol) Comments No Sex and Gender Information Value Date Recorded Sex Assigned at Not on file 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 docusate sodium (COLACE) 100 mg capsuleIndications: constipation Take 1 capsule (100 mg total) by mouth 2 (two) times a day 20 capsule 08/20/[address] (NexIUM) 20 mg capsule 03/29/2021 fish oil-dha-epa 1,200-144-216 mg capsule Take by mouth medication administration professional before breakfast fluticasone propionate (FLONASE) 50 mcg/actuation nasal spray fluticasone propionate 50 mcg/actuation nasal spray,suspension hydroCHLOROthiazide (HYDRODIURIL) 25 mg tabletIndications:h ypertension Take 1 tablet (25 mg total) by mouth medication administration professional before breakfast 1 05/11/2019 metFORMIN (GLUCOPHAGE) 500 mg tablet 1 tablet (500 mg total) 2 (two) times a day with meals 5 04/24/2019 mirabegron ER (MYRBETRIQ) 50 mg tablet extended release 24 hr daily montelukast (SINGULAIR) 10 mg tablet Take 1 tablet (10 mg total) by mouth nightly multivitamin capsule Take 1 capsule by mouth medication administration professional before breakfast mupirocin (BACTROBAN) 2 % ointment [...] or self care documented in this encounter Miscellaneous Notes * Result Encounter Note - Luly Cheney PA - 04/30/2024 3:19 PM CDT The radiologist noted that the chondroid lesion in the distal right femur has increased slightly insize and fullness since 2019. They recommended an MRI for further evaluation. Please order the MRI and contact the pt with the phone number to call and schedule the MRI. I will contact her with the results. Thanks! documented in this encounter Plan of Treatment Not on file documented as of this encounter Procedures Procedure Name Priority Date/Time Associated Diagnosis Comments XR KNEE RIGHT 4 OR MORE VIEWS Schedule Routine, Read Routine (OP Routine) 04/30/2024 11:20 AM CDT Right knee pain, unspecified chronicity XR KNEE LEFT 4 OR MORE VIEWS Schedule Routine, Read Routine (OP Routine) 04/30/2024 11:20 AM CDT Left knee pain, unspecified chronicity documented in this encounter Results [...] it. Electronically signed by: Brandon Kaur MD us Luly [facility] XR PROCEDURES [place] Result * XR Knee Right 4 or [...] it. Electronically signed by: Brandon Kaur MD us L[facility] XR PROCEDURES [place] Result documented in this encounter Visit Diagnoses Diagnosis Right knee pain, unspecified chronicity Left knee pain, unspecified chronicity documented in this encounter Care Teams Journeyman Molder Relationship Specialty Start Date End Date Kana Rankin MD PCP - General Family Medicine 05/15/19 documented as of this encounter
--- OUTSIDE RECORDS SUMMARY | 2024-12-12 16:28 | XMS_ITS | Encounter Summary ---
Author Organization [facility] Address [address] [place] [address] Phone Care Team Providers Care Senior Data Warehouse Architect Name Role Phone Kana Rankin MD Primary Care Provider [phone] Encounter Details Date Type Department Care Team (Late st Contact Info) Description 12/22/2020 Orders Only [facility] Orthopaedic Surgery [address] 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
--- OUTSIDE RECORDS SUMMARY | 2024-12-12 16:28 | XMS_ITS | Referral Summary ---
Author Organization [facility] Address [address] [place] [address] Care Team Providers Care Fitness Management Director Name Role Phone Kana Rankin MD Primary Care Provider [phone] Allergies No known active allergies Medications celecoxib (CeleBREX) 200 mg capsule 200 in am and 100 in pm 1 04/09/20 19 Active hydroCHLOROthiazid e (HYDRODIURIL) 25 mg tabletIndications: hypertension Take 1 tablet (25 mg total) by mouth machine carton marker before breakfast 1 05/11/20 19 Active metFORMIN (GLUCOPHAGE) 500 mg tablet 1 tablet (500 mg total) 2 (two) times a day with meals 5 04/24/20 19 Active traZODone (DESYREL) 50 mg tablet Take 100 mg by mouth nightly 0 05/01/20 19 Active albuterol HFA (PROVENTIL HFA,VENTOLIN HFA,PROAIR HFA) 90 mcg/actuation inhaler ProAir HFA 90 mcg/actuation aerosol inhaler Active fluticasone propionate (FLONASE) 50 mcg/actuation nasal spray fluticasone propionate 50 mcg/actuation nasal spray,suspensio n Active montelukast (SINGULAIR) 10 mg tablet Take 1 tablet (10 mg total) by mouth nightly Active cetirizine (ZyrTEC) 10 mg tablet Take 1 tablet (10 mg total) by mouth machine carton marker before breakfast Active multivitamin capsule Take 1 capsule by mouth machine carton marker before breakfast Active fish oil-dha-epa 1,200-144-216 mg capsule Take by mouth machine carton marker before breakfast Active zinc 50 mg tablet Take by mouth nightly Active ondansetron ODT (ZOFRAN-ODT) 4 mg disintegrating tabletIndications: Nausea and Vomiting Take 1 tablet (4 mg total) by mouth every 6 (six) hours as needed for nausea or vomiting 20 tablet 08/20/20 Active Additional Information Patient not taking.Reported on 05/10/2022 docusate sodium (COLACE) 100 mg capsuleIndications :constipation Take 1 capsule (100 mg total) by mouth 2 (two) times a day 20 capsule 08/20/20 Active Additional Information Patient not taking.Reported on 03/22/2024 acetaminophen (TYLENOL) 325 mg tabletIndications: Pain Take 2 tablets (650 mg total) by mouth every 4 (four) hours as needed for pain 30 tablet 08/20/20 Active Additional Information Patient not taking.Reported on 03/22/2024 tolterodine LA (DETROL LA) 4 mg 24 hr capsule 03/30/20 21 Active traMADoL (ULTRAM) 50 mg tablet 03/29/20 21 Active celecoxib (CeleBREX) 100 mg capsule 04/04/[address] (NexIUM) 20 mg capsule 03/29/20 21 Active traZODone (DESYREL) 100 mg tablet 03/29/20 21 Active atorvastatin (LIPITOR) 40 mg tablet 03/02/20 22 Active topiramate (TOPAMAX) 25 mg tablet topiramate 25 mg tablet Active Ozempic 0.25 mg or 0.5 mg(2 mg/1.5 mL) pen injector injection 05/03/20 22 Active oseltamivir (TAMIFLU) 75 mg capsule Tamiflu 75 mg capsule take one twice daily for 5 days Active niacin ER (NIASPAN) 500 mg CR tablet niacin ER 500 mg tablet,extended release 24 hr Active mupirocin (BACTROBAN) 2 % ointment APPLY TOPICALLY TO THE AFFECTED AREA TWICE DAILY 03/05/20 22 Active mirabegron ER (MYRBETRIQ) 50 mg tablet extended release 24 hr daily Active ciclesonide (Omnaris) 50 mcg nasal spray Omnaris 50 mcg nasal spray Sarepta 2 sprays every day by intranasal route. Active ZyrTEC-D 5-120 mg per 12 hr tablet 03/19/20 22 Active adapalene-benzoyl peroxide 0.3-2.5 % gel with pump Epiduo Forte 0.3 %-2.5 % topical gel with pump Active ALPRAZolam (XANAX) 1 mg tabletIndications: Anxiety state Take 1 tablet 30 minutes prior to your MRI appointment 1 tablet 05/08/20 24 Active Active Problems Problem Noted Date Diagnosed Date Urinary tract infectious disease 05/10/2022 Symptomatic cholelithiasis 08/10/2020 Overview (08/10/2020): Added automatically from request for surgery [id number] Calculus of gallbladder with out cholecystitis without obstruction 08/09/2020 Nasal congestion 10/22/2017 Allergic rhinitis 07/10/2017 Otitis media of right ear 07/10/2017 Asthma 11/22/2016 Bronchitis 11/22/2016 Upper respiratory infection 11/22/2016 Allergy to environmental factors 11/30/2015 Essential hypertension 11/30/2015 Gastroesophageal reflux disease 11/30/2015 Hyperlipidemia 11/30/2015 Insomnia 11/30/2015 Morbid obesity 11/30/2015 Osteoarthritis 11/30/2015 Immunizations Name Administration Dates Next Due Influenza, Quadrivalent, Spl it, Preservative Free, Intramuscular 09/19/2020,09/05/2019,09/05/2019 Influenza, Trivalent, High D ose, Split, Preservative Free, Intramuscular 09/01/2014 Moderna SARS-CoV-2 Monovalen t Vaccination (12+ YRS) 03/17/2021,02/17/2021 Social History Tobacco Use Types Packs/Day Years Used Date Smoking Tobacco: Never Smokeless Tobacco: Never Tobacco Cessation:Counseling Given: Not Answered Alcohol Use Standard Drinks/Week Comments Not Currently 0 (1 standard drink = 0.6 oz pur e alcohol) Comments No Sex and Gender Information Value Date Recorded Sex Assigned at Not on file Legal Sex Female 6:11 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 BOX CUSTODIAN Gender Identity Not on file Sexual Orientation Straight 08/04/2020 2: 23 PM CDT 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 Not on file Not on file Last Filed Vital Signs Vital Sign Reading Time Taken Comments Blood Pressure 118/78 03/22/2024 9:35 AM CDT Pulse 93 03/22/2024 9:35 AM CDT Temperature 36.7 ??C (98 ??F) 03/22/2024 9:35 AM CDT Respiratory Rate 18 03/22/2024 9:35 AM CDT Oxygen Saturation 99% 03/22/2024 9:35 AM CDT Inhaled Oxygen Concentration - - Weight 106.6 kg (235 lb) 05/10/2024 3:22 PM CDT Height 180.3 cm (5' 11 ) 05/10/2024 3:22 PM CDT Body Mass Index 32.78 05/10/2024 3:22 PM CDT Plan of Treatment Not on file Procedures Procedure Name Priority Date/Time Associated Diagnosis Comments HEPATITIS C ANTIBODY Routine 08/10/2019 4:30 PM CDT Primary osteoarthritis of both knees from Last 3 Months or Most Recently Relevant to Health Maintenance Results * Hepatitis C antibody (08/10/2019 4:30 PM CDT) Hep C Ab Nonreactive Nonreactive ANNE YOUSSEF Comment: Interpretive Data Positive results should be confirmed by a molecular method. If positive, a second separately collected sample should be submitted for Hepatitis C Virus (HCV) RNA Detection and Quantitation by Real-Time Reverse Risk Assessor-PCR (RT-PCR). Current interpretive data was last revised on 2016. Blood specimen (specimen) 08/10/2019 4:30 PM CDT 08/10/2019 6:24 PM CDT us You Templeton MD LAB MICROBIOLOGY - GENERAL OR DERABLES Edited Result - Final [facility] [address] [place] [address] from Last 3 Months or Most Recently Relevant to Health Maintenance Insurance [facility] [employer] OPEN ACCESS [facility] PPO POS [employer]LINK PPO POS CIGNA [facility] Advance Directives For more information, please contact: [phone] * Full Code (Latest Code Status on File) Date Activated Date Inactivated Comments 08/19/2020 9:53 PM 08/20/2020 8:49 PM Care Teams Fitness Management Director Relationship Specialty Start Date End Date Kana Rankin MD PCP - General Family Medicine 05/15/19
--- OUTSIDE RECORDS SUMMARY | 2024-12-12 16:28 | XMS_ITS | Encounter Summary ---
Author Organization [facility] Address [address] [place] [address] Care Team Providers Care Patternmaker Plaster Name Role Phone Kana Rankin MD Primary Care Provider + [phone] Reason for Referral * MRI/CAT/PET Scan (Routine) - Closed Specialty Diagnoses / Procedures Referred By Contac t Referred To Contact Radiology Diagnoses Right knee pain, unspecified chronicity Procedures MRI Thigh Femur Right WO Contrast Luly Cheney PA [address] [place] [id number] Phone: tel: fax: [place] [address] [place] [address] Referral ID Status Reason Start Date Expiration Date Visits Re quested Visits Authorized [id number] Closed 04/30/2024 05/30/2025 1 1 Reason for Visit * MRI/CAT/PET Scan (Routine) - Closed Specialty Diagnoses / Procedures Referred By Contac t Referred To Contact Radiology Diagnoses Right knee pain, unspecified chronicity Procedures MRI Thigh Femur Right WO Contrast Luly Cheney PA [address] [place] [id number] Phone: tel: fax: [place] [address] [place] [address] Referral ID Status Reason Start Date Expiration Date Visits Re quested Visits Authorized [id number] Closed 04/30/2024 05/30/2025 1 1 Encounter Details Date Type Department Care Team (Latest Contact Info) Description 05/10/2024 3:07 PM CDT - 05/10/2024 11:59 PM CDT Hospital Encounter [facility] [id number] [id number] Right knee pain, unspecified chronicity Discharge Disposition: Discharge [...] on file 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 Gender Identity Not on file Sexual Orientation Straight 08/04/2020 2: 23 PM CDT 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 docusate sodium (COLACE) 100 mg capsuleIndications: constipation Take 1 capsule (100 mg total) by mouth 2 (two) times a day 20 capsule 08/20/[address] (NexIUM) 20 mg capsule 03/29/2021 fish oil-dha-epa 1,200-144-216 mg capsule Take by mouth chart clerk before breakfast fluticasone propionate (FLONASE) 50 mcg/actuation nasal spray fluticasone propionate 50 mcg/actuation nasal spray,suspension hydroCHLOROthiazide (HYDRODIURIL) 25 mg tabletIndications:h ypertension Take 1 tablet (25 mg total) by mouth chart clerk before breakfast 1 05/11/2019 metFORMIN (GLUCOPHAGE) 500 mg tablet 1 tablet (500 mg total) 2 (two) times a day with meals 5 04/24/2019 mirabegron ER (MYRBETRIQ) 50 mg tablet extended release 24 hr daily montelukast (SINGULAIR) 10 mg tablet Take 1 tablet (10 mg total) by mouth nightly multivitamin capsule Take 1 capsule by mouth chart clerk before breakfast mupirocin (BACTROBAN) 2 % ointment [...] Procedure Name Priority Date/Time Associated Diagnosis Comments MRI THIGH FEMUR RIGHT WO CONTRAST Schedule Routine, Read Routine (OP Routine) 05/10/2024 4:16 PM CDT Right knee pain, unspecified chronicity documented in this encounter Results * MRI Thigh Femur [...] Diagnoses Diagnosis Right knee pain, unspecified chronicity documented in this encounter Care Teams Patternmaker Plaster Relationship Specialty Start Date End Date Kana Rnakin MD PCP - General Family Medicine 05/15/19 documented as of this encounter
--- OUTSIDE RECORDS SUMMARY | 2024-12-12 16:28 | XMS_ITS | Encounter Summary ---
Author Organization [facility] Address [address] [place] [address] Care Team Providers Care Bobbin Cleaner Hand Name Role Phone Kana Rankin MD Primary Care Provider [phone] Reason for Visit * Reason Comments Sore Throat Sore throat, Losing voice. Onset about a week. OTC Zyrtec for allergies and using mouthwash for cold sores. 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 Encounter Details Date Type Department Care Team (Late st Contact Info) Description 03/22/2024 9:30 AM CDT Office Visit [facility] [address] [place] [id number] Catherine Pearson NP [address] [place] [address] Bilateral acute serous otitis media, recurrence not specified (Primary Dx); Sore throat; Laryngitis; Canker sores oral Social History Tobacco Use Types Packs/Day Years Used Date Smoking Tobacco: Never Smokeless Tobacco: Never Tobacco Cessation:Counseling Given: Not Answered Alcohol Use Standard Drinks/Week Comments Not Currently 0 (1 standard drink = 0.6 oz pur e alcohol) Comments No Sex and Gender Information Value Date Recorded Sex Assigned at Not on file 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 Gender Identity Not on file Sexual Orientation Straight 08/04/2020 2: 23 PM CDT 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 Not on file [...] CDT Inhaled Oxygen Concentration - - Weight 106.8 kg (235 lb 6.4 oz) 03/22/2024 9:35 AM CDT Height 176.5 cm (5' 9.5 ) 03/22/2024 9:35 AM CDT Body Mass Index 34.26 03/22/2024 9:35 AM CDT documented in this encounter Patient Instructions * Patient Instructions* Catherine Pearson NP - 03/22/2024 9:30 AM CDT Antibiotic ordered Tylenol or Motrin for fever/pain Stay hydrated- Drinking fluids is extremely important to prevent dehydration Gargle with warm saltwater up to 3 times a day as this can help with pain Throat lozenges or sprays Follow up with your PCP if you are not getting better Go to ER if you develop: Trouble swallowing or breathing or if child can barely speak or cry Fever >104 Dehydration or decreased Urine Output, very dry mouth or no tears when crying Home Treatments: Warm fluids or chicken broth Ice cream, popsicles, slushes, sherbert Gargle w warm salt water Avoid spicy or citrus foods * Attachments The following attachments cannot be sent through Care Everywhere. * Laryngitis (General Information) ([place]) * Canker Sores (General Information) ([place]) documented in this encounter Ordered Prescriptions Prescription Sig Dispense Quantity Refills Last Filled Start Date End Date amoxicillin (AMOXIL) 875 mg tabletIndications: Bilateral acute serous otitis media, recurrence not specified Take 1 tablet (875 mg total) by mouth 2 (two) times a day for 10 days 20 tablet 03/22/2024 04/01/2024 documented in this encounter Progress Notes * Catherine Pearson NP - 03/22/2024 9:30 AM CDT Images from the original note were not included. Subjective/Objective Patient ID: Lorelei Hall is a 48 y.o. female. Chief Complaint Sore Throat (Sore throat, Losing voice. Onset about a week. OTC Zyrtec for allergies and using mouthwash for cold sores. 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 ) Patient [facility] to [facility] care for sore throat and hoarse voice x1 week. Over the past few days she is also noticed multiple canker sores in her mouth. She denies any known exposure to COVID, flu, or strep. She has a history of seasonal allergies. 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 She has taken OTC Zyrtec, Flonase, Singulair, Motrin and has been using mouthwash with lidocaine. Sore Throat Review of Systems HENT: Positive for sore throat. All systems reviewed and are negative or non contributory for this patient's presentation today other than as stated in the HPI. Physical Exam Vitals reviewed. Constitutional: General: She is not in acute distress. Appearance: Normal appearance. She is well-developed. She is not ill-appearing. HENT: Head: Normocephalic. Right Ear: Ear canal and external ear normal. There is impacted cerumen. Tympanic membrane is erythematous. Left Ear: Ear canal and external ear normal. There is impacted cerumen. Tympanic membrane is erythematous. Nose: No congestion or rhinorrhea. Right Sinus: No maxillary sinus tenderness or frontal sinus tenderness. Left Sinus: No maxillary sinus tenderness or frontal sinus tenderness. Mouth/Throat: Lips: [place]. Mouth: Mucous membranes are moist. Oral lesions present. Pharynx: Oropharynx is clear. Posterior oropharyngeal erythema present. Comments: Voice is hoarse Eyes: General: Right eye: No discharge. Left eye: No discharge. Conjunctiva/sclera: Conjunctivae normal. Cardiovascular: Rate and Rhythm: Normal rate and regular rhythm. Pulmonary: Effort: Pulmonary effort is normal. No respiratory distress. Breath sounds: Normal breath sounds and air entry. Abdominal: Tenderness: There is no abdominal tenderness. Musculoskeletal: General: Normal range of motion. Cervical back: Neck supple. Lymphadenopathy: Head: Right side of head: No tonsillar adenopathy. Left side of head: No tonsillar adenopathy. Cervical: No cervical adenopathy. Skin: General: Skin is warm and dry. Findings: No rash. Neurological: Mental Status: She is alert and oriented to person, place, and time. Mental status is at baseline. Psychiatric: Attention and Perception: Attention normal. Mood and Affect: Mood normal. Behavior: Behavior normal. Behavior is cooperative. Thought Content: Thought content normal. Judgment: Judgment normal. Vitals: 03/22/24 0935 BP: 118/78 Pulse: 93 Resp: 18 Temp: 36.7 ??C (98 ??F) TempSrc: Tympanic SpO2: 99% Weight: 106.8 kg (235 lb 6.4 oz) Height: 176.5 cm (5' 9.5 ) Assessment/Plan Diagnoses and all orders for this visit: Bilateral acute serous otitis media, recurrence not specified (Primary) - amoxicillin (AMOXIL) 875 mg tablet; Take 1 tablet (875 mg total) by mouth 2 (two) times a day for10 days Amoxicillin as prescribed Tylenol/Motrin as needed for pain Apply warm compresses to ear as needed for pain Return to clinic or follow-up with PCP if symptoms persist after completion of antibiotics or sooner if symptoms worsen Sore throat - POCT rapid strep A Rapid strep negative Tylenol/Motrin as needed for pain Gargle with warm saltwater to help with pain Discussed the importance of increasing fluid intake and rest Return to clinic or follow-up with your PCP if symptoms persist after completion of antibiotics or sooner if symptoms worsen Go to the ER if you develop severe pain, trouble swallowing, chest pain, signs of dehydration, or shortness of breath Laryngitis Discussed importance of vocal rest Handout given on laryngitis Canker sores oral Multiple canker sores noted on exam today Continue using mouthwash with lidocaine Continue with good oral hygiene Avoid spicy or acidic food as this can make pain worse Recent Results (from the past 4 hour(s)) POCT rapid strep A Collection Time: 03/22/24 9:50 AM Result Value Ref Range Rapid Strep A, POC Negative Negative Patient Education: Disposition Treatment plan including expectations, follow up, and return precautions discussed with patient/parent, verbalizes understanding. Medication dosage, use, and potential adverse reactions discussed with patient/parent. Advised to follow up with PCP if symptoms do not resolve as expected or sooner if condition worsens. Signs/symptoms warranting ER evaluation reviewed. Patient and/or guardian was given an opportunity to ask questions, questions answered. This note is dictated and transcribed by [employer]. Delivery Specialist variances may occur. Despite proofreading, typographical errors may occur. Catherine Pearson NP documented in this encounter Plan of Treatment Not on file documented as of this encounter Procedures Procedure Name Priority Date/Time Associated Diagnosis Comments POCT RAPID STREP Routine 03/22/2024 9:50 AM CDT Sore throat documented in this encounter Results * POCT rapid strep A (03/22/2024 9:50 AM CDT) Rapid Strep A, POC Negative Negative Swab 03/22/2024 9:50 AM CDT Catherine Pearson NP POINT OF CARE TEST ORDERABLES Fi nal Result documented in this encounter Visit Diagnoses Diagnosis Bilateral acute serous otitis media, recurrence not specified- Primary Sore throat Acute pharyngitis Laryngitis Acute laryngitis, without mention of obstruction Canker sores oral Oral aphthae documented in this encounter Care Teams Bobbin Cleaner Hand Relationship Specialty Start Date End Date Kana Rankin MD PCP - General Family Medicine 05/15/19 documented as of this encounter
--- OUTSIDE RECORDS SUMMARY | 2024-12-12 16:28 | XMS_ITS | Clinical Summary ---
Author Organization [facility] Address [address] [place] [address] Care Team Providers Care 911 Emergency Dispatcher Name Role Phone Kana Rankin MD Primary Care Provider + [phone] Allergies No known active allergies Medications celecoxib (CeleBREX) 200 mg capsule 200 in am and 100 in pm 1 04/09/20 19 Active hydroCHLOROthiazid e (HYDRODIURIL) 25 mg tabletIndications: hypertension Take 1 tablet (25 mg total) by mouth test boring crew chief before breakfast 1 05/11/20 19 Active metFORMIN [...] 1 tablet (10 mg total) by mouth test boring crew chief before breakfast Active multivitamin capsule Take 1 capsule by mouth test boring crew chief before breakfast Active fish oil-dha-epa 1,200-144-216 mg capsule Take by mouth test boring crew chief before breakfast Active zinc 50 mg tablet [...] nasal spray Omnaris 50 mcg nasal spray [place] 2 sprays every day by intranasal route. [...] (08/10/2020): Added automatically from request for surgery [id number] Calculus of gallbladder with out cholecystitis without [...] SARS-CoV-2 Monovalen t Vaccination (12+ YRS) 03/17/2021,02/17/2021 Surgical History Surgery Date Site/Laterality Comments OVARIAN CYST SURGERY TONSILLECTOMY VAGINAL DELIVERY x2 CHOLECYSTECTOMY 08/19/2020 ABLATION 06/01/2023 - 07/01/2023 Uterine Ablation Medical History Medical History Date Comments Anxiety Arthritis Depression Diabetes mellitus (HCC) Gastric reflux GERD (gastroesophageal reflux disease) Hypercholesteremia Hypertension Peripheral neuropathy Obesity Osteoarthritis Family History Medical History Relation Name Comments Asthma Daughter Arthritis Father Atrial fibrillation Father Diabetes Father Hypertension Father Osteoarthritis Father Arthritis Mother Fibromyalgia Mother Osteoarthritis Mother Scoliosis Mother Degenerative Disk Disease Sister Relation Name Status Comments Daughter Father Alive Mother Alive Sister Social History Tobacco Use Types Packs/Day Years Used Date Smoking Tobacco: Never Smokeless Tobacco: Never Tobacco Cessation:Counseling Given: Not Answered Alcohol Use Standard Drinks/Week Comments Not Currently 0 (1 standard drink = 0.6 oz pur e alcohol) Comments No Sex and Gender Information Value Date Recorded Sex Assigned at Not on file 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 Gender Identity Not on file Sexual Orientation Straight 08/04/2020 2: 23 PM CDT 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 Not on file Not on file Obstetrics History Last Filed Vital Signs Vital Sign Reading [...] 05/10/2024 3:22 PM CDT Plan of Treatment Health Maintenance Due Date Last Done Comments Breast Cancer Screening-Mammogram 1977 Cervical Cancer Screening 1977 Colon Cancer Screening-Colonoscopy 1977 Depression Screening 1977 Pneumococcal vaccine <65 (1 of 2 - PCV) 1983 DTaP/Tdap/Td Vaccine (1 - Tdap) 1988 Hepatitis B Screening 1995 Regular Well Visit/Exam 18-64 1995 Covid-19 Vaccine (3 - 2023-2 5 season) 2024 03/17/2021, 02/17/2021 Influenza Vaccine (#1) 2024 0, 09/05/2019, 09/05/2019, Additional history exists Hepatitis C Screening Completed 08/10/2019 Procedures Procedure Name Priority Date/Time Associated Diagnosis Comments HEPATITIS C ANTIBODY Routine 08/10/2019 4:30 PM CDT Primary osteoarthritis of both knees from Last 3 Months or Most Recently Relevant to Health Maintenance Results * Hepatitis C antibody (08/10/2019 4:30 PM CDT) Hep C Ab Nonreactive Nonreactive [facility] Comment: Interpretive Data Positive results should be confirmed by a molecular method. If positive, a second separately collected sample should be submitted for Hepatitis C Virus (HCV) RNA Detection and Quantitation by Real-Time Reverse Central Supply Technician-PCR (RT-PCR). Current interpretive data was last revised on 2016. Blood specimen (specimen) 08/10/2019 4:30 PM CDT 08/10/2019 6:24 PM CDT us You Templeton MD LAB MICROBIOLOGY - GENERAL OR DERABLES Edited Result - Final [facility] [address] [place] [address] from Last 3 Months or Most Recently Relevant to Health Maintenance Insurance [facility] [employer] OPEN [facility]ESS [facility] HMO/PPO Address: [address] [address] [place] [address] [employer] [place] [employer] HEALTHLINK PPO POS HEALTHLINK PPO POS CIGNA [facility] HMO/PPO Address: [address] [address] [place] [address] Advance Directives For more information, please contact: [phone] * Full Code (Latest Code Status on File) Date Activated Date Inactivated Comments 08/19/2020 9:53 PM 08/20/2020 8:49 PM Care Teams 911 Emergency Dispatcher Relationship Specialty Start Date End Date Kana Rankin MD PCP - General Family Medicine 05/15/19
--- OUTSIDE RECORDS SUMMARY | 2024-12-12 16:28 | XMS_ITS | Encounter Summary ---
Author Organization [facility] Address [address] [place] [address] Phone Care Team Providers Care Ship Harbor Pilot Name Role Phone Kana Rankin MD Primary Care Provider + [phone] Encounter Details Date Type Department Care Team (Late st Contact Info) Description 08/25/2020 Telephone [facility] Surgery [address] [facility] 8th [place] [address] [place] [phone] María De Paz MD [address] [facility] [id number] [place], [place] [id number] Social History Tobacco Use Types Packs/Day Years Used Date Smoking Tobacco: Never Smokeless Tobacco: Never Alcohol Use Standard Drinks/Week Comments Not Currently 0 (1 standard drink = 0.6 oz pur e alcohol) Comments No Sex and Gender Information Value Date Recorded Sex Assigned at Not on file 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 Gender Identity Not on file Sexual Orientation Straight 08/04/2020 2: 23 PM CDT 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 I did sign the prescription. I called the pharmacy, and the pharmacist could not see the prescription. I then discontinued the original prescription and represcribed the oxycodone while on the phone with the pharmacist at [facility]. An hour later, [facility]'s called me and told me they hadn't received the prescription. However, I was able to prescribe her Tramadol 50mg by mouth l2jnths over the phone, which I did. María De Paz MD counter checker Minimally Invasive Surgery Department of Surgery p: [phone] documented in this encounter Plan of Treatment Not on file documented as of this encounter Visit Diagnoses Diagnosis Postoperative pain- Primary Other acute postoperative pain documented in this encounter Discontinued Medications Medication Sig Discontinue Reason Start Date End Da te oxyCODONE (ROXICODONE) 5 mg immediate release tabletIndications:Pain Take 1 tablet (5 mg total) by mouth every 4 (four) hours as needed for pain Reorder 08/25/2020 08/25/2020 documented as of this encounter Care Teams Ship Harbor Pilot Relationship Specialty Start Date End Date Kana Rankin MD PCP - General Family Medicine 05/15/19 documented as of this encounter
--- OUTSIDE RECORDS SUMMARY | 2024-12-12 16:28 | XMS_ITS | Encounter Summary ---
Author Organization [facility] Address [address] [place] [address] Phone Care Team Providers Care Preparation Supervisor Freezing Name Role Phone Kana Rankin MD Primary Care Provider Encounter Details Date Type Department Care Team (Late st Contact Info) Description 07/21/2020 Orders Only [facility] Orthopaedic Surgery [address] [facility] [address] [place] [id number] Bradley Hackett PA [address] [facility] [address] [place], [place] [id number] Social History Tobacco Use Types Packs/Day Years Used Date Smoking Tobacco: Never Smokeless Tobacco: Never Alcohol Use Standard Drinks/Week Comments Yes 0 (1 standard drink = 0.6 oz pur e alcohol) Comments Unknown Sex and Gender Information Value Date Recorded Sex Assigned at Not on file 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
--- OUTSIDE RECORDS SUMMARY | 2024-12-12 16:28 | XMS_ITS | Encounter Summary ---
Author Organization [facility] Address [address] [place] [address] Phone Care Team Providers Care Account Services Analyst Name Role Phone Kana Rankin MD Primary Care Provider + [phone] Reason for Referral * Procedure (Routine) - Closed Specialty Diagnoses / Procedures Referred By Contaline t Referred To Contact Diagnoses Bilateral primary osteoarthritis of knee Procedures Large Joint Injection: bilateral knee Luly Cheney PA Phone: tel: fax: [facility] (All Locations) Referral ID Status Reason Start Date Expiration Date Visits Re quested Visits Authorized [id number] Closed 05/10/2022 06/09/2023 1 1 * Diagnostic Imaging (Routine) - Closed Specialty Diagnoses / Procedures Referred By Contaline arndt Referred To Contact Diagnoses Pain in both knees, unspecified chronicity Procedures XR Knee Right 4 or More Views Luly Cheney PA Phone: tel: fax: [facility] [address] [place] [address] Referral ID Status Reason Start Date Expiration Date Visits Re quested Visits Authorized [id number] Closed 05/04/2022 06/03/2023 1 1 * Diagnostic Imaging (Routine) - Closed Specialty Diagnoses / Procedures Referred By Zoe t Referred To Contact Diagnoses Pain in both knees, unspecified chronicity Procedures XR Knee Left 4 or More Views Luly Cheney PA Phone: tel: fax: [facility] [address] [place] [address] Referral ID Status Reason Start Date Expiration Date Visits Re quested Visits Authorized [id number] Closed 05/04/2022 06/03/2023 1 1 Reason for Visit * Reason Comments Injections Injections Encounter Details Date Type Department Care Team (Latest Contact Info) Description 05/10/2022 2:00 PM CDT Office Visit [facility] Orthopaedic Surgery [address] [place] [address] Medical Office Building [address] [place] [id number] Luly Cheney PA [address] [facility] [address] [place], [place] [phone] Bilateral primary osteoarthritis of knee (Primary Dx) Social History Tobacco Use Types Packs/Day Years Used Date Smoking Tobacco: Never Smokeless Tobacco: Never Alcohol Use Standard Drinks/Week Comments Not Currently 0 (1 standard drink = 0.6 oz pur e alcohol) Comments No Sex and Gender Information Value Date Recorded Sex Assigned at Not on file Legal Sex Female 6:11 PM [employer] Gender Identity Not on file Sexual Orientation Straight 08/04/2020 2: 23 PM CDT 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 Not on file Not on file documented as of this encounter Last Filed Vital Signs Vital Sign Reading Time Taken Comments Blood Pressure - - Pulse - - Temperature - - Respiratory Rate - - Oxygen Saturation - - Inhaled Oxygen Concentration - - Weight 113.4 kg (250 lb) 05/10/2022 1:33 PM CDT Height 176.5 cm (5' 9.5 ) 05/10/2022 1:33 PM CDT Body Mass Index 36.39 05/10/2022 1:33 PM CDT documented in this encounter Progress Notes * Luly Cheney PA - 05/10/2022 2:00 PM CDTAssociated Order(s): Large Joint Injection: bilateral knee Post-Procedure Diagnose(s): Bilateral primary osteoarthritis of knee EST PATIENT VISIT CHIEF COMPLAINT: No chief complaint on file. HISTORY OF PRESENT ILLNESS: Lorelei Hall is a 46 y.o. female who presents for bilateral knee pain right worse than left. The pain is located global around the knee and does not radiate. The pain started years. The pain has worsened recently. There was no injury/trauma. She describes the pain as pulling and aching and moderate in severity. The pain is worse with prolonged standing/walking, increased activity, stairs. The pain is improved with rest, cortisone injections, Celebrex, Tramadol. Last cortisone injection given by Bradley 05/16/21 provided 6 mos of relief or so. PAST MEDICAL HISTORY: Past Medical History: Diagnosis Date ??? Anxiety ??? Arthritis ??? Depression ??? Diabetes mellitus (CMS/HCC) ??? Gastric reflux ??? GERD (gastroesophageal reflux disease) ??? Hypercholesteremia ??? Hypertension ??? Obesity ??? Osteoarthritis ??? Peripheral neuropathy PAST SURGICAL HISTORY: Past Surgical History: Procedure Laterality Date ??? CHOLECYSTECTOMY 08/19/2020 ??? OVARIAN CYST SURGERY ??? TONSILLECTOMY ??? VAGINAL DELIVERY x2 MEDICATIONS: Current Outpatient Medications on File Prior to Visit Medication Sig Dispense Refill ??? acetaminophen (TYLENOL) 325 mg tablet Take 2 tablets (650 mg total) by mouth every 4 (four) hours as needed for pain 30 tablet 0 ??? albuterol HFA (PROAIR HFA) 90 mcg/actuation inhaler ProAir HFA 90 mcg/actuation aerosol inhaler ??? atorvastatin (LIPITOR) 20 mg tablet Take 20 mg by mouth nightly ??? celecoxib (CeleBREX) 100 mg capsule ??? celecoxib (CeleBREX) 200 mg capsule 200 in am and 100 in pm 1 ??? cetirizine (ZyrTEC) 10 mg tablet Take 10 mg by mouth community relations director before breakfast ??? docusate sodium (COLACE) 100 mg capsule Take 1 capsule (100 mg total) by mouth 2 (two) times a day 20 capsule 0 ??? esomeprazole DR (NexIUM) 20 mg capsule ??? esomeprazole DR (NexIUM) 40 mg capsule Take 40 mg by mouth daily before breakfast ??? fish oil-dha-epa 1,200-144-216 mg capsule Take by mouth community relations director before breakfast ??? fluconazole (DIFLUCAN) 150 mg tablet TAKE 1 TABLET BY MOUTH ONCE FOR 1 DOSE DIRECTED ??? fluticasone propionate (FLONASE) 50 mcg/actuation nasal spray fluticasone propionate 50 mcg/actuation nasal spray,suspension ??? hydroCHLOROthiazide (HYDRODIURIL) 25 mg tablet Take 25 mg by mouth community relations director before breakfast 1 ??? metFORMIN (GLUCOPHAGE) 500 mg tablet 500 mg 2 (two) times a day with meals 5 ??? montelukast (SINGULAIR) 10 mg tablet Take 10 mg by mouth nightly ??? multivitamin capsule Take 1 capsule by mouth community relations director before breakfast ??? multivitamin with minerals tablet Take 1 tablet by mouth community relations director before breakfast ??? ondansetron ODT (ZOFRAN-ODT) 4 mg disintegrating tablet Take 1 tablet (4 mg total) by mouth every 6 (six) hours as needed for nausea or vomiting 20 tablet 0 ??? tolterodine LA (DETROL LA) 4 mg 24 hr capsule ??? traMADoL (ULTRAM) 50 mg tablet ??? traZODone (DESYREL) 100 mg tablet ??? traZODone (DESYREL) 50 mg tablet Take 100 mg by mouth nightly 0 ??? zinc 50 mg tablet Take by mouth nightly No current facility-administered medications on file prior to visit. ALLERGIES: No Known Allergies SOCIAL HISTORY: Social History Socioeconomic History ??? Marital status: Spouse name: Not on file ??? Number of children: 2 ??? Years of education: Not on file ??? Highest education level: Not on file Occupational History ??? 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 Smoking status: Never Smoker ??? Smokeless tobacco: Never Used Substance and Sexual Activity ??? Alcohol use: Not Currently ??? Drug use: Never ??? Sexual activity: Defer Other Topics Concern ??? Not on file Social History Narrative ??? Not on file Social Determinants of Health Financial Resource Strain: Not on file Food Insecurity: Not on file Transportation Needs: Not on file Physical Activity: Not on file Stress: Not on file Social Connections: Not on file Intimate Partner Violence: Not on file Housing Stability: Not on file FAMILY HISTORY: Family History Problem Relation Age of Onset ??? Scoliosis Mother ??? Arthritis Mother ??? Osteoarthritis Mother ??? Fibromyalgia Mother ??? Arthritis Father ??? Hypertension Father ??? Diabetes Father ??? Osteoarthritis Father ??? Atrial fibrillation Father ??? Degenerative Disk Disease Sister ??? Asthma Daughter PHYSICAL EXAMINATION: Right Knee Exam Tenderness The patient is experiencing tenderness in the medial joint line and lateral joint line. Range of Motion Extension: 0 Flexion: 120 Tests Varus: negative Valgus: negative Other Erythema: absent Scars: absent Sensation: normal Pulse: present Swelling: none Effusion: no effusion present Left Knee Exam Tenderness The patient is experiencing tenderness in the medial joint line and lateral joint line. Range of Motion Extension: 0 Flexion: 120 Tests Varus: negative Valgus: negative Other Erythema: absent Scars: absent Sensation: normal Pulse: present Swelling: none Effusion: no effusion present Large Joint Injection: bilateral knee Performed by: Luly Cheney PA Authorized by: Luly Cheney PA Large Joint Injection/Aspiration: Consent Given by: Patient Site marked: the procedure site was marked Verbal consent obtained: Yes Supporting Documentation: Indications: Pain Procedure Details: Location: Knee Site: Bilateral knee Needle Size: 22 G Approach: Superior lateral Medications Right Large Joint Injection: 80 mg triamcinolone 40 mg/mL; 4 mL bupivacaine HCl 0.5 % (5 mg/mL) Medications Left Large Joint Injection: 80 mg triamcinolone 40 mg/mL; 4 mL bupivacaine HCl 0.5 % (5mg/mL) Patient tolerance: Patient tolerated the procedure well with no immediate complications XRAYS/REVIEW OF STUDIES: Bilateral knees 4 views reviewed and interpreted by me shows mild tricompartmental osteoarthritis with joint space narrowing. No fractures noted. DIAGNOSIS: Bilateral knee osteoarthritis ASSESSMENT/PLAN: Xray and exam findings reviewed with the pt and her mother. The natural progression of osteoarthritis and treatment options were discussed. Today she elected to proceed with bilateral knee cortisone injections. PT/HEP: She can continued with her HEP. NSAIDS: She can continue with her Celebrex as needed. Tylenol: She can supplement with Tylenol as needed for pain. Topicals: She can apply a topical anti-inflammatory as needed for pain. Activity: She was reminded to limit activity the next couple of days and then she can gradually increase activity as tolerated. Follow Up: juan Cheney PA-C Joint Reconstructive [facility] Orthopedic Surgery documented in this encounter Plan of Treatment Not on file documented as of this encounter Procedures Procedure Name Priority Date/Time Associated Diagnosis Comments SC ARTHROCENTESIS ASPIR&/INJ MAJOR JT/BURSA W/O US Routine 05/10/2022 2:00 PM CDT Bilateral primary osteoarthritis of knee documented in this encounter Results * SC ARTHROCENTESIS ASPIR&/INJ MAJOR JT/BURSA W/O US (05/10/2022 2:00 PM CDT) Narrative Luly Cheney PA - 05/10/2022 2:00 PM CDT Luly Cheney PA ? 05/10/2022 ??3:17 PM Large Joint Injection: bilateral knee Performed by: Luly Cheney PA Authorized by: Luly Cheney PA Large Joint Injection/Aspiration: ??Consent Given by: ??Patient ??Site marked: the procedure site was marked ?Verbal consent obtained: Yes ?? Supporting Documentation: ??Indications: ??Pain Procedure Details: ??Location: ??Knee ??Site: ??Bilateral knee ??Needle Size: ??22 G ??Approach: ??Superior lateral ??Medications Right Large Joint Injection: ??80 mg triamcinolone 40 mg/mL; 4 mL bupivacaine HCl 0.5 % (5 mg/mL) ??Medications Left ??Large Joint Injection: ??80 mg triamcinolone 40 mg/mL; 4 mL bupivacaine HCl 0.5 % (5 mg/mL) ??Patient tolerance: ??Patient tolerated the procedure [...] [facility] XR PROCEDURES Ana l Result * XR [...] in this encounter Visit Diagnoses Diagnosis Bilateral primary osteoarthritis of knee- Primary Pain in both knees, unspecified chronicity documented in this encounter Administered Medications Inactive Administered Medications - up to 3 most recent administrations Medication Order MAR Action Action Date Dose Rate Site bupivacaine HCl (MARCAINE) 0.5 % (5 mg/mL) injection 4 mL 4 mL, other, One-Time Injection, Starting on Damaris 05/10/22 at 1517, For 1 doseIndications:Bilateral primary osteoarthritis of knee Given 05/10/2022 3:17 PM CDT 4 mL bupivacaine HCl (MARCAINE) 0.5 % (5 mg/mL) injection 4 mL 4 mL, other, One-Time Injection, Starting on Damaris 05/10/22 at 1517, For 1 doseIndications:Bilateral primary osteoarthritis of knee Given 05/10/2022 3:17 PM CDT 4 mL triamcinolone (KENALOG) 40 mg/mL injection 80 mg 80 mg, intra-articular, One-Time Injection, Starting on Damaris 05/10/22 at 1517, For 1 doseIndications:Bilateral primary osteoarthritis of knee Given 05/10/2022 3:17 PM CDT 80 mg triamcinolone (KENALOG) 40 mg/mL injection 80 mg 80 mg, intra-articular, One-Time Injection, Starting on Damaris 05/10/22 at 1517, For 1 doseIndications:Bilateral primary osteoarthritis of knee Given 05/10/2022 3:17 PM CDT 80 mg documented in this encounter Discontinued Medications Medication Sig Discontinue Reason Start Date End Da te atorvastatin (LIPITOR) 20 mg tablet Take 20 mg by mouth nightly 05/10/2022 azithromycin (ZITHROMAX) 250 mg tablet TAKE 2 TABLETS BY MOUTH FOR 1 DAY THEN TAKE 1 TABLET BY MOUTH DAILY FOR 4 DAYS 04/10/2022 05/10/2022 benzonatate (TESSALON) 100 mg capsule benzonatate 100 mg capsule 05/10/[address] (NexIUM) 40 mg capsule Take 40 mg by mouth daily before breakfast 05/10/2022 fluconazole (DIFLUCAN) 150 mg tablet TAKE 1 TABLET BY MOUTH ONCE FOR 1 DOSE DIRECTED 04/17/2021 05/10/2022 multivitamin with minerals tabletIndications:hair skin nails vitamin Take 1 tablet by mouth community relations director before breakfast 05/10/2022 documented as of this encounter Historical Medications * This list may reflect changes made after this encounter. adapalene-benzoy l peroxide 0.3-2.5 % gel with pump Epiduo Forte 0.3 %-2.5 % topical gel with pump ZyrTEC-D 5-120 mg per 12 hr tablet 03/19/2022 ciclesonide (Omnaris) 50 mcg nasal spray Omnaris 50 mcg nasal spray Hulbert 2 sprays every day by intranasal route. mirabegron ER (MYRBETRIQ) 50 mg tablet extended release 24 hr daily mupirocin (BACTROBAN) 2 % ointment APPLY TOPICALLY TO THE AFFECTED AREA TWICE DAILY 03/05/2022 niacin ER (NIASPAN) 500 mg CR tablet niacin ER 500 mg tablet,extended release 24 hr oseltamivir (TAMIFLU) 75 mg capsule Tamiflu 75 mg capsule take one twice daily for 5 days Ozempic 0.25 mg or 0.5 mg(2 mg/1.5 mL) pen injector injection 05/03/2022 topiramate (TOPAMAX) 25 mg tablet topiramate 25 mg tablet atorvastatin (LIPITOR) 40 mg tablet 03/02/2022 azithromycin (ZITHROMAX) 250 mg tablet TAKE 2 TABLETS BY MOUTH FOR 1 DAY THEN TAKE 1 TABLET BY MOUTH DAILY FOR 4 DAYS 04/10/2022 2 benzonatate (TESSALON) 100 mg capsule benzonatate 100 mg capsule 2 added in this encounter Care Teams Account Services Analyst Relationship Specialty Start Date End Date Kana Rankin MD PCP - General Family Medicine 05/15/19 documented as of this encounter
--- OUTSIDE RECORDS SUMMARY | 2024-12-12 16:29 | XMS_ITS | Encounter Summary ---
Author Organization [facility] Address [address] [place] [address] Phone Care Team Providers Care Assembler Final Name Role Phone Kana Rankin MD Primary Care Provider + [phone] Reason for Referral * (Routine) - Closed Specialty Diagnoses / Procedures Referred By Zoe t Referred To Contact Diagnoses Primary osteoarthritis of both knees Procedures Large Joint Injection: bilateral knee Bradley Hackett PA Phone: tel: fax: [facility] (All Locations) Referral ID Status Reason Start Date Expiration Date Visits Re quested Visits Authorized [id number] Closed 05/21/2019 11/29/2020 1 1 * Consultation (Routine) - Closed Specialty Diagnoses / Procedures Referred By Zoe arndt Referred To Contact Rheumatology Diagnoses Primary osteoarthritis of both knees Bradley Hackett PA Phone: tel: fax: [facility] (All Locations) Referral ID Status Reason Start Date Expiration Date V isits Requested Visits Authorized [id number] Closed Specialty Services Required 05/21/2019 11/29/2020 99 99 Question Answer Please select the performing region: [facility] (All Locations) [[id number]] # of visits: 1 Comments Please evaluate and treat. Multiple joint pain Reason for Visit * Reason Comments Pain Pain Encounter Details Date Type Department Care Team (Latest Contact Info) Description 05/21/2019 1:50 PM CDT Office Visit [facility] Orthopaedic Surgery [address] [place] [id number] Bradley Hackett PA [address] [place] [address] Primary osteoarthritis of both knees (Primary Dx) Social History Tobacco Use Types Packs/Day Years Used Date Smoking Tobacco: Never Smokeless Tobacco: Never Alcohol Use Standard Drinks/Week Comments Yes 0 (1 standard drink = 0.6 oz pur e alcohol) Comments Unknown Sex and Gender Information Value Date Recorded Sex Assigned at Not on file 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 Gender Identity Not on file Sexual Orientation Straight 08/04/2020 2: 23 PM CDT 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 Not on file Not on file Not on file documented as of this encounter Last Filed Vital Signs Vital Sign Reading Time Taken Comments Blood Pressure - - Pulse - - Temperature - - Respiratory Rate - - Oxygen Saturation - - Inhaled Oxygen Concentration - - Weight 121.7 kg (268 lb 3.2 oz) 05/21/2019 2:06 PM CDT Height 175.9 cm (5' 9.25 ) 05/21/2019 2:06 PM CD T Body Mass Index 39.32 05/21/2019 2:06 PM CDT documented in this encounter Patient Instructions * Patient Instructions* Danielle Monroe ATC - 05/21/2019 1:50 PM CDT 1.) Your injection included 80 mg [...] Progress Notes * Bradley Hackett PA - 05/21/2019 1:50 PM CDTAssociated Order(s): Large Joint Injection: bilateral knee Post-Procedure Diagnose(s): Primary osteoarthritis of both knees NEW PATIENT VISIT CHIEF COMPLAINT: Chief Complaint Patient presents with ??? Left Knee - Pain ??? Right Knee - Pain HISTORY OF PRESENT ILLNESS: 43-year-old female presents the office today as a new patient with chief complaint of bilateral knee pain for last couple months along with polyarthralgia. 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 She presents today with chief complaint of predominantly bilateral knee pain but also shoulder pain, basilar thumb pain back pain and generalized hip pain. Also some swelling noted in both of her feet. Reportedly she has had two separate blood draws which were negative for rheumatoid arthritis. Patient states she was told she had some inflammation but nosigns of rheumatoid arthritis. At 1 point they placed her on prednisone she states everything felt better. Her primary care provider placed her on Celebrex 200 mg twice a day and some tramadol. She reportedly has only 1 kidney. Likewise a put her on some hydrochlorothiazide to help with the lower extremity dependent edema. Today she endorses severe ache in both knees made worse with start-up symptoms and transferring [id number]. Stairs are worse going down in coming up. She states that when she gets out of her car she is very stiff and painful all over. Of note, her mother is present with her today and states that she started having a lot of arthritis symptoms at the age of 32 and has basically lived on Celebrex for last 20-30 years. Both the patient and her mother deny any other family members at have any type of rheumatologic disorders. PAST MEDICAL HISTORY: Past Medical History: Diagnosis Date ??? Anxiety ??? Arthritis ??? Depression ??? Diabetes mellitus (CMS/HCC) ??? Gastric reflux ??? GERD (gastroesophageal reflux disease) ??? Hypercholesteremia ??? Hypertension ??? Obesity ??? Peripheral neuropathy PAST SURGICAL HISTORY: Past Surgical History: Procedure Laterality Date ??? OVARIAN CYST SURGERY MEDICATIONS: Current Outpatient Medications on File Prior to Visit Medication Sig Dispense Refill ??? celecoxib (CeleBREX) 200 mg capsule TK 1 C PO QD 1 ??? hydroCHLOROthiazide (HYDRODIURIL) 25 mg tablet TK 1 T PO QD 1 ??? metFORMIN (GLUCOPHAGE) 500 mg tablet TK 1 T PO QD 5 ??? traMADol (ULTRAM) 50 mg tablet Take 50 mg by mouth every 6 (six) hours ??? traZODone (DESYREL) 50 mg tablet TK 1 T PO QHS 0 ??? [DISCONTINUED] acetaminophen-codeine (TYLENOL #2) 300-15 mg per tablet TK 1 T PO QD 0 ??? [DISCONTINUED] amoxicillin (AMOXIL) 875 mg tablet TK 1 T PO BID 0 ??? [DISCONTINUED] azithromycin (ZITHROMAX) 250 mg tablet ZPK 1 ??? [DISCONTINUED] celecoxib (CeleBREX) 100 mg capsule TK 1 C PO BID UTD 1 ??? [DISCONTINUED] diclofenac sodium (VOLTAREN) 1 % gel SHANNAN 2 GRAMS TOPICALLY AA QID 0 ??? [DISCONTINUED] hydrOXYzine (ATARAX) 25 mg tablet TK 1 T PO BID 0 ??? [DISCONTINUED] phentermine (ADIPEX-P) 37.5 mg tablet TK ONE T PO D 0 ??? [DISCONTINUED] predniSONE (DELTASONE) 20 mg tablet TK 2 TS PO D 0 ??? [DISCONTINUED] traMADol (ULTRAM) 50 mg tablet TK 1 T PO Q 6 H PRN 0 ??? [DISCONTINUED] zolpidem (AMBIEN) 5 mg tablet TK 1 T PO QHS PRF SLEEP 0 No current facility-administered medications on file prior to visit. ALLERGIES: No Known Allergies SOCIAL HISTORY: Social History Socioeconomic History ??? Marital status: Spouse name: Not on file ??? Number of children: 2 ??? Years of education: Not on file ??? Highest education level: Not on file Occupational History ??? 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 Financial resource strain: Not on file ??? Food insecurity: Worry: Not on file Inability: Not on file ??? Transportation needs: Medical: Not on file Non-medical: Not on file Tobacco Use ??? Smoking status: Never Smoker ??? Smokeless tobacco: Never Used Substance and Sexual Activity ??? Alcohol use: Yes ??? Drug use: Never ??? Sexual activity: Defer Lifestyle ??? Physical activity: Days per week: Not on file Minutes per session: Not on file ??? Stress: Not on file Relationships ??? Social connections: Talks on phone: Not on file Gets together: Not on file Attends christian service: Not on file Active member of club or organization: Not on file Attends meetings of clubs or organizations: Not on file Relationship status: Not on file ??? Intimate partner violence: Fear of current or ex partner: Not on file Emotionally abused: Not on file Physically abused: Not on file Forced sexual activity: Not on file Other Topics Concern ??? Not on file Social History Narrative ??? Not on file FAMILY HISTORY: Family History Problem Relation Age of Onset ??? Scoliosis Mother ??? Arthritis Mother ??? Arthritis Father ??? Hypertension Father ??? Diabetes Father REVIEW OF SYSTEMS: Twelve System Review accomplished and unremarkable for systemic complaints. PHYSICAL EXAMINATION: Stands 5 ft 9, 260 lb, BMI 39. Transfer [id number] pushing up on the arms chair ambulates with a slow steady gait with short swing phase using no assistive devices. Very mild valgus alignment of both knees. No signs of infection or joint effusion. Mild patellofemoral crepitus bilaterally. Patella seems to track appropriately. Tenderness over both the medial and lateral joint lines. Active rangeof motion both knee 0??-130?? well tolerated. Both knees ligamentously stable x4. Negative Yan's exam. No pain with provocative hip maneuvers. Mild quad and hip abductor weakness bilaterally. Neurovascular intact both lower extremities. XRAYS/REVIEW OF STUDIES: X-rays taken today AP views of both knees weight-bearing position revealed very mild tricompartmental osteoarthritis predominantly of the lateral and patellofemoral compartments ASSESSMENT/PLAN: Mild bilateral knee osteoarthritis Concern for seronegative rheumatoid arthritis or other inflammatory arthritis Patient has a lot of difficulty with basic ADLs the young age of 43. Therefore, recommend she follow up with Rheumatology and we have placed a referral. I would like her to call her primary care physician and questioned her dose of Celebrex 200 mg b.i.d. With her having 1 kidney. We injected both knees with steroid today. Patient might take it easy. Outpatient physical therapy directed at range of motion strength of both lower extremities. Large Joint Injection: bilateral knee Date/Time: 05/21/2019 3:18 PM Performed by: MIKI Castillo Authorized by: MIKI Castillo Procedure Details: Location: Knee Site: Bilateral knee Ultrasound guided: No Medications Right Large Joint [...] weightbearing activities for the next few days. MIKI V[facility]im[facility] Orthopedic Surgery documented in this encounter Plan of Treatment Scheduled Referrals Name Type Priority Associated Diagnoses Orde r Schedule Ambulatory referral to Rheumatology Outpatient Referral Routine Primary osteoarthritis of both knees Expected: 06/08/2019 (Approximate), Expires: 05/21/2020 documented as of this encounter Procedures Procedure Name Priority Date/Time Associated Diagnosis Comments ND ARTHROCENTESIS ASPIR&/INJ MAJOR JT/BURSA W/O US Routine 05/21/2019 1:50 PM CDT Primary osteoarthritis of both knees documented in this encounter Results * ND ARTHROCENTESIS ASPIR&/INJ MAJOR JT/BURSA W/O US (05/21/2019 1:50 PM CDT) Narrative Bradley Hackett PA - 05/21/2019 1:50 PM CDT MIKI Castillo ? 05/21/2019 ??3:18 PM Large Joint Injection: bilateral knee Date/Time: 05/21/2019 3:18 PM Performed by: MIKI Castillo Authorized by: MIKI Castillo Procedure Details: ??Location: ??Knee ??Site: ??Bilateral knee ??Ultrasound guided: No ?Medications Right Large Joint [...] weightbearing activities for the next few days. us Bradley [facility]/BEDSIDE ORDERABLES Final Result documented in this encounter Visit Diagnoses Diagnosis Primary osteoarthritis of both knees- Primary documented in this encounter Administered Medications Inactive Administered Medications - up to 3 most recent administrations Medication Order MAR Action Action Date Dose Rate Site bupivacaine (MARCAINE) 0.5 % (5 mg/mL) injection 6 mL 6 mL, other, One-Time Injection, Starting on Damaris 05/21/19 at 1518, For 1 doseIndications:Primary osteoarthritis of both knees Given 05/21/2019 3:18 PM CDT 6 mL bupivacaine (MARCAINE) 0.5 % (5 mg/mL) injection 6 mL 6 mL, other, One-Time Injection, Starting on Damaris 05/21/19 at 1518, For 1 doseIndications:Primary osteoarthritis of both knees Given 05/21/2019 3:18 PM CDT 6 mL methylPREDNISolone acetate (DEPO-medrol) injection 80 mg 80 mg, intra-articular, One-Time Injection, Starting on Damaris 05/21/19 at 1518, For 1 doseIndications:Primary osteoarthritis of both knees Given 05/21/2019 3:18 PM CDT 80 mg methylPREDNISolone acetate (DEPO-medrol) injection 80 mg 80 mg, intra-articular, One-Time Injection, Starting on Damaris 05/21/19 at 1518, For 1 doseIndications:Primary osteoarthritis of both knees Given 05/21/2019 3:18 PM CDT 80 mg documented in this encounter Discontinued Medications Medication Sig Discontinue Reason Start Date End Da te traMADol (ULTRAM) 50 mg tablet TK 1 T PO Q 6 H PRN 05/07/2019 05/21/2019 celecoxib (CeleBREX) 100 mg capsule TK 1 C PO BID UTD 04/14/2019 05/21/2019 acetaminophen-code ine (TYLENOL with CODEINE #3) 300-30 mg per tablet acetaminophen 300 mg-codeine 30 mg tablet 05/21/2019 acetaminophen-code ine (TYLENOL #2) 300-15 mg per tablet TK 1 T PO QD 04/17/2019 05/21/2019 adapalene-benzoyl peroxide (EPIDUO FORTE) 0.3-2.5 % gel with pump Epiduo Forte 0.3 %-2.5 % topical gel with pump 05/21/2019 amoxicillin (AMOXIL) 875 mg tablet TK 1 T PO BID 04/07/2019 05/21/2019 amoxicillin-clavul anate (AUGMENTIN) 500-125 mg per tablet amoxicillin 500 mg-potassium clavulanate 125 mg tablet 05/21/2019 aspirin 81 mg enteric coated tablet aspirin 81 mg tablet,delayed release 05/21/2019 azithromycin (ZITHROMAX) 250 mg tablet ZPK 02/09/2019 05/21/2019 cetirizine (ZyrTEC) 10 mg tablet cetirizine 10 mg tablet 05/21/20 ciprofloxacin (CIPRO) 500 mg tablet ciprofloxacin 500 mg tablet 05/21/2019 diclofenac sodium (VOLTAREN) 1 % gel SHANNAN 2 GRAMS TOPICALLY AA QID 05/01/2019 05/21/2019 diclofenac sodium (VOLTAREN) 1 % gel diclofenac 1 % topical gel doxycycline (doxycycline hyclate) 100 mg capsule doxycycline hyclate 100 mg capsule 05/21/2019 hydrOXYzine (ATARAX) 25 mg tablet TK 1 T PO BID 04/29/2019 05/21/2019 levoFLOXacin (LEVAQUIN) 500 mg tablet daily 05/21/2019 levoFLOXacin (LEVAQUIN) 750 mg tablet levofloxacin 750 mg tablet 05/21 methylPREDNISolone (MEDROL DOSEPACK) 4 mg Dosepack methylprednisolone 4 mg tablets in a dose pack 05/21/2019 niacin, inositol niacinate, 400 mg niacin (500 mg) capsule daily 05/21/2019 norethin-e.estradi ol triphasic (NECON , 28,) 0.5/0.75/1 mg- 35 mcg per tablet Necon (28) 0.5 mg/0.75 mg/1 mg-35 mcg tablet 05/21/2019 olmesartan (BENICAR) 5 mg tablet olmesartan 5 mg tablet 9 oxyCODONE-acetamin ophen (PERCOCET) 5-325 mg per tablet oxycodone-acetaminophen 5 mg-325 mg tablet 05/21/2019 phentermine (ADIPEX-P) 37.5 mg tablet TK ONE T PO D 03/25/2019 05/21/[address] (PROTONIX) 40 mg EC tablet pantoprazole 40 mg tablet,delayed release 05/21/2019 predniSONE (DELTASONE) 20 mg tablet TK 2 TS PO D 04/07/2019 05/21/2019 zolpidem (AMBIEN) 5 mg tablet TK 1 T PO QHS PRF SLEEP 05/03/2019 05/21/20 19 topiramate (TROKENDI XR) 25 mg capsule,extended release 24hr Trokendi XR 25 mg capsule,extended release 05/21/2019 documented as of this encounter Historical Medications * This list may reflect changes made after this encounter. traMADol (ULTRAM) 50 mg tablet Take 50 mg by mouth every 6 (six) hours 08/26/2020 added in this encounter Care Teams Assembler Final Relationship Specialty Start Date End Date Kana Rankin MD PCP - General Family Medicine 05/15/19 documented as of this encounter
--- OUTSIDE RECORDS SUMMARY | 2024-12-12 16:29 | XMS_ITS | Encounter Summary ---
Author Organization [facility] Address [address] [place] [address] Phone Care Team Providers Care Clinical Assistant Name Role Phone Kana Rankin MD Primary Care Provider + [phone] Reason for Referral * Diagnostic Imaging (Routine) - Closed Specialty Diagnoses / Procedures Referred By Zoe t Referred To Contact Diagnoses Chronic pain of both knees Procedures XR Knee Right 3 Views Bradley Hackett PA Phone: tel: fax: [facility] [address] Referral ID Status Reason Start Date Expiration Date Visits Re quested Visits Authorized [id number] Closed 05/15/2019 11/23/2020 1 1 * Diagnostic Imaging (Routine) - Closed Specialty Diagnoses / Procedures Referred By Zoe arndt Referred To Contact Diagnoses Chronic pain of both knees Procedures XR Knee Left 3 Views Bradley Hackett PA Phone: tel: fax: [facility] [address] Referral ID Status Reason Start Date Expiration Date Visits Re quested Visits Authorized [id number] Closed 05/15/2019 11/23/2020 1 1 Encounter Details Date Type Department Care Team (Late st Contact Info) Description 05/15/2019 Orders Only [facility] Orthopaedic Surgery [address] [facility] [address] [place] [address] Bradley Hackett PA [address] [place] [address] Chronic pain of both knees (Primary Dx) Social History Tobacco Use Types Packs/Day Years Used Date Smoking Tobacco: Never Assessed Comments Unknown Sex and Gender Information Value Date Recorded Sex Assigned at Not on file 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 ??Mild right knee lateral compartment osteoarthritis 2. ??Low-grade chondroid lesion right distal femoral shaft 3. ??Normal radiographic examination of the left knee Electronically signed by: Tk Canales MD, PHD Narrative 05/21/2019 1:37 PM CDT EXAMINATION: Left knee 3 views; right knee 3 views HISTORY: ??Knee osteoarthritis FINDINGS: 3 view examination of both the right and left knee are submitted without comparison. On the right there is mild lateral compartment osteoarthritis. A chondroid lesion is noted within the distal femoral shaft without endosteal scalloping, cortical stress fracture, or soft tissue extension. On the left, the joint spaces appear normal. There is no fracture or joint effusion. Procedure Note Tk Canales MD PhD - 05/21/2019 EXAMINATION: Left knee 3 views; right knee 3 views HISTORY: Knee osteoarthritis FINDINGS: 3 view examination of both the right and left knee are submitted without comparison. On the right there is mild lateral compartment osteoarthritis. A chondroid lesion is noted within the distal femoral shaft without endosteal scalloping, cortical stress fracture, or soft tissue extension. On the left, the joint spaces appear normal. There is no fracture or joint effusion. IMPRESSION: 1. Mild right knee lateral compartment osteoarthritis 2. Low-grade chondroid lesion right distal femoral shaft 3. Normal radiographic examination of the left knee Electronically signed by: Tk Canales MD, PHD Bradley [facility] IM[facility] XR PROCEDURES Final Resul t * XR Knee Left 3 Views (05/21/2019 1:27 PM CDT) Anatomical Region Laterality Modality Lower Extremities, Knee Left Computed Radiography 05/21/2019 1:37 PM CDT Impressions 05/21/2019 1:37 PM CDT 1. ??Mild right knee lateral compartment osteoarthritis 2. ??Low-grade chondroid lesion right distal femoral shaft 3. ??Normal radiographic examination of the left knee Electronically signed by: Tk Canales MD, PHD Narrative 05/21/2019 1:37 PM CDT EXAMINATION: Left knee 3 views; right knee 3 views HISTORY: ??Knee osteoarthritis FINDINGS: 3 view examination of both the right and left knee are submitted without comparison. On the right there is mild lateral compartment osteoarthritis. A chondroid lesion is noted within the distal femoral shaft without endosteal scalloping, cortical stress fracture, or soft tissue extension. On the left, the joint spaces appear normal. There is no fracture or joint effusion. Procedure Note Tk Canales MD PhD - 05/21/2019 EXAMINATION: Left knee 3 views; right knee 3 views HISTORY: Knee osteoarthritis FINDINGS: 3 view examination of both the right and left knee are submitted without comparison. On the right there is mild lateral compartment osteoarthritis. A chondroid lesion is noted within the distal femoral shaft without endosteal scalloping, cortical stress fracture, or soft tissue extension. On the left, the joint spaces appear normal. There is no fracture or joint effusion. IMPRESSION: 1. Mild right knee lateral compartment osteoarthritis 2. Low-grade chondroid lesion right distal femoral shaft 3. Normal radiographic examination of the left knee Electronically signed by: Tk Canales MD, PHD Bradley [facility] XR PROCEDURES Final Resul t documented in this encounter Visit Diagnoses Diagnosis Chronic pain of both knees- Primary Chronic pain of both knees Chronic pain of both knees documented in this encounter Care Teams Clinical Assistant Relationship Specialty Start Date End Date Kana Rankin MD PCP - General Family Medicine 05/15/19 documented as of this encounter
--- OUTSIDE RECORDS SUMMARY | 2024-12-12 16:29 | XMS_ITS | Encounter Summary ---
Author Organization [facility] Healthcare Address [address] [place] [address] Care Team Providers Care Medical Records Specialist Name Role Phone Kana Rankin MD Primary Care Provider [phone] Reason for Visit * Diagnostic Imaging (Routine) - Closed Specialty Diagnoses / Procedures Referred By Contac t Referred To Contact Diagnoses Primary osteoarthritis of both knees Procedures XR Hand Right 3 or More Views You Templeton MD Phone: tel: fax: Referral ID Status Reason Start Date Expiration Date Visits Re quested Visits Authorized [id number] Closed 08/10/2019 02/18/2021 1 1 Encounter Details Date Type Department Care Team (Latest Contact Info) Description 08/10/2019 4:34 PM CDT - 08/10/2019 11:59 PM CDT Hospital Encounter [facility] Radiology at [facility] Medicine [address] [place] [address] [id number] You Templeton MD [facility] [address] [address] Discharge Disposition: Discharge to home or self care Social History Tobacco Use Types Packs/Day Years Used Date Smoking Tobacco: Never Smokeless Tobacco: Never Alcohol Use Standard Drinks/Week Comments Yes 0 (1 standard drink = 0.6 oz pur e alcohol) Comments Unknown Sex and Gender Information Value Date Recorded Sex Assigned at Not on file 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 Gender Identity Not on file Sexual Orientation Straight 08/04/2020 2: 23 PM CDT 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 Not on file Not on file documented as of this encounter Medications at Time of Discharge albuterol HFA (PROVENTIL HFA,VENTOLIN HFA,PROAIR HFA) 90 mcg/actuation inhaler ProAir HFA 90 mcg/actuation aerosol inhaler celecoxib (CeleBREX) 200 mg capsule 200 in am and 100 in pm 1 04/09/2019 cetirizine (ZyrTEC) 10 mg tablet Take 1 tablet (10 mg total) by mouth color checker before breakfast fluticasone propionate (FLONASE) 50 mcg/actuation nasal spray fluticasone propionate 50 mcg/actuation nasal spray,suspension hydroCHLOROthiaz lencho (HYDRODIURIL) 25 mg tabletIndication s:hypertension Take 1 tablet (25 mg total) by mouth color checker before breakfast 1 05/11/2019 metFORMIN (GLUCOPHAGE) 500 [...] Name Priority Date/Time Associated Diagnosis Comments XR HAND RIGHT 3 OR MORE VIEWS Schedule Routine, Read Routine (OP Routine) 08/10/2019 4:46 PM CDT Primary osteoarthritis of both knees XR HAND LEFT 3 OR MORE VIEWS Schedule Routine, Read Routine (OP Routine) 08/10/2019 4:46 PM CDT Primary osteoarthritis of both knees documented in this encounter Results * XR Hand Right 3 or More Views (08/10/2019 4:46 PM CDT) Anatomical Region Laterality Modality Upper Extremities, Hand Right Computed Radiography 08/10/2019 5:02 PM CDT Impressions 08/10/2019 5:02 PM CDT Normal bilateral hand radiographs. Electronically signed by: Jeramie Hall M.D. Narrative 08/10/2019 5:02 PM CDT EXAMINATION: 1. Left hand 3+ views 2. Right hand 3+ views HISTORY: Bilateral hand pain. FINDINGS: 3 views of the right hand were performed, with no studies available for comparison. Mineralization is qualitatively normal. There is no evidence of fracture. Alignment is normal. Joint spaces are normal, without degenerative or erosive change. There is no soft tissue swelling. 3 views of left hand were performed, with no studies available for comparison. Mineralization is qualitatively normal. There is no evidence of fracture. Alignment is normal. Joint spaces are normal, without erosive or degenerative change. There is no soft tissue swelling. Procedure Note Jeramie Hall MD - 08/10/2019 EXAMINATION: 1. Left hand 3+ views 2. Right hand 3+ views HISTORY: Bilateral hand pain. FINDINGS: 3 views of the right hand were performed, with no studies available for comparison. Mineralization is qualitatively normal. There is no evidence of fracture. Alignment is normal. Joint spaces are normal, without degenerative or erosive change. There is no soft tissue swelling. 3 views of left hand were performed, with no studies available for comparison. Mineralization is qualitatively normal. There is no evidence of fracture. Alignment is normal. Joint spaces are normal, without erosive or degenerative change. There is no soft tissue swelling. IMPRESSION: Normal bilateral hand radiographs. Electronically signed by: Jeramie Hall M.D. You Templeton MD IM XR PROCEDURES Final Resul t * XR Hand Left 3 or More Views (08/10/2019 4:46 PM CDT) Anatomical Region Laterality Modality Upper Extremities, Hand Left Computed Radiography 08/10/2019 5:02 PM CDT Impressions 08/10/2019 5:02 PM CDT Normal bilateral hand radiographs. Electronically signed by: Jeramie Hall M.D. Narrative 08/10/2019 5:02 PM CDT EXAMINATION: 1. Left hand 3+ views 2. Right hand 3+ views HISTORY: Bilateral hand pain. FINDINGS: 3 views of the right hand were performed, with no studies available for comparison. Mineralization is qualitatively normal. There is no evidence of fracture. Alignment is normal. Joint spaces are normal, without degenerative or erosive change. There is no soft tissue swelling. 3 views of left hand were performed, with no studies available for comparison. Mineralization is qualitatively normal. There is no evidence of fracture. Alignment is normal. Joint spaces are normal, without erosive or degenerative change. There is no soft tissue swelling. Procedure Note Jeramie Hall MD - 08/10/2019 EXAMINATION: 1. Left hand 3+ views 2. Right hand 3+ views HISTORY: Bilateral hand pain. FINDINGS: 3 views of the right hand were performed, with no studies available for comparison. Mineralization is qualitatively normal. There is no evidence of fracture. Alignment is normal. Joint spaces are normal, without degenerative or erosive change. There is no soft tissue swelling. 3 views of left hand were performed, with no studies available for comparison. Mineralization is qualitatively normal. There is no evidence of fracture. Alignment is normal. Joint spaces are normal, without erosive or degenerative change. There is no soft tissue swelling. IMPRESSION: Normal bilateral hand radiographs. Electronically signed by: Jeramie Hall M.D. us You Templeton MD IMG XR PROCEDURES Final Resul t documented in this encounter Visit Diagnoses Not on filedocumented in this encounter Care Teams Medical Records Specialist Relationship Specialty Start Date End Date Kana Rankin MD PCP - General Family Medicine 05/15/19 documented as of this encounter
--- OUTSIDE RECORDS SUMMARY | 2024-12-12 16:29 | XMS_ITS | Encounter Summary ---
Author Organization [facility] Address [address] [place] [address] Phone Care Team Providers Care Box Toe Stitcher Name Role Phone Kana Rankin MD Primary Care Provider [phone] Reason for Referral * (Routine) - Closed Specialty Diagnoses / Procedures Referred By Contac t Referred To Contact Diagnoses Primary osteoarthritis of both knees Procedures Large Joint Injection: bilateral knee Bradley Hackett PA Phone: tel: fax: [facility] (All Locations) Referral ID Status Reason Start Date Expiration Date Visits Re quested Visits Authorized [id number] Closed 07/07/2020 08/06/2021 1 1 * Diagnostic Imaging (Routine) - Closed Specialty Diagnoses / Procedures Referred By Contaline t Referred To Contact Diagnoses Pain in both knees, unspecified chronicity Procedures XR Knee Right 4 or More Views Bradley Hackett PA Phone: tel: fax: [facility] [address] [place] [address] Referral ID Status Reason Start Date Expiration Date Visits Re quested Visits Authorized [id number] Closed 07/04/2020 08/03/2021 1 1 * Diagnostic Imaging (Routine) - Closed Specialty Diagnoses / Procedures Referred By Contac t Referred To Contact Diagnoses Pain in both knees, unspecified chronicity Procedures XR Knee Left 4 or More Views Bradley Hackett PA Phone: tel: fax: [facility] [address] [place] [address] Referral ID Status Reason Start Date Expiration Date Visits Re quested Visits Authorized [id number] Closed 07/04/2020 08/03/2021 1 1 Reason for Visit * Reason Comments Pain Pain Encounter Details Date Type Department Care Team (Latest Contact Info) Description 07/07/2020 1:30 PM CDT Office Visit [facility] Orthopaedic Surgery [address] [facility] [address] [place] [id number] Bradley Hackett PA [address] 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 Not on file Not on file documented as of this encounter Last Filed Vital Signs Vital Sign Reading Time Taken Comments Blood Pressure - - Pulse - - Temperature - - Respiratory Rate - - Oxygen Saturation - - Inhaled Oxygen Concentration - - Weight 121.7 kg (268 lb 4.8 oz) 07/07/2020 1:46 PM CDT Height 175.9 cm (5' 9.25 ) 07/07/2020 1:46 PM CD T Body Mass Index 39.34 07/07/2020 1:46 PM CDT documented in this encounter Patient Instructions * Patient Instructions* Yaneth Guzman CMA - 07/07/2020 1:30 PM CDT 1.) Your injection included 80 [...] Progress Notes * Bradley Hackett PA - 07/07/2020 1:30 PM CDTAssociated Order(s): Large Joint Injection: bilateral knee Post-Procedure Diagnose(s): Primary osteoarthritis of both knees ESTABLISHED PATIENT VISIT CHIEF COMPLAINT: Chief Complaint Patient presents with ??? Left Knee - Pain ??? 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 Patient reports the steroid injection performed back in November provided good relief until approximately March or April. She still has pain in the right knee greater than left typically with ambulating stairs or transferring [id number]. Denies mechanical symptoms. She has been instructed in physicaltherapy exercise and passed admits she is not overly compliant with the exercises. PHYSICAL EXAMINATION: Patient presents with her sister. Transfer [id number] pushing up on the arms chair ambulates withslow steady gait. Mild valgus line both knees. Unchanged range of motion both knees with no signs of infection joint effusion today. Tenderness over lateral joint line XRAYS/REVIEW OF STUDIES: X-rays taken today views of both knees weight-bearing position revealed [id number]-[id number] degenerative changes predominantly of the lateral and patellofemoral compartments right greater than left ASSESSMENT/PLAN: [id number] bilateral knee osteoarthritis right greater than left Today we once again discussed continued conservative management. We chose to inject both knees withsteroid in the office today. She will try to resume home exercise program for range of motion strength. Avoid kneeling and squatting and work diligently on weight loss. Follow up on an as-needed basis. Large Joint Injection: bilateral knee Performed by: MIKI Castillo Authorized by: MIKI Castillo Large Joint Injection/Aspiration: Timeout: prior to procedure [...] days. Bradley Hackett PA-C [facility] Orthopedic Surgery documented in this encounter Plan of Treatment Not on file documented as of this encounter Procedures Procedure Name Priority Date/Time Associated Diagnosis Comments LA ARTHROCENTESIS ASPIR&/INJ MAJOR JT/BURSA W/O US Routine 07/07/2020 1:30 PM CDT Primary osteoarthritis of both knees documented in this encounter Results * XR Knee Right 4 or More [...] diaphysis. Electronically signed by: Bernadine Jensen MD [facility] 07/07/2020 1:46 PM CDT EXAMINATION: XR KNEE [...] signed by: Bernadine Jensen MD Bradley [facility] XR PROCEDURES Final Resul t * XR Knee Left 4 or More [...] IMG XR PROCEDURES Final Resul t * LA ARTHROCENTESIS ASPIR&/INJ MAJOR JT/BURSA W/O US (07/07/2020 1:30 PM CDT) Narrative Bradley Hackett PA - 07/07/2020 1:30 PM CDT MIKI Castillo ? 07/07/2020 ??2:11 PM Large Joint Injection: bilateral knee Performed by: MIKI Castillo Authorized by: MIKI Castillo Large Joint Injection/Aspiration: ??Timeout: prior to procedure [...] weightbearing activities for the next few days. Result [facility]/BEDSIDE ORDERABLES Final Result documented in this encounter Visit Diagnoses Diagnosis Pain in both knees, unspecified chronicity- Primary Primary osteoarthritis of both knees Pain in both knees, unspecified chronicity documented in this encounter Administered Medications Inactive Administered Medications - up to 3 most recent administrations Medication Order MAR Action Action Date Dose Rate Site bupivacaine (MARCAINE) 0.5 % (5 mg/mL) injection 6 mL 6 mL, other, One-Time Injection, Starting on Damaris 07/07/20 at 1356, For 1 doseIndications:Primary osteoarthritis of both knees Given 07/07/2020 1:56 PM CDT 6 mL bupivacaine (MARCAINE) 0.5 % (5 mg/mL) injection 6 mL 6 mL, other, One-Time Injection, Starting on Damaris 07/07/20 at 1356, For 1 doseIndications:Primary osteoarthritis of both knees Given 07/07/2020 1:56 PM CDT 6 mL methylPREDNISolone acetate (DEPO-medrol) injection 80 mg 80 mg, intra-articular, One-Time Injection, Starting on Damaris 07/07/20 at 1356, For 1 doseIndications:Primary osteoarthritis of both knees Given 07/07/2020 1:56 PM CDT 80 mg methylPREDNISolone acetate (DEPO-medrol) injection 80 mg 80 mg, intra-articular, One-Time Injection, Starting on Damaris 07/07/20 at 1356, For 1 doseIndications:Primary osteoarthritis of both knees Given 07/07/2020 1:56 PM CDT 80 mg documented in this encounter Care Teams Box Toe Stitcher Relationship Specialty Start Date End Date Kana Rankin MD PCP - General Family Medicine 05/15/19 documented as of this encounter
--- OUTSIDE RECORDS SUMMARY | 2024-12-12 16:29 | XMS_ITS | Encounter Summary ---
Author Organization [facility] Address [address] [place] [address] Phone Care Team Providers Care Research Librarian Name Role Phone Kana Rankin MD Primary Care Provider + [phone] Encounter Details Date Type Department Care Team (Late st Contact Info) Description 05/18/2019 Orders Only [facility] Orthopaedic Surgery [address] [facility] [place] [address] Danielle Monroe, [facility] Social History Tobacco Use Types Packs/Day Years Used Date Smoking Tobacco: Never Assessed Comments Unknown Sex and Gender Information Value Date Recorded Sex Assigned at Not on file 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 traZODone (DESYREL) 50 mg tablet Take 100 mg by mouth nightly 0 05/01/2019 metFORMIN (GLUCOPHAGE) 500 mg tablet 1 tablet (500 mg total) 2 (two) times a day with meals 5 04/24/2019 hydroCHLOROthiaz lencho (HYDRODIURIL) 25 mg tabletIndication s:hypertension Take 1 tablet (25 mg total) by mouth vehicle and equipment cleaner before breakfast 1 05/11/2019 celecoxib (CeleBREX) 200 mg capsule 200 in am and 100 in pm 1 04/09/2019 zolpidem (AMBIEN) 5 mg tablet TK 1 T PO QHS PRF SLEEP 0 05/03/2019 9 traMADol (ULTRAM) 50 mg tablet TK 1 T PO Q 6 H PRN 0 05/07/2019 9 predniSONE (DELTASONE) 20 mg tablet TK 2 TS PO D 0 04/07/2019 9 phentermine (ADIPEX-P) 37.5 mg tablet TK ONE T PO D 0 03/25/2019 9 hydrOXYzine (ATARAX) 25 mg tablet TK 1 T PO BID 0 04/29/2019 9 diclofenac sodium (VOLTAREN) 1 % gel SHANNAN 2 GRAMS TOPICALLY AA QID 0 05/01/2019 9 celecoxib (CeleBREX) 100 mg capsule TK 1 C PO BID UTD 1 04/14/2019 9 azithromycin (ZITHROMAX) 250 mg tablet ZPK 1 02/09/2019 9 amoxicillin (AMOXIL) 875 mg tablet TK 1 T PO BID 0 04/07/2019 9 acetaminophen-co deine (TYLENOL #2) 300-15 mg per tablet TK 1 T PO QD 0 04/17/2019 9 added in this encounter Care Teams Research Librarian Relationship Specialty Start Date End Date Kana Rankin MD PCP - General Family Medicine 05/15/19 documented as of this encounter
--- OUTSIDE RECORDS SUMMARY | 2024-12-12 16:29 | XMS_ITS | Encounter Summary ---
Author Organization [facility] Address [address] [place] [address] Phone Care Team Providers Care Lodging House Keeper Name Role Phone Kana Rankin MD Primary Care Provider + [phone] Reason for Referral * Diagnostic Imaging (Routine) - Closed Specialty Diagnoses / Procedures Referred By Contac t Referred To Contact Diagnoses Primary osteoarthritis of both knees Procedures XR Hand Right 3 or More Views You Templeton MD Phone: tel: fax: Referral ID Status Reason Start Date Expiration Date Visits Re quested Visits Authorized [id number] Closed 08/10/2019 02/18/2021 1 1 * Diagnostic Imaging (Routine) - Closed Specialty Diagnoses / Procedures Referred By Contac t Referred To Contact Diagnoses Primary osteoarthritis of both knees Procedures XR Hand Left 3 or More Views You Templeton MD Phone: tel: fax: Referral ID Status Reason Start Date Expiration Date Visits Re quested Visits Authorized [id number] Closed 08/10/2019 02/18/2021 1 1 Reason for Visit * Consultation (Routine) - Closed Specialty Diagnoses / Procedures Referred By Contac t Referred To Contact Rheumatology Diagnoses Primary osteoarthritis of both knees Bradley Hackett PA Phone: tel: fax: [facility] (All Locations) Referral ID Status Reason Start Date Expiration Date V isits Requested Visits Authorized [id number] Closed Specialty Services Required 05/21/2019 11/29/2020 99 [phone] Encounter Details Date Type Department Care Team (Late st Contact Info) Description 08/10/2019 4:00 PM CDT Office Visit [facility] Rheumatology [address] [place] [address] You Templeton MD [address] [place] [address] Polyarthritis (Primary Dx); Primary osteoarthritis of both knees; Rheumatoid arthritis of multiple sites with negative rheumatoid factor ([facility]) Social History Tobacco Use Types Packs/Day Years Used Date Smoking Tobacco: Never Smokeless Tobacco: Never Alcohol Use Standard Drinks/Week Comments Yes 0 (1 standard drink = 0.6 oz pur e alcohol) Comments Unknown Sex and Gender Information Value Date Recorded Sex Assigned at Not on file 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 Gender Identity Not on file Sexual Orientation Straight 08/04/2020 2: 23 PM CDT 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 Not on file Not on file documented as of this encounter Last Filed Vital Signs Vital Sign Reading Time Taken Comments Blood Pressure 136/83 08/10/2019 3:22 PM CDT Pulse 82 08/10/2019 3:22 PM CDT Temperature 36.7 ??C (98.1 ??F) 08/10/2019 3:22 PM CD T Respiratory Rate - - Oxygen Saturation 96% 08/10/2019 3:22 PM CDT Inhaled Oxygen Concentration - - Weight 121.7 kg (268 lb 3.2 oz) 08/10/2019 3:22 PM CDT Height 175.9 cm (5' 9.25 ) 08/10/2019 3:22 PM CD T Body Mass Index 39.32 08/10/2019 3:22 PM CDT documented in this encounter Progress Notes * You Templeton MD - 08/10/2019 4:00 PM CDT Rheumatology PATIENT NAME: Lorelei Hall : 1975 BR[place]: 08/10/2019 Chief Complaint: Joint pains HPI: Lorelei Hall is a 43 y.o. female with a PMH of ovarian cyst s/p removal who was referred for consultation regarding possible Rheumatoid arthritis. Disease History: Mr. Hall notes a history of joint pains that began around the end of January or the beginning of March. She has had a lot of body stiffness and was barely able to get out of bed--she notes body stiffness that lasts several hours which was alleviated by activity such as when she went to school. Herpain began in her knees and was initially quite debilitating. She additionally notes pain in her shoulders, fingers (PIP) and feet. This pain is described as being alleviated by activity in aggravated by rest with occasional visible joint swelling. She has seen multiple doctors hand several have voiced concern for osteoarthritis, but most recently 1 provider did note concern for rheumatoid arthritis prompting a referral to us. X-rays of her knees have shown mild to no joint space narrowing and mild joint space narrowing of the AC joint. She was given steroid injections were bilateral knees inJune which was something to give her significant relief both in her knees and throughout the rest of her body. She had previously used prednisone for an upper respiratory infection and had a significant amount improvement while on that medication. She is currently on Celebrex as monotherapy which does give her some relief, but she is starting to have more stiffness and body aches on this regimen. Past Medical, Family, & Social History: I have reviewed family, past medical history, and social history as documented in the patients electronic medical record. Medications and Allergies: I have reviewed medications and allergies as documented in the patients electronic medical record. Physical Exam BP 136/83 Pulse 82 Temp 36.7 ??C (98.1 ??F) Ht 175.9 cm (5' 9.25 ) Wt 121.7 kg (268 lb 3.2 oz) SpO2 96% BMI 39.32 kg/m?? GEN: NAD, WDWN HEENT: PEERL, MMM, No oral lesions. Anicteric, non-injected sclera. CV: RRR. No mrg. PULM: CTA bilateral. ABD: +BS. Soft. NT/ND. MSK: Positive crepitus along bilateral knees. When touching the medial joint space line of the knees, the patient notes that is where her pain is, but has not on palpation. No synovitis noted of bilateral DIPs, PIPs, MCPs, wrists, elbows, shoulders, hips, knees, and ankles, or toes. Full range of motion noted throughout. No tenderness to palpation throughout examination. SKIN: No rash EXT: No LE edema. NEURO: AAOX3 PSYCH: Appropriate affect. Labs No results found for: SEDRATE, RF, LOPEZ, ANATITER, ANAPATTRN1, ANATITERADD, ANADIRECT, CRP, DSDNA, DSDNAAB No results found for: ALDOLASE, ARMIN, SCL70, C3, C4, CH50, HLAB27, CKTOTAL, CKMM Imaging Independently reviewed x-rays of knees and shoulders with very minimal joint space narrowing. No erosive changes or enthesopathic changes noted. Assessment: 1. Primary osteoarthritis of both knees Plan: 43-year-old female presents for evaluation of polyarthritis. # polyarthritis-unclear etiology. Patient does provided inflammatory description of pain but reallyhas no palpable synovitis. Her distribution of joints affected (shoulders, knees, PIP, DIP) are suggestive of a osteoarthritic process. -I would suggest that we obtain a RF in our system, CCP, plain films of her bilateral hands. If anyof this is concerning for rheumatoid arthritis, then I will treat her empirically with [id number] mg per week given her inflammatory description of pain. However if her results are nondiagnostic, I would recommend that she obtain a MRI of her right hand with and without contrast, or formal ultrasonography via the radiology department if her insurance denies the MRI. -RF, CCP, ESR, CRP, plain films hands and wrists, hepatitis-B/C serologies, CBC, CMP # knee pain-patient cites pain along the medial joint line, but really had minimal osteoarthritic changes on a previous x-ray. Follows with orthopedic surgery currently. Follow-up: No follow-ups on file. documented in this encounter Plan of Treatment [...] MD IMG XR PROCEDURES Final Resul t * [...] by: Jeramie Hall M.D. You Templeton MD IMG XR PROCEDURES Final Resul t * (ABNORMAL) Hepatitis B surface antibody (immune status) (08/10/2019 4:30 PM CDT) HBsAb (immune status) Reactive [facility] Comment: Interpretive Data A Negative Result indicates HBsAb of less than 10mIU/mL; a Positive Result indicates HBsAb of greater than or equal to 10mIU/mL. If qualitative result is Positive, HBsAb Quantitation will be reported. Assay performance characteristics have not been established as an aid in determining susceptibility to HBV infection prior to or following vaccination in infants, or children. For monitoring serum HBsAb levels during hepatitis B immunoglobulin (HBIG) therapy in transplant recipients, please refer to institutional HBIG protocol for desirable HBsAb levels. Current interpretive data was last revised on 2016. HBsAb (immune status) index 921.9(H) 0.0 - 10.0 mIUnits/m L [facility] Blood specimen (specimen) 08/10/2019 4:30 PM CDT 08/10/2019 6:24 PM CDT You Templeton MD LAB MICROBIOLOGY - GENERAL OR DERABLES Final Result Performing Organization Address [facility] Co de Phone Number [address] [address] * Hepatitis B Surface Antigen (08/10/2019 4:30 PM CDT) HepBsAg Nonreactive Nonreactive [facility] Blood specimen (specimen) 08/10/2019 4:30 PM CDT 08/10/2019 6:24 PM CDT You Templeton MD LAB MICROBIOLOGY - GENERAL OR DERABLES Edited Result - Final Performing Organization Address [facility] de Phone Number [address] [address] * Hepatitis C antibody (08/10/2019 4:30 PM CDT) Hep C Ab Nonreactive Nonreactive [facility] Comment: Interpretive Data Positive results should be confirmed by a molecular method. If positive, a second separately collected sample should be submitted for Hepatitis C Virus (HCV) RNA Detection and Quantitation by Real-Time Reverse Health And Safety Manager-PCR (RT-PCR). Current interpretive data was last revised on 2016. Blood specimen (specimen) 08/10/2019 4:30 PM CDT 08/10/2019 6:24 PM CDT us You Templeton MD LAB MICROBIOLOGY - GENERAL OR DERABLES Edited Result - Final [facility] [address] [place] [address] * Comprehensive metabolic panel (08/10/2019 4:30 PM CDT) Sodium 137 135 - 145 mmol/L [facility] Potassium, pl 3.4 3.3 - 4.9 mmol/L [facility] Chloride 99 97 - 110 mmol/L [facility] CO2 28 22 - 32 mmol/L [facility] Anion gap 10 2 - 15 mmol/L [facility] BUN 14 8 - 25 mg/dL [facility] Creatinine 0.76 0.60 - 1.10 mg/dL [facility] Glucose 116 70 - 199 mg/dL [facility] Comment: Interpretive Data Fasting glucose >/= 126 mg/dl is diagnostic for diabetes. ?? Fasting is defined as no caloric intake for at least 8 hours. Fasting glucose between 100 mg/dl to 125 mg/dl is diagnostic of prediabetes. In a patient with classic symptoms of hyperglycemia or hyperglycemic crisis, a random glucose >/= 200 mg/dl is diagnostic for diabetes. In the absence of unequivocal hyperglycemia, results should be confirmed by repeat testing. The classification and Diagnosis of Diabetes Diabetes Care 2017;40 (Suppl. 1):S11. Current interpretive data was last revised 2017. Calcium 9.8 8.5 - 10.3 mg/dL [facility] Bilirubin, total 0.4 0.1 - 1.2 mg/dL [facility] Protein, pl 8.1 6.5 - 8.5 g/dL [facility] Albumin 4.2 3.5 - 5.0 g/dL [facility] Alk phos 115 40 - 130 Units/L [facility] ALT 20 7 - 45 Units/L [facility] AST 16 10 - 45 Units/L [facility] Blood specimen (specimen) 08/10/2019 4:30 PM CDT 08/10/2019 6:24 PM CDT You Templeton MD LAB BLOOD ORDERABLES Final Re sult Performing Organization Address [facility] Co de Phone Number ANNE [address] [address] * (ABNORMAL) CBC with auto differential (08/10/2019 4:30 PM CDT) WBC 12.3(H) 3.8 - 9.9 K/cumm [facility] Hgb 15.4 11.9 - 15.5 g/dL [facility] Hct 46.9(H) 35.6 - 45.5 % [facility] Plt 317 150 - 400 K/cumm [facility] MPV 10.0 9.1 - 12.3 fL [facility] RBC 5.93(H) 3.90 - 5.20 M/cumm [facility] MCV 79.1(L) 81.3 - 96.4 fL [facility] MCH 26.0(L) 27.1 - 33.3 pg [facility] MCHC 32.8 32.3 - 35.7 g/dL [facility] RDW CV 13.5 11.1 - 14.9 % [facility] RDW SD 38.2 35.7 - 48.1 fL [facility] NRBC abs 0.00 0.00 - 0.01 K/cumm [facility] Blood specimen (specimen) 08/10/2019 4:30 PM CDT 08/10/2019 6:24 PM CDT You Templeton MD LAB BLOOD ORDERABLES Final Re sult Performing Organization Address [facility]/ZIP Co de Phone Number [facility] [address] [place] [address] * CRP (acute phase) (08/10/2019 4:30 PM CDT) CRP 4.1 <=10.0 mg/L [facility] Blood specimen (specimen) 08/10/2019 4:30 PM CDT 08/10/2019 6:24 PM CDT us You Templeton MD LAB BLOOD ORDERABLES Final Re sult Performing Organization Address [facility] Co de Phone Number [address] [address] * Erythrocyte sedimentation rate (08/10/2019 4:30 PM CDT) Pathologist [facility] Erythrocyte sedimentation rate 9 1 - 20 mm/hr [facility] Blood specimen (specimen) 08/10/2019 4:30 PM CDT 08/10/2019 6:24 PM CDT us You Templeton MD LAB BLOOD ORDERABLES Final Re sult Performing Organization Address [facility] Phone Number [address] [address] * Cyclic citrul peptide antibody, IgG (08/10/2019 4:30 PM CDT) Pathologist [facility] CCP Ab 1.8 <=2.9 units/mL [facility] Comment: Interpretive data Negative: <3 units/mL Positive: > or equal to 3 units/mL Current interpretive data was last revised on 2017. Blood specimen (specimen) 08/10/2019 4:30 PM CDT 08/10/2019 6:24 PM CDT us You Templeton MD LAB BLOOD ORDERABLES Final Re sult Performing Organization Address [facility] de Phone Number [address] [address] * Rheumatoid factor (08/10/2019 4:30 PM CDT) Pathologist [facility] Rheumatoid factor, quant <10.0 0.1 - 15.0 IUnits/mL [facility] Blood specimen (specimen) 08/10/2019 4:30 PM CDT 08/10/2019 6:24 PM CDT us You Templeton MD LAB BLOOD ORDERABLES Final Re sult [facility] [address] [place] [address] documented in this encounter Visit Diagnoses Diagnosis Polyarthritis- Primary Unspecified polyarthropathy or polyarthritis, site unspecified Primary osteoarthritis of both knees Rheumatoid arthritis of multiple sites with negative rheumatoid factor (CMS/HCC) (HCC) documented in this encounter Historical Medications * This list may reflect changes made after this encounter. cetirizine (ZyrTEC) 10 mg tablet Take 1 tablet (10 mg total) by mouth early years teacher before breakfast added in this encounter Orders Outpatient Referral Count Last Ordered Date Fir st Ordered Date AMB REFERRAL TO RHEUMATOLOGY 1 08/10/2019 documented in this encounter Care Teams Lodging House Keeper Relationship Specialty Start Date End Date Kana Rankin MD PCP - General Family Medicine 05/15/19 documented as of this encounter
--- OUTSIDE RECORDS SUMMARY | 2024-12-12 16:29 | XMS_ITS | Encounter Summary ---
Author Organization [facility] Healthcare Address [address] [place] [address] Care Team Providers Care Dormitory Counselor Name Role Phone Kana Raknin MD Primary Care Provider [phone] Encounter Details Date Type Department Care Team (Late st Contact Info) Description 08/10/2019 5:30 PM CDT Lab [address] [place] [address] Primary osteoarthritis of both knees Social History Tobacco Use Types Packs/Day Years Used Date Smoking Tobacco: Never Smokeless Tobacco: Never Alcohol Use Standard Drinks/Week Comments Yes 0 (1 standard drink = 0.6 oz pur e alcohol) Comments Unknown Sex and Gender Information Value Date Recorded Sex Assigned at Not on file 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 Gender Identity Not on file Sexual Orientation Straight 08/04/2020 2: 23 PM CDT 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 Not on file Not on file documented as of this encounter Plan of Treatment Not on file documented as of this encounter Procedures Procedure Name Priority Date/Time Associated Diagnosis Comments DIFFERENTIAL AUTO Routine 08/10/2019 4:3 0 PM CDT Primary osteoarthritis of both knees CBC WITH AUTO DIFFERENTIAL Routine 08/10/2019 4:30 PM CDT Primary osteoarthritis of both knees HEPATITIS C ANTIBODY Routine 08/10/2019 4:30 PM CDT Primary osteoarthritis of both knees CYCLIC CITRUL PEPTIDE ANTIBODY, IGG Routine 08/10/2019 4:30 PM CDT Primary osteoarthritis of both knees HEPATITIS B SURFACE ANTIBODY (IMMUNE STATUS) Routine 08/10/2019 4:30 PM CDT Primary osteoarthritis of both knees HEPATITIS B SURFACE ANTIGEN Routine 08/10/2019 4:30 PM CDT Primary osteoarthritis of both knees ERYTHROCYTE SEDIMENTATION RATE Routine 08/10/2019 4:30 PM CDT Primary osteoarthritis of both knees RHEUMATOID FACTOR Routine 08/10/2019 4:3 0 PM CDT Primary osteoarthritis of both knees CRP (ACUTE PHASE) Routine 08/10/2019 4:3 0 PM CDT Primary osteoarthritis of both knees COMPREHENSIVE METABOLIC PANEL Routine 08/10/2019 4:30 PM CDT Primary osteoarthritis of both knees documented in this encounter Results * (ABNORMAL) Differential, auto (08/10/2019 4:30 PM CDT) Neutrophil abs 7.5(H) 1.7 - 6.5 K/cumm [facility] Imm gran abs 0.0 0.0 - 0.1 K/cumm [facility] Lymphocyte abs 3.9(H) 0.8 - 3.3 K/cumm [facility] Monocyte abs 0.7 0.2 - 0.8 K/cumm [facility] Eosinophil abs 0.1 0.0 - 0.5 K/cumm [facility] Basophil abs 0.0 0.0 - 0.1 K/cumm [facility] Neutrophil pct 61.2 % [facility] Comment: Interpretive Data Percent cell count reference ranges are not reported, since discordance with absolute values may lead to misinterpretation of CBC data. Current Interpretive Data was last revised on 2018. Imm gran pct 0.2 % [facility] Comment: Interpretive Data Percent cell count reference ranges are not reported, since discordance with absolute values may lead to misinterpretation of CBC data. Current Interpretive Data was last revised on 2018. Lymphocyte pct 31.5 % [facility] Comment: Interpretive Data Percent cell count reference ranges are not reported, since discordance with absolute values may lead to misinterpretation of CBC data. Current Interpretive Data was last revised on 2018. Monocyte pct 5.6 % [facility] Comment: Interpretive Data Percent cell count reference ranges are not reported, since discordance with absolute values may lead to misinterpretation of CBC data. Current Interpretive Data was last revised on 2018. Eosinophil pct 1.1 % [facility] Comment: Interpretive Data Percent cell count reference ranges are not reported, since discordance with absolute values may lead to misinterpretation of CBC data. Current Interpretive Data was last revised on 2018. Basophil pct 0.4 % [facility] Comment: Interpretive Data Percent cell count reference ranges are not reported, since discordance with absolute values may lead to misinterpretation of CBC data. Current Interpretive Data was last revised on 2018. Blood specimen (specimen) 08/10/2019 4:30 PM CDT 08/10/2019 6:24 PM CDT You Templeton MD LAB BLOOD ORDERABLES Final Re sult Performing Organization Address [facility] Co de Phone Number [facility] [address] [address] * Hepatitis B Surface Antigen (08/10/2019 4:30 PM CDT) HepBsAg Nonreactive Nonreactive [facility] Blood specimen (specimen) 08/10/2019 4:30 PM CDT 08/10/2019 6:24 PM CDT You Templeton MD LAB MICROBIOLOGY - GENERAL OR DERABLES Edited Result - Final Performing Organization Address [facility] Co de Phone Number [facility] [address] [place] [address] * Hepatitis C antibody (08/10/2019 4:30 PM CDT) Pathologist [facility] Hep C Ab Nonreactive Nonreactive [facility] Comment: Interpretive Data Positive results should be confirmed by a molecular method. If positive, a second separately collected sample should be submitted for Hepatitis C Virus (HCV) RNA Detection and Quantitation by Real-Time Reverse Registered Dental Hygienist-PCR (RT-PCR). Current interpretive data was last revised on 2016. Blood specimen (specimen) 08/10/2019 4:30 PM CDT 08/10/2019 6:24 PM CDT us You Templeton MD LAB MICROBIOLOGY - GENERAL OR DERABLES Edited Result - Final [facility] [address] [place] [address] * Comprehensive metabolic panel (08/10/2019 4:30 PM CDT) Sodium 137 135 - 145 mmol/L [facility] Potassium, pl 3.4 3.3 - 4.9 mmol/L [facility] Chloride 99 97 - 110 mmol/L [facility] CO2 28 22 - 32 mmol/L [facility] Anion gap 10 2 - 15 mmol/L [facility] BUN 14 8 - 25 mg/dL [facility] Creatinine 0.76 0.60 - 1.10 mg/dL [facility] Glucose 116 70 - 199 mg/dL [facility] Comment: Interpretive Data Fasting glucose >/= 126 [...] 2017. Calcium 9.8 8.5 - 10.3 mg/dL [facility] Bilirubin, total 0.4 0.1 - 1.2 mg/dL [facility] Protein, pl 8.1 6.5 - 8.5 g/dL [facility] Albumin 4.2 3.5 - 5.0 g/dL [facility] Alk phos 115 40 - 130 Units/L [facility] ALT 20 7 - 45 Units/L [facility] AST 16 10 - 45 Units/L [facility] Blood specimen (specimen) 08/10/2019 4:30 PM CDT 08/10/2019 6:24 PM CDT us You Templeton MD LAB BLOOD ORDERABLES Final Re sult Performing Organization Address [facility]/ZIP Co de Phone Number [address] [address] * (ABNORMAL) CBC with auto differential (08/10/2019 4:30 PM CDT) WBC 12.3(H) 3.8 - 9.9 K/cumm [facility] Hgb 15.4 11.9 - 15.5 g/dL [facility] Hct 46.9(H) 35.6 - 45.5 % [facility] Plt 317 150 - 400 K/cumm [facility] MPV 10.0 9.1 - 12.3 fL [facility] RBC 5.93(H) 3.90 - 5.20 M/cumm [facility] MCV 79.1(L) 81.3 - 96.4 fL [facility] MCH 26.0(L) 27.1 - 33.3 pg [facility] MCHC 32.8 32.3 - 35.7 g/dL [facility] RDW CV 13.5 11.1 - 14.9 % [facility] RDW SD 38.2 35.7 - 48.1 fL [facility] NRBC abs 0.00 0.00 - 0.01 K/cumm [facility] Blood specimen (specimen) 08/10/2019 4:30 PM CDT 08/10/2019 6:24 PM CDT us You Templeton MD LAB BLOOD ORDERABLES Final Re sult Performing Organization Address [facility]/ZIP Co de Phone Number [address] [address] * CRP (acute phase) (08/10/2019 4:30 PM CDT) [facility] CRP 4.1 <=10.0 mg/L [facility] Blood specimen (specimen) 08/10/2019 4:30 PM CDT 08/10/2019 6:24 PM CDT You Templeton MD LAB BLOOD ORDERABLES Final Re sult Performing Organization Address [facility] de Phone Number [address] [address] * Erythrocyte sedimentation rate (08/10/2019 4:30 PM CDT) [facility] Erythrocyte sedimentation rate 9 1 - 20 mm/hr [facility] Blood specimen (specimen) 08/10/2019 4:30 PM CDT 08/10/2019 6:24 PM CDT You Templeton MD LAB BLOOD ORDERABLES Final Re sult Performing Organization Address [facility] Phone Number [address] [address] * Cyclic citrul peptide antibody, IgG (08/10/2019 4:30 PM CDT) [facility] CCP Ab 1.8 <=2.9 units/mL [facility] Comment: Interpretive data Negative: <3 units/mL Positive: > or equal to 3 units/mL Current interpretive data was last revised on 2017. Blood specimen (specimen) 08/10/2019 4:30 PM CDT 08/10/2019 6:24 PM CDT You Templeton MD LAB BLOOD ORDERABLES Final Re sult Performing Organization Address [facility] de Phone Number [address] [address] * Rheumatoid factor (08/10/2019 4:30 PM CDT) [facility] Rheumatoid factor, quant <10.0 0.1 - 15.0 IUnits/mL [facility] Blood specimen (specimen) 08/10/2019 4:30 PM CDT 08/10/2019 6:24 PM CDT You Templeton MD LAB BLOOD ORDERABLES Final Re sult Performing Organization Address [facility] Co de Phone Number [address] [address] * (ABNORMAL) Hepatitis B surface antibody (immune status) (08/10/2019 4:30 PM CDT) Pathologist [facility] HBsAb (immune status) Reactive [facility] Comment: Interpretive Data A Negative Result indicates [...] index 921.9(H) 0.0 - 10.0 mIUnits/m L [facility] Blood specimen (specimen) 08/10/2019 4:30 PM CDT 08/10/2019 6:24 PM CDT You Templeton MD LAB MICROBIOLOGY - GENERAL OR DERABLES Final Result Performing Organization Address [facility] Co de Phone Number [address] [address] documented in this encounter Visit Diagnoses Diagnosis Primary osteoarthritis of both knees documented in this encounter Care Teams Dormitory Counselor Relationship Specialty Start Date End Date Kana Rankin MD PCP - General Family Medicine 05/15/19 documented as of this encounter
--- OUTSIDE RECORDS SUMMARY | 2024-12-12 16:29 | XMS_ITS | Encounter Summary ---
Author Organization [facility] Address [address] [place] [address] Phone Care Team Providers Care C2 Tactical Analysis Technician Name Role Phone Kana Rankin MD Primary Care Provider + [phone] Encounter Details Date Type Department Care Team (Late st Contact Info) Description 08/12/[address] [place] [address] [place] [address] Johana Vega Social History Tobacco Use Types Packs/Day Years Used Date Smoking Tobacco: Never Smokeless Tobacco: Never Alcohol Use Standard Drinks/Week Comments Yes 0 (1 standard drink = 0.6 oz pur e alcohol) Comments Unknown Sex and Gender Information Value Date Recorded Sex Assigned at Not on file Legal Sex Female 6:11 PM NURSE TRANSITIONAL Gender Identity Not on file Sexual Orientation Straight 08/04/2020 2: 23 PM CDT 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 If she decided to not do the MRI what would the next step be? * Telephone Encounter - Johana Vega - 08/12/2019 2:52 PM CDT Called and left a voicemail. Sent portal message. * Telephone Encounter - Johana Vega - 08/12/2019 2:52 PM CDT ----- Message from You Templeton MD sent at 08/12/2019 11:19 AM CDT ----- All her testing and Xrays have come back negative for RA, even her inflammatory markers. We discussed when we saw each other possibly pursuing an MRI for RA in this case, but she should be aware thatit may come back unrevealing, leaving her a bill but no closer to feeling better. If she would liketo do that to be absolutely complete, then we can do so. If she wants to, then it would be a MRI with and without contrast of her more painful hand. Thanks! ----- Message ----- From: Interface, Lab Results In Sent: 08/10/2019 6:43 PM To: You Templeton MD documented in this encounter Plan of Treatment Not on file documented as of this encounter Visit Diagnoses Not on filedocumented in this encounter Care Teams C2 Tactical Analysis Technician Relationship Specialty Start Date End Date Kana Rankin MD PCP - General Family Medicine 05/15/19 documented as of this encounter
--- OUTSIDE RECORDS SUMMARY | 2024-12-12 16:29 | XMS_ITS | Encounter Summary ---
Author Organization [facility] Healthcare Address [address] [place] [address] Care Team Providers Care Station Agent Name Role Phone Kana Rankin MD Primary Care Provider [phone] Reason for Visit * Diagnostic Imaging (Routine) - Closed Specialty Diagnoses / Procedures Referred By Contaline t Referred To Contact Diagnoses Chronic pain of both knees Procedures XR Knee Left 3 Views Bradley Hackett PA Phone: tel: fax: [facility] [address] Referral ID Status Reason Start Date Expiration Date Visits Re quested Visits Authorized [id number] Closed 05/15/2019 11/23/2020 1 1 Encounter Details Date Type Department Care Team (Latest Contact Info) Description 05/21/2019 2:30 PM CDT Ancillary Procedure [facility] [address] [place] [address] Bradley Hackett PA [address] [place] [address] Chronic pain of both knees Social History Tobacco Use Types Packs/Day Years Used Date Smoking Tobacco: Never Smokeless Tobacco: Never Alcohol Use Standard Drinks/Week Comments Yes 0 (1 standard drink = 0.6 oz pur e alcohol) Comments Unknown Sex and Gender Information Value Date Recorded Sex Assigned at Not on file Legal Sex Female 6:11 PM DIRECTOR CORPORATE SALES Gender Identity Not on file Sexual Orientation Straight 08/04/2020 2: 23 PM CDT 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 Not on file Not on file documented as of this encounter Plan of Treatment Not on file documented as of this encounter Procedures Procedure Name Priority Date/Time Associated Diagnosis Comments XR KNEE LEFT 3 VIEWS Schedule Routine, Read Routine (OP Routine) 05/21/2019 1:27 PM CDT Chronic pain of both knees documented in this encounter Results * XR Knee Left 3 Views (05/21/2019 [...] Visit Diagnoses Diagnosis Chronic pain of both knees documented in this encounter Care Teams Station Agent Relationship Specialty Start Date End Date Kana Rankin MD PCP - General Family Medicine 05/15/19 documented as of this encounter
--- OUTSIDE RECORDS SUMMARY | 2024-12-12 16:29 | XMS_ITS | Encounter Summary ---
Author Organization [facility] Healthcare Address [address] [place] [address] Care Team Providers Care Sander Machine Name Role Phone Unavailable Primary Care Provider Unavailabl e Encounter Details Date Type Department Care Team (Late st Contact Info) Description 10/26/2009 12:01 AM SUPERVISOR TYPE BAR AND SEGMENT - 10/26/2009 11:59 PM SUPERVISOR TYPE BAR AND SEGMENT Hospital Encounter [facility]CON[facility] Abdominal pain Social History Tobacco Use Types Packs/Day Years Used Date Smoking Tobacco: Never Assessed Comments Unknown Sex and Gender Information Value Date Recorded Sex Assigned at Not on file Legal Sex Female 6:11 PM SUPERVISOR TYPE BAR AND SEGMENT Gender Identity Not on file Sexual Orientation Straight 08/04/2020 2: 23 PM CDT documented as of this encounter Plan of Treatment Not on file documented as of this encounter Visit Diagnoses Diagnosis Abdominal pain Abdominal pain, unspecified site documented in this encounter
--- OUTSIDE RECORDS SUMMARY | 2024-12-12 16:29 | XMS_ITS | Encounter Summary ---
Author Organization [facility] Address [address] [place] [address] Phone Care Team Providers Care Paper Coating Machine Operator Name Role Phone Kana Rankin MD Primary Care Provider [phone] Encounter Details Date Type Department Care Team (Late st Contact Info) Description 08/19/[address]th [place] [address] [place] [address] Johana Vega Social History Tobacco Use Types Packs/Day Years Used Date Smoking Tobacco: Never Smokeless Tobacco: Never Alcohol Use Standard Drinks/Week Comments Yes 0 (1 standard drink = 0.6 oz pur e alcohol) Comments Unknown Sex and Gender Information Value Date Recorded Sex Assigned at Not on file Legal Sex Female 6:11 PM HOME HEALTH ATTENDANT Gender Identity Not on file Sexual Orientation Straight 08/04/2020 2: 23 PM CDT 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 And Sent portal message documented in this encounter Plan of Treatment Not on file documented as of this encounter Visit Diagnoses Not on filedocumented in this encounter Care Teams Paper Coating Machine Operator Relationship Specialty Start Date End Date Kana Rankin MD PCP - General Family Medicine 05/15/19 documented as of this encounter
--- OUTSIDE RECORDS SUMMARY | 2024-12-12 16:29 | XMS_ITS | Encounter Summary ---
Author Organization [facility] Address [address] [place] [address] Phone Care Team Providers Care Formula Clerk Name Role Phone Kana Rankin MD Primary Care Provider + [phone] Reason for Referral * (Routine) - Closed Specialty Diagnoses / Procedures Referred By Contac t Referred To Contact Diagnoses Primary osteoarthritis of both knees Procedures Large Joint Injection: bilateral knee Bradley Hackett PA Phone: tel: fax: [facility] (All Locations) Referral ID Status Reason Start Date Expiration Date Visits Re quested Visits Authorized [id number] Closed 11/26/2019 06/06/2021 1 1 CLERK Reason for Visit * Reason Comments Pain Injections Pain Injections Encounter Details Date Type Department Care Team (Latest Contact Info) Description 11/26/2019 1:30 PM ICU CLERK Office Visit [facility] Orthopaedic Surgery [address] [facility] 2[address] [place] [id number] Bradley Hackett PA [address] [place] [address] Primary osteoarthritis of both knees (Primary Dx) Social History Tobacco Use Types Packs/Day Years Used Date Smoking Tobacco: Never Smokeless Tobacco: Never Alcohol Use Standard Drinks/Week Comments Yes 0 (1 standard drink = 0.6 oz pur e alcohol) Comments Unknown Sex and Gender Information Value Date Recorded Sex Assigned at Not on file Legal Sex Female 6:11 PM ICU CLERK Gender Identity Not on file Sexual Orientation Straight 08/04/2020 2: 23 PM CDT 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 CLERK documented in this encounter Progress Notes * Bradley Hackett PA - 11/26/2019 1:30 PM CSTAssociated Order(s): Large Joint Injection: bilateral knee Post-Procedure Diagnose(s): Primary osteoarthritis of both knees ESTABLISHED PATIENT VISIT CHIEF COMPLAINT: Chief Complaint Patient presents with ??? Left Knee - Pain, Injections ??? Right Knee - Pain, Injections HISTORY OF PRESENT ILLNESS: 44-year-old female known to the service for conservative management of bilateral knee osteoarthritis returns today for repeat steroid injections. Patient noted significant relief of symptoms for approximately the last 5 months. Her rheumatologic workup was again negative. Continues with the Celebrex and tramadol. PHYSICAL EXAMINATION: Patient presents with her sister. Inspection both knees fails to demonstrate signs of infection joint effusion. XRAYS/REVIEW OF STUDIES: None ASSESSMENT/PLAN: Mild bilateral knee osteoarthritis responding to intermittent steroid injections Today we injected both knees with steroid. Patient was reminded to take it easy for the next coupledays. Follow up on an as-needed basis. Large Joint Injection: bilateral knee Date/Time: 11/26/2019 3:01 PM Performed by: MIKI Castillo Authorized by: [...] activities for the next few days. MIKI Vázquez-C [facility] Orthopedic Surgery CLERK documented in this encounter Plan of Treatment Not on file documented as of this encounter Procedures Procedure Name Priority Date/Time Associated Diagnosis Comments RI ARTHROCENTESIS ASPIR&/INJ MAJOR JT/BURSA W/O US Routine 11/26/2019 1:30 PM ICU CLERK Primary osteoarthritis of both knees documented in this encounter Results * RI ARTHROCENTESIS ASPIR&/INJ MAJOR JT/BURSA W/O US (11/26/2019 1:30 PM ICU CLERK) Narrative Bradley Hackett PA - 11/26/2019 1:30 PM ICU CLERK MIKI Castillo ? 11/26/2019 ??3:03 PM Large Joint Injection: bilateral knee Date/Time: 11/26/2019 3:01 PM Performed by: MIKI Castillo Authorized by: [...] mL, other, One-Time Injection, Starting on Damaris 11/26/19 at 1501, For 1 doseIndications:Primary osteoarthritis of both knees Given 11/26/2019 3:01 PM ICU CLERK 6 mL bupivacaine (MARCAINE) 0.5 % (5 mg/mL) injection 6 mL 6 mL, other, One-Time Injection, Starting on Damaris 11/26/19 at 1501, For 1 doseIndications:Primary osteoarthritis of both knees Given 11/26/2019 3:01 PM ICU CLERK 6 mL methylPREDNISolone acetate (DEPO-medrol) injection 80 mg 80 mg, intra-articular, One-Time Injection, Starting on Damaris 11/26/19 at 1501, For 1 doseIndications:Primary osteoarthritis of both knees Given 11/26/2019 3:01 PM ICU CLERK 80 mg methylPREDNISolone acetate (DEPO-medrol) injection 80 mg 80 mg, intra-articular, One-Time Injection, Starting on Damaris 11/26/19 at 1501, For 1 doseIndications:Primary osteoarthritis of both knees Given 11/26/2019 3:01 PM ICU CLERK 80 mg documented in this encounter Discontinued Medications Medication Sig Discontinue Reason Start Date End Da te celecoxib (CeleBREX) 100 mg capsule TK 1 C PO BID UTD Duplicate order 11/03/2019 11/26/2019 documented as of this encounter Historical Medications * This list may reflect changes made after this encounter. celecoxib (CeleBREX) 100 mg capsule TK 1 C PO BID UTD 1 11/03/2019 11/26/2019 added in this encounter Care Teams Formula Clerk Relationship Specialty Start Date End Date Kana Rankin MD PCP - General Family Medicine 05/15/19 documented as of this encounter
--- OUTSIDE RECORDS SUMMARY | 2024-12-12 16:29 | XMS_ITS | Encounter Summary ---
Author Organization [facility] Address [address] [place] [address] Care Team Providers Care Class B Driver Name Role Phone Kana Rankin MD Primary Care Provider [phone] Reason for Referral * Diagnostic Imaging (Routine) - Closed Specialty Diagnoses / Procedures Referred By Ashleyac t Referred To Contact Diagnoses Bilateral shoulder pain, unspecified chronicity Procedures XR Shoulder Right 2+ View Josefina Lopez RN Phone: tel: fax: [address] [phone] Referral ID Status Reason Start Date Expiration Date Visits Re quested Visits Authorized [id number] Closed 05/28/2019 12/06/2020 1 1 * Diagnostic Imaging (Routine) - Closed Specialty Diagnoses / Procedures Referred By Zoe t Referred To Contact Diagnoses Bilateral shoulder pain, unspecified chronicity Procedures XR Shoulder Left 2+ View Josefina Lopez RN Phone: tel: fax: [address] [phone] Referral ID Status Reason Start Date Expiration Date Visits Re quested Visits Authorized [id number] Closed 05/28/2019 12/06/2020 1 1 Reason for Visit * Diagnostic Imaging (Routine) - Closed Specialty Diagnoses / Procedures Referred By Contac t Referred To Contact Diagnoses Bilateral shoulder pain, unspecified chronicity Procedures XR Shoulder Left 2+ View Josefina Lopez RN Phone: tel: fax: [address] [phone] Referral ID Status Reason Start Date Expiration Date Visits Re quested Visits Authorized [id number] Closed 05/28/2019 12/06/2020 1 1 Encounter Details Date Type Department Care Team (Latest Contact Info) Description 05/29/2019 10:25 AM CDT - 05/29/2019 11:59 PM CDT Hospital Encounter [facility] [address] [place] [address] Kiet West MD [address] [address] Josefina Lopez RN [address] [facility] J[address] 6A/6B/[address]A [address] [address] Bilateral shoulder pain, unspecified chronicity Discharge Disposition: Discharge to home or self care Social History Tobacco Use Types Packs/Day Years Used Date Smoking Tobacco: Never Smokeless Tobacco: Never Alcohol Use Standard Drinks/Week Comments Yes 0 (1 standard drink = 0.6 oz pur e alcohol) Comments Unknown Sex and Gender Information Value Date Recorded Sex Assigned at Not on file Legal Sex Female 6:11 PM CLERICAL ADMINISTRATIVE ASSISTANT Gender Identity Not on file Sexual Orientation Straight 08/04/2020 2: 23 PM CDT 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 Not on file Not on file documented as of this encounter Medications at Time of Discharge albuterol HFA (PROVENTIL HFA,VENTOLIN HFA,PROAIR HFA) 90 mcg/actuation inhaler ProAir HFA 90 mcg/actuation aerosol inhaler celecoxib (CeleBREX) 200 mg capsule 200 in am and 100 in pm 1 04/09/2019 fluticasone propionate (FLONASE) 50 mcg/actuation nasal spray fluticasone propionate 50 mcg/actuation nasal spray,suspension hydroCHLOROthiaz lencho (HYDRODIURIL) 25 mg tabletIndication s:hypertension Take 1 tablet (25 mg total) by mouth digital marketing associate before breakfast 1 05/11/2019 metFORMIN (GLUCOPHAGE) 500 [...] Name Priority Date/Time Associated Diagnosis Comments XR SHOULDER RIGHT 2 OR MORE VIEWS Schedule Routine, Read Routine (OP Routine) 05/29/2019 10:33 AM CDT Bilateral shoulder pain, unspecified chronicity XR SHOULDER LEFT 2 OR MORE VIEWS Schedule Routine, Read Routine (OP Routine) 05/29/2019 10:33 AM CDT Bilateral shoulder pain, unspecified chronicity documented in this encounter Results * XR Shoulder Right 2+ View (05/29/2019 10:33 AM CDT) Anatomical Region Laterality Modality Upper Extremities, Shoulder Right Comp uted Radiography 05/29/2019 10:4 0 AM CDT Impressions 05/29/2019 10:40 AM CDT Mild bilateral acromioclavicular osteoarthritis. Electronically signed by: Marin Mata M.D. Narrative 05/29/2019 10:40 AM CDT EXAMINATION: 1. Left shoulder minimum 2 views. 2. Right shoulder minimum 2 views. HISTORY: ??Bilateral shoulder pain FINDINGS: 4 views of each shoulder are submitted for interpretation without comparison. The alignment of the left shoulder is anatomic. The glenohumeral joint space is normal. There is no fracture. There is mild acromioclavicular osteoarthritis. The alignment of the right shoulder is anatomic. The glenohumeral joint spaces normal. There is no fracture. There is mild acromioclavicular osteoarthritis. Procedure Note Marin Mata MD - 05/29/2019 EXAMINATION: 1. Left shoulder minimum 2 views. 2. Right shoulder minimum 2 views. HISTORY: Bilateral shoulder pain FINDINGS: 4 views of each shoulder are submitted for interpretation without comparison. The alignment of the left shoulder is anatomic. The glenohumeral joint space is normal. There is no fracture. There is mild acromioclavicular osteoarthritis. The alignment of the right shoulder is anatomic. The glenohumeral joint spaces normal. There is no fracture. There is mild acromioclavicular osteoarthritis. IMPRESSION: Mild bilateral acromioclavicular osteoarthritis. Electronically signed by: Marin Mata M.D. Josefina Lopez RN IMG XR PROCEDURES Final Result * XR Shoulder Left 2+ View (05/29/2019 10:33 AM CDT) Anatomical Region Laterality Modality Upper Extremities, Shoulder Left Comp uted Radiography 05/29/2019 10:4 0 AM CDT Impressions 05/29/2019 10:40 AM CDT Mild bilateral acromioclavicular osteoarthritis. Electronically signed by: Marin Mata M.D. [facility] 05/29/2019 10:40 AM CDT EXAMINATION: 1. Left shoulder minimum 2 views. 2. Right shoulder minimum 2 views. HISTORY: ??Bilateral shoulder pain FINDINGS: 4 views of each shoulder are submitted for interpretation without comparison. The alignment of the left shoulder is anatomic. The glenohumeral joint space is normal. There is no fracture. There is mild acromioclavicular osteoarthritis. The alignment of the right shoulder is anatomic. The glenohumeral joint spaces normal. There is no fracture. There is mild acromioclavicular osteoarthritis. Procedure Note Marin Mata MD - 05/29/2019 EXAMINATION: 1. Left shoulder minimum 2 views. 2. Right shoulder minimum 2 views. HISTORY: Bilateral shoulder pain FINDINGS: 4 views of each shoulder are submitted for interpretation without comparison. The alignment of the left shoulder is anatomic. The glenohumeral joint space is normal. There is no fracture. There is mild acromioclavicular osteoarthritis. The alignment of the right shoulder is anatomic. The glenohumeral joint spaces normal. There is no fracture. There is mild acromioclavicular osteoarthritis. IMPRESSION: Mild bilateral acromioclavicular osteoarthritis. Electronically signed by: Marin Mata M.D. Josefina Lopez RN IMG XR PROCEDURES Final Result documented in this encounter Visit Diagnoses Diagnosis Bilateral shoulder pain, unspecified chronicity documented in this encounter Care Teams Class B Driver Relationship Specialty Start Date End Date Kana Rankin MD PCP - General Family Medicine 05/15/19 documented as of this encounter
--- OUTSIDE RECORDS SUMMARY | 2024-12-12 16:29 | XMS_ITS | Encounter Summary ---
Author Organization [facility] Address [address] [place] [address] Care Team Providers Care Automatic Outsole Cutter Name Role Phone Kana Rankin MD Primary Care Provider [phone] Reason for Visit * Diagnostic Imaging (Routine) - Closed Specialty Diagnoses / Procedures Referred By Contaline t Referred To Contact Diagnoses Chronic pain of both knees Procedures XR Knee Right 3 Views Bradley Hackett PA Phone: tel: fax: [place] [address] [address] Referral ID Status Reason Start Date Expiration Date Visits Re quested Visits Authorized [id number] Closed 05/15/2019 11/23/2020 1 1 Encounter Details Date Type Department Care Team (Latest Contact Info) Description 05/21/2019 2:15 PM CDT Ancillary Procedure [facility] Imaging [address] [place] [address] Gabino Montes MD [address] [place] [address] Bradley Hackett PA [address] [place] [address] Chronic pain of both knees Social History Tobacco Use Types Packs/Day Years Used Date Smoking Tobacco: Never Smokeless Tobacco: Never Alcohol Use Standard Drinks/Week Comments Yes 0 (1 standard drink = 0.6 oz pur e alcohol) Comments Unknown Sex and Gender Information Value Date Recorded Sex Assigned at Not on file Legal Sex Female 6:11 PM SHOP CLERK Gender Identity Not on file Sexual Orientation Straight 08/04/2020 2: 23 PM CDT 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 Not on file Not on file documented as of this encounter Plan of Treatment Not on file documented as of this encounter Procedures Procedure Name Priority Date/Time Associated Diagnosis Comments XR KNEE RIGHT 3 VIEWS Schedule Routine, Read Routine (OP Routine) 05/21/2019 1:28 PM CDT Chronic pain of both knees [...] Electronically signed by: Tk Canales MD, PHD us Bradley [place] IMG XR PROCEDURES Final Resul t documented in this encounter Visit Diagnoses Diagnosis Chronic pain of both knees documented in this encounter Care Teams Automatic Outsole Cutter Relationship Specialty Start Date End Date Kana Rankin MD PCP - General Family Medicine 05/15/19 documented as of this encounter
--- OUTSIDE RECORDS SUMMARY | 2024-12-12 16:29 | XMS_ITS | Encounter Summary ---
Author Organization [facility] Address [address] [place] [address] Phone Care Team Providers Care Supervisor Landscape Name Role Phone Kana Rankin MD Primary Care Provider [phone] Reason for Referral * Diagnostic Imaging (Routine) - Closed Specialty Diagnoses / Procedures Referred By Zoe arndt Referred To Contact Diagnoses Bilateral shoulder pain, unspecified chronicity Procedures XR Shoulder Left 2+ View Josefina Lopez RN Phone: tel: fax: [address] [address] Referral ID Status Reason Start Date Expiration Date Visits Re quested Visits Authorized [id number] Closed 05/28/2019 12/06/2020 1 1 * Diagnostic Imaging (Routine) - Closed Specialty Diagnoses / Procedures Referred By Zoe arndt Referred To Contact Diagnoses Bilateral shoulder pain, unspecified chronicity Procedures XR Shoulder Right 2+ View Josefina Lopez RN Phone: tel: fax: [address] [address] Referral ID Status Reason Start Date Expiration Date Visits Re quested Visits Authorized [id number] Closed 05/28/2019 12/06/2020 1 1 Encounter Details Date Type Department Care Team (Late st Contact Info) Description 05/29/2019 10:45 AM CDT Office Visit [facility] Orthopaedic Surgery [address] [facility] [address] [place] [address] [place] [address] Josefina Lopez, RN [address] [facility] [address]A/6B/12A [address] [place] [address] Bilateral shoulder pain, unspecified chronicity (Primary Dx) Social History Tobacco Use Types Packs/Day Years Used Date Smoking Tobacco: Never Smokeless Tobacco: Never Alcohol Use Standard Drinks/Week Comments Yes 0 (1 standard drink = 0.6 oz pur e alcohol) Comments Unknown Sex and Gender Information Value Date Recorded Sex Assigned at Not on file 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 The onset of pain began approximately 2 months ago. She states she has had pain in multiple joints recently. She denies any falls or injuries. She describes her pain as aching. She feels her pain is severe. She complains of difficulty sleeping at night due to pain. She also complains of pain with overhead activities. She denies a history of physical therapy or steroid injections for her shoulder. Her medications include tramadol and celecoxib. She recently underwent bilateral knee steroid injections on May 21, 2019. She feels her recent knee injections have provided her with good pain relief in multiple joints. She is being referred to a digital technician and states they are calling for an appointment. She has a medical history which includes acid reflux, hypertension, 1 functioning kidney, and diabetes. 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 PAST MEDICAL/SURGICAL HISTORY Reviewed medical history with the patient. INITIAL REVIEW OF MEDICATIONS Reviewed medications with the patient. DRUG ALLERGIES Reviewed allergies with the patient. SOCIAL HISTORY Reviewed social history with patient. FAMILY HISTORY Reviewed family history with patient. REVIEW OF SYSTEMS Per patient questionnaire PHYSICAL EXAMINATION General: Well-appearing; no acute distress. Eyes: PERRLA, extra-ocular movements intact. Cardiovascular: Well perfused, no edema. Respiratory: Normal respiratory rate, unlabored respirations. Psychiatric: normal mood an affect. Neurologic: Alert and oriented x 3, normal tone. Skin: The skin is intact. Skin is warm and well perfused. Musculoskeletal: Scapular posture is symmetric.No visible cuff atrophy noted bilaterally. Exam of bilateral shoulders today shows active forward elevation in the scapular plane 170?? bilaterally, external rotation with the arm at the side 40?? bilaterally, and true glenohumeral abduction 90?? bilaterally. External rotation with the arm in 90 degrees abduction is 90?? bilaterally. Internal rotation behind the back is thoracic 12 level on the right with a pulling sensation compared to thoracic 7 level on the left. The patient has good strength bilaterally with thumbs-down abduction and with external rotation with the arms at the side. Lag sign is negative bilaterally. Abdominal compression test is negative bilaterally. Bear hug test good strength bilaterally and right shoulder pain. Hornblowers's sign is negative bilaterally. Impingement testing is positive on the right and negative on the left. The acromioclavicular joint is nontender bilaterally and pain on the right no pain on the left with cross body adduction. Biceps strength with Speeds and Yergason's negative bilaterally. There is no pain bilaterally to palpation over the proximal bicipital groove. Lumpkin's test is positive on the right and negative on the left. Apprehension testing in supine position is negative bilaterally. Pain on the right and no pain on the left with Drawer testing in thesupine position. REVIEW OF X-RAYS/STUDIES X-rays of bilateral shoulders were performed and reviewed today. Four views of bilateral shoulder show acromioclavicular joint osteoarthritis bilaterally. The glenohumeral joint space and alignment are normal bilaterally. IMPRESSION/DIAGNOSIS The patient is a 43-year-old female with a recent history of bilateral shoulder pain. The patient feels her pain has significantly improved since she underwent bilateral knee injections on May 21, 2019. She has good bilateral shoulder range of motion and good rotator cuff strength bilaterally. Shedoes localize some pain in the deep and lateral shoulder regions on the right today. She feels overall she has had good pain relief throughout her body. TREATMENT PLAN The physical exam findings, xrays, and impression were discussed with the patient today. We discussed options for treatment with the patient. We discussed conservative treatment options to include physical therapy or home exercise program. I informed her would not recommend steroid injections at this time due to recent steroid injections performed on May 21, 2019. Also the patient reports improved pain relief in her shoulders today since the knee injections. The patient states she is going to follow up with her primary care physician and her digital technician. She would like to proceed with a home exercise program at this time. I instructed the patient to call or follow up if increased shoulder pain. The patient verbalized understanding. Questions were answered. She should not hesitate to call our office with any questions or concerns. FOLLOW UP Follow-up as needed. Josefina Lopez MSN, RN, ANP-C. In collaborative practice with Dr. Kiet West today. Shoulder and Elbow Nurse Practitioner [facility] documented in this encounter Plan of Treatment Not on file documented as of this encounter Results * XR Shoulder Left 2+ View (05/29/2019 [...] XR PROCEDURES Final Result * XR Shoulder Right 2+ View (05/29/2019 [...] Visit Diagnoses Diagnosis Bilateral shoulder pain, unspecified chronicity- Primary Bilateral shoulder pain, unspecified chronicity documented in this encounter Care Teams Supervisor Landscape Relationship Specialty Start Date End Date Kana Rankin MD PCP - General Family Medicine 05/15/19 documented as of this encounter
--- OUTSIDE RECORDS SUMMARY | 2024-12-12 16:29 | XMS_ITS | Encounter Summary ---
Author Organization [facility] Address [address] [place] [address] Phone Care Team Providers Care Knock Out Hand Name Role Phone Kana Rankin MD Primary Care Provider [phone] Encounter Details Date Type Department Care Team (Late st Contact Info) Description 05/21/2019 Orders Only [facility] Orthopaedic Surgery [address] [facility] 2nd [address] [place] [address] Danielle Monroe, ATC Social History Tobacco Use Types Packs/Day Years Used Date Smoking Tobacco: Never Smokeless Tobacco: Never Alcohol Use Standard Drinks/Week Comments Yes 0 (1 standard drink = 0.6 oz pur e alcohol) Comments Unknown Sex and Gender Information Value Date Recorded Sex Assigned at Not on file 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 montelukast (SINGULAIR) 10 mg tablet Take 1 tablet (10 mg total) by mouth nightly fluticasone propionate (FLONASE) 50 mcg/actuation nasal spray fluticasone propionate 50 mcg/actuation nasal spray,suspension albuterol HFA (PROVENTIL HFA,VENTOLIN HFA,PROAIR HFA) 90 mcg/actuation inhaler ProAir HFA 90 mcg/actuation aerosol inhaler acetaminophen-c odeine (TYLENOL with CODEINE #3) 300-30 mg per tablet acetaminophen 300 mg-codeine 30 mg tablet 05/03 19 topiramate (TROKENDI XR) 25 mg capsule,extende d release 24hr Trokendi XR 25 mg capsule,extended release 05/21/[address] (PROTONIX) 40 mg EC tablet pantoprazole 40 mg tablet,delayed release 05/21 19 oxyCODONE-aceta minophen (PERCOCET) 5-325 mg per tablet oxycodone-acetaminophen 5 mg-325 mg tablet 05/21/20 19 olmesartan (BENICAR) 5 mg tablet olmesartan 5 mg tablet 19 niacin, inositol niacinate, 400 mg niacin (500 mg) capsule daily 05/21/20 19 levoFLOXacin (LEVAQUIN) 750 mg tablet levofloxacin 750 mg tablet 05/21/20 19 levoFLOXacin (LEVAQUIN) 500 mg tablet daily 05/21/[address] (NexIUM) 40 mg capsule Take 40 mg by mouth daily before breakfast 05/10 22 doxycycline (doxycycline hyclate) 100 mg capsule doxycycline hyclate 100 mg capsule 05/21/20 19 dexlansoprazole (DEXILANT) 60 mg capsule Dexilant 60 mg capsule, delayed release Take 1 capsule(s) every day by oral route for 56 days. 08/15/20 20 ciprofloxacin (CIPRO) 500 mg tablet ciprofloxacin 500 mg tablet 05/21/20 19 cetirizine (ZyrTEC) 10 mg tablet cetirizine 10 mg tablet 0 05/21/20 19 atorvastatin (LIPITOR) 20 mg tablet Take 20 mg by mouth nightly 05/10/20 22 aspirin 81 mg enteric coated tablet aspirin 81 mg tablet,delayed release 05/21 19 amoxicillin-cla vulanate (AUGMENTIN) 500-125 mg per tablet amoxicillin 500 mg-potassium clavulanate 125 mg tablet 05/21/20 19 adapalene-benzo yl peroxide (EPIDUO FORTE) 0.3-2.5 % gel with pump Epiduo Forte 0.3 %-2.5 % topical gel with pump 05/03 19 norethin-e.estr adiol triphasic (NECON , ,) 0.5/0.75/1 mg- 35 mcg per tablet Necon (28) 0.5 mg/0.75 mg/1 mg-35 mcg tablet 05/21/20 19 methylPREDNISol one (MEDROL DOSEPACK) 4 mg Dosepack methylprednisolone 4 mg tablets in a dose pack 05/21 19 diclofenac sodium (VOLTAREN) 1 % gel diclofenac 1 % topical gel 05/21/20 19 added in this encounter Care Teams Knock Out Hand Relationship Specialty Start Date End Date Kana Rankin MD PCP - General Family Medicine 05/15/19 documented as of this encounter
--- OUTSIDE RECORDS SUMMARY | 2024-12-12 16:54 | XMS_ITS | Encounter Summary ---
Author Organization [facility] Address [address] [place] [address] Care Team Providers Care Jalousie Installer Name Role Phone Kana Rankin MD Primary Care Provider [phone] Encounter Details Date Type Department Care Team [...] Description 04/29/2025 11:00 AM CDT Office Visit [facility] Oncology and Hematology - [place] [address] [place] [address] [address] [place] [address] Eduard Baumann MD [address] [place] [address] [address] [place] [address] documented as of this encounter Visit Diagnoses Not on filedocumented in this encounter Care Teams Jalousie Installer Relationship Specialty Start Date End Date Kana Rankin MD [address] [place] [address] PCP - General Family Practice 05/01/23 documented as of this encounter
--- OUTSIDE RECORDS SUMMARY | 2024-12-12 16:54 | XMS_ITS | Encounter Summary ---
Author Organization [facility] Address [address] [place] [address] Care Team Providers Care Library Services Dean Name Role Phone Kana Rankin MD Primary Care Provider [phone] Encounter Details Date Type Department Care Team [...] 04/29/2025 11:00 AM CDT Office Visit [facility] Oncology and Hematology - [address] [place] [address] Eduard Baumann MD [address] [facility] [address] [place] [address] documented as of this encounter Visit Diagnoses Not on filedocumented in this encounter Care Teams Library Services Dean Relationship Specialty Start Date End Date Kana Rankin MD [address] [place] [address] PCP - General Family Practice 05/01/23 documented as of this encounter
--- OUTSIDE RECORDS SUMMARY | 2024-12-12 16:54 | XMS_ITS | Encounter Summary ---
Author Organization [facility] Address [address] [place] [address] Care Team Providers Care Spike Machine Operator Name Role Phone Kana Rankin [...] Description 04/29/2025 11:00 AM CDT Office Visit [facility] Oncology and Hematology - [place] [address] [place] [address] [address] [place] [address] Eduard Baumann MD [address] [place] [address] [address] [place] [address] documented as of this encounter Visit Diagnoses Not on filedocumented in this encounter Care Teams Spike Machine Operator Relationship Specialty Start Date End Date Kana Rankin MD [address] [place] [address] PCP - General Family Practice 05/01/23 documented as of this encounter
--- OUTSIDE RECORDS SUMMARY | 2024-12-12 16:54 | XMS_ITS | Encounter Summary ---
Author Organization [facility] Address [address] [place] [address] Care Team Providers Care Hand Laster Name Role Phone Kana Rankin MD Primary Care Provider [phone] Encounter Details Date Type Department Care Team [...] Description 04/29/2025 11:00 AM CDT Office Visit [facility] Oncology and Hematology - [address] [place] [address] Eduard Baumann MD [address] [facility] [address] [place] [address] documented as of this encounter Visit Diagnoses Not on filedocumented in this encounter Care Teams Hand Laster Relationship Specialty Start Date End Date Kana Rankin MD [address] [place] [address] PCP - General Family Practice 05/01/23 documented as of this encounter
--- OUTSIDE RECORDS SUMMARY | 2024-12-12 16:54 | XMS_ITS | Encounter Summary ---
Author Organization [facility] [employer] [facility] Address [address] [place] [address] Care Team Providers Care Form Coverer Name Role Phone Kana Rankin MD Primary Care Provider [phone] Encounter Details Date Type Department Care Team (Late Contact Info) Description 03/04/2024 Orders Only [facility] Oncology and Hematology - An[address] [place] [address] Eduard Baumann MD [facility] [employer] [address] [place] [address] Social History Tobacco Use Types Packs/Day [...] Description 04/29/2025 11:00 AM CDT Office Visit [facility] Oncology and Hematology - [address] [place] [address] Eduard Baumann MD [address] [employer] [place] [address] documented as of this encounter Procedures Procedure Name Priority Date/Time Associated Diagnosis Comments COMPREHENSIVE METABOLIC PANEL Routine 03/02/2024 9:46 AM CDT documented in this encounter Results * COMPREHENSIVE METABOLIC PANEL (03/02/2024 9:46 AM CDT) Blood Eduard Baumann MD CHEMISTRY ORDERABLES documented in this encounter Visit Diagnoses Not on filedocumented in this encounter Care Teams Form Coverer Relationship Specialty Start Date End Date Kana Rankin MD [address] [place] [address] PCP - General Family Practice 05/01/23 documented as of this encounter
--- OUTSIDE RECORDS SUMMARY | 2024-12-12 16:54 | XMS_ITS | Clinical Summary ---
Author Organization [facility] Administrative Offices Address [address] [place] [address] Care Team Providers Care Cardiopulmonary Physical Therapist Name Role Phone Kana Rankin MD Primary Care Provider [phone] Allergies No known active allergies Medications Medication [...] Description 10/02/2024 10:00 AM CDT Office Visit [facility] Oncology and Hematology [facility] [address] [place] [address] Elvia Benton MD Polycythemia, secondary (Primary Dx) 10/02/2024 Orders Only [facility] Oncology and Hematology [facility] [address] [place] [address] Eduard Baumann MD 09/15/2024 External Device Data [...] [facility] Oncology and Hematology [facility] [address] [facility] [address] [place] [address] Eduard Baumann MD [address] [facility] [address] [place] [address] Health Maintenance Due Date Last [...] S from Last 3 Months Care Teams Cardiopulmonary Physical Therapist Relationship Specialty Start Date End Date Kana Rankin MD [address] [place] [address] PCP - General Family Practice 05/01/23
--- OUTSIDE RECORDS SUMMARY | 2024-12-12 16:54 | XMS_ITS | Encounter Summary ---
Author Organization [facility] Address [address] [place] [address] Care Team Providers Care Flotation Operator Name Role Phone Kana Rankin MD Primary Care Provider [phone] Encounter Details Date Type Department Care Team [...] [facility] Oncology and Hematology - [address] [place] [address] Eduard Baumann MD [address] [place] [address] [address] [place] [address] documented as of this encounter Visit Diagnoses Not on filedocumented in this encounter Care Teams Flotation Operator Relationship Specialty Start Date End Date Kana Rankin MD [address] [place] [address] PCP - General Family Practice 05/01/23 documented as of this encounter
--- OUTSIDE RECORDS SUMMARY | 2024-12-12 16:54 | XMS_ITS | Encounter Summary ---
Author Organization [facility] Address [address] [place] [address] Care Team Providers Care Chief Estimator Name Role Phone Kana Rankin MD Primary Care Provider [phone] Encounter Details Date Type Department Care Team [...] Description 04/29/2025 11:00 AM CDT Office Visit [facility] Oncology and Hematology - [address] [place] [address] Eduard Baumann MD [address] [facility] [address] [place] [address] documented as of this encounter Visit Diagnoses Not on filedocumented in this encounter Care Teams Chief Estimator Relationship Specialty Start Date End Date Kana Rankin MD [address] [place] [address] PCP - General Family Practice 05/01/23 documented as of this encounter
--- OUTSIDE RECORDS SUMMARY | 2024-12-12 16:54 | XMS_ITS | Encounter Summary ---
Author Organization [facility] [employer] [facility] Address [address] [place] [address] Care Team Providers Care Server Security Administrator Name Role Phone Kana Rankin MD Primary Care Provider [phone] Reason for Visit * Reason Comments Follow Up Encounter Details Date Type Department Care Team (Late st Contact Info) Description 10/02/2024 10:00 AM CDT Office Visit [facility] Oncology and Hematology - [address] [place] [address] Elvia Benton MD [address] [place] [address] Polycythemia, secondary (Primary Dx) Social [...] [facility] On[facility] Hematology - [place] [address] [place] [address] [address] [place] [address] Eduard Baumann MD [address] [facility] [address] [place] [address] Scheduled Orders Name Type Priority Associated Diagnoses Orde r Schedule CBC WITH DIFFERENTIAL Lab Routine Polycythemia, secondary Expected: 04/01/2025, Expires: 10/02/2025 COMPREHENSIVE METABOLIC PANEL Lab Stat Polycythemia, secondary Expected: 04/01/2025, Expires: 10/02/2025 documented as of this encounter Visit Diagnoses Diagnosis Polycythemia, secondary- Primary documented in this encounter Care Teams Server Security Administrator Relationship Specialty Start Date End Date Kana Rankin MD [address] [place] [address] PCP - General Family Practice 05/01/23 documented as of this encounter
--- OUTSIDE RECORDS SUMMARY | 2024-12-12 16:54 | XMS_ITS | Encounter Summary ---
Author Organization [facility] Address [address] [place] [address] Care Team Providers Care Group Sales Representative Name Role Phone Kana Rankin MD Primary Care Provider [phone] Encounter Details Date Type Department Care Team [...] Description 04/29/2025 11:00 AM CDT Office Visit [facility] Oncology and Hematology - [place] [place] [address] [address] [place] [address] Eduard Baumann MD [address] [place] [address] [address] [place] [address] documented as of this encounter Visit Diagnoses Not on filedocumented in this encounter Care Teams Group Sales Representative Relationship Specialty Start Date End Date Kana Rankin MD [address] [place] [address] PCP - General Family Practice 05/01/23 documented as of this encounter
--- OUTSIDE RECORDS SUMMARY | 2024-12-12 16:54 | XMS_ITS | Encounter Summary ---
Author Organization [facility] [employer] [facility] Address [address] [place] [address] Care Team Providers Care Plant Operations Manager Name Role Phone Kana Rankin MD Primary Care Provider [phone] Reason for Visit * Reason Comments Follow Up Encounter Details Date Type Department Care Team (Late st Contact Info) Description 12/16/2023 2:15 PM COMPOSITE ASSEMBLER Office Visit [facility] Oncology and Hematology - [place] [address] [place] [address] [address] [place] [address] Eduard Baumann MD [address] [facility] [address] [place] [address] Polycythemia, secondary (Primary Dx) Social History Tobacco Use Types Packs/Day Years Used Date Smoking Tobacco: Never Assessed Sex and Gender Information Value Date Recorded Sex Assigned at Not on file Gender Identity Not on file Sexual Orientation Not on file documented as of this encounter Last Filed Vital Signs Vital Sign Reading Time Taken Comments Blood Pressure 141/88 12/16/2023 2:25 PM COMPOSITE ASSEMBLER Pulse 89 12/16/2023 2:23 PM COMPOSITE ASSEMBLER Temperature 36.3 ??C (97.3 ??F) 12/16/2023 2:23 PM CS T Respiratory Rate 10 12/16/2023 2:23 PM COMPOSITE ASSEMBLER Oxygen Saturation 96% 12/16/2023 2:23 PM COMPOSITE ASSEMBLER Inhaled Oxygen Concentration - - Weight 103.9 kg (229 lb) 12/16/2023 2:23 PM COMPOSITE ASSEMBLER Height - - Body Mass Index - [...] a tobacco/nicotine user. 12/16/2023 Eduard Baumann MD OSITE ASSEMBLER documented in this encounter Plan of Treatment Upcoming Encounters Date Type Department Care Team (Late st Contact Info) Description 04/29/2025 11:00 AM CDT Office Visit [facility] Oncology and Hematology - Anibal [address] [place] [address] [address] [place] [address] Eduard Baumann MD [address] [facility] [address] [place] [address] Scheduled Orders Name Type Priority Associated Diagnoses Orde r Schedule CBC WITH DIFFERENTIAL Lab Stat Polycythemia, secondary Expected: 03/09/2024, Expires: 12/16/2024 BASIC METABOLIC PANEL Lab Stat Polycythemia, secondary Expected: 03/09/2024, Expires: 12/16/2024 documented as of this encounter Visit Diagnoses Diagnosis Polycythemia, secondary- Primary documented in this encounter Care Teams Plant Operations Manager Relationship Specialty Start Date End Date Kana Rankin MD [address] [place] [address] PCP - General Family Practice 05/01/23 documented as of this encounter
--- OUTSIDE RECORDS SUMMARY | 2024-12-12 16:54 | XMS_ITS | Encounter Summary ---
Author Organization [facility] Address [address] [place] [address] Care Team Providers Care Auditor Appraiser Name Role Phone Kana Rankin MD Primary Care Provider [phone] Encounter Details Date Type Department Care Team [...] Description 04/29/2025 11:00 AM CDT Office Visit [facility] Oncology and Hematology - [address] [place] [address] Eduard Baumann MD [address] [facility] [address] [place] [address] documented as of this encounter Visit Diagnoses Not on filedocumented in this encounter Care Teams Auditor Appraiser Relationship Specialty Start Date End Date Kana Rankin MD [address] [place] [address] PCP - General Family Practice 05/01/23 documented as of this encounter
--- OUTSIDE RECORDS SUMMARY | 2024-12-12 16:54 | XMS_ITS | Encounter Summary ---
Author Organization [facility] Address [address] [place] [address] Care Team Providers Care Blindmaker Name Role Phone Kana Rankin MD Primary Care Provider [phone] Encounter Details Date Type Department Care Team [...] 04/29/2025 11:00 AM CDT Office Visit [facility] Oncology and Hematology - Anibal [address] [place] [address] [address] [place] [address] Eduard Baumann MD [address] [place] [address] [address] [place] [address] documented as of this encounter Visit Diagnoses Not on filedocumented in this encounter Care Teams Blindmaker Relationship Specialty Start Date End Date Kana Rankin MD [address] [place] [address] PCP - General Family Practice 05/01/23 documented as of this encounter
--- OUTSIDE RECORDS SUMMARY | 2024-12-12 16:54 | XMS_ITS | Encounter Summary ---
Author Organization [facility] Address [address] [place] [address] Care Team Providers Care Lead Oxide Mill Tender Name Role Phone Kana Rankin MD Primary Care Provider [phone] Encounter Details Date Type Department Care Team [...] Description 04/29/2025 11:00 AM CDT Office Visit [facility] Oncology and Hematology - [address] [place] [address] Eduard Baumann MD [address] [facility] [address] [place] [address] documented as of this encounter Visit Diagnoses Not on filedocumented in this encounter Care Teams Lead Oxide Mill Tender Relationship Specialty Start Date End Date Kana Rankin MD [address] [place] [address] PCP - General Family Practice 05/01/23 documented as of this encounter
--- OUTSIDE RECORDS SUMMARY | 2024-12-12 16:54 | XMS_ITS | Encounter Summary ---
Author Organization [facility] Address [address] [place] [address] Care Team Providers Care Moving Picture Operator Name Role Phone Kana Rankin MD Primary Care Provider [phone] Encounter Details Date Type Department Care Team [...] AM CDT Office Visit [facility] Oncology and Hematology - Anibal [address] [place] [address] [address] [place] [address] Eduard Baumann MD [address] [place] [address] [address] [place] [address] documented as of this encounter Visit Diagnoses Not on filedocumented in this encounter Care Teams Moving Picture Operator Relationship Specialty Start Date End Date Kana Rankin MD [address] [place] [address] PCP - General Family Practice 05/01/23 documented as of this encounter
--- OUTSIDE RECORDS SUMMARY | 2024-12-12 16:54 | XMS_ITS | Encounter Summary ---
Author Organization [facility] [employer] [facility] Address [address] [place] [address] Care Team Providers Care Grease Buffer Name Role Phone Kana Rankin MD Primary Care Provider [phone] Encounter Details Date Type Department Care Team (Late Contact Info) Description 10/02/2024 Orders Only [facility] Oncology and Hematology - [address] [place] [address] Eduard Baumann MD [facility] [employer] [address] [place] [address] Social History Tobacco Use Types Packs/Day [...] [facility] H[facility]ology - [address] [place] [address] Eduard Baumann MD [address] [employer] [address] [place] [address] documented as of this encounter Procedures [...] on filedocumented in this encounter Care Teams Grease Buffer Relationship Specialty Start Date End Date Kana Rankin MD [address] [place] [address] PCP - General Family Practice 05/01/23 documented as of this encounter
--- OUTSIDE RECORDS SUMMARY | 2024-12-12 16:54 | XMS_ITS | Encounter Summary ---
Author Organization [employer] [facility] Address [address] [place] [address] Care Team Providers Care Hospital Corpsman Name Role Phone Kana Rankin MD Primary Care Provider [phone] Reason for Visit * CT Scan (Routine) - Closed Specialty Diagnoses / Procedures Referred By Zoe arndt Referred To Contact Diagnoses Stomach ache Procedures CT ABDOMEN [place] [address] [place] [address] Referral ID Status Reason Start Date Expiration Date Visits Re quested Visits Authorized [id number] Closed 03/03/2024 06/01/2024 1 1 Encounter Details Date Type Department Care Team (Late Contact Info) Description 03/08/2024 9:00 AM CDT Ancillary Procedure [employer] [facility] [address] [place] [address] [place] [address] [place] [address] Stomach ache Social History Tobacco [...] [facility] Oncology and Hematology - [address] [place] [address] Eduard Baumann MD [address] [facility] [address] [place] [address] documented as of this encounter Procedures [...] stomach documented in this encounter Care Teams Hospital Corpsman Relationship Specialty Start Date End Date Kana Rankin MD [address] [place] [address] PCP - General Family Practice 05/01/23 documented as of this encounter
--- OUTSIDE RECORDS SUMMARY | 2024-12-12 16:54 | XMS_ITS | Encounter Summary ---
Author Organization [facility] [employer] [facility] Address [address] [place] [address] Care Team Providers Care Groover Runner Name Role Phone Kana Rankin MD Primary Care Provider [phone] Encounter Details Date Type Department Care Team (Late st Contact Info) Description 12/17/2023 Orders Only [facility] Oncology and Hematology - [address] [place] [address] Eduard Baumann MD [facility] [employer] [address] [place] [address] Social History Tobacco Use Types Packs/Day Years [...] [facility] Oncology and Hematology - [address] [place] [address] Eduard Baumann MD [address] [employer] [address] [place] [address] documented as of this encounter Procedures Procedure Name Priority Date/Time Associated Diagnosis Comments CBC WITH DIFFERENTIAL Routine 12/16/2023 10:01 AM WAISTLINE JOINER OVERLOCK BASIC METABOLIC PANEL Routine 12/16/2023 10:00 AM WAISTLINE JOINER OVERLOCK COMPREHENSIVE METABOLIC PANEL Routine 12/16/2023 9:26 AM WAISTLINE JOINER OVERLOCK documented in this encounter Results * CBC WITH DIFFERENTIAL (12/16/2023 10:01 AM WAISTLINE JOINER OVERLOCK) Blood Eduard Baumann MD HEMATOLOGY ORDERABLE S * BASIC METABOLIC PANEL (12/16/2023 10:00 AM WAISTLINE JOINER OVERLOCK) Blood Eduard Baumann MD CHEMISTRY ORDERABLES * COMPREHENSIVE METABOLIC PANEL (12/16/2023 9:26 AM WAISTLINE JOINER OVERLOCK) Blood Eduard Baumann MD CHEMISTRY ORDERABLES documented in this encounter Visit Diagnoses Not on filedocumented in this encounter Care Teams Groover Runner Relationship Specialty Start Date End Date Kana Rankin MD [address] [place] [address] PCP - General Family Practice 05/01/23 documented as of this encounter
--- OUTSIDE RECORDS SUMMARY | 2024-12-12 16:54 | XMS_ITS | Encounter Summary ---
Author Organization [facility] Address [address] [place] [address] Care Team Providers Care Health Education Aide Name Role Phone Kana Rankin MD Primary Care Provider [phone] Encounter Details Date Type Department Care Team [...] Description 04/29/2025 11:00 AM CDT Office Visit [facility] Oncology and Hematology - [address] [place] [address] Eduard Baumann MD [address] [facility] [address] [place] [address] documented as of this encounter Visit Diagnoses Not on filedocumented in this encounter Care Teams Health Education Aide Relationship Specialty Start Date End Date Kana Rankin MD [address] [place] [address] PCP - General Family Practice 05/01/23 documented as of this encounter
--- OUTSIDE RECORDS SUMMARY | 2024-12-12 16:54 | XMS_ITS | Encounter Summary ---
Author Organization [facility] [employer] [facility] Address [address] [place] [address] Care Team Providers Care Fish Culturist Name Role Phone Kana Rankin MD Primary Care Provider [phone] Reason for Visit * Reason Comments Follow Up Encounter Details Date Type Department Care Team (Late st Contact Info) Description 03/02/2024 11:30 AM CDT Office Visit [facility] Oncology and Hematology - Anibal [address] [facility] [address] [place] [address] Eduard Baumann MD [address] [facility] [address] [place] [address] Polycythemia, secondary (Primary Dx) Social [...] Description 04/29/2025 11:00 AM CDT Office Visit [facility] Oncology and Hematology - Anibal [address] [facility] [address] [place] [address] Eduard Baumann MD [address] [facility] [address] [place] [address] Scheduled Orders Name Type Priority Associated Diagnoses Orde r Schedule CBC WITH DIFFERENTIAL Lab Stat Polycythemia, secondary Expected: 09/01/2024, Expires: 03/02/2025 BASIC METABOLIC PANEL Lab Stat Polycythemia, secondary Expected: 09/01/2024, Expires: 03/02/2025 documented as of this encounter Visit Diagnoses Diagnosis Polycythemia, secondary- Primary documented in this encounter Care Teams Fish Culturist Relationship Specialty Start Date End Date Kana Rankin MD [address] [place] [address] PCP - General Family Practice 05/01/23 documented as of this encounter
--- OUTSIDE RECORDS SUMMARY | 2024-12-12 16:55 | XMS_ITS | Encounter Summary ---
Author Organization [facility] [employer] [facility] Address [address] [place] [address] Care Team Providers Care Water Resource Agent Name Role Phone Kana Rankin MD Primary Care Provider [phone] Encounter Details Date Type Department Care Team (Late Contact Info) Description 05/31/2023 Orders Only [facility] Oncology and Hematology [address] [place] [phone] Eduard Baumann MD [facility] [employer] [address] [place] [address] Social History Tobacco Use Types Packs/Day Years Used Date Smoking Tobacco: Never Assessed Sex and Gender Information Value Date Recorded Sex Assigned at Not on file Gender Identity Not on file Sexual Orientation Not on file documented as of this encounter Plan of Treatment Upcoming Encounters Date Type Department Care Team (Late Contact Info) Description 04/29/2025 11:00 AM CDT Office Visit [facility] Oncology and Hematology - Anibal [address] [place] [address] Eduard Baumann MD [address] [employer] [address] [place] [address] documented as of this encounter Procedures Procedure Name Priority Date/Time Associated Diagnosis Comments BCR/ABL BY PCR Routine 05/28/2023 3:02 PM CDT documented in this encounter Results * BCR/ABL1, MONITORING QUANTITATIVE (05/28/2023 3:02 PM CDT) Eduard Baumann MD BODY FLUIDS AND STOO LS documented in this encounter Visit Diagnoses Not on filedocumented in this encounter Care Teams Water Resource Agent Relationship Specialty Start Date End Date Kana Rankin MD [address] [place] [address] PCP - General Family Practice 05/01/23 documented as of this encounter
--- OUTSIDE RECORDS SUMMARY | 2024-12-12 16:55 | XMS_ITS | Encounter Summary ---
Author Organization [facility] Healthcare Address [address] [place] [address] Care Team Providers Care Manager Strategic Development Name Role Phone Kana Rankin MD Primary Care Provider [phone] Encounter Details Date Type Department Care Team (Late st Contact Info) Description 08/17/2020 3:35 PM CDT Lab [address] [address] María De Paz MD [address] [facility] [phone] [place] [address] Pre-procedure lab exam Discharge Disposition: Discharge to home or self care Social History Tobacco Use Types Packs/Day Years Used Date Smoking Tobacco: Never Smokeless Tobacco: Never Alcohol Use Standard Drinks/Week Comments Not Currently 0 (1 standard drink = 0.6 oz pur e alcohol) Comments No Sex and Gender Information Value Date Recorded Sex Assigned at Not on file Legal Sex Female 6:11 PM RETAIL PERFORMANCE SPECIALIST Gender Identity Not on file Sexual Orientation Straight 08/04/2020 2: 23 PM CDT 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 The 2019-Novel Coronavirus [...] last revised on 2020. Testing performed by: [facility], [address] [facility], [place]., [address] Nasopharyngeal 08/17/2020 3: 30 PM CDT 08/17/2020 11:18 PM CDT Narrative ANNE MURRAY (ROMMEL) - 08/18/2020 2:57 PM CDT Is the patient experiencing any symptoms consistent with COVID (eg. Fever, cough, shortness of breath)?->No What is the reason for testing?->Screening prior to scheduled (>12 hr) surgery or procedure us María De Paz MD LAB MICROBIOLOGY - [facility] AL ORDERABLES Final Result ANNE MURRAY (ROMMEL) 1 [facility] Department [place] [address] documented in this encounter Visit Diagnoses Diagnosis Pre-procedure lab exam Pre-procedural laboratory examination documented in this encounter Care Teams Manager Strategic Development Relationship Specialty Start Date End Date Kana aRnkin MD PCP - General Family Medicine 05/15/19 documented as of this encounter
--- OUTSIDE RECORDS SUMMARY | 2024-12-12 16:55 | XMS_ITS | Encounter Summary ---
Author Organization [facility] Healthcare Address [address] [place] [address] Care Team Providers Care Weatherization And Housing Inspector Name Role Phone Kana Rankin MD Primary Care Provider Encounter Details Date Type Department Care Team (Latest Contact Info) Description 08/19/2020 1:19 PM CDT - 08/20/2020 2:00 PM CDT Hospital Encounter [facility] [address] [place] [address] María De Paz MD [address] [facility] [id number] [place] [address] Symptomatic cholelithiasis Discharge Disposition: Discharge to home or self care Social History Tobacco Use Types Packs/Day Years Used Date Smoking Tobacco: Never Smokeless Tobacco: Never Alcohol Use Standard Drinks/Week Comments Not Currently 0 (1 standard drink = 0.6 oz pur e alcohol) Comments No Sex and Gender Information Value Date Recorded Sex Assigned at Not on file 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 Gender Identity Not on file Sexual Orientation Straight 08/04/2020 2: 23 PM CDT 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 Not on file Not [...] Anxiety disorder, unspecified - ANXIETY DISORDER, UNSPECIFIED 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) use of oral hypoglycemic drugs - SNF (CURRENT) USE OF ORAL HYPOGLYCEMIC DRUGS Other 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) drug therapy - OTHER SNF (CURRENT) DRUG THERAPY [facility] (current) use of non-steroidal anti-inflammatories (nsaid) - GLASS CURVATURE GAUGER (CURRENT) USE OF NON-STEROIDAL ANTI-INFLAMMATORIES (NSAID) Family [...] Care Physician at Discharge: Kana Rankin MD [phone] Admission Date: 08/19/2020 Discharge Date: 08/20/2020 Admission Location: [facility] Problems/Diagnoses: Principal Problem: Symptomatic cholelithiasis Active Problems: [...] Collected (08/20/20 0641) Surgical pathology Collected (08/19/20 5925) Operative Procedures Performed: Procedure(s): LAPAROSCOPIC CHOLECYSTECTOMY Other [...] mg tablet Take 10 mg by mouth burnisher and bumper before breakfast Commonly known as: ZyrTEC docusate sodium 100 mg capsule Take 1 capsule (100 mg total) by mouth 2 (two) times a day For: constipation Commonly known as: COLACE esomeprazole DR 40 mg capsule Take 40 mg by mouth daily before breakfast Commonly known as: NexIUM fish oil-dha-epa 1,200-144-216 mg capsule Take by mouth burnisher and bumper before breakfast fluticasone propionate 50 mcg/actuation nasal spray fluticasone propionate 50 mcg/actuation nasal spray,suspension Commonly known as: FLONASE hydroCHLOROthiazide 25 mg tablet Take 25 mg by mouth burnisher and bumper before breakfast For: high blood pressure Commonly known as: HYDRODIURIL metFORMIN 500 mg tablet 500 mg 2 (two) times a day with meals Commonly known as: GLUCOPHAGE montelukast 10 mg tablet Take 10 mg by mouth nightly Commonly known as: SINGULAIR multivitamin capsule Take 1 capsule by mouth burnisher and bumper before breakfast multivitamin with minerals tablet Take 1 tablet by mouth burnisher and bumper before breakfast For: hair skin nails vitamin [...] appointment: ?? [facility], 8th Floor, [address] [place] [address] ?? [facility] [address], [address] [place] [address] ACTIVITY: ?? Walking is encouraged. Try to [...] whole grains. You may need to take lbji-oxk-oploiht fiber supplements if you do not get enough fiber in your diet. Ask your healthcare provider if supplements are right for you. ?? Drink plenty of liquids (8 glasses or 64 ounces). Liquids may prevent constipation and strainingduring bowel movements. MEDICATIONS: ??? Resume your normal prescription medications as directed by your medical doctor. ??? Prescription pain medication, Vicodin/Midkiff (Hydrocodone-Acetaminophen), was prescribed. You may take 1 to 2 tabs (5-10mg) every 4 to 6 hours as needed for pain. These medications have Tylenol included (325mg of Tylenol in each tab), and you SHOULD NOT take additional aved-bsq-ymgpyjl plain Tylenol if you are taking 2 tabs of Vicodin/Midkiff at a time. As the pain lessens, you may substitute btku-ppk-bxkmpuj plain Tylenol (325-500mg) for one or both [...] are regular. You may also need an dios-bmq-fpmjrad laxative (Miralax) in addition to the prescribed [...] 1 tablet (10 mg total) by mouth burnisher and bumper before breakfast docusate sodium (COLACE) 100 mg capsuleIndications: constipation Take 1 capsule (100 mg total) by mouth 2 (two) times a day 20 capsule 08/20/2020 fish oil-dha-epa 1,200-144-216 mg capsule Take by mouth burnisher and bumper before breakfast fluticasone propionate (FLONASE) 50 mcg/actuation nasal spray fluticasone propionate 50 mcg/actuation nasal spray,suspension hydroCHLOROthiazide (HYDRODIURIL) 25 mg tabletIndications:h ypertension Take 1 tablet (25 mg total) by mouth burnisher and bumper before breakfast 1 05/11/2019 metFORMIN (GLUCOPHAGE) 500 mg tablet 1 tablet (500 mg total) 2 (two) times a day with meals 5 04/24/2019 montelukast (SINGULAIR) 10 mg tablet Take 1 tablet (10 mg total) by mouth nightly multivitamin capsule Take 1 capsule by mouth burnisher and bumper before breakfast ondansetron ODT (ZOFRAN-ODT) 4 mg [...] nails vitamin Take 1 tablet by mouth burnisher and bumper before breakfast 05/10/20 22 oxyCODONE (ROXICODONE) 5 mg immediate release tabletIndications:P ain Take 1 tablet (5 mg total) by mouth every 4 (four) hours as needed for pain 15 tablet 08/20/2020 08/25/20 20 traMADol (ULTRAM) 50 mg tablet Take 50 mg by mouth every 6 (six) hours 08/26/20 20 documented as of this encounter Ordered [...] Paz MD - 08/09/2020 1:00 PM CDT [facility] Minimally Invasive Surgery New Patient Consultation / [...] need for further procedures, cystic duct leak, common bile duct injury, fistula, abscesses, heart attacks, strokes, VTE, pneumonia, kidney problems, anddeath. Patient was given evaluation information regarding a [...] with the resident/fellow. María De Paz MD chief drafter Minimally Invasive Surgery Department of Surgery p: [phone] documented in this encounter Miscellaneous Notes * [...] Paz MD - 08/19/2020 3:30 PM CDT [facility] Minimally Invasive Surgery Operative Report SURGEON: María [...] Perioperative Nursing Note Telephone Preoperative Evaluation ([facility]) - TELEPHONE ONLY, NO PHYSICAL EXAM Date: [...] mg tablet Take 10 mg by mouth burnisher and bumper before breakfast ??? esomeprazole DR (NexIUM) 40 mg capsule Take 40 mg by mouth daily before breakfast ??? fish oil-dha-epa 1,200-144-216 mg capsule Take by mouth burnisher and bumper before breakfast ??? fluticasone propionate (FLONASE) 50 mcg/actuation nasal spray fluticasone propionate 50 mcg/actuation nasal spray,suspension ??? hydroCHLOROthiazide (HYDRODIURIL) 25 mg tablet Take 25 mg by mouth burnisher and bumper before breakfast 1 ??? metFORMIN (GLUCOPHAGE) 500 mg tablet 500 mg 2 (two) times a day with meals 5 ??? montelukast (SINGULAIR) 10 mg tablet Take 10 mg by mouth nightly ??? multivitamin capsule Take 1 capsule by mouth burnisher and bumper before breakfast ??? multivitamin with minerals tablet Take 1 tablet by mouth burnisher and bumper before breakfast ??? traMADol (ULTRAM) 50 mg [...] Directive: Patient does not have advance directive Communication/Instrumentation Chemist Needs Communication Needs: None Assistive Devices/DME: None [...] in a congregate living facility (ex. 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 Use an alcohol- based hand subscription agent that contains at least 60% alcohol if [...] insurance card, a photo ID (like a Thermograph Operator's license) and a method of payment for [...] COVID Test Request Placed in Epic to [facility]. Test to be performed on 08/17. If you need to reschedule your COVID test to a different location or if your surgery gets rescheduled, you MUST call [phone] Saturday-Saturday 8am-4:30pm to get your COVID testing rescheduled or your lab order will not be available at Testing Sites. COVID Testing is only valid for up to 96 hours prior to surgery date, unless otherwise specified. If you are unable to reach staff at the above phone number, please call the CPAP Staff at [phone]. This number cannot order a lab test, [...] 20 seconds. Use an alcohol- based hand subscription agent that contains at least 60% alcohol if soap and water are not available. All visitors/patients are being asked to wear a clean mask when entering the hospital. COVID 19 Updates & Visitor Policy: Please access [email or web address] for the most updated information. Surgery Times: ??? For patients having surgery @ [facility], if your surgeon's office has not notified you of your surgery time by NOON THE BUSINESS DAY BEFORE your surgery, please call [phone] and ask for your surgeon's office ??? * Pre-Procedure Instructions - Laina Wolfe NP - 08/15/2020 9:26 AM CDT [facility] Location: [facility] The night before your surgery: [...] CDT) WBC 13.7(H) 3.8 - 9.9 K/cumm [facility] Hgb 14.0 11.9 - 15.5 g/dL [facility] Hct 41.4 35.6 - 45.5 % [facility] Plt 257 150 - 400 K/cumm [facility] MPV 10.3 9.1 - 12.3 fL [facility] RBC 5.02 3.90 - 5.20 M/cumm [facility] MCV 82.5 81.3 - 96.4 fL [facility] MCH 27.9 27.1 - 33.3 pg [facility] MCHC 33.8 32.3 - 35.7 g/dL [facility] RDW CV 12.8 11.1 - 14.9 % [facility] RDW SD 38.2 35.7 - 48.1 fL [facility] NRBC abs 0.00 0.00 - 0.01 K/cumm [facility] Blood specimen (specimen) 08/19/2020 11:56 PM CDT 08/20/2020 1:02 AM CDT us Catrachito Escalante III, MD LAB BLOOD ORDER SURYA Final Result Performing Organization Address City/[facility]/ZIP Co de Phone Number [facility] Department [place] [address] * (ABNORMAL) POCT glucose (08/19/2020 7:40 PM CDT) Pathologist [facility] Glucose, POC 203(H) 70 - 199 mg/dL [facility] Blood specimen (specimen) 08/19/2020 7:40 PM CDT 08/19/2020 7:40 PM CDT us María De Paz MD LAB POCT ORDERABLES - DE VICE Final Result [facility] Department [place] [address] * Surgical pathology (08/19/2020 5:29 PM CDT) Tissue (Gallbladder) 08/19/2020 5:29 PM CDT Narrative PATHOLOGY [facility] - 08/24/2020 4:22 PM CDT EPIC results best viewed via link to PDF [facility] [place] [address] SURGICAL PATHOLOGY REPORT FINAL Patient Name: ?? LORELEI HALL Gender: ??F : ??1975 (Age: 44) Address: ??[address] [place] [address] Hospital #: ??[id number] Taken:08/19/2020 Received:08/22/2020 Reported: 08/24/2020 Patient Type: [facility] OP In Bed ?? Service: Surgery Location: [place] [address] Physician(s): ??Kana Pascale Weller M.D. María De [...] determined by the Surgical Pathology Department at [facility] as part of an ongoing vice president quality assurance program and in compliance with federally mandated [...] determined by the Surgical Pathology Department of [facility]. ??It has not been cleared or approved by the U. S. Food and Drug Administration. IMAGES AND SCANNED DOCUMENTS, IF INCLUDED, ONLY VIEWABLE IN PDF VERSION OF REPORT us María De Paz MD LAB PATHOLOGY ORDERABLES Final Result PATHOLOGY [facility] 3rd Floor [place], [place] [phone] * POCT glucose (08/19/2020 3:24 PM CDT) Glucose, POC 147 70 - 199 mg/dL [facility] Blood specimen (specimen) 08/19/2020 3:24 PM CDT 08/19/2020 3:24 PM CDT us María De Paz MD LAB POCT ORDERABLES - DE VICE Final Result [facility] Department [place] [address] * POCT hCG, urine (08/19/2020 3:19 PM [...] oil-dha-epa 1,200-144-216 mg capsule Take by mouth burnisher and bumper before breakfast multivitamin capsule Take 1 capsule by mouth burnisher and bumper before breakfast multivitamin with minerals tabletIndication s:hair skin nails vitamin Take 1 tablet by mouth burnisher and bumper before breakfast 2 added in this encounter [...] 1 puff, inhalation, Every 4 hours 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
--- OUTSIDE RECORDS SUMMARY | 2024-12-12 16:55 | XMS_ITS | Encounter Summary ---
Author Organization [facility] Address [address] [place] [address] Care Team Providers Care Caregivers Non Medical Name Role Phone Kana Rankin MD Primary Care Provider [phone] Reason for Referral * Diagnostic Imaging (Routine) - Closed Specialty Diagnoses / Procedures Referred By Contac t Referred To Contact Diagnoses Pain in both knees, unspecified chronicity Procedures XR Knee Left 4 or More Views Luly Cheney PA Phone: tel: fax: [place] [address] [place] [address] Referral ID Status Reason Start Date Expiration Date Visits Re quested Visits Authorized [id number] Closed 05/04/2022 06/03/2023 1 1 * Diagnostic Imaging (Routine) - Closed Specialty Diagnoses / Procedures Referred By Contac t Referred To Contact Diagnoses Pain in both knees, unspecified chronicity Procedures XR Knee Right 4 or More Views Luly Cheney PA Phone: tel: fax: [place] [address] [place] [address] Referral ID Status Reason Start Date Expiration Date Visits Re quested Visits Authorized [id number] Closed 05/04/2022 06/03/2023 1 1 Reason for Visit * Diagnostic Imaging (Routine) - Closed Specialty Diagnoses / Procedures Referred By Contac t Referred To Contact Diagnoses Pain in both knees, unspecified chronicity Procedures XR Knee Right 4 or More Views Luly Cheney PA Phone: tel: fax: [facility] [address] [address] [phone] Referral ID Status Reason Start Date Expiration Date Visits Re quested Visits Authorized [id number] Closed 05/04/2022 06/03/2023 1 1 Encounter Details Date Type Department Care Team (Latest Contact Info) Description 05/10/2022 12:59 PM CDT - 05/10/2022 11:59 PM CDT Hospital Encounter [id number] [address] [place] [address] Pain [...] on file 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 docusate sodium (COLACE) 100 mg capsuleIndications: constipation Take 1 capsule (100 mg total) by mouth 2 (two) times a day 20 capsule 08/20/[address] (NexIUM) 20 mg capsule 03/29/2021 fish oil-dha-epa 1,200-144-216 mg capsule Take by mouth pension agent before breakfast fluticasone propionate (FLONASE) 50 mcg/actuation nasal spray fluticasone propionate 50 mcg/actuation nasal spray,suspension hydroCHLOROthiazide (HYDRODIURIL) 25 mg tabletIndications:h ypertension Take 1 tablet (25 mg total) by mouth pension agent before breakfast 1 05/11/2019 metFORMIN (GLUCOPHAGE) 500 mg tablet 1 tablet (500 mg total) 2 (two) times a day with meals 5 04/24/2019 mirabegron ER (MYRBETRIQ) 50 mg tablet extended release 24 hr daily montelukast (SINGULAIR) 10 mg tablet Take 1 tablet (10 mg total) by mouth nightly multivitamin capsule Take 1 capsule by mouth pension agent before breakfast mupirocin (BACTROBAN) 2 % ointment [...] is no fracture or effusion. Procedure Note aJylon Barbosa MD - 05/10/2022 EXAMINATION: XR KNEE [...] chronicity documented in this encounter Care Teams Caregivers Non Medical Relationship Specialty Start Date End Date Kana Rankin MD PCP - General Family Medicine 05/15/19 documented as of this encounter
--- OUTSIDE RECORDS SUMMARY | 2024-12-12 16:55 | XMS_ITS | Encounter Summary ---
Author Organization [facility] Address [address] [facility] [address] [place] [address] Phone Care Team Providers Care Radiator Repairer Name Role Phone Kana Rankin MD Primary Care Provider [phone] Reason for Visit * Consultation (Routine) - Closed Specialty Diagnoses / Procedures Referred By Contac t Referred To Contact Bariatrics / Bariatric Surgery Diagnoses Morbid obesity due to excess calories (HCC) Kana Rankin MD Phone: tel: fax: [facility] (All Locations) Referral ID Status Reason Start Date Expiration Date V isits Requested Visits Authorized [id number] Closed Specialty Services Required 08/03/2020 09/02/2021 99 99 Encounter Details Date Type Department Care Team (Latest Contact Info) Description 08/09/2020 1:00 PM CDT Office Visit [facility] Medical Office Building [address] [place] [phone] María De Paz MD [address] [facility] [id number] [place] [address] Calculus of gallbladder without cholecystitis without obstruction [...] on file 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 Bayside-3 fats can help to decrease the risk of heart disease. Bayside-3 fats are found in fish, such as salmon,howell, trout, and tuna. Bayside-3 fats can also be found in plant [...] foods. Eat a baked potato instead of Japanese fries. Steam vegetables instead ofsaut??ing them in [...] ones. This maycause baked goods to be bobbin drier than usual. You may need to [...] peel is high in fiber. ?? 2017 [employer] Information is for End User's use only and may not be sold, redistributed or otherwise used for commercial purposes. All illustrations and images included in CareNotes?? are the copyrighted property of [employer], [employer]. or [employer]. The above information is an special education educational assistant only. It is not intended as medical advice for individual conditions or treatments. Talk to your doctor, nurse or pharmacist before following any medical regimen to see if it is safe and effective for you. ?? documented in this encounter Progress Notes * María De Paz MD - 08/09/2020 1:00 PM CDT [facility] Minimally Invasive Surgery New Patient Consultation [...] with the resident/fellow. María De Paz MD club waiter/waitress Minimally Invasive Surgery Department of Surgery p: [phone] documented in this encounter Plan of Treatment [...] 020 documented in this encounter Care Teams Radiator Repairer Relationship Specialty Start Date End Date Kana Rankin MD PCP - General Family Medicine 05/15/19 documented as of this encounter
--- OUTSIDE RECORDS SUMMARY | 2024-12-12 16:55 | XMS_ITS | Encounter Summary ---
Author Organization [facility] Healthcare Address [address] [place] [address] Care Team Providers Care Gun Barrel Finisher Name Role Phone Kana Rankin MD Primary Care Provider [phone] Reason for Visit * Reason Comments Sore Throat Sore throat, Losing voice. Onset about a week. OTC Zyrtec for allergies and using mouthwash for cold sores. 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 * Laryngitis (General Information) (Wallisian) * Canker Sores (General Information) (Wallisian) documented in this encounter Ordered Prescriptions Prescription [...] of PE Classes. ) Patient presents to [facility] care for sore throat and hoarse [...] tenderness or frontal sinus tenderness. Mouth/Throat: Lips: [place]. Mouth: Mucous membranes are moist. Oral lesions [...] This note is dictated and transcribed by [employer]. Road Advisor variances may occur. Despite proofreading, typographical errors [...] aphthae documented in this encounter Care Teams Gun Barrel Finisher Relationship Specialty Start Date End Date Kana Rankin MD PCP - General Family Medicine 05/15/19 documented as of this encounter
--- OUTSIDE RECORDS SUMMARY | 2024-12-12 16:55 | XMS_ITS | Encounter Summary ---
Author Organization [facility] Address [address] [place] [address] Phone Care Team Providers Care Cemetery Warden Name Role Phone Kana Rankin MD Primary Care Provider + [phone] Encounter Details Date Type Department Care Team (Late st Contact Info) Description 08/25/2020 Telephone [facility] Surgery [address] [facility] 8th [place] [address] [place] [address] Johana Siddiqi RN Social History Tobacco Use Types Packs/Day Years Used Date Smoking Tobacco: Never Smokeless Tobacco: Never Alcohol Use Standard Drinks/Week Comments Not Currently 0 (1 standard drink = 0.6 oz pur e alcohol) Comments No Sex and Gender Information Value Date Recorded Sex Assigned at Not on file 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
--- OUTSIDE RECORDS SUMMARY | 2024-12-12 16:55 | XMS_ITS | Encounter Summary ---
Author Organization [facility] Address [address] [place] [address] Care Team Providers Care Publicity Agent Name Role Phone Kana Rankin MD Primary Care Provider [phone] Encounter Details Date Type Department Care Team [...] 04/29/2025 11:00 AM CDT Office Visit [facility] Oncology and Hematology - [address] [place] [address] [place] [address] [place] [address] [address] [place] [address] documented as of this encounter Visit Diagnoses Not on filedocumented in this encounter Care Teams Publicity Agent Relationship Specialty Start Date End Date Kana Rankin MD [address] [place] [address] PCP - General Family Practice 05/01/23 documented as of this encounter
--- OUTSIDE RECORDS SUMMARY | 2024-12-12 16:55 | XMS_ITS | Encounter Summary ---
Author Organization [facility] Address [address] [place] [address] Care Team Providers Care Manager Sharepoint Name Role Phone Kana Rankin MD Primary Care Provider [phone] Encounter Details Date Type Department Care Team (Late st Contact Info) Description 08/10/2019 5:30 PM CDT Lab [address] [place] [address] Primary osteoarthritis of both knees Social History Tobacco Use Types Packs/Day Years Used Date Smoking Tobacco: Never Smokeless Tobacco: Never Alcohol Use Standard Drinks/Week Comments Yes 0 (1 standard drink = 0.6 oz pur e alcohol) Comments Unknown Sex and Gender Information Value Date Recorded Sex Assigned at Not on file 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 Current Interpretive Data was last revised on 2018. Imm gran pct 0.2 % [facility] Comment: Interpretive Data Percent cell count reference ranges are not reported, since discordance with absolute values may lead to misinterpretation of CBC data. Current Interpretive Data was last revised on 2018. Lymphocyte pct 31.5 % [facility] Comment: Interpretive Data Percent cell count reference ranges are not reported, since discordance with absolute values may lead to misinterpretation of CBC data. Current Interpretive Data was last revised on 2018. Monocyte pct 5.6 % [facility] Comment: Interpretive Data Percent cell count reference ranges are not reported, since discordance with absolute values may lead to misinterpretation of CBC data. Current Interpretive Data was last revised on 2018. Eosinophil pct 1.1 % [facility] Comment: Interpretive Data Percent cell count reference ranges are not reported, since discordance with absolute values may lead to misinterpretation of CBC data. Current Interpretive Data was last revised on 2018. Basophil pct 0.4 % [facility] Comment: Interpretive Data Percent cell count reference ranges are not reported, since discordance with absolute values may lead to misinterpretation of CBC data. Current Interpretive Data was last revised on 2018. Blood specimen (specimen) 08/10/2019 4:30 PM CDT 08/10/2019 6:24 PM CDT You Templeton MD LAB BLOOD ORDERABLES Final Re sult Performing Organization Address [facility] Co de Phone Number [facility] [address] [address] * Hepatitis B Surface Antigen (08/10/2019 4:30 PM CDT) HepBsAg Nonreactive Nonreactive [facility] Blood specimen (specimen) 08/10/2019 4:30 PM CDT 08/10/2019 6:24 PM CDT You Templeton MD LAB MICROBIOLOGY - GENERAL OR DERABLES Edited Result - Final Performing Organization Address [facility] Co de Phone Number [facility] [address] [place] [address] * Hepatitis C antibody (08/10/2019 4:30 PM CDT) Pathologist [facility] Hep C Ab Nonreactive Nonreactive [facility] Comment: Interpretive Data Positive results should be confirmed by a molecular method. If positive, a second separately collected sample should be submitted for Hepatitis C Virus (HCV) RNA Detection and Quantitation by Real-Time Reverse Councilor-PCR (RT-PCR). Current interpretive data was last revised on 2016. Blood specimen (specimen) 08/10/2019 4:30 PM CDT 08/10/2019 6:24 PM CDT us You Templeton MD LAB MICROBIOLOGY - GENERAL OR DERABLES Edited Result - Final [facility] [address] [place] [address] * Comprehensive metabolic panel (08/10/2019 4:30 PM CDT) Sodium 137 135 - 145 mmol/L [facility] Potassium, pl 3.4 3.3 - 4.9 mmol/L [facility] Chloride 99 97 - 110 mmol/L [facility] CO2 28 22 - 32 mmol/L [facility] Anion gap 10 2 - 15 mmol/L [facility] BUN 14 8 - 25 mg/dL [facility] Creatinine 0.76 0.60 - 1.10 mg/dL [facility] Glucose 116 70 - 199 mg/dL [facility] Comment: Interpretive Data Fasting glucose [...] 2017. Calcium 9.8 8.5 - 10.3 mg/dL [facility] Bilirubin, total 0.4 0.1 - 1.2 mg/dL [facility] Protein, pl 8.1 6.5 - 8.5 g/dL [facility] Albumin 4.2 3.5 - 5.0 g/dL [facility] Alk phos 115 40 - 130 Units/L [facility] ALT 20 7 - 45 Units/L [facility] AST 16 10 - 45 Units/L [facility] Blood specimen (specimen) 08/10/2019 4:30 PM CDT 08/10/2019 6:24 PM CDT us You Templeton MD LAB BLOOD ORDERABLES Final Re sult Performing Organization Address [facility]/ZIP Co de Phone Number [address] [address] * (ABNORMAL) CBC with auto differential (08/10/2019 4:30 PM CDT) WBC 12.3(H) 3.8 - 9.9 K/cumm [facility] Hgb 15.4 11.9 - 15.5 g/dL [facility] Hct 46.9(H) 35.6 - 45.5 % [facility] Plt 317 150 - 400 K/cumm [facility] MPV 10.0 9.1 - 12.3 fL [facility] RBC 5.93(H) 3.90 - 5.20 M/cumm [facility] MCV 79.1(L) 81.3 - 96.4 fL [facility] MCH 26.0(L) 27.1 - 33.3 pg [facility] MCHC 32.8 32.3 - 35.7 g/dL [facility] RDW CV 13.5 11.1 - 14.9 % [facility] RDW SD 38.2 35.7 - 48.1 fL [facility] NRBC abs 0.00 0.00 - 0.01 K/cumm [facility] Blood specimen (specimen) 08/10/2019 4:30 PM CDT 08/10/2019 6:24 PM CDT us You Templeton MD LAB BLOOD ORDERABLES Final Re sult Performing Organization Address [facility]/ZIP Co de Phone Number [address] [address] * CRP (acute phase) (08/10/2019 4:30 PM CDT) [facility] CRP 4.1 <=10.0 mg/L [facility] Blood specimen (specimen) 08/10/2019 4:30 PM CDT 08/10/2019 6:24 PM CDT You Templeton MD LAB BLOOD ORDERABLES Final Re sult Performing Organization Address [facility] de Phone Number [address] [address] * Erythrocyte sedimentation rate (08/10/2019 4:30 PM CDT) [facility] Erythrocyte sedimentation rate 9 1 - 20 mm/hr [facility] Blood specimen (specimen) 08/10/2019 4:30 PM CDT 08/10/2019 6:24 PM CDT You Templeton MD LAB BLOOD ORDERABLES Final Re sult Performing Organization Address [facility] Phone Number [address] [address] * Cyclic citrul peptide antibody, IgG (08/10/2019 4:30 PM CDT) [facility] CCP Ab 1.8 <=2.9 units/mL [facility] Comment: Interpretive data Negative: <3 units/mL Positive: > or equal to 3 units/mL Current interpretive data was last revised on 2017. Blood specimen (specimen) 08/10/2019 4:30 PM CDT 08/10/2019 6:24 PM CDT You Templeton MD LAB BLOOD ORDERABLES Final Re sult Performing Organization Address [facility] de Phone Number [address] [address] * Rheumatoid factor (08/10/2019 4:30 PM CDT) [facility] Rheumatoid factor, quant <10.0 0.1 - 15.0 IUnits/mL [facility] Blood specimen (specimen) 08/10/2019 4:30 PM CDT 08/10/2019 6:24 PM CDT You Templeton MD LAB BLOOD ORDERABLES Final Re sult Performing Organization Address [facility] Co de Phone Number [address] [address] * (ABNORMAL) Hepatitis B surface antibody (immune status) (08/10/2019 4:30 PM CDT) Pathologist [facility] HBsAb (immune status) Reactive [facility] Comment: Interpretive Data A Negative [...] index 921.9(H) 0.0 - 10.0 mIUnits/m L [facility] Blood specimen (specimen) 08/10/2019 4:30 PM CDT 08/10/2019 6:24 PM CDT You Templeton MD LAB MICROBIOLOGY - GENERAL OR DERABLES Final Result Performing Organization Address [facility] Co de Phone Number [address] [address] documented in this encounter Visit Diagnoses Diagnosis Primary osteoarthritis of both knees documented in this encounter Care Teams Manager Sharepoint Relationship Specialty Start Date End Date Kana Rankin MD PCP - General Family Medicine 05/15/19 documented as of this encounter
--- OUTSIDE RECORDS SUMMARY | 2024-12-12 16:55 | XMS_ITS | Encounter Summary ---
Author Organization [facility] Address [address] [place] [address] Phone Care Team Providers Care Correspondence Renew Clerk Name Role Phone Kana Rankin MD Primary Care Provider [phone] Reason for Referral * (Routine) - Closed Specialty Diagnoses / Procedures Referred By Contac t Referred To Contact Diagnoses Primary osteoarthritis of both knees Procedures Large Joint Injection: bilateral knee Bradley Hackett PA Phone: tel: fax: [facility] (All Locations) Referral ID Status Reason Start Date Expiration Date Visits Re quested Visits Authorized [id number] Closed 07/07/2020 08/06/2021 1 1 * Diagnostic Imaging (Routine) - Closed Specialty Diagnoses / Procedures Referred By Contaline t Referred To Contact Diagnoses Pain in both knees, unspecified chronicity Procedures XR Knee Right 4 or More Views Bradley Hackett PA Phone: tel: fax: [facility] [address] [place] [address] Referral ID Status Reason Start Date Expiration Date Visits Re quested Visits Authorized [id number] Closed 07/04/2020 08/03/2021 1 1 * Diagnostic Imaging (Routine) - Closed Specialty Diagnoses / Procedures Referred By Contac t Referred To Contact Diagnoses Pain in both knees, unspecified chronicity Procedures XR Knee Left 4 or More Views Bradley Hackett PA Phone: tel: fax: [facility] [address] [place] [address] Referral ID Status Reason Start Date Expiration Date Visits Re quested Visits Authorized [id number] Closed 07/04/2020 08/03/2021 1 1 Reason for Visit * Reason Comments Pain Pain Encounter Details Date Type Department Care Team (Latest Contact Info) Description 07/07/2020 1:30 PM CDT Office Visit [facility] Orthopaedic Surgery [address] [facility] [address] [place] [address] Bradley Hackett PA [address] [facility] [address] [place] [address] Pain in both knees, unspecified [...] on file 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 Patient reports the steroid injection performed back in November provided good relief until approximately March or April. She still has pain in the right knee greater than left typically with ambulating stairs or transferring [id number]. Denies mechanical symptoms. She has been instructed in physicaltherapy exercise and passed admits she is not overly compliant with the exercises. PHYSICAL EXAMINATION: Patient presents with her sister. Transfer [id number] pushing up on the arms chair ambulates withslow steady gait. Mild valgus line both knees. Unchanged range of motion both knees with no signs of infection joint effusion today. Tenderness over lateral joint line XRAYS/REVIEW OF STUDIES: X-rays taken today views of both knees weight-bearing position revealed [id number]-ovmirplm degenerative changes predominantly of the lateral and patellofemoral compartments right greater than left ASSESSMENT/PLAN: [id number] bilateral knee osteoarthritis right greater than left [...] days. Bradley Hackett PA-C [facility] Orthopedic Surgery documented in this encounter Plan of Treatment Not on file documented as of this encounter Procedures Procedure Name Priority Date/Time Associated Diagnosis Comments IN ARTHROCENTESIS ASPIR&/INJ MAJOR JT/BURSA W/O US Routine [...] diaphysis. Electronically signed by: Bernadine Jensen MD [facility] 07/07/2020 1:46 PM CDT EXAMINATION: XR KNEE [...] IMG XR PROCEDURES Final Resul t * IN ARTHROCENTESIS ASPIR&/INJ MAJOR JT/BURSA W/O US (07/07/2020 [...] activities for the next few days. Result [facility] [facility]/BEDSIDE ORDERABLES Final [...] 6 mL, other, One-Time Injection, Starting on Damarsi 07/07/20 at 1356, For 1 doseIndications:Primary osteoarthritis [...] mg documented in this encounter Care Teams Correspondence Renew Clerk Relationship Specialty Start Date End Date Kana Rankin MD PCP - General Family Medicine 05/15/19 documented as of this encounter
--- OUTSIDE RECORDS SUMMARY | 2024-12-12 16:55 | XMS_ITS | Encounter Summary ---
Author Organization [facility] Address [address] [place] [address] Care Team Providers Care Extension Supervisor Name Role Phone Kana Rankin MD Primary Care Provider [phone] Encounter Details Date Type Department Care Team (Late Contact Info) Description 05/20/2023 Orders Only [facility] Oncology and Hematology - [address] [place] [address] Eduard Baumann MD [facility] [address] [place] [address] Social History Tobacco Use Types Packs/Day Years Used Date Smoking Tobacco: Never Assessed Sex and Gender Information Value Date Recorded Sex Assigned at Not on file Gender Identity Not on file Sexual Orientation Not on file documented as of this encounter Plan of Treatment Upcoming Encounters Date Type Department Care Team (Late Contact Info) Description 04/29/2025 11:00 AM CDT Office Visit [facility] Oncology and Hematology - [address] [place] [address] Eduard Baumann MD [address] [place] [address] documented as of this encounter Procedures Procedure Name Priority Date/Time Associated Diagnosis Comments IMMUNOGLOBULINS IGG IGA IGM Routine 05/17/2023 1:33 PM CDT documented in this encounter Results * IMMUNOGLOBULINS IGG IGA IGM (05/17/2023 1:33 PM CDT) Blood Eduard Baumann MD CHEMISTRY ORDERABLES documented in this encounter Visit Diagnoses Not on filedocumented in this encounter Care Teams Extension Supervisor Relationship Specialty Start Date End Date Kana Rankin MD [address] [place] [address] PCP - General Family Practice 05/01/23 documented as of this encounter
--- OUTSIDE RECORDS SUMMARY | 2024-12-12 16:55 | XMS_ITS | Encounter Summary ---
Author Organization [facility] Address [address] [place] [address] Care Team Providers Care Windows Technical Specialist Name Role Phone Kana Rankin MD Primary Care Provider [phone] Reason for Referral * Diagnostic Imaging (Routine) - Closed Specialty Diagnoses / Procedures Referred By Contac t Referred To Contact Diagnoses Pain in both knees, unspecified chronicity Procedures XR Knee Left 4 or More Views Bradley Hackett PA Phone: tel: fax: [place] [address] [place] [address] Referral ID Status Reason Start Date Expiration Date Visits Re quested Visits Authorized [id number] Closed 07/04/2020 08/03/2021 1 1 * Diagnostic Imaging (Routine) - Closed Specialty Diagnoses / Procedures Referred By Contac t Referred To Contact Diagnoses Pain in both knees, unspecified chronicity Procedures XR Knee Right 4 or More Views Bradley Hackett PA Phone: tel: fax: [place] [address] [place] [address] Referral ID Status Reason Start Date Expiration Date Visits Re quested Visits Authorized [id number] Closed 07/04/2020 08/03/2021 1 1 Reason for Visit * Diagnostic Imaging (Routine) - Closed Specialty Diagnoses / Procedures Referred By Contac t Referred To Contact Diagnoses Pain in both knees, unspecified chronicity Procedures XR Knee Right 4 or More Views Bradley Hackett PA Phone: tel: fax: [facility] [address] [address] [place] [address] Referral ID Status Reason Start Date Expiration Date Visits Re quested Visits Authorized [id number] Closed 07/04/2020 08/03/2021 1 1 Encounter Details Date Type Department Care Team (Latest Contact Info) Description 07/07/2020 1:15 PM CDT - 07/07/2020 11:59 PM CDT Hospital Encounter [facility] [address] [facility] [address] [place] [address] Gabino Montes MD [address] [place], [place] [id number] Bradley Hackett PA [address] [place], [place] [id number] Pain in both knees, unspecified chronicity Discharge [...] on file 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 Gender Identity Not on file Sexual Orientation Straight 08/04/2020 2: 23 PM CDT 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 Not on file Not on file documented as of this encounter Medications at Time of Discharge albuterol HFA (PROVENTIL HFA,VENTOLIN HFA,PROAIR HFA) 90 mcg/actuation inhaler ProAir HFA 90 mcg/actuation aerosol inhaler celecoxib (CeleBREX) 200 mg capsule 200 in am and 100 in pm 1 04/09/2019 cetirizine (ZyrTEC) 10 mg tablet Take 1 tablet (10 mg total) by mouth data acquisition technician before breakfast fluticasone propionate (FLONASE) 50 mcg/actuation nasal spray fluticasone propionate 50 mcg/actuation nasal spray,suspension hydroCHLOROthiaz lencho (HYDRODIURIL) 25 mg tabletIndication s:hypertension Take 1 tablet (25 mg total) by mouth data acquisition technician before breakfast 1 05/11/2019 metFORMIN (GLUCOPHAGE) 500 [...] chronicity documented in this encounter Care Teams Windows Technical Specialist Relationship Specialty Start Date End Date Kana Rankin MD PCP - General Family Medicine 05/15/19 documented as of this encounter
--- OUTSIDE RECORDS SUMMARY | 2024-12-12 16:55 | XMS_ITS | Encounter Summary ---
Author Organization [facility] Address [address] [place] [address] Phone Care Team Providers Care Membership Coordinator Name Role Phone Kana Rankin MD Primary Care Provider + [phone] Encounter Details Date Type Department Care Team (Late st Contact Info) Description 08/25/2020 Orders Only [facility] Surgery [address] [facility] Advanced Medicine 8th [place] [address] [place] [address] María De Paz MD [address] [facility] [phone] [place] [address] Social History Tobacco Use Types Packs/Day Years Used Date Smoking Tobacco: Never Smokeless Tobacco: Never Alcohol Use Standard Drinks/Week Comments Not Currently 0 (1 standard drink = 0.6 oz pur e alcohol) Comments No Sex and Gender Information Value Date Recorded Sex Assigned at Not on file 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
--- OUTSIDE RECORDS SUMMARY | 2024-12-12 16:55 | XMS_ITS | Encounter Summary ---
Author Organization [facility] Healthcare Address [address] [place] [address] Care Team Providers Care Target Worker Name Role Phone Kana Rankin MD Primary Care Provider [phone] Reason for Visit * Diagnostic Imaging (Routine) - Closed Specialty Diagnoses / Procedures Referred By Contac t Referred To Contact Diagnoses Primary osteoarthritis of both knees Procedures XR Hand Right 3 or More Views You Templeton MD Phone: tel: fax: Referral ID Status Reason Start Date Expiration Date Visits Re quested Visits Authorized [id number] Closed 08/10/2019 02/18/2021 1 1 Encounter Details Date Type Department Care Team (Latest Contact Info) Description 08/10/2019 4:34 PM CDT - 08/10/2019 11:59 PM CDT Hospital Encounter 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 Gender Identity Not on file Sexual Orientation Straight 08/04/2020 2: 23 PM CDT 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 file Not on file documented as of this encounter Medications at Time of Discharge albuterol HFA (PROVENTIL HFA,VENTOLIN HFA,PROAIR HFA) 90 mcg/actuation inhaler ProAir HFA 90 mcg/actuation aerosol inhaler celecoxib (CeleBREX) 200 mg capsule 200 in am and 100 in pm 1 04/09/2019 cetirizine (ZyrTEC) 10 mg tablet Take 1 tablet (10 mg total) by mouth assessment director before breakfast fluticasone propionate (FLONASE) 50 mcg/actuation nasal spray fluticasone propionate 50 mcg/actuation nasal spray,suspension hydroCHLOROthiaz lencho (HYDRODIURIL) 25 mg tabletIndication s:hypertension Take 1 tablet (25 mg total) by mouth assessment director before breakfast 1 05/11/2019 metFORMIN (GLUCOPHAGE) 500 [...] on filedocumented in this encounter Care Teams Target Worker Relationship Specialty Start Date End Date Kana Rankin MD PCP - General Family Medicine 05/15/19 documented as of this encounter
--- OUTSIDE RECORDS SUMMARY | 2024-12-12 16:55 | XMS_ITS | Encounter Summary ---
Author Organization [facility] Address [address] [place] [address] Phone Care Team Providers Care Tariff Compiler Name Role Phone Kana Rankin MD Primary Care Provider [phone] Encounter Details Date Type Department Care Team (Late st Contact Info) Description 08/19/[address] 5th [place] [address] [place] [address] Johana Vega Social History Tobacco Use Types Packs/Day Years Used Date Smoking Tobacco: Never Smokeless Tobacco: Never Alcohol Use Standard Drinks/Week Comments Yes 0 (1 standard drink = 0.6 oz pur e alcohol) Comments Unknown Sex and Gender Information Value Date Recorded Sex Assigned at Not on file 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
--- OUTSIDE RECORDS SUMMARY | 2024-12-12 16:55 | XMS_ITS | Encounter Summary ---
Author Organization [facility] Address [address] [place] [address] Phone Care Team Providers Care Undercar Specialist Name Role Phone Kana Rankin MD Primary Care Provider + [phone] Encounter Details Date Type Department Care Team (Late st Contact Info) Description 08/25/2020 Telephone [facility] 8th [place] [address] [place] [address] Johana Siddiqi RN Social History Tobacco Use Types Packs/Day Years Used Date Smoking Tobacco: Never Smokeless Tobacco: Never Alcohol Use Standard Drinks/Week Comments Not Currently 0 (1 standard drink = 0.6 oz pur e alcohol) Comments No Sex and Gender Information Value Date Recorded Sex Assigned at Not on file 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 documented in this encounter Plan of Treatment Not on file documented as of this encounter Visit Diagnoses Not on filedocumented in this encounter Care Teams Undercar Specialist Relationship Specialty Start Date End Date Kana Rankin MD PCP - General Family Medicine 05/15/19 documented as of this encounter
--- OUTSIDE RECORDS SUMMARY | 2024-12-12 16:55 | XMS_ITS | Encounter Summary ---
Author Organization [facility] Address [address] [place] [address] Phone Care Team Providers Care Police Inspector Name Role Phone Kana Rankin MD Primary Care Provider + [phone] Encounter Details Date Type Department Care Team (Late st Contact Info) Description 08/25/2020 Telephone [facility] [address] 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
--- OUTSIDE RECORDS SUMMARY | 2024-12-12 16:55 | XMS_ITS | Encounter Summary ---
Author Organization [facility] Address [address] [place] [address] Phone Care Team Providers Care Severity Of Illness Coordinator Name Role Phone Kana Rankin MD Primary Care Provider + [phone] Reason for Referral * Procedure (Routine) - Closed Specialty Diagnoses / Procedures Referred By Contaline t Referred To Contact Diagnoses Bilateral primary osteoarthritis of knee Procedures Large Joint Injection: bilateral knee Luly Cheney PA Phone: tel: fax: [facility] (All Locations) Referral ID Status Reason Start Date Expiration Date Visits Re quested Visits Authorized [id number] Closed 05/10/2022 06/09/2023 1 1 * Diagnostic Imaging (Routine) - Closed Specialty Diagnoses / Procedures Referred By Contaline arndt Referred To Contact Diagnoses Pain in both knees, unspecified chronicity Procedures XR Knee Right 4 or More Views Luly Cheney PA Phone: tel: fax: [facility] [address] [place] [address] Referral ID Status Reason Start Date Expiration Date Visits Re quested Visits Authorized [id number] Closed 05/04/2022 06/03/2023 1 1 * Diagnostic Imaging (Routine) - Closed Specialty Diagnoses / Procedures Referred By Zoe t Referred To Contact Diagnoses Pain in both knees, unspecified chronicity Procedures XR Knee Left 4 or More Views Luly Cheney PA Phone: tel: fax: [facility] [address] [place] [address] Referral ID Status Reason Start Date Expiration Date Visits Re quested Visits Authorized [id number] Closed 05/04/2022 06/03/2023 1 1 Reason for Visit * Reason Comments Injections Injections Encounter Details Date Type Department Care Team (Latest Contact Info) Description 05/10/2022 2:00 PM CDT Office Visit 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 docusate sodium (COLACE) 100 mg capsule Take 1 capsule (100 mg total) by mouth 2 (two) times a day 20 capsule 0 ??? esomeprazole DR (NexIUM) 20 mg capsule ??? esomeprazole DR (NexIUM) 40 mg capsule Take 40 mg by mouth daily before breakfast ??? fish oil-dha-epa 1,200-144-216 mg capsule Take by mouth office clinician before breakfast ??? fluconazole (DIFLUCAN) 150 mg tablet TAKE 1 TABLET BY MOUTH ONCE FOR 1 DOSE DIRECTED ??? fluticasone propionate (FLONASE) 50 mcg/actuation nasal spray fluticasone propionate 50 mcg/actuation nasal spray,suspension ??? hydroCHLOROthiazide (HYDRODIURIL) 25 mg tablet Take 25 mg by mouth office clinician before breakfast 1 ??? metFORMIN (GLUCOPHAGE) 500 mg tablet 500 mg 2 (two) times a day with meals 5 ??? montelukast (SINGULAIR) 10 mg tablet Take 10 mg by mouth nightly ??? multivitamin capsule Take 1 capsule by mouth office clinician before breakfast ??? multivitamin with minerals tablet Take 1 tablet by mouth office clinician before breakfast ??? ondansetron ODT (ZOFRAN-ODT) 4 [...] Not on file Occupational History ??? 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 Smoking status: Never Smoker [...] Up: juan Cheney PA-C [facility] documented in this encounter Plan of Treatment Not on file documented as of this encounter Procedures Procedure Name Priority Date/Time Associated Diagnosis Comments NV ARTHROCENTESIS ASPIR&/INJ MAJOR JT/BURSA W/O US Routine 05/10/2022 2:00 PM CDT Bilateral primary osteoarthritis of knee documented in this encounter Results * NV ARTHROCENTESIS ASPIR&/INJ MAJOR JT/BURSA W/O US (05/10/2022 [...] nails vitamin Take 1 tablet by mouth office clinician before breakfast 05/10/2022 documented as of this encounter Historical Medications * This list may reflect changes made after this encounter. adapalene-benzoy l peroxide 0.3-2.5 % gel with pump Epiduo Forte 0.3 %-2.5 % topical gel with pump ZyrTEC-D 5-120 mg per 12 hr tablet 03/19/2022 ciclesonide (Omnaris) 50 mcg nasal spray Omnaris 50 mcg nasal spray [place] 2 sprays every day by intranasal route. [...] 2 added in this encounter Care Teams Severity Of Illness Coordinator Relationship Specialty Start Date End Date Kana Rankin MD PCP - General Family Medicine 05/15/19 documented as of this encounter
--- OUTSIDE RECORDS SUMMARY | 2024-12-12 16:55 | XMS_ITS | Encounter Summary ---
Author Organization [facility] [employer] [facility] Address [address] [place] [address] Care Team Providers Care Line Construction Engineer Name Role Phone Kana Rankin MD Primary Care Provider [phone] Encounter Details Date Type Department Care Team (Late st Contact Info) Description 05/07/2023 Orders Only [facility] Oncology and Hematology - [place] [address] [place] [phone] Eduard Baumann MD [facility] [address] [place] [address] Social History Tobacco Use Types Packs/Day Years Used Date Smoking Tobacco: Never Assessed Sex and Gender Information Value Date Recorded Sex Assigned at Not on file Gender Identity Not on file Sexual Orientation Not on file documented as of this encounter Plan of Treatment Upcoming Encounters Date Type Department Care Team (Late Contact Info) Description 04/29/2025 11:00 AM CDT Office Visit [facility] Oncology and Hematology - [address] [place] [phone] Eduard Baumann MD [address] [place] [phone] documented as of this encounter Procedures Procedure Name Priority Date/Time Associated Diagnosis Comments ERYTHROPOIETIN LEVEL Routine 05/01/2023 9:33 AM CDT documented in this encounter Results * ERYTHROPOIETIN LEVEL (05/01/2023 9:33 AM CDT) Blood Eduard Baumann MD CHEMISTRY ORDERABLES documented in this encounter Visit Diagnoses Not on filedocumented in this encounter Care Teams Line Construction Engineer Relationship Specialty Start Date End Date Kana Rankin MD [address] [place] [address] PCP - General Family Practice 05/01/23 documented as of this encounter
--- OUTSIDE RECORDS SUMMARY | 2024-12-12 16:55 | XMS_ITS | Referral Summary ---
Author Organization [facility] Address [address] [place] [address] Care Team Providers Care Decorator Lighting Fixtures Name Role Phone Kana Rankin MD Primary Care Provider + [phone] Allergies No known active allergies Medications celecoxib (CeleBREX) 200 mg capsule 200 in am and 100 in pm 1 04/09/20 19 Active hydroCHLOROthiazid e (HYDRODIURIL) 25 mg tabletIndications: hypertension Take 1 tablet (25 mg total) by mouth belt builder helper before breakfast 1 05/11/20 19 Active metFORMIN [...] 1 tablet (10 mg total) by mouth belt builder helper before breakfast Active multivitamin capsule Take 1 capsule by mouth belt builder helper before breakfast Active fish oil-dha-epa 1,200-144-216 mg capsule Take by mouth belt builder helper before breakfast Active zinc 50 mg tablet [...] nasal spray Omnaris 50 mcg nasal spray [place] 2 sprays every day by intranasal route. 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 Current interpretive data was last revised on 2016. Blood specimen (specimen) 08/10/2019 4:30 PM CDT 08/10/2019 6:24 PM CDT us You Templeton MD LAB MICROBIOLOGY - GENERAL OR DERABLES Edited Result - Final [facility] [address] [place] [address] from Last 3 Months or Most Recently Relevant to Health Maintenance Insurance [facility] HEALTHLINK OPEN ACCESS [facility]LINK [facility] HE[facility]LINK PPO POS HEALTHLINK PPO POS CIG[employer] [facility] Advance Directives For more information, please contact: [phone] * Full Code (Latest Code Status on File) Date Activated Date Inactivated Comments 08/19/2020 9:53 PM 08/20/2020 8:49 PM Care Teams Decorator Lighting Fixtures Relationship Specialty Start Date End Date Kana Rankin MD PCP - General Family Medicine 05/15/19
--- OUTSIDE RECORDS SUMMARY | 2024-12-12 16:55 | XMS_ITS | Encounter Summary ---
Author Organization [facility] Address [address] [place] [address] Care Team Providers Care Cpo Name Role Phone Kana Rankin MD Primary Care Provider [phone] Reason for Referral * Diagnostic Imaging (Routine) - Closed Specialty Diagnoses / Procedures Referred By Contac t Referred To Contact Diagnoses Left knee pain, unspecified chronicity Procedures XR Knee Left 4 or More Views Luly Cheney PA [address] [facility] [address] [place] [address] Phone: tel: fax: [facility] Radiology [address] [place] [address] Phone: tel: Referral ID Status Reason Start Date Expiration Date Visits Re quested Visits Authorized [id number] Closed 04/15/2024 05/15/2025 1 1 Reason for Visit * Diagnostic Imaging (Routine) - Closed Specialty Diagnoses / Procedures Referred By Contac t Referred To Contact Diagnoses Left knee pain, unspecified chronicity Procedures XR Knee Left 4 or More Views Luly Cheney PA [address] [facility] [address] [place] [id number] Phone: tel: fax: [facility] Radiology [address] [place] [address] [address] [place] [address] Phone: tel: Referral ID Status Reason Start Date Expiration Date Visits Re quested Visits Authorized [id number] Closed 04/15/2024 05/15/2025 1 1 Encounter Details Date Type Department Care Team (Latest Contact Info) Description 04/30/2024 11:00 AM CDT - 04/30/2024 11:59 PM CDT Hospital Encounter [id number] [address] 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 docusate sodium (COLACE) 100 mg capsuleIndications: constipation Take 1 capsule (100 mg total) by mouth 2 (two) times a day 20 capsule 08/20/[address] (NexIUM) 20 mg capsule 03/29/2021 fish oil-dha-epa 1,200-144-216 mg capsule Take by mouth early breastfeeding care specialist before breakfast fluticasone propionate (FLONASE) 50 mcg/actuation nasal spray fluticasone propionate 50 mcg/actuation nasal spray,suspension hydroCHLOROthiazide (HYDRODIURIL) 25 mg tabletIndications:h ypertension Take 1 tablet (25 mg total) by mouth early breastfeeding care specialist before breakfast 1 05/11/2019 metFORMIN (GLUCOPHAGE) 500 mg tablet 1 tablet (500 mg total) 2 (two) times a day with meals 5 04/24/2019 mirabegron ER (MYRBETRIQ) 50 mg tablet extended release 24 hr daily montelukast (SINGULAIR) 10 mg tablet Take 1 tablet (10 mg total) by mouth nightly multivitamin capsule Take 1 capsule by mouth early breastfeeding care specialist before breakfast mupirocin (BACTROBAN) 2 % ointment [...] chronicity documented in this encounter Care Teams Cpo Relationship Specialty Start Date End Date Kana Rankin MD PCP - General Family Medicine 05/15/19 documented as of this encounter
--- OUTSIDE RECORDS SUMMARY | 2024-12-12 16:55 | XMS_ITS | Encounter Summary ---
Author Organization [facility] Address [address] [place] [address] Care Team Providers Care Jacquard Loom Heddles Tier Name Role Phone Kana Rankin MD Primary Care Provider + [phone] Reason for Referral * MRI/CAT/PET Scan (Routine) - Closed Specialty Diagnoses / Procedures Referred By Contac t Referred To Contact Radiology Diagnoses Right knee pain, unspecified chronicity Procedures MRI Thigh Femur Right WO Contrast Luly Cheney PA [address] [place] [id number] Phone: tel: fax: [place] [address] [place] [address] Referral ID Status Reason Start Date Expiration Date Visits Re quested Visits Authorized [id number] Closed 04/30/2024 05/30/2025 1 1 Reason for Visit * MRI/CAT/PET Scan (Routine) - Closed Specialty Diagnoses / Procedures Referred By Contac t Referred To Contact Radiology Diagnoses Right knee pain, unspecified chronicity Procedures MRI Thigh Femur Right WO Contrast Luly Cheney PA [address] [place] [id number] Phone: tel: fax: [place] [address] [place] [address] Referral ID Status Reason Start Date Expiration Date Visits Re quested Visits Authorized [id number] Closed 04/30/2024 05/30/2025 1 1 Encounter Details Date Type Department Care Team (Latest Contact Info) Description 05/10/2024 3:07 PM CDT - 05/10/2024 11:59 PM CDT Hospital Encounter [facility] Imaging [address] [place] [address] Right knee pain, unspecified chronicity Discharge Disposition: [...] on file 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 docusate sodium (COLACE) 100 mg capsuleIndications: constipation Take 1 capsule (100 mg total) by mouth 2 (two) times a day 20 capsule 08/20/[address] (NexIUM) 20 mg capsule 03/29/2021 fish oil-dha-epa 1,200-144-216 mg capsule Take by mouth mechanism inspector before breakfast fluticasone propionate (FLONASE) 50 mcg/actuation nasal spray fluticasone propionate 50 mcg/actuation nasal spray,suspension hydroCHLOROthiazide (HYDRODIURIL) 25 mg tabletIndications:h ypertension Take 1 tablet (25 mg total) by mouth mechanism inspector before breakfast 1 05/11/2019 metFORMIN (GLUCOPHAGE) 500 mg tablet 1 tablet (500 mg total) 2 (two) times a day with meals 5 04/24/2019 mirabegron ER (MYRBETRIQ) 50 mg tablet extended release 24 hr daily montelukast (SINGULAIR) 10 mg tablet Take 1 tablet (10 mg total) by mouth nightly multivitamin capsule Take 1 capsule by mouth mechanism inspector before breakfast mupirocin (BACTROBAN) 2 % ointment [...] chronicity documented in this encounter Care Teams Jacquard Loom Heddles Tier Relationship Specialty Start Date End Date Kana Rankin MD PCP - General Family Medicine 05/15/19 documented as of this encounter
--- OUTSIDE RECORDS SUMMARY | 2024-12-12 16:55 | XMS_ITS | Encounter Summary ---
Author Organization formerly [facility] Address [address] [place] [address] Care Team Providers Care Marketing Sales Representative Name Role Phone Kana Rankin MD Primary Care Provider [phone] Encounter Details Date Type Department Care Team (Late st Contact Info) Description 08/19/2020 4:59 PM CDT Anesthesia Event [facility] Operating Room [address] [place] [address] Jerome Avalos MD [address] [facility] [id number] [place] [address] Elise Garcia MD [address] [place] [address] Anesthesia Record Procedure Summary Procedure Name Responsible [...] LAP SITES; 11/03/24 (Retired LDA, Removed/Completed by [employer] with LDA Utility); 121 (Retired LDA, Removed/Completed by [employer] with LDA Utility) 08/19/20 1716 by Lala [...] on file 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 [...] protection Difficult airway: no Staff: Placed by: SCRIPT EDITOR: Roseanne Rock CRNA Emergent airway documentation: Risks [...] Preoperative Evaluation Record Evaluation type/location: TPAP from [facility] Planned procedure site: [facility] PVT OR (Pod 1) Date: 08/15/20 [...] Hyperlipidemia (on statin) Pertinent negatives: CAD ; [place] ; CABG ; atrial fibrillation; arrhythmia; pacemaker/ICD; [...] COVID19 testing to be performed on 08/17/20. [facility] will contact patient to schedule testing. Obstructive [...] Medication protocol when under care of a SCRIPT EDITOR Planned anesthesia: General Informed Consent: Discussed plan with attending and SCRIPT EDITOR. Anesthesia plan and risks discussed with patient. [...] Procedure Name Priority Date/Time Associated Diagnosis Comments TN AN PROCEDURE PLACEHOLDER Routine 08/19/2020 5:28 PM CDT TN AN ELECTIVE ENDOTRACHEAL AIRWAY Routine 08/19/2020 5:28 PM CDT documented in this encounter Results * TN AN ELECTIVE ENDOTRACHEAL AIRWAY, TN AN PROCEDURE PLACEHOLDER (08/19/2020 5:28 PM CDT) Narrative Roseanne Rock CRNA - 08/19/2020 5:28 PM CDT Roseanne Rock CRNA ? 08/19/2020 ??5:29 PM Airway Patient location: OR Urgency: elective Indications for airway management: anesthesia and airway protection Difficult airway: no Staff: Placed by: SCRIPT EDITOR: Roseanne Rock CRNA Emergent airway documentation: Risks [...] with: silk tape Number of attempts: 1 Jerome Avalos MD ANESTHE NAGA ORDERABLES Final Result [...] mg documented in this encounter Care Teams Marketing Sales Representative Relationship Specialty Start Date End Date Kana Rankin MD PCP - General Family Medicine 05/15/19 documented as of this encounter
--- OUTSIDE RECORDS SUMMARY | 2024-12-12 16:55 | XMS_ITS | Encounter Summary ---
Author Organization [facility] [employer] Address [address] [place] [address] Care Team Providers Care Neuropsychology Service Director Name Role Phone Kana Rankin MD Primary Care Provider [phone] Encounter Details Date Type Department Care Team (Late st Contact Info) Description 05/02/2023 Orders Only [facility] Oncology and Hematology - [place] [address] [place] [address] IcenogleRickeyna Dietary iron deficiency without [...] Description 04/29/2025 11:00 AM CDT Office Visit [facility] Oncology and Hematology - [place] [address] [place] [address] Eduard Baumann MD [address] [facility] [address] [place] [address] documented as of this encounter Visit Diagnoses Diagnosis Dietary iron deficiency without anemia Other disorders of iron metabolism documented in this encounter Care Teams Neuropsychology Service Director Relationship Specialty Start Date End Date Kana Rankin MD [address] [place] [address] PCP - General Family Practice 05/01/23 documented as of this encounter
--- OUTSIDE RECORDS SUMMARY | 2024-12-12 16:55 | XMS_ITS | Encounter Summary ---
Author Organization [facility] Address [address] [place] [address] Phone Care Team Providers Care Aquaculture Farmer Name Role Phone Kana Rankin MD Primary Care Provider + [phone] Reason for Referral * Procedure (Routine) - Authorized Specialty Diagnoses / Procedures Referred By Zoe t Referred To Contact Diagnoses Primary osteoarthritis of knees, bilateral Procedures Large Joint Injection: bilateral knee Luly Cheney PA [address] [place] [address] Phone: tel: fax: [facility] (All Locations) Referral ID Status Reason Start Date Expiration Date V isits Requested Visits Authorized [id number] Authorized 04/30/2024 05/30/2025 1 1 * Diagnostic Imaging (Routine) - Closed Specialty Diagnoses / Procedures Referred By Zoe t Referred To Contact Diagnoses Left knee pain, unspecified chronicity Procedures XR Knee Left 4 or More Views Luly Cheney PA [address] [place] [address] Phone: tel: fax: [facility] Radiology [address] [address] Phone: tel: Referral ID Status Reason Start Date Expiration Date Visits Re quested Visits Authorized [id number] Closed 04/15/2024 05/15/2025 1 1 Reason for Visit * Reason Comments Injections Injections Encounter Details Date Type Department Care Team (Latest Contact Info) Description 04/30/2024 11:30 AM CDT Office Visit [facility] Orthopaedic Surgery [address] [facility] Medical Office Building [address] [place] [address] Luly Cheney PA [address] [facility] [address] [place] [address] Primary osteoarthritis of knees, bilateral (Primary Dx); [...] on file 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 [...] 1 tablet (10 mg total) by mouth optical manager before breakfast fluticasone propionate (FLONASE) 50 mcg/actuation nasal spray fluticasone propionate 50 mcg/actuation nasal spray,suspension hydroCHLOROthiazide (HYDRODIURIL) 25 mg tablet Take 1 tablet (25 mg total) by mouth optical manager before breakfast 1 metFORMIN (GLUCOPHAGE) 500 mg tablet 1 tablet (500 mg total) 2 (two) times a day with meals 5 montelukast (SINGULAIR) 10 mg tablet Take 1 tablet (10 mg total) by mouth nightly multivitamin capsule Take 1 capsule by mouth optical manager before breakfast Ozempic 0.25 mg or 0.5 [...] nasal spray Omnaris 50 mcg nasal spray [place] 2 sprays every day by intranasal route. (Patient not taking: Reported on 05/10/2022) docusate sodium (COLACE) 100 mg capsule Take 1 capsule (100 mg total) by mouth 2 (two) times a day (Patient not taking: Reported on 03/22/2024) [address] (NexIUM) 20 mg capsule (Patient not taking: Reported on 03/22/2024) fish oil-dha-epa 1,200-144-216 mg capsule Take by mouth optical manager before breakfast (Patient nottaking: Reported on 03/22/2024) [...] Up: Pmorgan Cheney PA-C Joint Reconstructive [facility] Orthopedic Surgery documented in this encounter Plan of Treatment Not on file documented as of this encounter Procedures Procedure Name Priority Date/Time Associated Diagnosis Comments [place] ARTHROCENTESIS ASPIR&/INJ MAJOR JT/BURSA W/O US Routine 04/30/2024 11:30 AM CDT Primary osteoarthritis of knees, bilateral documented in this encounter Results * [place] ARTHROCENTESIS ASPIR&/INJ MAJOR JT/BURSA W/O US (04/30/2024 [...] mg documented in this encounter Care Teams Aquaculture Farmer Relationship Specialty Start Date End Date Kana Rankin MD PCP - General Family Medicine 05/15/19 documented as of this encounter
--- OUTSIDE RECORDS SUMMARY | 2024-12-12 16:55 | XMS_ITS | Encounter Summary ---
Author Organization [facility] Address [address] [place] [address] Phone Care Team Providers Care Imaging Manager Name Role Phone Kana Rankin MD Primary Care Provider + [phone] Encounter Details Date Type Department Care Team (Late st Contact Info) Description 08/26/2020 Telephone [facility] Surgery [facility] 8th [place] [address] [place] [phone] Johana Siddiqi RN Social History Tobacco Use Types Packs/Day Years Used Date Smoking Tobacco: Never Smokeless Tobacco: Never Alcohol Use Standard Drinks/Week Comments Not Currently 0 (1 standard drink = 0.6 oz pur e alcohol) Comments No Sex and Gender Information Value Date Recorded Sex Assigned at Not on file 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
--- OUTSIDE RECORDS SUMMARY | 2024-12-12 16:55 | XMS_ITS | Encounter Summary ---
Author Organization [facility] Address [address] [place] [address] Care Team Providers Care Commissary Superintendent Name Role Phone Kana Rankin MD Primary Care Provider [phone] Encounter Details Date Type Department Care Team (Latest Contact Info) Description 08/24/2020 3:09 PM CDT - 08/24/2020 11:59 PM CDT Hospital Encounter 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 Not on file [...] 1 tablet (10 mg total) by mouth hospice patient care secretary before breakfast docusate sodium (COLACE) 100 mg capsuleIndications: constipation Take 1 capsule (100 mg total) by mouth 2 (two) times a day 20 capsule 08/20/2020 fish oil-dha-epa 1,200-144-216 mg capsule Take by mouth hospice patient care secretary before breakfast fluticasone propionate (FLONASE) 50 mcg/actuation nasal spray fluticasone propionate 50 mcg/actuation nasal spray,suspension hydroCHLOROthiazide (HYDRODIURIL) 25 mg tabletIndications:h ypertension Take 1 tablet (25 mg total) by mouth hospice patient care secretary before breakfast 1 05/11/2019 metFORMIN (GLUCOPHAGE) 500 mg tablet 1 tablet (500 mg total) 2 (two) times a day with meals 5 04/24/2019 montelukast (SINGULAIR) 10 mg tablet Take 1 tablet (10 mg total) by mouth nightly multivitamin capsule Take 1 capsule by mouth hospice patient care secretary before breakfast ondansetron ODT (ZOFRAN-ODT) 4 mg [...] nails vitamin Take 1 tablet by mouth hospice patient care secretary before breakfast 05/10/20 22 oxyCODONE (ROXICODONE) 5 [...] only and have not been reviewed by [facility] Radiology. ??There will be no report generated by a [facility] Radiologist. Narrative [facility] - 08/24/2020 3:09 PM CDT EXAMINATION: ??Images For Reference Purposes Only us María De Paz MD IMG US PROCEDURES Final Result [facility] documented in this encounter Visit Diagnoses Not on filedocumented in this encounter Care Teams Commissary Superintendent Relationship Specialty Start Date End Date Kana Rankin MD PCP - General Family Medicine 05/15/19 documented as of this encounter
--- OUTSIDE RECORDS SUMMARY | 2024-12-12 16:55 | XMS_ITS | Encounter Summary ---
Author Organization [facility] Healthcare Address [address] [place] [address] Care Team Providers Care College Basketball Coach Name Role Phone Kana Rankin MD Primary Care Provider [phone] Encounter Details Date Type Department Care Team (Latest Contact Info) Description 08/09/2020 1:57 PM CDT - 08/09/2020 11:59 PM CDT Hospital Encounter [facility] [address] [place] [address] Discharge Disposition: Discharge to home or self care Social History Tobacco Use Types Packs/Day Years Used Date Smoking Tobacco: Never Smokeless Tobacco: Never Alcohol Use Standard Drinks/Week Comments Yes 0 (1 standard drink = 0.6 oz pur e alcohol) Comments Unknown Sex and Gender Information Value Date Recorded Sex Assigned at Not on file 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 Sex 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 Gender Identity Not on file Sexual Orientation Straight 08/04/2020 2: 23 PM CDT 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 Not on file Not on file documented as of this encounter Medications at Time of Discharge albuterol HFA (PROVENTIL HFA,VENTOLIN HFA,PROAIR HFA) 90 mcg/actuation inhaler ProAir HFA 90 mcg/actuation aerosol inhaler celecoxib (CeleBREX) 200 mg capsule 200 in am and 100 in pm 1 04/09/2019 cetirizine (ZyrTEC) 10 mg tablet Take 1 tablet (10 mg total) by mouth retail event and sales assistant before breakfast fluticasone propionate (FLONASE) 50 mcg/actuation nasal spray fluticasone propionate 50 mcg/actuation nasal spray,suspension hydroCHLOROthiaz lencho (HYDRODIURIL) 25 mg tabletIndication s:hypertension Take 1 tablet (25 mg total) by mouth retail event and sales assistant before breakfast 1 05/11/2019 metFORMIN (GLUCOPHAGE) 500 [...] only and have not been reviewed by [facility] Radiology. ??There will be no report generated by a [facility] Radiologist. Narrative [facility]_P[facility] - 08/09/2020 1:57 PM CDT EXAMINATION: ??Images For Reference Purposes Only us Gino Molina MD IMG US PROCEDURES Final R esult [facility] documented in this encounter Visit Diagnoses Not on filedocumented in this encounter Care Teams College Basketball Coach Relationship Specialty Start Date End Date Kana Rankin MD PCP - General Family Medicine 05/15/19 documented as of this encounter
--- OUTSIDE RECORDS SUMMARY | 2024-12-12 16:55 | XMS_ITS | Encounter Summary ---
Author Organization [facility] [employer] [facility] Address [address] [place] [address] Care Team Providers Care Hardware Installer Name Role Phone Kana Rankin MD Primary Care Provider [phone] Reason for Visit * Reason Comments Follow Up Encounter Details Date Type Department Care Team (Late st Contact Info) Description 06/12/2023 3:45 PM CDT Video Visit [facility] Oncology and Hematology - [place] [address] [facility] [address] [place] [address] Eduard Baumann MD [address] [facility] [address] [place] [address] Leukocytosis, unspecified type (Primary Dx) [...] [facility] - [place] [address] [place] [address] Eduard Baumann MD [address] [facility] [address] [place] [address] documented as of this encounter Visit Diagnoses Diagnosis Leukocytosis, unspecified type- Primary documented in this encounter Care Teams Hardware Installer Relationship Specialty Start Date End Date Kana Rankin MD [address] [place] [address] PCP - General Family Practice 05/01/23 documented as of this encounter
--- OUTSIDE RECORDS SUMMARY | 2024-12-12 16:55 | XMS_ITS | Encounter Summary ---
Author Organization [facility] Address [address] [place] [address] Phone Care Team Providers Care Cardiology Physician Assistant Name Role Phone Kana Rankin MD Primary Care Provider + [phone] Encounter Details Date Type Department Care Team (Late st Contact Info) Description 08/25/2020 Telephone [facility] Surgery [facility] [facility] 8th [place] [address] [place] [phone] Johana Siddiqi RN Social History Tobacco Use Types Packs/Day Years Used Date Smoking Tobacco: Never Smokeless Tobacco: Never Alcohol Use Standard Drinks/Week Comments Not Currently 0 (1 standard drink = 0.6 oz pur e alcohol) Comments No Sex and Gender Information Value Date Recorded Sex Assigned at Not on file Legal Sex Female 6:11 PM CLINICAL 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 De Paz has authorized refill of Oxycodone. Patient encouraged to call or senda Kamidat message with any questions or concerns. documented in this encounter Plan of Treatment Not on file documented as of this encounter Visit Diagnoses Not on filedocumented in this encounter Care Teams Cardiology Physician Assistant Relationship Specialty Start Date End Date Kana Rankin MD PCP - General Family Medicine 05/15/19 documented as of this encounter
--- OUTSIDE RECORDS SUMMARY | 2024-12-12 16:55 | XMS_ITS | Encounter Summary ---
Author Organization [facility] Address [address] [place] [address] Phone Care Team Providers Care Research Librarian Name Role Phone Kana Rankin MD Primary Care Provider + [phone] Encounter Details Date Type Department Care Team (Late st Contact Info) Description 08/25/2020 Telephone [facility] Surgery [address] [facility] 8th [place] [address] [place] [address] María De Paz MD [address] 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 An hour later, [facility]'s called me and told me they hadn't received the prescription. However, I was able to prescribe her Tramadol 50mg by mouth [id number] over the phone, which I did. María De Paz MD lineman apprentice Minimally Invasive Surgery Department of Surgery p: [phone] documented in this encounter Plan of Treatment [...] documented as of this encounter Care Teams Research Librarian Relationship Specialty Start Date End Date Kana Rankin MD PCP - General Family Medicine 05/15/19 documented as of this encounter
--- OUTSIDE RECORDS SUMMARY | 2024-12-12 16:55 | XMS_ITS | Clinical Summary ---
Author Organization [facility] Address [address] [place] [address] Care Team Providers Care Whiskey Regauger Name Role Phone Kana Rankin MD Primary Care Provider + [phone] Allergies No known active allergies Medications celecoxib (CeleBREX) 200 mg capsule 200 in am and 100 in pm 1 04/09/20 19 Active hydroCHLOROthiazid e (HYDRODIURIL) 25 mg tabletIndications: hypertension Take 1 tablet (25 mg total) by mouth paper bag machine operator before breakfast 1 05/11/20 19 Active metFORMIN [...] 1 tablet (10 mg total) by mouth paper bag machine operator before breakfast Active multivitamin capsule Take 1 capsule by mouth paper bag machine operator before breakfast Active fish oil-dha-epa 1,200-144-216 mg capsule Take by mouth paper bag machine operator before breakfast Active zinc 50 mg tablet [...] nasal spray Omnaris 50 mcg nasal spray [place] 2 sprays every day by intranasal route. 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 If positive, a second separately collected sample should be submitted for Hepatitis C Virus (HCV) RNA Detection and Quantitation by Real-Time Reverse Database Manager-PCR (RT-PCR). Current interpretive data was last revised on 2016. Blood specimen (specimen) 08/10/2019 4:30 PM CDT 08/10/2019 6:24 PM CDT us You Templeton MD LAB MICROBIOLOGY - GENERAL OR DERABLES Edited Result - Final [facility] [address] [place] [address] from Last 3 Months or Most Recently Relevant to Health Maintenance Insurance COUNT INCLUDES THE [facility] Daily News Online OPEN ACCESS [facility] CIGNA HEALTHLINK [facility] HEALTHLINK PPO POS HEALTHLINK PPO POS CIGNA [facility] Advance Directives For more information, please contact: [phone] * Full Code (Latest Code Status on File) Date Activated Date Inactivated Comments 08/19/2020 9:53 PM 08/20/2020 8:49 PM Care Teams Whiskey Regauger Relationship Specialty Start Date End Date Kana Rankin MD PCP - General Family Medicine 05/15/19
--- OUTSIDE RECORDS SUMMARY | 2024-12-12 16:55 | XMS_ITS | Encounter Summary ---
Author Organization [facility] Address [address] [place] [address] Phone Care Team Providers Care Director Behavioral Health Name Role Phone Kana Rankin MD Primary Care Provider + [phone] Reason for Referral * (Routine) - Closed Specialty Diagnoses / Procedures Referred By Contac t Referred To Contact Diagnoses Primary osteoarthritis of both knees Procedures Large Joint Injection: bilateral knee Bradley Hackett PA Phone: tel: fax: [facility] (All Locations) Referral ID Status Reason Start Date Expiration Date Visits Re quested Visits Authorized [id number] Closed 11/26/2019 06/06/2021 1 1 HANGER Reason for Visit * Reason Comments Pain Injections Pain Injections Encounter Details Date Type Department Care Team (Latest Contact Info) Description 11/26/2019 1:30 PM CARD HANGER Office Visit [facility] Orthopaedic Surgery [address] [facility] 2nd Floor [address] [place] [address] Bradley Hackett PA [address] [place] [address] Primary osteoarthritis of both knees (Primary Dx) Social History Tobacco Use Types Packs/Day Years Used Date Smoking Tobacco: Never Smokeless Tobacco: Never Alcohol Use Standard Drinks/Week Comments Yes 0 (1 standard drink = 0.6 oz pur e alcohol) Comments Unknown Sex and Gender Information Value Date Recorded Sex Assigned at Not on file Legal Sex Female 6:11 PM CARD HANGER Gender Identity Not on file Sexual Orientation Straight 08/04/2020 2: 23 PM CDT 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 HANGER documented in this encounter Progress Notes * [...] few days. MIKI Vázquez-C Joint Reconstructive Service [facility] Orthopedic Surgery HANGER documented in this encounter Plan of Treatment Not on file documented as of this encounter Procedures Procedure Name Priority Date/Time Associated Diagnosis Comments MT ARTHROCENTESIS ASPIR&/INJ MAJOR JT/BURSA W/O US Routine 11/26/2019 1:30 PM CARD HANGER Primary osteoarthritis of both knees documented in this encounter Results * MT ARTHROCENTESIS ASPIR&/INJ MAJOR JT/BURSA W/O US (11/26/2019 1:30 PM CARD HANGER) Narrative Bradley Hackett PA - 11/26/2019 1:30 PM CARD HANGER MIKI Castillo ? 11/26/2019 ??3:03 PM Large [...] of both knees Given 11/26/2019 3:01 PM CARD HANGER 6 mL bupivacaine (MARCAINE) 0.5 % (5 mg/mL) injection 6 mL 6 mL, other, One-Time Injection, Starting on Damaris 11/26/19 at 1501, For 1 doseIndications:Primary osteoarthritis of both knees Given 11/26/2019 3:01 PM CARD HANGER 6 mL methylPREDNISolone acetate (DEPO-medrol) injection 80 mg 80 mg, intra-articular, One-Time Injection, Starting on Damaris 11/26/19 at 1501, For 1 doseIndications:Primary osteoarthritis of both knees Given 11/26/2019 3:01 PM CARD HANGER 80 mg methylPREDNISolone acetate (DEPO-medrol) injection 80 mg 80 mg, intra-articular, One-Time Injection, Starting on Damaris 11/26/19 at 1501, For 1 doseIndications:Primary osteoarthritis of both knees Given 11/26/2019 3:01 PM CARD HANGER 80 mg documented in this encounter Discontinued [...] 11/26/2019 added in this encounter Care Teams Director Behavioral Health Relationship Specialty Start Date End Date Kana Rankin MD PCP - General Family Medicine 05/15/19 documented as of this encounter
--- OUTSIDE RECORDS SUMMARY | 2024-12-12 16:55 | XMS_ITS | Encounter Summary ---
Author Organization [facility] Address [address] [facility] [address] [place] [address] Phone Care Team Providers Care Warp Splitter Name Role Phone Kana Rankin MD Primary Care Provider [phone] Reason for Visit * Consultation (Routine) - Closed Specialty Diagnoses / Procedures Referred By Contac t Referred To Contact Bariatrics / Bariatric Surgery Diagnoses Morbid obesity due to excess calories (HCC) Kana Rankin MD Phone: tel: fax: [facility] (All Locations) Referral ID Status Reason Start Date Expiration Date V isits Requested Visits Authorized [id number] Closed Specialty Services Required 08/03/2020 09/02/2021 99 99 Encounter Details Date Type Department Care Team (Late st Contact Info) Description 09/06/2020 2:30 PM CDT Telemedicine [facility] Surgery [facility] Medical Office Building 1 [address] [place] [address] María De Paz MD [address] [facility] [id number] [place] [address] Postop check (Primary Dx) Social History Tobacco Use Types Packs/Day Years Used Date Smoking Tobacco: Never Smokeless Tobacco: Never Alcohol Use Standard Drinks/Week Comments Not Currently 0 (1 standard drink = 0.6 oz pur e alcohol) Comments No Sex and Gender Information Value Date Recorded Sex Assigned at Not on file 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 Paris-3 fats can help to decrease the risk of heart disease. Paris-3 fats are found in fish, such as salmon,howell, trout, and tuna. Paris-3 fats can also be found in plant [...] foods. Eat a baked potato instead of Guamanian fries. Steam vegetables instead ofsaut??ing them in [...] ones. This maycause baked goods to be skin drier than usual. You may need to [...] peel is high in fiber. ?? 2017 [employer] Information is for End User's use only and may not be sold, redistributed or otherwise used for commercial purposes. All illustrations and images included in CareNotes?? are the copyrighted property of [employer], [employer] [employer]. or [email or web address]. The above information is an legislative aide only. It is not intended as medical advice for individual conditions or treatments. Talk to your doctor, nurse or pharmacist before following any medical regimen to see if it is safe and effective for you. ?? documented in this encounter Progress Notes * María De Paz MD - 09/06/2020 2:30 PM CDT Images from the original note were not included. [facility] Minimally Invasive Surgery Post-Operative Clinic Note This was a telemedicine visit with Lorelei Hall alone which took place via Real-time video connection (Airizu, Zoom or similar). During the visit, I was located in the office and the patient was located [employer] in the [facility]. The patient visit started at 1447 09/06/20 [...] a telephone or video visit during [facility] emergencywas explained to them. After being given [...] Denies fevers, chills, lightheadedness, vertigo. PHYSICAL EXAMINATION: [facility] 08/13/2020 (Exact Date) GENERAL: Well nourished, well-groomed, [...] to education today. María De Paz MD parking lot spotter Minimally Invasive Surgery Department of Surgery p: [phone] documented in this encounter Plan of Treatment Not on file documented as of this encounter Visit Diagnoses Diagnosis Postop check- Primary Follow-up examination, following unspecified surgery documented in this encounter Care Teams Warp Splitter Relationship Specialty Start Date End Date Kana Rankin MD PCP - General Family Medicine 05/15/19 documented as of this encounter
--- OUTSIDE RECORDS SUMMARY | 2024-12-12 16:55 | XMS_ITS | Encounter Summary ---
Author Organization [facility] Address [address] [place] [address] Phone Care Team Providers Care Food Sanitarian Name Role Phone Kana Rankin MD Primary Care Provider Encounter Details Date Type Department Care Team (Late st Contact Info) Description 07/21/2020 Orders Only [facility] Orthopaedic Surgery [address] [facility] Medical Office Building [address] [place] [phone] Bradley Hackett PA [address] [facility] [address] [place], [place] [id number] Social History Tobacco Use Types Packs/Day Years Used Date Smoking Tobacco: Never Smokeless Tobacco: Never Alcohol Use Standard Drinks/Week Comments Yes 0 (1 standard drink = 0.6 oz pur e alcohol) Comments Unknown Sex and Gender Information Value Date Recorded Sex Assigned at Not on file Legal Sex Female 6:11 PM STEAMING CABINET 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
--- OUTSIDE RECORDS SUMMARY | 2024-12-12 16:55 | XMS_ITS | Encounter Summary ---
Author Organization [facility] Address [address] [place] [address] Phone Care Team Providers Care Saddle Mechanic Name Role Phone Kana Rankin MD Primary Care Provider + [phone] Reason for Referral * MRI/CAT/PET Scan (Routine) - Closed Specialty Diagnoses / Procedures Referred By Contac t Referred To Contact Radiology Diagnoses Right knee pain, unspecified chronicity Procedures MRI Thigh Femur Right WO Contrast Luly Cheney PA [address] [place] [address] Phone: tel: fax: [address] [address] Referral ID Status Reason Start Date Expiration Date Visits Re quested Visits Authorized [id number] Closed 04/30/2024 05/30/2025 1 1 Encounter Details Date Type Department Care Team (Late st Contact Info) Description 04/30/2024 Orders Only [facility] Orthopaedic Surgery [address] [facility] Medical Office Building [address] [place] [address] Luly Cheney PA [address] [place] [address] Right knee pain, unspecified chronicity (Primary Dx) Social History Tobacco Use Types Packs/Day Years Used Date Smoking Tobacco: Never Smokeless Tobacco: Never Alcohol Use Standard Drinks/Week Comments Not Currently 0 (1 standard drink = 0.6 oz pur e alcohol) Comments No Sex and Gender Information Value Date Recorded Sex Assigned at Not on file Legal Sex Female 6: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
--- OUTSIDE RECORDS SUMMARY | 2024-12-12 16:55 | XMS_ITS | Encounter Summary ---
Author Organization [facility] Address [address] [place] [address] Phone Care Team Providers Care Press Service Reader Name Role Phone Kana Rankin MD Primary Care Provider [phone] Encounter Details Date Type Department Care Team (Late st Contact Info) Description 05/08/2024 Orders Only [facility] Orthopaedic Surgery [address] [facility] Medical Office Building [address] [place] [address] Luly Cheney PA [address] [facility] [address] [place] [address] Social History Tobacco Use Types Packs/Day Years Used Date Smoking Tobacco: Never Smokeless Tobacco: Never Alcohol Use Standard Drinks/Week Comments Not Currently 0 (1 standard drink = 0.6 oz pur e alcohol) Comments No Sex and Gender Information Value Date Recorded Sex Assigned at Not on file Legal Sex Female 6:11 PM ARMHOLE BASTER HAND Gender Identity Not on file Sexual Orientation Straight 08/04/2020 2: 23 PM CDT 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
--- OUTSIDE RECORDS SUMMARY | 2024-12-12 16:55 | XMS_ITS | Encounter Summary ---
Author Organization [facility] Address [address] [place] [address] Phone Care Team Providers Care Imaging Clerk Name Role Phone Kana Rankin MD Primary Care Provider + [phone] Encounter Details Date Type Department Care Team (Late st Contact Info) Description 08/30/2020 Telephone [facility] 8th [place] [address] [place] [phone] Johana Siddiqi RN Social History Tobacco Use Types Packs/Day Years Used Date Smoking Tobacco: Never Smokeless Tobacco: Never Alcohol Use Standard Drinks/Week Comments Not Currently 0 (1 standard drink = 0.6 oz pur e alcohol) Comments No Sex and Gender Information Value Date Recorded Sex Assigned at Not on file 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
--- OUTSIDE RECORDS SUMMARY | 2024-12-12 16:55 | XMS_ITS | Encounter Summary ---
Author Organization [facility] Address [address] [place] [address] Care Team Providers Care Structural Rigger Name Role Phone Kana Rankin MD Primary Care Provider [phone] Encounter Details Date Type Department Care Team [...] Description 04/29/2025 11:00 AM CDT Office Visit [facility] Oncology and Hematology - [address] [place] [address] [place] [address] [place] [address] [address] [place] [address] documented as of this encounter Visit Diagnoses Diagnosis Backache, unspecified- Primary documented in this encounter Care Teams Structural Rigger Relationship Specialty Start Date End Date Kana Rankin MD [address] [place] [address] PCP - General Family Practice 05/01/23 documented as of this encounter
--- OUTSIDE RECORDS SUMMARY | 2024-12-12 16:55 | XMS_ITS | Encounter Summary ---
Author Organization [facility] [employer] [facility] Address [address] [place] [address] Care Team Providers Care Lard Refiner Name Role Phone Kana Rankin MD Primary Care Provider [phone] Encounter Details Date Type Department Care Team (Late st Contact Info) Description 05/27/[address] [facility] Oncology and Hematology - [address] [place] [address] Eduard Baumann MD [facility] [address] [employer] [address] [place] [address] Social History Tobacco Use Types Packs/Day [...] and Hematology - [address] [place] [address] Eduard Baumann MD [address] [employer] [address] [place] [address] documented as of this encounter Procedures Procedure Name Priority Date/Time Associated Diagnosis Comments JAK2 MUTATION Routine 05/17/2023 9:45 AM CDT documented in this encounter Results * JAK2 MUTATION (05/17/2023 9:45 AM CDT) Blood BLOOD SPECIMEN / Unknown Eduard Baumann MD CHEMISTRY ORDERABLES documented in this encounter Visit Diagnoses Not on filedocumented in this encounter Care Teams Lard Refiner Relationship Specialty Start Date End Date Kana Rankin MD [address] [place] [address] PCP - General Family Practice 05/01/23 documented as of this encounter
--- OUTSIDE RECORDS SUMMARY | 2024-12-12 16:55 | XMS_ITS | Encounter Summary ---
Author Organization [facility] [employer] [facility] Address [address] [place] [address] Care Team Providers Care Clinical Statistics Manager Name Role Phone Kana Rankin MD Primary Care Provider [phone] Encounter Details Date Type Department Care Team (Late Contact Info) Description 05/23/2023 Orders Only [facility] Oncology and Hematology - [address] [place] [phone] Eduard Baumann MD [facility] [address] [place] [phone] Social History Tobacco Use Types Packs/Day Years [...] [facility] On[facility] and Hematology - [address] [place] [address] Eduard Baumann MD [address] [place] [address] documented as of this encounter Procedures [...] on filedocumented in this encounter Care Teams Clinical Statistics Manager Relationship Specialty Start Date End Date Kana Rankin MD [address] [place] [address] PCP - General Family Practice 05/01/23 documented as of this encounter
--- OUTSIDE RECORDS SUMMARY | 2024-12-12 16:55 | XMS_ITS | Encounter Summary ---
Author Organization [facility] Address [address] [place] [address] Care Team Providers Care Glassware Maker Name Role Phone Kana Rankin MD Primary Care Provider [phone] Reason for Visit * Reason Comments Follow Up Encounter Details Date Type Department Care Team (Late st Contact Info) Description 05/28/2023 10:15 AM CDT Office Visit [facility] Oncology and Hematology - [address] [place] [address] [address] [place] [address] Eduard Baumann MD [address] [facility] [address] [place] [address] Leukocytosis, unspecified type (Primary Dx) [...] [facility] Oncology and Hematology [facility] [address] [place] [address] [address] [place] [address] Eduard Baumann MD [address] [facility] [address] [place] [address] documented as of this encounter Visit Diagnoses Diagnosis Leukocytosis, unspecified type- Primary documented in this encounter Care Teams Glassware Maker Relationship Specialty Start Date End Date Kana Rankin MD [address] [place] [address] PCP - General Family Practice 05/01/23 documented as of this encounter
--- OUTSIDE RECORDS SUMMARY | 2024-12-12 16:55 | XMS_ITS | Encounter Summary ---
Author Organization [facility] Address [address] [place] [address] Phone Care Team Providers Care Scleroscope Tester Name Role Phone Kana Rankin MD Primary Care Provider + [phone] Encounter Details Date Type Department Care Team (Late st Contact Info) Description 08/12/[address] 5th [place] [address] [place] [address] Johana Vega Social History Tobacco Use Types Packs/Day Years Used Date Smoking Tobacco: Never Smokeless Tobacco: Never Alcohol Use Standard Drinks/Week Comments Yes 0 (1 standard drink = 0.6 oz pur e alcohol) Comments Unknown Sex and Gender Information Value Date Recorded Sex Assigned at Not on file 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
--- OUTSIDE RECORDS SUMMARY | 2024-12-12 16:55 | XMS_ITS | Encounter Summary ---
Author Organization [facility] [employer] Address [address] [place] [address] Care Team Providers Care Light Out Examiner Name Role Phone Kana Rankin MD Primary Care Provider [phone] Reason for Visit * Reason Comments Establish Care Encounter Details Date Type Department Care Team (Late st Contact Info) Description 05/01/2023 10:30 AM CDT Office Visit [facility] Oncology and Hematology - [address] [place] [address] [address] [place] [address] Eduard Baumann MD [address] [facility] [address] [place] [address] Leukocytosis, unspecified type (Primary Dx); [...] dysuria; no frequency; no hesitancy; no hematuria SURVEYING TEACHER: Musculosketetal: Patient did not mention bone pain; [...] of the total time spent counseling patient [id number]. CC:?Kana Rankin MD documented in this encounter Plan of Treatment Upcoming Encounters Date Type Department Care Team (Late st Contact Info) Description 04/29/2025 11:00 AM CDT Office Visit [facility] Oncology and Hematology - [address] [facility] [address] [place] [address] Eduard Baumann MD [address] [facility] [address] [place] [address] Scheduled Orders Name Type Priority [...] deficiencies documented in this encounter Care Teams Light Out Examiner Relationship Specialty Start Date End Date Kana Rankin MD [address] [place] [address] PCP - General Family Practice 05/01/23 documented as of this encounter
--- OUTSIDE RECORDS SUMMARY | 2024-12-12 16:55 | XMS_ITS | Encounter Summary ---
Author Organization [facility] Address [address] [place] [address] Care Team Providers Care Annual Giving Manager Name Role Phone Kana Rankin MD Primary Care Provider [phone] Encounter Details Date Type Department Care Team (Late st Contact Info) Description 08/15/2020 Orders Only [facility] Testing Site - [address] [address] [address] [place] [address] María De Paz MD [address] [id number] [place] [address] Pre-procedure lab exam (Primary Dx) Social History Tobacco Use Types Packs/Day Years Used Date Smoking Tobacco: Never Smokeless Tobacco: Never Alcohol Use Standard Drinks/Week Comments Not Currently 0 (1 standard drink = 0.6 oz pur e alcohol) Comments No Sex and Gender Information Value Date Recorded Sex Assigned at Not on file 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 The 2019-Novel [...] last revised on 2020. Testing performed by: [facility], [address] [place]., [address] Nasopharyngeal 08/17/2020 3: 30 PM CDT 08/17/2020 11:18 PM CDT Narrative ANNE MURRAY ([place]) - 08/18/2020 2:57 PM CDT Is the patient experiencing any symptoms consistent with COVID (eg. Fever, cough, shortness of breath)?->No What is the reason for testing?->Screening prior to scheduled (>12 hr) surgery or procedure us María De Paz MD LAB MICROBIOLOGY - [facility] AL ORDERABLES Final Result ANNE MURRAY ([place]) 1 [facility] [place] [address] documented in this encounter Visit Diagnoses Diagnosis Pre-procedure lab exam- Primary Pre-procedural laboratory examination Pre-procedure lab exam Pre-procedural laboratory examination documented in this encounter Care Teams Annual Giving Manager Relationship Specialty Start Date End Date Kana Rankin MD PCP - General Family Medicine 05/15/19 documented as of this encounter
--- OUTSIDE RECORDS SUMMARY | 2024-12-12 16:55 | XMS_ITS | Encounter Summary ---
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 Gender Identity Not on file Sexual Orientation Straight 08/04/2020 2: 23 PM CDT 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 Not [...] Care Physician at Discharge: Kana Rankin MD [phone] Admission Date: 08/19/2020 Discharge Date: 08/20/2020 Admission Location: [facility] Problems/Diagnoses: Principal Problem: Symptomatic cholelithiasis Active Problems: [...] Current Status CBC without differential Collected (08/20/20 0677) Surgical pathology Collected (08/19/20 8473) Operative Procedures Performed: Procedure(s): LAPAROSCOPIC CHOLECYSTECTOMY Other [...] mg tablet Take 10 mg by mouth jute bag clipper before breakfast Commonly known as: ZyrTEC docusate sodium 100 mg capsule Take 1 capsule (100 mg total) by mouth 2 (two) times a day For: constipation Commonly known as: COLACE esomeprazole DR 40 mg capsule Take 40 mg by mouth daily before breakfast Commonly known as: NexIUM fish oil-dha-epa 1,200-144-216 mg capsule Take by mouth jute bag clipper before breakfast fluticasone propionate 50 mcg/actuation nasal spray fluticasone propionate 50 mcg/actuation nasal spray,suspension Commonly known as: FLONASE hydroCHLOROthiazide 25 mg tablet Take 25 mg by mouth jute bag clipper before breakfast For: high blood pressure Commonly known as: HYDRODIURIL metFORMIN 500 mg tablet 500 mg 2 (two) times a day with meals Commonly known as: GLUCOPHAGE montelukast 10 mg tablet Take 10 mg by mouth nightly Commonly known as: SINGULAIR multivitamin capsule Take 1 capsule by mouth jute bag clipper before breakfast multivitamin with minerals tablet Take 1 tablet by mouth jute bag clipper before breakfast For: hair skin nails vitamin [...] correct location when scheduling your appointment: ?? [facility], 8th Floor, [address] [place] [address] ?? [facility] [address], [address] [place] [address] ACTIVITY: ?? Walking is encouraged. Try to [...] whole grains. You may need to take wauz-nda-qdjxgdl fiber supplements if you do not get enough fiber in your diet. Ask your healthcare provider if supplements are right for you. ?? Drink plenty of liquids (8 glasses or 64 ounces). Liquids may prevent constipation and strainingduring bowel movements. MEDICATIONS: ??? Resume your normal prescription medications as directed by your medical doctor. ??? Prescription pain medication, Vicodin/Naples (Hydrocodone-Acetaminophen), was prescribed. You may take 1 to 2 tabs (5-10mg) every 4 to 6 hours as needed for pain. These medications have Tylenol included (325mg of Tylenol in each tab), and you SHOULD NOT take additional kaqr-cca-nqnhiwj plain Tylenol if you are taking 2 tabs of Vicodin/Naples at a time. As the pain lessens, you may substitute qtju-elz-nxqubvq plain Tylenol (325-500mg) for one or both [...] are regular. You may also need an jvrr-rqy-rielvcc laxative (Miralax) in addition to the prescribed [...] 1 tablet (10 mg total) by mouth jute bag clipper before breakfast docusate sodium (COLACE) 100 mg capsuleIndications: constipation Take 1 capsule (100 mg total) by mouth 2 (two) times a day 20 capsule 08/20/2020 fish oil-dha-epa 1,200-144-216 mg capsule Take by mouth jute bag clipper before breakfast fluticasone propionate (FLONASE) 50 mcg/actuation nasal spray fluticasone propionate 50 mcg/actuation nasal spray,suspension hydroCHLOROthiazide (HYDRODIURIL) 25 mg tabletIndications:h ypertension Take 1 tablet (25 mg total) by mouth jute bag clipper before breakfast 1 05/11/2019 metFORMIN (GLUCOPHAGE) 500 mg tablet 1 tablet (500 mg total) 2 (two) times a day with meals 5 04/24/2019 montelukast (SINGULAIR) 10 mg tablet Take 1 tablet (10 mg total) by mouth nightly multivitamin capsule Take 1 capsule by mouth jute bag clipper before breakfast ondansetron ODT (ZOFRAN-ODT) 4 mg [...] nails vitamin Take 1 tablet by mouth jute bag clipper before breakfast 05/10/20 22 oxyCODONE (ROXICODONE) 5 [...] Paz MD - 08/09/2020 1:00 PM CDT [facility] Minimally Invasive Surgery New Patient Consultation [...] with the resident/fellow. María De Paz MD derrick engineer Minimally Invasive Surgery Department of Surgery p: [phone] documented in this encounter Miscellaneous Notes * [...] Paz MD - 08/19/2020 3:30 PM CDT [facility] Minimally Invasive Surgery Operative Report SURGEON: María [...] Planning Perioperative Nursing Note Telephone Preoperative Evaluation ([facility]) - TELEPHONE ONLY, NO PHYSICAL [...] mg tablet Take 10 mg by mouth jute bag clipper before breakfast ??? esomeprazole DR (NexIUM) 40 mg capsule Take 40 mg by mouth daily before breakfast ??? fish oil-dha-epa 1,200-144-216 mg capsule Take by mouth jute bag clipper before breakfast ??? fluticasone propionate (FLONASE) 50 mcg/actuation nasal spray fluticasone propionate 50 mcg/actuation nasal spray,suspension ??? hydroCHLOROthiazide (HYDRODIURIL) 25 mg tablet Take 25 mg by mouth jute bag clipper before breakfast 1 ??? metFORMIN (GLUCOPHAGE) 500 mg tablet 500 mg 2 (two) times a day with meals 5 ??? montelukast (SINGULAIR) 10 mg tablet Take 10 mg by mouth nightly ??? multivitamin capsule Take 1 capsule by mouth jute bag clipper before breakfast ??? multivitamin with minerals tablet Take 1 tablet by mouth jute bag clipper before breakfast ??? traMADol (ULTRAM) 50 mg [...] Directive: Patient does not have advance directive Communication/Pouncer Machine Needs Communication Needs: None Assistive Devices/DME: None [...] in a congregate living facility (ex. 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 Use an alcohol- based hand ferris wheel attendant that contains at least 60% alcohol if [...] insurance card, a photo ID (like a Cath Lab Radiological Technologist's license) and a method of payment for [...] COVID Test Request Placed in Epic to [facility]. Test to be performed on 08/17. If you need to reschedule your COVID test to a different location or if your surgery gets rescheduled, you MUST call [phone] Saturday-Saturday 8am-4:30pm to get your COVID testing rescheduled or your lab order will not be available at Testing Sites. COVID Testing is only valid for up to 96 hours prior to surgery date, unless otherwise specified. If you are unable to reach staff at the above phone number, please call the CPAP Staff at [phone]. This number cannot order a lab test, [...] 20 seconds. Use an alcohol- based hand ferris wheel attendant that contains at least 60% alcohol if soap and water are not available. All visitors/patients are being asked to wear a clean mask when entering the hospital. COVID 19 Updates & Visitor Policy: Please access [email or web address] for the most updated information. Surgery Times: ??? For [facility], if your surgeon's office has not notified you of your surgery time by NOON THE BUSINESS DAY BEFORE your surgery, please call [phone] and ask for your surgeon's office ??? * Pre-Procedure Instructions - Laina Wolfe NP - 08/15/2020 9:26 AM CDT [facility] Location: [facility] The night before your surgery: [...] CDT) WBC 13.7(H) 3.8 - 9.9 K/cumm [facility] Hgb 14.0 11.9 - 15.5 g/dL [facility] Hct 41.4 35.6 - 45.5 % [facility] Plt 257 150 - 400 K/cumm [facility] MPV 10.3 9.1 - 12.3 fL [facility] RBC 5.02 3.90 - 5.20 M/cumm [facility] MCV 82.5 81.3 - 96.4 fL [facility] MCH 27.9 27.1 - 33.3 pg [facility] MCHC 33.8 32.3 - 35.7 g/dL [facility] RDW CV 12.8 11.1 - 14.9 % [facility] RDW SD 38.2 35.7 - 48.1 fL [facility] NRBC abs 0.00 0.00 - 0.01 K/cumm [facility] Blood specimen (specimen) 08/19/2020 11:56 PM CDT 08/20/2020 1:02 AM CDT us Catrachito Escalante III, MD LAB BLOOD ORDER SURYA Final Result Performing Organization Address [facility] Co de Phone Number [facility] [place] [address] * (ABNORMAL) POCT glucose (08/19/2020 7:40 PM CDT) Glucose, POC 203(H) 70 - 199 mg/dL [facility] Blood specimen (specimen) 08/19/2020 7:40 PM CDT 08/19/2020 7:40 PM CDT us María De Paz MD LAB POCT ORDERABLES - DE VICE Final Result Performing Organization Address [facility] de Phone Number [facility] [place] [address] * Surgical pathology (08/19/2020 5:29 PM CDT) Tissue (Gallbladder) 08/19/2020 5:29 PM CDT Narrative PATHOLOGY [facility] - 08/24/2020 4:22 PM CDT EPIC results best viewed via link to PDF [facility] Danielle Flanagan [facility] [place] [address] SURGICAL PATHOLOGY REPORT FINAL Patient Name: ?? LORELEI HALLJoyce Gender: ??F : ??1975 (Age: 44) Address: ??[address] [place] [address] ??[address] Hospital #: ??[id number] Taken:08/19/2020 Received:08/22/2020 Reported: 08/24/2020 Patient Type: [facility] OP In Bed ?? Service: Surgery Location: [facility] [address] Physician(s): ??Kana Pascale Weller M.D. María De [...] determined by the Surgical Pathology Department at [facility] as part of an ongoing quality improvement manager program and in compliance with federally mandated [...] determined by the Surgical Pathology Department of [facility]. ??It has not been cleared or approved by the U. S. Food and Drug Administration. IMAGES AND SCANNED DOCUMENTS, IF INCLUDED, ONLY VIEWABLE IN PDF VERSION OF REPORT María De Paz MD LAB PATHOLOGY ORDERABLES Final Result PATHOLOGY [facility] IO 3rd Floor [place], [place] [phone] * POCT glucose (08/19/2020 3:24 PM CDT) Glucose, POC 147 70 - 199 mg/dL [facility] Blood specimen (specimen) 08/19/2020 3:24 PM CDT 08/19/2020 3:24 PM CDT Result [facility] María De Paz MD LAB POCT ORDERABLES - DE VICE Final Result Performing Organization Address City[facility]/ZIP Co de Phone Number [facility] [place] [address] * POCT hCG, urine (08/19/2020 3:19 PM CDT) HCG, ur, POC Negative Lot Number [id number] QC Backgroud Clear Acceptable QC Control Line Acceptable Urine 08/19/2020 3:[address] DIET COUNSELOR POINT OF CARE TEST JOSEF CAREY Final [...] oil-dha-epa 1,200-144-216 mg capsule Take by mouth jute bag clipper before breakfast multivitamin capsule Take 1 capsule by mouth jute bag clipper before breakfast multivitamin with minerals tabletIndication s:hair skin nails vitamin Take 1 tablet by mouth jute bag clipper before breakfast 2 added in this encounter [...] food 0821 (Given - Provid er: Soumya oSliz RN) pantoprazole DR (PROTONIX) extended release tablet [...] and size. 2218 (Not Given - Provider: Lmaar Allen RN - Reason: IV Infusing) 0537 [...] puff, inhalation, Every 4 hours PRN (correspondence representative), wheezing, Starting on Sat08/19/20 at 2152 bupivacaine [...] 08/20/2020 documented in this encounter Care Teams Physician Internist Relationship Specialty Start Date End Date Kana Rankin MD PCP - General Family Medicine 05/15/19 documented as of this encounter
--- OUTSIDE RECORDS SUMMARY | 2024-12-12 16:55 | XMS_ITS | Encounter Summary ---
Author Organization [facility] Address [address] [place] [address] Phone Care Team Providers Care Dry Kiln Operator Helper Name Role Phone Kana Rankin MD Primary Care Provider [phone] Reason for Referral * Procedure (Routine) - Closed Specialty Diagnoses / Procedures Referred By Contac t Referred To Contact Diagnoses Primary osteoarthritis of both knees Procedures Large Joint Injection: bilateral knee Bradley Hackett PA Phone: tel: fax: [facility] (All Locations) Referral ID Status Reason Start Date Expiration Date Visits Re quested Visits Authorized [id number] Closed 05/16/2021 06/15/2022 1 1 Reason for Visit * Reason Comments Pain Injections Pain Injections Encounter Details Date Type Department Care Team (Latest Contact Info) Description 05/16/2021 9:30 AM CDT Office Visit [facility] Orthopaedic Surgery [address] [place] [phone] Bradley aHckett PA [address] [place] [address] [address] [place] [address] Primary osteoarthritis of both knees (Primary Dx) Social History Tobacco Use Types Packs/Day Years Used Date Smoking Tobacco: Never Smokeless Tobacco: Never Alcohol Use Standard Drinks/Week Comments Not Currently 0 (1 standard drink = 0.6 oz pur e alcohol) Comments No Sex and Gender Information Value Date Recorded Sex Assigned at Not on file Legal Sex Female 6:11 PM MOLD SANDER Gender Identity Not on file Sexual Orientation Straight 08/04/2020 2: 23 PM CDT 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 PHYSICAL EXAMINATION: Patient transfer [id number]-iafmj pushing up on the arms chair ambulates [...] Procedure Name Priority Date/Time Associated Diagnosis Comments NM ARTHROCENTESIS ASPIR&/INJ MAJOR JT/BURSA W/O US Routine 05/16/2021 9:30 AM CDT Primary osteoarthritis of both knees documented in this encounter Results * NM ARTHROCENTESIS ASPIR&/INJ MAJOR JT/BURSA W/O US (05/16/2021 [...] 05/10/2022 added in this encounter Care Teams Dry Kiln Operator Helper Relationship Specialty Start Date End Date Kana Rankin MD PCP - General Family Medicine 05/15/19 documented as of this encounter
--- OUTSIDE RECORDS SUMMARY | 2024-12-12 16:55 | XMS_ITS | Encounter Summary ---
Author Organization [facility] Address [address] [place] [address] Phone Care Team Providers Care President Sales And Marketing Name Role Phone Kana Rankin MD Primary Care Provider + [phone] Encounter Details Date Type Department Care Team (Late st Contact Info) Description 08/26/2020 Telephone [facility] Surgery [address] Advanced [facility] 8th [place] [address] [place] [phone] Johana Siddiqi RN Social History Tobacco Use Types Packs/Day Years Used Date Smoking Tobacco: Never Smokeless Tobacco: Never Alcohol Use Standard Drinks/Week Comments Not Currently 0 (1 standard drink = 0.6 oz pur e alcohol) Comments No Sex and Gender Information Value Date Recorded Sex Assigned at Not on file 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 De Paz had signed Oxycodone prescription yesterday prior to 3:30 pm when I spoke with the pharmacist at [facility] stated they hadn't received a prescription. Patient [...] offered patient the ability to have someone belt picker a physical script at our [place] office. [...] on filedocumented in this encounter Care Teams President Sales And Marketing Relationship Specialty Start Date End Date Kana Rankin MD PCP - General Family Medicine 05/15/19 documented as of this encounter
--- OUTSIDE RECORDS SUMMARY | 2024-12-12 16:55 | XMS_ITS | Encounter Summary ---
Author Organization [facility] Address [address] [place] [address] Phone Care Team Providers Care Surgical Consultant Name Role Phone Kana Rankin MD Primary Care Provider + [phone] Reason for Referral * Diagnostic Imaging (Routine) - Closed Specialty Diagnoses / Procedures Referred By Contac t Referred To Contact Diagnoses Primary osteoarthritis of both knees Procedures XR Hand Right 3 or More Views You Templeton MD Phone: tel: fax: Referral ID Status Reason Start Date Expiration Date Visits Re quested Visits Authorized [id number] Closed 08/10/2019 02/18/2021 1 1 * Diagnostic Imaging (Routine) - Closed Specialty Diagnoses / Procedures Referred By Contac t Referred To Contact Diagnoses Primary osteoarthritis of both knees Procedures XR Hand Left 3 or More Views You Templeton MD Phone: tel: fax: Referral ID Status Reason Start Date Expiration Date Visits Re quested Visits Authorized [id number] Closed 08/10/2019 02/18/2021 1 1 Reason for Visit * Consultation (Routine) - Closed Specialty Diagnoses / Procedures Referred By Contac t Referred To Contact Rheumatology Diagnoses Primary osteoarthritis of both knees Bradley Hackett PA Phone: tel: fax: [facility] (All Locations) Referral ID Status Reason Start Date Expiration Date V isits Requested Visits Authorized [id number] Closed Specialty Services Required 05/21/2019 11/29/2020 99 99 Encounter Details Date Type Department Care Team (Late st Contact Info) Description 08/10/2019 4:00 PM CDT Office Visit [facility] Rheumatology [address] [place] [address] You Templeton MD [address] [place] [address] Polyarthritis (Primary Dx); Primary osteoarthritis of both knees; Rheumatoid arthritis of multiple sites with negative rheumatoid factor ([facility]) Social History Tobacco Use Types Packs/Day Years Used Date Smoking Tobacco: Never Smokeless Tobacco: Never Alcohol Use Standard Drinks/Week Comments Yes 0 (1 standard drink = 0.6 oz pur e alcohol) Comments Unknown Sex and Gender Information Value Date Recorded Sex Assigned at Not on file 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 Gender Identity Not on file Sexual Orientation Straight 08/04/2020 2: 23 PM CDT 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 Not on file [...] then I will treat her empirically with [id number] mg per week given her inflammatory description [...] PM CDT) HBsAb (immune status) Reactive [facility] Comment: Interpretive Data A Negative Result indicates [...] index 921.9(H) 0.0 - 10.0 mIUnits/m L [facility] Blood specimen (specimen) 08/10/2019 4:30 PM CDT 08/10/2019 6:24 PM CDT You Templeton MD LAB MICROBIOLOGY - GENERAL OR DERABLES Final Result Performing Organization Address [facility] Co de Phone Number [address] [address] * Hepatitis B Surface Antigen (08/10/2019 4:30 PM CDT) HepBsAg Nonreactive Nonreactive [facility] Blood specimen (specimen) 08/10/2019 4:30 PM CDT 08/10/2019 6:24 PM CDT You Templeton MD LAB MICROBIOLOGY - GENERAL OR DERABLES Edited Result - Final Performing Organization Address [facility] de Phone Number [address] [address] * Hepatitis C antibody (08/10/2019 4:30 PM CDT) Hep C Ab Nonreactive Nonreactive [facility] Comment: Interpretive Data Positive results should be confirmed by a molecular method. If positive, a second separately collected sample should be submitted for Hepatitis C Virus (HCV) RNA Detection and Quantitation by Real-Time Reverse Stroke Program Coordinator-PCR (RT-PCR). Current interpretive data was last revised on 2016. Blood specimen (specimen) 08/10/2019 4:30 PM CDT 08/10/2019 6:24 PM CDT us You Templeton MD LAB MICROBIOLOGY - GENERAL OR DERABLES Edited Result - Final [facility] [address] [place] [address] * Comprehensive metabolic panel (08/10/2019 4:30 PM CDT) Sodium 137 135 - 145 mmol/L [facility] Potassium, pl 3.4 3.3 - 4.9 mmol/L [facility] Chloride 99 97 - 110 mmol/L [facility] CO2 28 22 - 32 mmol/L [facility] Anion gap 10 2 - 15 mmol/L [facility] BUN 14 8 - 25 mg/dL [facility] Creatinine 0.76 0.60 - 1.10 mg/dL [facility] Glucose 116 70 - 199 mg/dL [facility] Comment: Interpretive Data Fasting glucose [...] Calcium 9.8 8.5 - 10.3 mg/dL [facility] Bilirubin, total 0.4 0.1 - 1.2 mg/dL [facility] Protein, pl 8.1 6.5 - 8.5 g/dL [facility] Albumin 4.2 3.5 - 5.0 g/dL [facility] Alk phos 115 40 - 130 Units/L [facility] ALT 20 7 - 45 Units/L [facility] AST 16 10 - 45 Units/L [facility] Blood specimen (specimen) 08/10/2019 4:30 PM CDT 08/10/2019 6:24 PM CDT You Templeton MD LAB BLOOD ORDERABLES Final Re sult Performing Organization Address [facility] Co de Phone Number ANNE [address] [address] * (ABNORMAL) CBC with auto differential (08/10/2019 4:30 PM CDT) WBC 12.3(H) 3.8 - 9.9 K/cumm [facility] Hgb 15.4 11.9 - 15.5 g/dL [facility] Hct 46.9(H) 35.6 - 45.5 % [facility] Plt 317 150 - 400 K/cumm [facility] MPV 10.0 9.1 - 12.3 fL [facility] RBC 5.93(H) 3.90 - 5.20 M/cumm [facility] MCV 79.1(L) 81.3 - 96.4 fL [facility] MCH 26.0(L) 27.1 - 33.3 pg [facility] MCHC 32.8 32.3 - 35.7 g/dL [facility] RDW CV 13.5 11.1 - 14.9 % [facility] RDW SD 38.2 35.7 - 48.1 fL [facility] NRBC abs 0.00 0.00 - 0.01 K/cumm [facility] Blood specimen (specimen) 08/10/2019 4:30 PM CDT 08/10/2019 6:24 PM CDT You Templeton MD LAB BLOOD ORDERABLES Final Re sult Performing Organization Address [facility]/ZIP Co de Phone Number [facility] [address] [place] [address] * CRP (acute phase) (08/10/2019 4:30 PM CDT) CRP 4.1 <=10.0 mg/L [facility] Blood specimen (specimen) 08/10/2019 4:30 PM CDT 08/10/2019 6:24 PM CDT us You Templeton MD LAB BLOOD ORDERABLES Final Re sult Performing Organization Address [facility] Co de Phone Number [address] [address] * Erythrocyte sedimentation rate (08/10/2019 4:30 PM CDT) Pathologist [facility] Erythrocyte sedimentation rate 9 1 - 20 mm/hr [facility] Blood specimen (specimen) 08/10/2019 4:30 PM CDT 08/10/2019 6:24 PM CDT us You Templeton MD LAB BLOOD ORDERABLES Final Re sult Performing Organization Address [facility] Phone Number [address] [address] * Cyclic citrul peptide antibody, IgG (08/10/2019 4:30 PM CDT) Pathologist [facility] CCP Ab 1.8 <=2.9 units/mL [facility] Comment: Interpretive data Negative: <3 units/mL Positive: > or equal to 3 units/mL Current interpretive data was last revised on 2017. Blood specimen (specimen) 08/10/2019 4:30 PM CDT 08/10/2019 6:24 PM CDT us You Templeton MD LAB BLOOD ORDERABLES Final Re sult Performing Organization Address [facility] de Phone Number [address] [address] * Rheumatoid factor (08/10/2019 4:30 PM CDT) Pathologist [facility] Rheumatoid factor, quant <10.0 0.1 - 15.0 IUnits/mL [facility] Blood specimen (specimen) 08/10/2019 4:30 PM CDT 08/10/2019 6:24 PM CDT us You Templeton MD LAB BLOOD ORDERABLES Final Re sult [facility] [address] [place] [address] documented in this encounter Visit Diagnoses Diagnosis Polyarthritis- Primary Unspecified polyarthropathy or polyarthritis, site unspecified Primary osteoarthritis of both knees Rheumatoid arthritis of multiple sites with negative rheumatoid factor (CMS/HCC) (HCC) documented in this encounter Historical Medications * This list may reflect changes made after this encounter. cetirizine (ZyrTEC) 10 mg tablet Take 1 tablet (10 mg total) by mouth deputy city clerk before breakfast added in this encounter Orders Outpatient Referral Count Last Ordered Date Fir st Ordered Date AMB REFERRAL TO RHEUMATOLOGY 1 08/10/2019 documented in this encounter Care Teams Surgical Consultant Relationship Specialty Start Date End Date Kana Rankin MD PCP - General Family Medicine 05/15/19 documented as of this encounter
--- OUTSIDE RECORDS SUMMARY | 2024-12-12 16:55 | XMS_ITS | Encounter Summary ---
Author Organization [facility] Address [address] [place] [address] Phone Care Team Providers Care Facilities Flight Check Pilot Name Role Phone Kana Rankin MD Primary Care Provider [phone] Encounter Details Date Type Department Care Team (Late st Contact Info) Description 12/22/2020 Orders Only [facility] Orthopaedic Surgery [address] [facility] [address] [place] [address] Bradley Hackett PA [address] [facility] [address] [place], [place] [id number] Bilateral hip pain (Primary Dx) Social History Tobacco Use Types Packs/Day Years Used Date Smoking Tobacco: Never Smokeless Tobacco: Never Alcohol Use Standard Drinks/Week Comments Not Currently 0 (1 standard drink = 0.6 oz pur e alcohol) Comments No Sex and Gender Information Value Date Recorded Sex Assigned at Not on file 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
--- OUTSIDE RECORDS SUMMARY | 2024-12-12 16:56 | XMS_ITS | Encounter Summary ---
Author Organization [facility] Address [address] [place] [address] Phone Care Team Providers Care Dietary Director Name Role Phone Kana Rankin MD Primary Care Provider + [phone] Reason for Referral * Diagnostic Imaging (Routine) - Closed Specialty Diagnoses / Procedures Referred By Zoe t Referred To Contact Diagnoses Chronic pain of both knees Procedures XR Knee Right 3 Views Bradley Hackett PA Phone: tel: fax: [facility] [address] Referral ID Status Reason Start Date Expiration Date Visits Re quested Visits Authorized [id number] Closed 05/15/2019 11/23/2020 1 1 * Diagnostic Imaging (Routine) - Closed Specialty Diagnoses / Procedures Referred By Zoe arndt Referred To Contact Diagnoses Chronic pain of both knees Procedures XR Knee Left 3 Views Bradley Hackett PA Phone: tel: fax: [facility] [address] Referral ID Status Reason Start Date Expiration Date Visits Re quested Visits Authorized [id number] Closed 05/15/2019 11/23/2020 1 1 Encounter Details Date Type Department Care Team (Late st Contact Info) Description 05/15/2019 Orders Only [facility] Orthopaedic Surgery [address] [facility] 2nd Floor [address] [place] [address] Bradley Hackett PA [address] [place] [address] Chronic pain of both knees (Primary Dx) Social History Tobacco Use Types Packs/Day Years Used Date Smoking Tobacco: Never Assessed Comments Unknown Sex and Gender Information Value Date Recorded Sex Assigned at Not on file 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
--- OUTSIDE RECORDS SUMMARY | 2024-12-12 16:56 | XMS_ITS | Encounter Summary ---
Author Organization [facility] Address [address] [place] [address] Care Team Providers Care Anesthesiology Teacher Name Role Phone Kana Rankin MD Primary Care Provider [phone] Reason for Visit * Diagnostic Imaging (Routine) - Closed Specialty Diagnoses / Procedures Referred By Contaline t Referred To Contact Diagnoses Chronic pain of both knees Procedures XR Knee Right 3 Views Bradley Hackett PA Phone: tel: fax: [place] [address] [address] Referral ID Status Reason Start Date Expiration Date Visits Re quested Visits Authorized [id number] Closed 05/15/2019 11/23/2020 1 1 Encounter Details Date Type Department Care Team (Latest Contact Info) Description 05/21/2019 2:15 PM CDT Ancillary Procedure [facility] [address] [place] [address] Gabino Montes MD [address] [place] [address] Bradley Hackett PA [address] [place] [address] Chronic pain of both knees Social History Tobacco Use Types Packs/Day Years Used Date Smoking Tobacco: Never Smokeless Tobacco: Never Alcohol Use Standard Drinks/Week Comments Yes 0 (1 standard drink = 0.6 oz pur e alcohol) Comments Unknown Sex and Gender Information Value Date Recorded Sex Assigned at Not on file 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
--- OUTSIDE RECORDS SUMMARY | 2024-12-12 16:56 | XMS_ITS | Encounter Summary ---
Author Organization [facility] Address [address] [place] [address] Phone Care Team Providers Care Poultry Husbandman Name Role Phone Kana Rankin MD Primary Care Provider + [phone] Encounter Details Date Type Department Care Team (Late st Contact Info) Description 05/18/2019 Orders Only [facility] Orthopaedic Surgery [address] [facility] 2nd Floor [address] [facility] [place] [address] Danielle Monroe, CUCA Social History Tobacco Use Types Packs/Day Years Used Date Smoking Tobacco: Never Assessed Comments Unknown Sex and Gender Information Value Date Recorded Sex Assigned at Not on file 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
--- OUTSIDE RECORDS SUMMARY | 2024-12-12 16:56 | XMS_ITS | Encounter Summary ---
Author Organization [facility] Address [address] [place] [address] Phone Care Team Providers Care Inseminator Name Role Phone Kana Rankin MD Primary Care Provider + [phone] Reason for Referral * Diagnostic Imaging (Routine) - Closed Specialty Diagnoses / Procedures Referred By Zoe arndt Referred To Contact Diagnoses Bilateral shoulder pain, unspecified chronicity Procedures XR Shoulder Left 2+ View Josefina Lopez RN Phone: tel: fax: [address] [address] Referral ID Status Reason Start Date Expiration Date Visits Re quested Visits Authorized [id number] Closed 05/28/2019 12/06/2020 1 1 * Diagnostic Imaging (Routine) - Closed Specialty Diagnoses / Procedures Referred By Zoe arndt Referred To Contact Diagnoses Bilateral shoulder pain, unspecified chronicity Procedures XR Shoulder Right 2+ View Josefina Lopez RN Phone: tel: fax: [address] [address] Referral ID Status Reason Start Date Expiration Date Visits Re quested Visits Authorized [id number] Closed 05/28/2019 12/06/2020 1 1 Encounter Details Date Type Department Care Team (Late st Contact Info) Description 05/29/2019 10:45 AM CDT Office Visit [facility] Orthopaedic Surgery [address] 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 She is being referred to a information systems planner and states they are calling for an appointment. She has a medical history which includes acid reflux, hypertension, 1 functioning kidney, and diabetes. 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 PAST MEDICAL/SURGICAL HISTORY Reviewed medical history [...] to palpation over the proximal bicipital groove. Macoupin's test is positive on the right and [...] with her primary care physician and her information systems planner. She would like to proceed with a [...] [place] today. Shoulder and Elbow Nurse Practitioner [facility] documented in this encounter Plan of [...] chronicity documented in this encounter Care Teams Inseminator Relationship Specialty Start Date End Date Kana Rankin MD PCP - General Family Medicine 05/15/19 documented as of this encounter
--- OUTSIDE RECORDS SUMMARY | 2024-12-12 16:56 | XMS_ITS | Encounter Summary ---
Author Organization [facility] Address [address] [place] [address] Care Team Providers Care Public Relations Supervisor Name Role Phone Kana Rankin MD Primary Care Provider [phone] Reason for Visit * Diagnostic Imaging (Routine) - Closed Specialty Diagnoses / Procedures Referred By Contaline t Referred To Contact Diagnoses Chronic pain of both knees Procedures XR Knee Left 3 Views Bradley Hackett PA Phone: tel: fax: [facility] [address] Referral ID Status Reason Start Date Expiration Date Visits Re quested Visits Authorized [id number] Closed 05/15/2019 11/23/2020 1 1 Encounter Details Date Type Department Care Team (Latest Contact Info) Description 05/21/2019 2:30 PM CDT Ancillary Procedure [facility] [address] [place] [address] Bradley Hackett PA [address] [place] [address] Chronic pain of both knees Social History Tobacco Use Types Packs/Day Years Used Date Smoking Tobacco: Never Smokeless Tobacco: Never Alcohol Use Standard Drinks/Week Comments Yes 0 (1 standard drink = 0.6 oz pur e alcohol) Comments Unknown Sex and Gender Information Value Date Recorded Sex Assigned at Not on file Legal Sex Female 6:11 PM SHIPPING HAND Gender Identity Not on file Sexual Orientation Straight 08/04/2020 2: 23 PM CDT 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
--- OUTSIDE RECORDS SUMMARY | 2024-12-12 16:56 | XMS_ITS | Encounter Summary ---
Author Organization [facility] Address [address] [place] [address] Phone Care Team Providers Care Salvage Clerk Name Role Phone Kana Rankin MD Primary Care Provider + [phone] Reason for Referral * (Routine) - Closed Specialty Diagnoses / Procedures Referred By Zoe t Referred To Contact Diagnoses Primary osteoarthritis of both knees Procedures Large Joint Injection: bilateral knee Bradley Hackett PA Phone: tel: fax: [facility] (All Locations) Referral ID Status Reason Start Date Expiration Date Visits Re quested Visits Authorized [id number] Closed 05/21/2019 11/29/2020 1 1 * Consultation (Routine) - Closed Specialty Diagnoses / Procedures Referred By Zoe arndt Referred To Contact Rheumatology Diagnoses Primary osteoarthritis of both knees Bradley Hackett PA Phone: tel: fax: [facility] (All Locations) Referral ID Status Reason Start Date Expiration Date V isits Requested Visits Authorized [id number] Closed Specialty Services Required 05/21/2019 11/29/2020 99 99 Question Answer Please select the performing region: [facility] (All Locations) [167] # of visits: 1 Comments Please evaluate and treat. Multiple joint pain Reason for Visit * Reason Comments Pain Pain Encounter Details Date Type Department Care Team (Latest Contact Info) Description 05/21/2019 1:50 PM CDT Office Visit [facility] Orthopaedic Surgery [address] [facility] 2nd [address] [place] [address] Bradley Hackett PA [address] [place] [address] Primary osteoarthritis of both knees (Primary Dx) Social History Tobacco Use Types Packs/Day Years Used Date Smoking Tobacco: Never Smokeless Tobacco: Never Alcohol Use Standard Drinks/Week Comments Yes 0 (1 standard drink = 0.6 oz pur e alcohol) Comments Unknown Sex and Gender Information Value Date Recorded Sex Assigned at Not on file 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 Stairs are worse going down in coming [...] Not on file Occupational History ??? 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 Financial resource strain: Not [...] file Gets together: Not on file Attends mosque service: Not on file Active member of [...] ft 9, 260 lb, BMI 39. Transfer [id number] pushing up on the arms chair ambulates [...] few days. MIKI V[facility]quez-Xim[facility] Orthopedic Surgery documented in this encounter Plan of Treatment Scheduled Referrals Name Type Priority Associated Diagnoses Orde r Schedule Ambulatory referral to Rheumatology Outpatient Referral Routine Primary osteoarthritis of both knees Expected: 06/08/2019 (Approximate), Expires: 05/21/2020 documented as of this encounter Procedures Procedure Name Priority Date/Time Associated Diagnosis Comments CA ARTHROCENTESIS ASPIR&/INJ MAJOR JT/BURSA W/O US Routine 05/21/2019 1:50 PM CDT Primary osteoarthritis of both knees documented in this encounter Results * CA ARTHROCENTESIS ASPIR&/INJ MAJOR JT/BURSA W/O US (05/21/2019 [...] 08/26/2020 added in this encounter Care Teams Salvage Clerk Relationship Specialty Start Date End Date Kana Rankin MD PCP - General Family Medicine 05/15/19 documented as of this encounter
--- OUTSIDE RECORDS SUMMARY | 2024-12-12 16:56 | XMS_ITS | Encounter Summary ---
Author Organization [facility] Address [address] [place] [address] Care Team Providers Care Medical Affairs Manager Name Role Phone Unavailable Primary Care Provider Unavailabl e Encounter Details Date Type Department Care Team (Late st Contact Info) Description 10/26/2009 12:01 AM HYDRAULIC PLUMBER - 10/26/2009 11:59 PM HYDRAULIC PLUMBER Hospital Encounter [facility]INCONV Abdominal pain Social History Tobacco Use Types Packs/Day Years Used Date Smoking Tobacco: Never Assessed Comments Unknown Sex and Gender Information Value Date Recorded Sex Assigned at Not on file Legal Sex Female 6:11 PM HYDRAULIC PLUMBER Gender Identity Not on file Sexual Orientation Straight 08/04/2020 2: 23 PM CDT documented as of this encounter Plan of Treatment Not on file documented as of this encounter Visit Diagnoses Diagnosis Abdominal pain Abdominal pain, unspecified site documented in this encounter
--- OUTSIDE RECORDS SUMMARY | 2024-12-12 16:56 | XMS_ITS | Encounter Summary ---
Author Organization [facility] Address [address] [place] [address] Care Team Providers Care Transmission Repairer Name Role Phone Kana Rankin MD Primary Care Provider [phone] Reason for Referral * Diagnostic Imaging (Routine) - Closed Specialty Diagnoses / Procedures Referred By Ashleyac t Referred To Contact Diagnoses Bilateral shoulder pain, unspecified chronicity Procedures XR Shoulder Right 2+ View Josefina Lopez RN Phone: tel: fax: [address] [phone] Referral ID Status Reason Start Date Expiration Date Visits Re quested Visits Authorized [id number] Closed 05/28/2019 12/06/2020 1 1 * Diagnostic Imaging (Routine) - Closed Specialty Diagnoses / Procedures Referred By Zoe t Referred To Contact Diagnoses Bilateral shoulder pain, unspecified chronicity Procedures XR Shoulder Left 2+ View Josefina Lopez RN Phone: tel: fax: [address] [phone] Referral ID Status Reason Start Date Expiration Date Visits Re quested Visits Authorized [id number] Closed 05/28/2019 12/06/2020 1 1 Reason for Visit * Diagnostic Imaging (Routine) - Closed Specialty Diagnoses / Procedures Referred By Contac t Referred To Contact Diagnoses Bilateral shoulder pain, unspecified chronicity Procedures XR Shoulder Left 2+ View Josefina Lopez RN Phone: tel: fax: [address] [phone] Referral ID Status Reason Start Date Expiration Date Visits Re quested Visits Authorized [id number] Closed 05/28/2019 12/06/2020 1 1 Encounter Details Date Type Department Care Team (Latest Contact Info) Description 05/29/2019 10:25 AM CDT - 05/29/2019 11:59 PM CDT Hospital Encounter [facility] [address] [place] [address] Kiet West MD [address] [address] Josefina Lopez RN [address] [facility] [address]/6B/[address]A [address] [address] Bilateral shoulder pain, unspecified chronicity Discharge Disposition: [...] on file 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 Electronically signed by: Marin Mata M.D. [facility] 05/29/2019 10:40 AM CDT EXAMINATION: 1. Left [...] chronicity documented in this encounter Care Teams Transmission Repairer Relationship Specialty Start Date End Date Kana Rankin MD PCP - General Family Medicine 05/15/19 documented as of this encounter
--- OUTSIDE RECORDS SUMMARY | 2024-12-12 16:56 | XMS_ITS | Encounter Summary ---
Author Organization [facility] Address [address] [place] [address] Phone Care Team Providers Care It Solutions Sales Consultant Name Role Phone Kana Rankin MD Primary Care Provider + [phone] Encounter Details Date Type Department Care Team (Late st Contact Info) Description 05/21/2019 Orders Only [facility] Orthopaedic Surgery [address] [facility] [address] [place] [address] Danielle Monroe, ATC Social History Tobacco Use Types Packs/Day Years Used Date Smoking Tobacco: Never Smokeless Tobacco: Never Alcohol Use Standard Drinks/Week Comments Yes 0 (1 standard drink = 0.6 oz pur e alcohol) Comments Unknown Sex and Gender Information Value Date Recorded Sex Assigned at Not on file Legal Sex Female 6:11 PM CURTAIN MENDER Gender Identity Not on file Sexual Orientation Straight 08/04/2020 2: 23 PM CDT 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
== END 2024-12-05 12:35 | disposition home or self-care (01) ==
PROVIDERS: Emergency Provider Nurse Practitioner; PCP Family Medicine
DX: J01.40 Acute pansinusitis, unspecified (principal); E11.9 Type 2 diabetes mellitus without complications; I10 Essential (primary) hypertension
CPT/HCPCS: 87081; 87880; 99213; G0463

== ENCOUNTER 2024-12-29 16:41 | Outpatient (CLI) | payer OTHER, SELFPAY ==
--- OUTSIDE RECORDS SUMMARY | 2024-12-29 16:48 | XMS_ITS | Clinical Summary ---
Author Organization [facility] Address [address] [place] [address] Care Team Providers Care Biological Lab Technician Name Role Phone Kana Rankin MD Primary Care Provider [phone] Allergies No known active allergies Medications celecoxib (CeleBREX) 100 mg capsule 1 Active cetirizine (ZyrTEC) 10 mg tablet Take 10 mg by mouth. Active montelukast (SINGULAIR) 10 mg tablet Take 10 mg by mouth daily at bedtime. Active acetaminophen (TYLENOL) 325 mg tablet Take 650 mg by mouth. 0 Active traZODone (DESYREL) 100 mg tablet 1 Active Multivitamin Capsule Take 1 Capsule by mouth. Active metFORMIN (GLUCOPHAGE) 500 mg tablet Take 500 mg by mouth 2 times daily with meals. Active hydroCHLOROthia zide 25 mg tablet Take 25 mg by mouth daily. Active tirzepatide (Mounjaro) 7.5 mg/0.5 mL Pen Injector Inject by subcutaneous injection. Active Magnesium Oxide 420 mg Tablet Take by mouth. A ctive omeprazole (PriLOSEC) 20 mg Capsule, Delayed Release(E.C.) Take 20 mg by mouth daily. Active Active Problems No known active problems Encounters Date Type Department Care Team Description 12/23/2024 External Device Data [facility] ABSTRACTION Provider, Abstract 12/22/2024 External Device Data [facility] ABSTRACTION Provider, Abstract 12/16/2024 External Device Data [facility] ABSTRACTION Provider, Abstract 10/02/2024 10:00 AM CDT Office Visit [facility] Oncology and Hematology - [address] [place] [address] Elvia Benton MD Polycythemia, secondary (Primary Dx) 10/02/2024 Orders Only [facility] [address] [place] [address] Eduard Baumann MD from Last 3 Months Family History Relation Name Status Comments Daughter Alive Father Alive Mother Alive Sister 1 Alive Sister 2 Alive Son Alive Social History Tobacco Use Types Packs/Day Years Used Date Smoking Tobacco: Never Tobacco Cessation:Counseling Given: Not Answered Alcohol Use Standard Drinks/Week Comments Yes 0 (1 standard drink = 0.6 oz pur e alcohol) socaily Comments Unknown Sex and Gender Information Value Date Recorded Sex Assigned at Not on file Legal Sex Female 2:37 AM GOLD LEAF ROLLER Gender Identity Not on file Sexual Orientation [...] Description 04/29/2025 11:00 AM CDT Office Visit [facility]ology - [address] [place] [address] Eduard Baumann MD [address] [facility] [address] [place] [address] Health Maintenance Due Date Last Done Comments Pre-Diabetes and Diabetes Screening 1977 DTAP/TDAP/TD VACCINES (1 - Tdap) 1996 HEPATITIS B VACCINES (1 of 3 - 19+ 3-dose series) 1996 PNEUMOCOCCAL VACCINE 0-64 YE ARS (1 of 2 - PCV) 1996 CERVICAL CANCER SCREENING 2007 BREAST CANCER [...] CDT) Blood Eduard Baumann MD CHEMISTRY ORDERABLES Final Resu lt * CBC WITH DIFFERENTIAL (10/02/2024 11:54 AM CDT) Blood Eduard Baumann MD HEMATOLOGY ORDERABLES Final Res ult from Last 3 Months Insurance [facility] OPEN ACCESS HMO [facility] OPEN ACCESS HMO [facility] [id number] CIGNA OPEN ACCESS HMO Ph[employer] O OPEN ACCESS [facility] Address: [facility] [address] [place] [address] [facility] [id number] Care Teams Biological Lab Technician Relationship Specialty Start Date End Date Kana Rankin MD [address] [place] [address] PCP - General Family Practice 05/01/23
--- OUTSIDE RECORDS SUMMARY | 2024-12-29 16:48 | XMS_ITS | Encounter Summary ---
Author Organization [facility] Address [address] [place] [address] Care Team Providers Care Anesthetist Name Role Phone Kana Rankin MD Primary Care Provider [phone] Encounter Details Date Type Department Care Team (Late st Contact Info) Description 09/11/2005 Outpatient Historical [facility] Mian Farah PT, MD BACKACHE NOS (Primary Dx) Social History Tobacco Use Types Packs/Day Years Used Date Smoking Tobacco: Never Assessed Comments Unknown Sex and Gender Information Value Date Recorded Sex Assigned at Not on file Legal Sex Female 2:37 AM APPRENTICE PATTERN MAKER Gender Identity Not on file Sexual Orientation Not on file documented as of this encounter Plan of Treatment Upcoming Encounters Date Type Department Care Team (Late st Contact Info) Description 04/29/2025 11:00 AM CDT Office Visit [facility] Oncology and Hematology - [place] [place] [address] [address] [place] [address] Eduard Baumann MD [address] [place] [address] [address] [place] [address] documented as of this encounter Visit Diagnoses Diagnosis Backache, unspecified- Primary documented in this encounter Care Teams Anesthetist Relationship Specialty Start Date End Date Kana Rankin MD [address] [place] [address] PCP - General Family Practice 05/01/23 documented as of this encounter
--- OUTSIDE RECORDS SUMMARY | 2024-12-29 16:48 | XMS_ITS | Referral Summary ---
Author Organization [facility] Address [address] [place] [address] Care Team Providers Care Train Operations Supervisor Name Role Phone Kana Rankin MD Primary Care Provider + [phone] Allergies No known active allergies Medications celecoxib (CeleBREX) 200 mg capsule 200 in am and 100 in pm 1 04/09/20 19 Active hydroCHLOROthiazid e (HYDRODIURIL) 25 mg tabletIndications: hypertension Take 1 tablet (25 mg total) by mouth early breastfeeding care specialist before breakfast 1 05/11/20 19 Active metFORMIN [...] mouth early breastfeeding care specialist before breakfast Active multivitamin capsule Take 1 capsule by mouth early breastfeeding care specialist before breakfast Active fish oil-dha-epa 1,200-144-216 mg capsule Take by mouth early breastfeeding care specialist before breakfast Active zinc 50 mg tablet [...] nasal spray Omnaris 50 mcg nasal spray [place] 2 sprays every day by intranasal route. 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 Current interpretive data was last revised on 2016. Blood specimen (specimen) 08/10/2019 4:30 PM CDT 08/10/2019 6:24 PM CDT us You Templeton MD LAB MICROBIOLOGY - GENERAL OR DERABLES Edited Result - Final [facility] [address] [place] [address] from Last 3 Months or Most Recently Relevant to Health Maintenance Insurance [facility] HEALTHLINK OPEN ACCESS [facility] HMO/PPO Address: [address] [address] [place] [address] [facility] HEALTHLINK [facility] HEALTHLINK PPO POS HEALTHLINK PPO POS CIGNA [facility] HMO/PPO Address: [address] [address] [place] [address] Advance Directives For more information, please contact: [phone] * Full Code (Latest Code Status on File) Date Activated Date Inactivated Comments 08/19/2020 9:53 PM 08/20/2020 8:49 PM Care Teams Train Operations Supervisor Relationship Specialty Start Date End Date Kana Rankin MD PCP - General Family Medicine 05/15/19
--- OUTSIDE RECORDS SUMMARY | 2024-12-29 16:48 | XMS_ITS | Encounter Summary ---
Author Organization [facility] Address [address] [place] [address] Care Team Providers Care Weigher Packing Name Role Phone Kana Rankin MD Primary Care Provider [phone] Encounter Details Date Type Department Care Team (Late st Contact Info) Description 10/13/2005 Outpatient Historical HIS Mian Farah PT, MD Social History Tobacco Use Types Packs/Day Years Used Date Smoking Tobacco: Never Assessed Comments Unknown Sex and Gender Information Value Date Recorded Sex Assigned at Not on file Legal Sex Female 2:37 AM DISTRIBUTION CENTER MANAGER Gender Identity Not on file Sexual Orientation Not on file documented as of this encounter Plan of Treatment Upcoming Encounters Date Type Department Care Team (Late st Contact Info) Description 04/29/2025 11:00 AM CDT Office Visit [facility] Oncology and Hematology - [place] [address] [place] [address] [address] [place] [address] Eduard Baumann MD [address] [place] [address] [address] [place] [address] documented as of this encounter Visit Diagnoses Not on filedocumented in this encounter Care Teams Weigher Packing Relationship Specialty Start Date End Date Kana Rankin MD [address] [place] [address] PCP - General Family Practice 05/01/23 documented as of this encounter
--- OUTSIDE RECORDS SUMMARY | 2024-12-29 16:48 | XMS_ITS | Clinical Summary ---
Author Organization [facility] Address [address] [place] [address] Care Team Providers Care Health Safety Specialist Name Role Phone Kana Rankin MD Primary Care Provider + [phone] Allergies No known active allergies Medications celecoxib (CeleBREX) 200 mg capsule 200 in am and 100 in pm 1 04/09/20 19 Active hydroCHLOROthiazid e (HYDRODIURIL) 25 mg tabletIndications: hypertension Take 1 tablet (25 mg total) by mouth suspension cord tier before breakfast 1 05/11/20 19 Active metFORMIN [...] 1 tablet (10 mg total) by mouth suspension cord tier before breakfast Active multivitamin capsule Take 1 capsule by mouth suspension cord tier before breakfast Active fish oil-dha-epa 1,200-144-216 mg capsule Take by mouth suspension cord tier before breakfast Active zinc 50 mg tablet [...] nasal spray Omnaris 50 mcg nasal spray [place] 2 sprays every day by intranasal route. 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 If positive, a second separately collected sample should be submitted for Hepatitis C Virus (HCV) RNA Detection and Quantitation by Real-Time Reverse Irish Moss Operator-PCR (RT-PCR). Current interpretive data was last revised on 2016. Blood specimen (specimen) 08/10/2019 4:30 PM CDT 08/10/2019 6:24 PM CDT us You Templeton MD LAB MICROBIOLOGY - GENERAL OR DERABLES Edited Result - Final [facility] [address] [place] [address] from Last 3 Months or Most Recently Relevant to Health Maintenance Insurance [facility] Sand Sign OPEN ACCESS [facility] HMO/PPO Address: [address] [address] [place] [address] CIGNA HEALTHLINK [place] [employer] HEALTHLINK PPO POS HEALTHLINK PPO POS CIGNA [facility] HMO/PPO Address: [address] [address] [place] [address] Advance Directives For more information, please contact: [phone] * Full Code (Latest Code Status on File) Date Activated Date Inactivated Comments 08/19/2020 9:53 PM 08/20/2020 8:49 PM Care Teams Health Safety Specialist Relationship Specialty Start Date End Date Kana Rankin MD PCP - General Family Medicine 05/15/19
[2024-12-30 04:05] LABS: Iron 66 ug/dL (37-170)
[2024-12-30 04:39] LABS: Vitamin D 25 Hydroxy 32.4 ng/mL
== END 2024-12-29 16:42 | disposition home or self-care (01) ==
PROVIDERS: PCP Family Medicine
DX: Z79.899 Other long term (current) drug therapy (principal)
CPT/HCPCS: 36415; 82306; 82728; 83540

== ENCOUNTER 2025-04-28 00:33 | Day surgery (SDC) | payer OTHER, SELFPAY ==
[2025-04-21 11:52] VITALS: BMI 32.8
--- OUTSIDE RECORDS SUMMARY | 2025-04-28 00:35 | XMS_ITS | Clinical Summary ---
Author Organization [facility] Address [address] [place] [address] Care Team Providers Care Director Corporate Name Role Phone Kana Rankin MD Primary Care Provider + [phone] Allergies No known active allergies Medications celecoxib (CeleBREX) 200 mg capsule 200 in am and 100 in pm 1 04/09/20 19 Active hydroCHLOROthiazid e (HYDRODIURIL) 25 mg tabletIndications: hypertension Take 1 tablet (25 mg total) by mouth sales and marketing intern before breakfast 1 05/11/20 19 Active metFORMIN [...] 1 tablet (10 mg total) by mouth sales and marketing intern before breakfast Active multivitamin capsule Take 1 capsule by mouth sales and marketing intern before breakfast Active fish oil-dha-epa 1,200-144-216 mg capsule Take by mouth sales and marketing intern before breakfast Active zinc 50 mg tablet [...] nasal spray Omnaris 50 mcg nasal spray [place] 2 sprays every day by intranasal route. [...] (08/10/2020): Added automatically from request for surgery [id number] Calculus of gallbladder with out cholecystitis without obstruction 08/09/2020 Nasal congestion 10/22/2017 Allergic rhinitis 07/10/2017 Otitis media of right ear 07/10/2017 Asthma 11/22/2016 Bronchitis 11/22/2016 Upper respiratory infection 11/22/2016 Allergy to environmental factors 11/30/2015 Essential hypertension 11/30/2015 Gastroesophageal reflux disease 11/30/2015 Hyperlipidemia 11/30/2015 Insomnia 11/30/2015 Morbid obesity 11/30/2015 Osteoarthritis 11/30/2015 Immunizations Immunization Administration Dates Next Due Influenza, Quadrivalent, Spl [...] on file Legal Sex Female 6:11 PM 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 Gender Identity Not on file Sexual Orientation Straight 08/04/2020 2: 23 PM CDT 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 Not on file Obstetrics History Last Filed Vital Signs Vital Sign Reading Time Taken Comments Blood Pressure 118/78 03/22/2024 9:35 AM CDT Pulse 93 03/22/2024 9:35 AM CDT Temperature 36.7 C (98 F) 03/22/2024 9:35 AM CDT Respiratory Rate 18 03/22/2024 9:35 AM CDT Oxygen Saturation 99% 03/22/2024 9:35 AM CDT Inhaled Oxygen Concentration - - Weight 106.6 kg (235 lb) 05/10/2024 3:22 PM CDT Height 180.3 cm (5' 11) 05/10/2024 3:22 PM CDT Body Mass Index 32.78 05/10/2024 3:22 PM CDT Plan of Treatment Health Maintenance Due Date Last Done Comments Breast Cancer Screening-Mammogram 1975 Cervical Cancer Screening 1977 Colon Cancer Screening-Colonoscopy 1977 Depression Screening 1977 DTaP/Tdap/Td Vaccine (1 - Tdap) 1988 Hepatitis B Screening 1995 Regular Well Visit/Exam 18-64 1995 Pneumococcal vaccine <65 (1 of 2 - PCV) 1996 Covid-19 Vaccine (3 - 2023-2 5 season) 2024 03/17/2021, 02/17/2021 Influenza Vaccine (Season Ended) 2025 09/19/2020, 09/05/2019, 09/05/2019, Additional history exists Hepatitis C Screening Completed 08/10/2019 Procedures Procedure Name Priority Date/Time Associated Diagnosis Comments HEPATITIS C ANTIBODY Routine 08/10/2019 4:30 PM CDT Primary osteoarthritis of both knees from Last 3 Months or Most Recently Relevant to Health Maintenance Results * Hepatitis C antibody (08/10/2019 4:30 PM CDT) Hep C Ab Nonreactive Nonreactive [facility] Comment: Interpretive Data Positive results should be confirmed by a molecular method. If positive, a second separately collected sample should be submitted for Hepatitis C Virus (HCV) RNA Detection and Quantitation by Real-Time Reverse Vp Security-PCR (RT-PCR). Current interpretive data was last revised on 2016. Blood specimen (specimen) 08/10/2019 4:30 PM CDT 08/10/2019 6:24 PM CDT us You Templeton MD LAB MICROBIOLOGY - GENERAL OR DERABLES Edited Result - Final [facility] [address] [place] [address] from Last 3 Months or Most Recently Relevant to Health Maintenance Insurance [facility] [employer] OPEN ACCESS [facility] CIGNA HEALTHLINK [facility] HEALTHLINK PPO POS HEALTHLINK PPO POS CIGNA [facility] Advance Directives For more information, please contact: [phone] * Full Code (Latest Code Status on File) Date Activated Date Inactivated Comments 08/19/2020 9:53 PM 08/20/2020 8:49 PM Care Teams Director Corporate Relationship Specialty Start Date End Date Kana Rankin MD PCP - General Family Medicine 05/15/19
--- OUTSIDE RECORDS SUMMARY | 2025-04-28 00:35 | XMS_ITS | Referral Summary ---
Author Organization [facility] Address [address] [place] [address] Care Team Providers Care Long Term Name Role Phone Kana Rankin MD Primary Care Provider + [phone] Allergies No known active allergies Medications celecoxib (CeleBREX) 200 mg capsule 200 in am and 100 in pm 1 04/09/20 19 Active hydroCHLOROthiazid e (HYDRODIURIL) 25 mg tabletIndications: hypertension Take 1 tablet (25 mg total) by mouth desulphuring operator before breakfast 1 05/11/20 19 Active [...] 1 tablet (10 mg total) by mouth desulphuring operator before breakfast Active multivitamin capsule Take 1 capsule by mouth desulphuring operator before breakfast Active fish oil-dha-epa 1,200-144-216 mg capsule Take by mouth desulphuring operator before breakfast Active zinc 50 mg [...] nasal spray Omnaris 50 mcg nasal spray [place] 2 sprays every day by intranasal route. 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 If positive, a second separately collected sample should be submitted for Hepatitis C Virus (HCV) RNA Detection and Quantitation by Real-Time Reverse Mems Engineer-PCR (RT-PCR). Current interpretive data was last revised on 2016. Blood specimen (specimen) 08/10/2019 4:30 PM CDT 08/10/2019 6:24 PM CDT us You Templeton MD LAB MICROBIOLOGY - GENERAL OR DERABLES Edited Result - Final [facility] [address] [place] [address] from Last 3 Months or Most Recently Relevant to Health Maintenance Insurance CIGNA Simple Admit OPEN ACCESS [facility] HEALTHLINK PPO POS HEALTHLINK PPO POS CIGNA [facility] Advance Directives For more information, please contact: [phone] * Full Code (Latest Code Status on File) Date Activated Date Inactivated Comments 08/19/2020 9:53 PM 08/20/2020 8:49 PM Care Teams Long Term Relationship Specialty Start Date End Date Kana Rankin MD PCP - General Family Medicine 05/15/19
--- OUTSIDE RECORDS SUMMARY | 2025-04-28 00:36 | XMS_ITS | Encounter Summary ---
Author Organization [facility] Address 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 STRUCTURAL STEEL Gender Identity Not on file Sexual Orientation Not on file documented as of this encounter Plan of Treatment Upcoming Encounters Date Type Department Care Team (Late st Contact Info) Description 07/02/2025 9:45 AM CDT Office Visit [facility] Oncology and Hematology - [place] [address] [address] [place] [address] [place] [address] [place] [address] [address] [place] [address] documented as of this encounter Visit Diagnoses Not on filedocumented in this encounter Care Teams Roof Panel Hanger Relationship Specialty Start Date End Date Kana Rankin MD [address] [place] [address] PCP - General Family Practice 05/01/23 documented as of this encounter
--- OUTSIDE RECORDS SUMMARY | 2025-04-28 00:36 | XMS_ITS | Encounter Summary ---
Author Organization [facility] Address 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 Gender Identity Not on file Sexual Orientation Not on file documented as of this encounter Plan of Treatment Upcoming Encounters Date Type Department Care Team (Late st Contact Info) Description 07/02/2025 9:45 AM CDT Office Visit [facility] Oncology and Hematology - [place] [address] [place] [address] [address] [place] [address] [place] [address] [place] [address] [address] [place] [address] documented as of this encounter Visit Diagnoses Diagnosis Backache, unspecified- Primary documented in this encounter Care Teams Manager Information Relationship Specialty Start Date End Date Kana Rankin MD [address] [place] [address] PCP - General Family Practice 05/01/23 documented as of this encounter
--- OUTSIDE RECORDS SUMMARY | 2025-04-28 00:36 | XMS_ITS | Clinical Summary ---
Author Organization [facility] Administrative Offices Address [address] [place] [address] Care Team Providers Care Mica Miner Blasting Name Role Phone Knaa Rankin MD Primary Care Provider [phone] Allergies No known active allergies Medications celecoxib [...] Encounters Date Type Department Care Team Description 04/22/2025 External Device Data [facility] ABSTRACTION Provider, Abstract 04/21/2025 External Device Data [facility] ABSTRACTION Provider, Abstract 04/20/2025 External Device Data [facility] ABSTRACTION Provider, Abstract 03/16/2025 External Device Data [facility] ABSTRACTION Provider, Abstract 02/17/2025 External Device Data [facility] ABSTRACTION Provider, Abstract 02/06/2025 External Device Data [facility] ABSTRACTION Provider, Abstract 02/05/2025 External Device Data [facility] ABSTRACTION Provider, Abstract 02/02/2025 External Device Data [facility] ABSTRACTION Provider, Abstract [...] on file 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 Gender Identity Not on file Sexual Orientation Not on file Last Filed Vital Signs Vital Sign Reading Time Taken Comments Blood Pressure 118/76 10/02/2024 9:51 AM CDT Pulse 70 10/02/2024 9:51 AM CDT Temperature 36.6 C (97.8 F) 10/02/2024 9:51 AM CDT Respiratory Rate 16 10/02/2024 9:51 AM CDT Oxygen Saturation 98% 10/02/2024 9:51 AM CDT Inhaled Oxygen Concentration - - Weight 107.5 kg (237 lb) 10/02/2024 9:51 AM CDT Height - - Body Mass Index - - Plan of Treatment Upcoming Encounters Date Type Department Care Team (Late st Contact Info) Description 07/02/2025 9:45 AM CDT Office Visit [facility] Oncology and Hematology [facility] [address] [facility] [address] [place] [address] Eduard Baumann MD [address] [facility] [address] [place] [address] Health Maintenance Due Date Last Done Comments Pre-Diabetes and Diabetes Screening 1977 DTAP/TDAP/TD VACCINES (1 - Tdap) 1996 HEPATITIS B VACCINES (1 of 3 - 19+ 3-dose series) 1996 HPV/Cotest (21-29) 1998 CERVICAL CANCER SCREENING 2007 HPV/Cotest (30-65) 2007 PAP SMEAR 2007 BREAST CANCER SCREENING 2017 COLORECTAL SCREENING 2022 Colorectal Cancer Screening 2022 FIT-DNA Q 3 years 2022 FIT/FOBT Q 1 year 2022 Flex Sig/CT Colonography Q 5 years 2022 INFLUENZA VACCINE (#1) 2024 0, 09/05/2019, 09/01/2014 COVID-19 Vaccine ( season) 2024, 02/17/2021 Insurance [employer] OPEN ACCESS HMO [address] [place], [place] [id number] [employer] OPEN ACCESS HMO [place] [address] OPEN ACCESS HMO [employer] OPEN ACCESS [place] [address] Care Teams Mica Miner Blasting Relationship Specialty Start Date End Date Kana Rankin MD [address] [place] [address] PCP - General Family Practice 05/01/23
[2025-04-28 08:19] VITALS: BP 142/82; PULSE 91; RESP 20; TEMP 36.2; O2SAT 99
--- NOTE | 2025-04-28 08:32 | WPDANESEPPF ---
Anes - Initial Pre Proc Eval Procedure: Operation Date: 04/28/25 09:30 Proposed Procedures p Esophagogastroduodenoscopy & Colonoscopy - Earle Delcid MD Date/Time: 04/28/25 08:32 Surgeon: Earle Delcid MD Pre Op Diagnosis: GERD, Dysphagia, Neoplasm screening Patient Data Age: 49 Gender: F Height: 1.8 m Weight: 105.5 kg Last Vital Signs Temp 97.2 F L 04/28/25 08:19 Pulse 91 04/28/25 08:19 Resp 20 04/28/25 08:19 BP 142/82 H 04/28/25 08:19 Pulse Ox 99 04/28/25 08:19 O2 Del Method Room Air 04/28/25 08:19 Allergies Allergy/AdvReac Type Severity Reaction Status Date / Time No Known Allergies Allergy Verified 04/28/25 08:16 Home Medications ?Medication ?Instructions ?Recorded ?Confirmed ?Type tramadol 50 mg tablet See Rx Instructions PO Q6H PRN 11/27/23 04/21/25 Rx arthritic pain #180 tabs atorvastatin 40 mg tablet See Rx Instructions .Route 06/03/24 04/28/25 Rx .COMPLEX #90 tabs celecoxib 100 mg capsule (Celebrex) 100 mg PO BID #180 caps 11/16/24 04/28/25 Rx loratadine 10 mg tablet (Claritin) 10 mg PO DAILY PRN allergic 11/16/24 04/21/25 Rx symptoms #90 tabs fluticasone propionate 50 1 spray intranasal DAILY #54.6 mL 12/16/24 04/28/25 Rx mcg/actuation nasal spray,suspension (Allergy Relief (fluticasone)) trazodone 100 mg tablet 100 mg PO QHS #90 tabs 12/16/24 04/28/25 Rx tolterodine 4 mg capsule,extended 4 mg PO DAILY #90 caps 12/24/24 04/28/25 Rx release 24 hr minoxidil 2.5 mg tablet 2.5 mg PO HS 02/15/25 04/28/25 History hydrochlorothiazide 12.5 mg tablet 12.5 mg PO DAILY #90 tabs 03/01/25 04/28/25 Rx linaclotide 145 mcg capsule 145 mcg PO DAILY #90 caps 03/12/25 04/28/25 Rx (Linzess) omeprazole 40 mg capsule,delayed 40 mg PO DAILY #90 caps 03/12/25 04/28/25 Rx release metformin 500 mg tablet See Rx Instructions .Route 03/16/25 04/28/25 Rx .COMPLEX #360 tabs semaglutide 0.25 mg or 0.5 mg (2 0.5 mg (0.736 mL) subcut WEEKLY #9 04/15/25 04/28/25 Rx mg/3 mL) subcutaneous pen injector mL (Ozempic) progesterone micronized 100 mg 100 mg PO QPM 04/21/25 04/28/25 History capsule Patient hx anesthesia problems: none Family hx anesthesia problems: none Results Review: All pre-operative results and documents have been reviewed as part of the pre-operative evaluation. [facility] Past Medical History Medical History BMI 34.0-34.9,adult KAYDEN (stress urinary incontinence, female) Consultation for female sterilization Urine frequency Irritation of left eye Elevated WBC count Hair loss Screening mammogram, encounter for GERD (gastroesophageal reflux disease) Sciatic nerve pain Hypokalemia Anemia Blood loss Travelers' diarrhea Menometrorrhagia Diabetes High cholesterol Rash COVID-19 BMI 37.0-37.9, adult Dysplasia of one kidney Essential hypertension Surgical History Surgical History History of hysteroscopy (06/28/23) Hysteroscopy with uterine curettings/ Endometrial ablation/ Laparoscopic right salpingectomy S/P skin biopsy (~1998) benign History of tonsillectomy (~1997) History of left salpingo-oophorectomy (05/22/18) RA LSO, left adnexal mass--benign History of cholecystectomy (11/18/20) Family History Family History Father Atrial fibrillation Pleurisy Diabetes mellitus Mother No problems noted. Sibling No problems noted. Other Depression Family history of hypercholesterolemia Hypertension Social History Social History Smoking status: Never smoker Second hand tobacco smoke exposure: No Substance use: never Substance use type: does not use Do You Feel Safe in your Home?: Yes Lack of Transportation: No Lack of Food: Never True Current Housing: I Have Housing Concerned About Future Housing: No Difficulty Paying Gas/Electric Bills: No Difficulty Paying for Meds: No Currently Unemployed: No Education: Master's Degree or Higher Difficulty w/ Childcare or Family Care: No Living arrangements: with family Additional living arrangements comments: with sp Occupation/Education: occupation 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[employer] Gender identity (if verbalized by the patient): Female Sexual Orientation (if Verbalized by the Patient): Straight or Heterosexual Anes - Eval Final PreProcedure Day of Procedure 04/28/25 08:32 Patient weight: normal Heart: regular rate and rhythm Lungs: clear to auscultation Airway: Mallampati scale class II Neurological: alert and oriented Last oral intake: >/= 8 hours ASA classification: II Emergent: no Anesthetic plan: proceed Anesthesia type and monitoring: general GIVS and standard monitoring Results Review: All pre-operative results and documents have been reviewed as part of the pre-operative evaluation. Informed Consent: The patient's anesthetic plan and its attendant risks and benefits were discussed with the patient/family/POA. Questions were solicited and answers provided to the satisfaction of the patient/family/POA.
[2025-04-28 08:35] LABS: Glucose Point of Care 138 mg/dl (65-105)
[2025-04-28] MEDS: LACTATED RINGERS 1,000 ML 150 ML IV CONT (08:35)
--- NOTE | 2025-04-28 09:01 | PM.HPGS ---
History of Present Illness History of Present Illness Consent: Risks, benefits, and alternatives have been discussed and questions answered. Patient agrees to proceed with procedure. Chief complaint: GERD, Dysphagia, Neoplasm screening Narrative: Lorelei Hall is a 49 year old female here for first egd and colonoscopy, gerd on ppi, sometimes dysphagia, also constipation but archana is helping Review of Systems Review of Systems: All systems reviewed & are unremarkable except as noted in HPI and below PMFSH Past Medical History Medical History BMI 34.0-34.9,adult KAYDEN (stress urinary incontinence, female) Consultation for female sterilization Urine frequency Irritation of left eye Elevated WBC count Hair loss Screening mammogram, encounter for GERD (gastroesophageal reflux disease) Sciatic nerve pain Hypokalemia Anemia Blood loss Travelers' diarrhea Menometrorrhagia Diabetes High cholesterol Rash COVID-19 BMI 37.0-37.9, adult Dysplasia of one kidney Essential hypertension Surgical History Surgical History History of hysteroscopy (06/28/23) Hysteroscopy with uterine curettings/ Endometrial ablation/ Laparoscopic right salpingectomy S/P skin biopsy (~1998) benign History of tonsillectomy (~1997) History of left salpingo-oophorectomy (05/22/18) RA LSO, left adnexal mass--benign History of cholecystectomy (11/18/20) Family History Family History Father Atrial fibrillation Pleurisy Diabetes mellitus Mother No problems noted. Sibling No problems noted. Other Depression Family history of hypercholesterolemia Hypertension Social History Social History Smoking status: Never smoker Second hand tobacco smoke exposure: No Substance use: never Substance use type: does not use Do You Feel Safe in your Home?: Yes Lack of Transportation: No Lack of Food: Never True Current Housing: I Have Housing Concerned About Future Housing: No Difficulty Paying Gas/Electric Bills: No Difficulty Paying for Meds: No Currently Unemployed: No Education: Master's Degree or Higher Difficulty w/ Childcare or Family Care: No Living arrangements: with family Additional living arrangements comments: with sp Occupation/Education: occupation 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[employer] Gender identity (if verbalized by the patient): Female Sexual Orientation (if Verbalized by the Patient): Straight or Heterosexual Meds Home Medications and Allergies Home Medications ?Medication ?Instructions ?Recorded ?Confirmed ?Type tramadol 50 mg tablet See Rx Instructions PO Q6H PRN 11/27/23 04/21/25 Rx arthritic pain #180 tabs atorvastatin 40 mg tablet See Rx Instructions .Route 06/03/24 04/28/25 Rx .COMPLEX #90 tabs celecoxib 100 mg capsule (Celebrex) 100 mg PO BID #180 caps 11/16/24 04/28/25 Rx loratadine 10 mg tablet (Claritin) 10 mg PO DAILY PRN allergic 11/16/24 04/21/25 Rx symptoms #90 tabs fluticasone propionate 50 1 spray intranasal DAILY #54.6 mL 12/16/24 04/28/25 Rx mcg/actuation nasal spray,suspension (Allergy Relief (fluticasone)) trazodone 100 mg tablet 100 mg PO QHS #90 tabs 12/16/24 04/28/25 Rx tolterodine 4 mg capsule,extended 4 mg PO DAILY #90 caps 12/24/24 04/28/25 Rx release 24 hr minoxidil 2.5 mg tablet 2.5 mg PO HS 02/15/25 04/28/25 History hydrochlorothiazide 12.5 mg tablet 12.5 mg PO DAILY #90 tabs 03/01/25 04/28/25 Rx linaclotide 145 mcg capsule 145 mcg PO DAILY #90 caps 03/12/25 04/28/25 Rx (Linzess) omeprazole 40 mg capsule,delayed 40 mg PO DAILY #90 caps 03/12/25 04/28/25 Rx release metformin 500 mg tablet See Rx Instructions .Route 03/16/25 04/28/25 Rx .COMPLEX #360 tabs semaglutide 0.25 mg or 0.5 mg (2 0.5 mg (0.736 mL) subcut WEEKLY #9 04/15/25 04/28/25 Rx mg/3 mL) subcutaneous pen injector mL (Ozempic) progesterone micronized 100 mg 100 mg PO QPM 04/21/25 04/28/25 History capsule Allergies Allergy/AdvReac Type Severity Reaction Status Date / Time No Known Allergies Allergy Verified 04/28/25 08:16 Vital Signs Vital Signs - 24 hr 04/28/25 08:19 Temperature 97.2 F L Pulse Rate 91 Respiratory Rate 20 Blood Pressure 142/82 H Pulse Oximetry 99 Oxygen Delivery Room Air Exam Const: General: comfortable and no acute distress HENMT: Face/Nose/Sinus: Normal nares present Eyes: General: appearance normal, both eyes and all related structures Neck: Neck: no JVD Resp: Auscultation: clear to auscultation bilaterally Cardio: Rate: regular rate Rhythm: regular rhythm GI: Inspection: non-distended GI Palp: Yes Soft to palpation Skin: General skin exam: normal color Neuro: General: gait normal Speech: normal speech Extrem: General: normal to inspection Psych: Mental Status: mental status grossly normal Assessment and Plan Assessment and plan (1) GERD (gastroesophageal reflux disease): Code(s): K21.9 - Gastro-esophageal reflux disease without esophagitis Status: Acute Assessment and Plan: egd with bx (2) Constipation: Qualifiers: Constipation type: drug induced constipation Qualified Code(s): K59.03 - Drug induced constipation Code(s): K59.00 - Constipation, unspecified Status: Acute (3) Screening for colon cancer: Code(s): Z12.11 - Encounter for screening for malignant neoplasm of colon Status: Acute Assessment and Plan: colonoscopy (4) Dysphagia: Qualifiers: Dysphagia type: esophageal phase Qualified Code(s): R13.19 - Other dysphagia Code(s): R13.10 - Dysphagia, unspecified Status: Acute
--- NOTE | 2025-04-28 09:09 | S_PTH ---
PATIENT: Lorelei Hall LOC: [facility]#:[id number] AGE/SX: 49/F ROOM: RE04/28/[address]: Earle Delcid MD : 1975 BED: DIS: 04/28/2025 SPEC #: [id number] RECD: 04/28/25 09:51 STATUS: GATITO REMarychuy #: [id number] CHASE: 04/28/25 09:[address]: Earle Delcid DEPT: [facility] Surgical RECD BY: Baylee Stauffer ENTERED: 04/28/25 09:52 SP TYPE: Surgical OTHR DR: Kana Rankin MD Tissues: A - Gastric Biopsy B - Esophageal Biopsy Procedures: Hematoxylin and Eosin Stain Gross and Microscopic Level 4
--- NOTE | 2025-04-28 09:15 | SUR.OPER ---
EGD ended at 909, colon began at 914.
[2025-04-28 09:26] VITALS: BP 104/62; PULSE 79; RESP 18; O2SAT 98
[2025-04-28 09:36] VITALS: BP 116/69; PULSE 76; RESP 18; O2SAT 98
[2025-04-28 09:46] VITALS: BP 106/84; PULSE 76; RESP 16; O2SAT 98
[2025-04-28 09:50] LABS: Glucose Point of Care 110 mg/dl (65-105)
== END 2025-04-28 09:56 | disposition home or self-care (01) ==
PROVIDERS: PCP Family Medicine; Referring Provider Nurse Practitioner Family; Visit Provider Internal Medicine Gastroenterology
PROC: 0DJ08ZZ Inspection of Upper Intestinal Tract, Via Natural or Artificial Opening Endoscopic (ICD-10-PCS; CPT 45378; principal; 2025-04-28 09:30)
DX: Z12.11 Encounter for screening for malignant neoplasm of colon (principal); K64.8 Other hemorrhoids; K21.9 Gastro-esophageal reflux disease without esophagitis; I10 Essential (primary) hypertension; E11.9 Type 2 diabetes mellitus without complications; E87.6 Hypokalemia; D64.9 Anemia, unspecified; E78.00 Pure hypercholesterolemia, unspecified; N39.3 Stress incontinence (female) (male); R35.0 Frequency of micturition; Z79.891 Long term (current) use of opiate analgesic; Z79.1 Long term (current) use of non-steroidal anti-inflammatories (NSAID); Z79.84 Long term (current) use of oral hypoglycemic drugs; Z79.85 Long-term (current) use of injectable non-insulin antidiabetic drugs; Z98.890 Other specified postprocedural states; Z90.49 Acquired absence of other specified parts of digestive tract; Z98.891 History of uterine scar from previous surgery; Z82.49 Family history of ischemic heart disease and other diseases of the circulatory system
CPT/HCPCS: 43239; 45378; 82948; 88305; J2003; J2704; J7120

== ENCOUNTER 2025-06-02 14:53 | Outpatient (CLI) | payer OTHER, SELFPAY ==
--- NOTE | ~2025-06-02 | MM_ITS ---
EXAMINATION: MM screening ammon BI w florence HISTORY: Screening mammogram TECHNIQUE: Craniocaudal and mediolateral oblique 3-D tomosynthesis images were obtained and synthetic 2-D images were generated. CAD analysis was submitted and interpreted. COMPARISON: 05/04/2024, 01/02/2023 BREAST PARENCHYMAL COMPOSITION:Not Dense. There are scattered areas of fibroglandular density. FINDINGS: No suspicious mass, calcification, or architectural distortion are identified in either lucy ast to suggest malignancy. There has been no suspicious interval change. IMPRESSION: No mammographic evidence of malignancy. Recommend routine screening mammography in one year. BI-RADS Category 1: Negative Reviewed, dictated and finalized at location .
--- OUTSIDE RECORDS SUMMARY | 2025-06-02 14:56 | XMS_ITS | Clinical Summary ---
Author Organization [facility] Address [address] [place] [address] Care Team Providers Care Sales Office Administrator Name Role Phone Kana Rankin MD Primary Care Provider + [phone] Allergies No known active allergies Medications celecoxib (CeleBREX) 200 mg capsule 200 in am and 100 in pm 1 04/09/20 19 Active hydroCHLOROthiazid e (HYDRODIURIL) 25 mg tabletIndications: hypertension Take 1 tablet (25 mg total) by mouth fish processing supervisor before breakfast 1 05/11/20 19 Active metFORMIN [...] 1 tablet (10 mg total) by mouth fish processing supervisor before breakfast Active multivitamin capsule Take 1 capsule by mouth fish processing supervisor before breakfast Active fish oil-dha-epa 1,200-144-216 mg capsule Take by mouth fish processing supervisor before breakfast Active zinc 50 mg tablet [...] nasal spray Omnaris 50 mcg nasal spray [place] 2 sprays every day by intranasal route. 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 If positive, a second separately collected sample should be submitted for Hepatitis C Virus (HCV) RNA Detection and Quantitation by Real-Time Reverse Corporate Learning Consultant-PCR (RT-PCR). Current interpretive data was last revised on 2016. Blood specimen (specimen) 08/10/2019 4:30 PM CDT 08/10/2019 6:24 PM CDT us You Templeton MD LAB MICROBIOLOGY - GENERAL OR DERABLES Edited Result - Final [facility] [address] [place] [address] from Last 3 Months or Most Recently Relevant to Health Maintenance Insurance [facility] [employer] OPEN ACCESS [facility] CIGNA HEALTHLINK [facility] HEALTHLINK PPO POS HEALTHLINK PPO POS CIGNA [facility] Advance Directives For more information, please contact: [phone] * Full Code (Latest Code Status on File) Date Activated Date Inactivated Comments 08/19/2020 9:53 PM 08/20/2020 8:49 PM Care Teams Sales Office Administrator Relationship Specialty Start Date End Date Kana Rankin MD PCP - General Family Medicine 05/15/19
--- OUTSIDE RECORDS SUMMARY | 2025-06-02 14:56 | XMS_ITS | Referral Summary ---
Author Organization [facility] Address [address] [place] [address] Care Team Providers Care Livestock Producer Name Role Phone Kana Rankin MD Primary Care Provider + [phone] Allergies No known active allergies Medications celecoxib (CeleBREX) 200 mg capsule 200 in am and 100 in pm 1 04/09/20 19 Active hydroCHLOROthiazid e (HYDRODIURIL) 25 mg tabletIndications: hypertension Take 1 tablet (25 mg total) by mouth docket specialist before breakfast 1 05/11/20 19 Active [...] 1 tablet (10 mg total) by mouth docket specialist before breakfast Active multivitamin capsule Take 1 capsule by mouth docket specialist before breakfast Active fish oil-dha-epa 1,200-144-216 mg capsule Take by mouth docket specialist before breakfast Active zinc 50 mg [...] nasal spray Omnaris 50 mcg nasal spray [place] 2 sprays every day by intranasal route. 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 Current interpretive data was last revised on 2016. Blood specimen (specimen) 08/10/2019 4:30 PM CDT 08/10/2019 6:24 PM CDT us You Templeton MD LAB MICROBIOLOGY - GENERAL OR DERABLES Edited Result - Final [facility] [address] [place] [address] from Last 3 Months or Most Recently Relevant to Health Maintenance Insurance CIGNA [employer] OPEN ACCESS [facility] HEALTHLINK PPO POS HEALTHLINK PPO POS CIGNA [facility] Advance Directives For more information, please contact: [phone] * Full Code (Latest Code Status on File) Date Activated Date Inactivated Comments 08/19/2020 9:53 PM 08/20/2020 8:49 PM Care Teams Livestock Producer Relationship Specialty Start Date End Date Kana Rankin MD PCP - General Family Medicine 05/15/19
== END 2025-06-02 14:54 | disposition home or self-care (01) ==
LOC: ANHIMG 14:54
PROVIDERS: PCP Family Medicine; Visit Provider Obstetrics & Gynecology
DX: Z12.31 Encounter for screening mammogram for malignant neoplasm of breast (principal)
CPT/HCPCS: 77063; 77067

== ENCOUNTER 2025-07-02 09:32 | Outpatient (CLI) | payer OTHER, SELFPAY ==
--- OUTSIDE RECORDS SUMMARY | 2025-07-02 09:36 | XMS_ITS | Encounter Summary ---
Author Organization [facility] Address 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 Gender Identity Not on file Sexual Orientation Not on file documented as of this encounter Plan of Treatment Upcoming Encounters Date Type Department Care Team (Late st Contact Info) Description 07/02/2025 9:45 AM CDT Office Visit [facility] Oncology and Hematology - [place] [address] [facility] [address] [place] [address] [place] [address] [place] [address] [address] [place] [address] documented as of this encounter Visit Diagnoses Not on filedocumented in this encounter Care Teams Clinical Trial Assistant Relationship Specialty Start Date End Date Kana Rankin MD [address] [place] [address] PCP - General Family Practice 05/01/23 documented as of this encounter
--- OUTSIDE RECORDS SUMMARY | 2025-07-02 09:36 | XMS_ITS | Clinical Summary ---
Author Organization [facility] Administrative Offices Address [address] [place] [address] Care Team Providers Care Purchasing Engineer Name Role Phone Kana Rankin MD Primary Care Provider [phone] Allergies No known active allergies Medications celecoxib [...] Encounters Date Type Department Care Team Description 06/16/2025 External Device Data STL ABSTRACTION Provider, Abstract 06/15/2025 External Device Data STL ABSTRACTION Provider, Abstract 05/18/2025 External Device Data [place] ABSTRACTION Provider, Abstract 04/22/2025 External Device Data ST[place] ABSTRACTION Provider, [...] on file 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 Female 2:37 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 Gender Identity Not on file Sexual Orientation [...] Description 07/02/2025 9:45 AM CDT Office Visit [facility] Oncology and Hematology - [place] [address] [facility] [address] [address] Eduard Baumann MD [address] [facility] [address] [place] [address] Health Maintenance Due Date Last Done Comments DTAP/TDAP/TD VACCINES (1 - Tdap) 1996 HEPATITIS B VACCINES (1 of 3 - 19+ 3-dose series) 1996 HPV/Cotest (21-29) 1998 CERVICAL CANCER SCREENING 2007 HPV/Cotest (30-65) 2007 PAP SMEAR 2007 BREAST CANCER SCREENING 2017 COLORECTAL SCREENING 2022 Colorectal Cancer Screening 2022 FIT-DNA Q 3 years 2022 FIT/FOBT Q 1 year 2022 Flex Sig/CT Colonography Q 5 years 2022 COVID-19 Vaccine ( season) 2024, 02/17/2021 Preventative Visit- Commercial 12/02/2024 INFLUENZA VACCINE (#1) 2025 , 09/05/2019, 09/01/2014 Insurance [employer] OPEN ACCESS HMO [facility] [id number] [employer] OPEN ACCESS HMO [place] [address] [facility] OPEN ACCESS HMO [email or web address] OPEN ACCESS [place] [id number] Care Teams Purchasing Engineer Relationship Specialty Start Date End Date Kana Rankin MD [address] [place] [address] PCP - General Family Practice 05/01/23
--- OUTSIDE RECORDS SUMMARY | 2025-07-02 09:36 | XMS_ITS | Encounter Summary ---
Author Organization [facility] Address 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 Oncology and Hematology - [place] [address] [place] [address] [address] [place] [address] [place] [address] [place] [address] [address] [place] [address] documented as of this encounter Visit Diagnoses Diagnosis Backache, unspecified- Primary documented in this encounter Care Teams Residential Solar Consultant Relationship Specialty Start Date End Date Kana Rankin MD [address] [place] [address] PCP - General Family Practice 05/01/23 documented as of this encounter
--- OUTSIDE RECORDS SUMMARY | 2025-07-02 09:36 | XMS_ITS | Clinical Summary ---
Author Organization [facility] Address [address] [place] [address] Care Team Providers Care Hoe Runner Name Role Phone Kana Rankin MD Primary Care Provider [phone] Allergies No known active allergies Medications celecoxib (CeleBREX) 200 mg capsule 200 in am and 100 in pm 1 04/09/20 19 Active hydroCHLOROthiazid e (HYDRODIURIL) 25 mg tabletIndications: hypertension Take 1 tablet (25 mg total) by mouth poiser before breakfast 1 05/11/20 19 Active metFORMIN [...] 1 tablet (10 mg total) by mouth poiser before breakfast Active multivitamin capsule Take 1 capsule by mouth poiser before breakfast Active fish oil-dha-epa 1,200-144-216 mg capsule Take by mouth poiser before breakfast Active zinc 50 mg tablet Take by mouth nightly Active ondansetron ODT (ZOFRAN-ODT) 4 mg disintegrating tabletIndications: Nausea and Vomiting Take 1 tablet (4 mg total) by mouth every 6 (six) hours as needed for nausea or vomiting 20 tablet 08/20/20 Active Additional Information Patient not taking.Reported on 06/11/2025 docusate sodium (COLACE) 100 mg capsuleIndications :constipation Take 1 capsule (100 mg total) by mouth 2 (two) times a day 20 capsule 08/20/20 Active Additional Information Patient not taking.Reported on 06/11/2025 acetaminophen (TYLENOL) 325 mg tabletIndications: Pain Take 2 tablets (650 mg total) by mouth every 4 (four) hours as needed for pain 30 tablet 08/20/20 Active Additional Information Patient not taking.Reported on 06/11/2025 tolterodine LA (DETROL LA) 4 mg 24 [...] nasal spray Omnaris 50 mcg nasal spray [place] 2 sprays every day by intranasal route. Active ZyrTEC-D 5-120 mg per 12 hr tablet 03/19/20 22 Active adapalene-benzoyl peroxide 0.3-2.5 % gel with pump Epiduo Forte 0.3 %-2.5 % topical gel with pump Active Linzess 145 mcg capsule 03/12/20 25 Active loratadine (CLARITIN) 10 mg tablet 05/10/20 25 Active magnesium oxide (MAG-OX) 420 mg (253 mg elemental) tablet Take by mouth Active minoxidiL (LONITEN) 2.5 mg tablet 06/05/20 25 Active omeprazole (PriLOSEC) 20 mg capsule Take 1 capsule (20 mg total) by mouth daily Active omeprazole (PriLOSEC) 40 mg capsule 06/05/20 25 Active progesterone (PROMETRIUM) 100 mg capsule 03/15/20 25 Active progesterone (PROMETRIUM) 200 mg capsule 05/17/20 25 Active tirzepatide (Mounjaro) 7.5 mg/0.5 mL pen injector injection Inject under the skin Active hydroCHLOROthiazid e 12.5 mg tablet 05/31/20 25 Active Ozempic 0.25 mg or 0.5 mg (2 mg/3 mL) pen injector injection 04/16/20 25 Active Ozempic 1 mg/dose (4 mg/3 mL) pen injector injection 06/05/20 25 Active ALPRAZolam (XANAX) 1 mg tabletIndications: Anxiety state Take 1 tablet 30 minutes prior to your MRI appointment 1 tablet 05/08/20 025 Discontin ued(Other ) Hospital, Clinic, or Other Facility Administered Medication Ordered Dose Route Frequency Start Date End Date Status BUPivacaine HCl (MARCAINE) 0.25 % (2.5 mg/mL) injection 4 mLIndications:Primar y osteoarthritis of knees, bilateral 4 mL OTHER One-Time Injection 06/11/2025 5 Ended BUPivacaine HCl (MARCAINE) 0.25 % (2.5 mg/mL) injection 4 mLIndications:Primar y osteoarthritis of knees, bilateral 4 mL OTHER One-Time Injection 06/11/2025 5 Ended triamcinolone (KENALOG) 40 mg/mL injection 80 mgIndications:Primar y osteoarthritis of knees, bilateral 80 mg intra-artic One-Time Injection 06/11/2025 5 Ended triamcinolone (KENALOG) 40 mg/mL injection 80 mgIndications:Primar y osteoarthritis of knees, bilateral 80 mg intra-artic One-Time Injection 06/11/2025 5 Ended Active Problems Problem Noted Date Diagnosed Date Urinary tract infectious disease 05/10/2022 Symptomatic cholelithiasis 08/10/2020 Overview (08/10/2020): Added automatically from request for surgery [id number] Calculus of gallbladder with out cholecystitis without obstruction 08/09/2020 Nasal congestion 10/22/2017 Allergic rhinitis 07/10/2017 Otitis media of right ear 07/10/2017 Asthma 11/22/2016 Bronchitis 11/22/2016 Upper respiratory infection 11/22/2016 Allergy to environmental factors 11/30/2015 Essential hypertension 11/30/2015 Gastroesophageal reflux disease 11/30/2015 Hyperlipidemia 11/30/2015 Insomnia 11/30/2015 Morbid obesity 11/30/2015 Osteoarthritis 11/30/2015 Encounters Date Type Department Care Team Description 06/11/2025 1:30 PM CDT Office Visit [facility] Orthopaedic Surgery [address] [place] [address] Medical Office Building [address] [place] [address] Luly Cheney PA Primary osteoarthritis of knees, bilateral (Primary Dx) from Last 3 Months Immunizations Immunization Administration Dates Next Due Influenza, [...] on file 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 Gender Identity Female 06/07/2025 2:35 PM CDT Sexual Orientation Straight 08/04/2020 2: 23 PM CDT 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 Not on file [...] CDT Inhaled Oxygen Concentration - - Weight 109.3 kg (241 lb) 06/11/2025 1:30 PM CDT Height 175.3 cm (5' 9) 06/11/2025 1:30 PM CDT Body Mass Index 35.59 06/11/2025 1:30 PM CDT Plan of Treatment Health Maintenance [...] season) 2024 03/17/2021, 02/17/2021 Influenza Vaccine (#1) 2025 , 09/05/2019, 09/05/2019, Additional history exists Hepatitis C Screening Completed 08/10/2019 Procedures Procedure Name Priority Date/Time Associated Diagnosis Comments CO ARTHROCENTESIS ASPIR&/INJ MAJOR JT/BURSA W/O US Routine 06/11/2025 1:30 PM CDT Primary osteoarthritis of knees, bilateral HEPATITIS C ANTIBODY Routine 08/10/2019 4:30 PM CDT Primary osteoarthritis of both knees from Last 3 Months or Most Recently Relevant to Health Maintenance Results * [place] ARTHROCENTESIS ASPIR&/INJ MAJOR JT/BURSA W/O US (06/11/2025 1:30 PM CDT) Narrative Luly Cheney PA - 06/11/2025 1:30 PM CDT Luly Cheney PA 06/11/2025 1:39 PM Large Joint Injection: bilateral knee Performed [...] IN CLINIC/BEDSIDE [facility] Final Result * Hepatitis C antibody (08/10/2019 4:30 PM CDT) Pathologist [facility] Hep C Ab Nonreactive Nonreactive [facility] Comment: Interpretive Data Positive results should be confirmed by a molecular method. If positive, a second separately collected sample should be submitted for Hepatitis C Virus (HCV) RNA Detection and Quantitation by Real-Time Reverse Director Of Casework Department-PCR (RT-PCR). Current interpretive data was last revised on 2016. Blood specimen (specimen) 08/10/2019 4:30 PM CDT 08/10/2019 6:24 PM CDT us You Templeton MD LAB MICROBIOLOGY - GENERAL OR DERABLES Edited Result - Final [facility] [address] [place] [address] from Last 3 Months or Most Recently Relevant to Health Maintenance Insurance CIG [facility] HMO/PPO Address: [address] [address] [place] [address] [facility] HEALTH[facility] HEALTHLINK PPO POS HEALTHLINK PPO POS CIGNA [facility] HMO/PPO Address: [facility] [address] [place] [address] Advance Directives For more information, please contact: [phone] * Full Code (Latest Code Status on File) Date Activated Date Inactivated Comments 08/19/2020 9:53 PM 08/20/2020 8:49 PM Care Teams Hoe Runner Relationship Specialty Start Date End Date Kana Rankin MD PCP - General Family Medicine 05/15/19
--- OUTSIDE RECORDS SUMMARY | 2025-07-02 09:36 | XMS_ITS | Referral Summary ---
Author Organization [facility] Address [address] [place] [address] Care Team Providers Care Life Insurance Agent Name Role Phone Kana Rankin MD Primary Care Provider [phone] Encounters Date Type Department Care Team Description 06/11/2025 1:30 PM CDT Office Visit [facility] Orthopaedic Surgery [address] [place] [address] Medical Office Building [address] [place] [address] Luly Cheney PA Primary osteoarthritis of knees, bilateral (Primary Dx) from Last 3 Months Allergies No known active allergies Medications celecoxib (CeleBREX) 200 mg capsule 200 in am and 100 in pm 1 04/09/20 19 Active hydroCHLOROthiazid e (HYDRODIURIL) 25 mg tabletIndications: hypertension Take 1 tablet (25 mg total) by mouth boring machine operator helper before breakfast 1 05/11/20 19 Active [...] 1 tablet (10 mg total) by mouth boring machine operator helper before breakfast Active multivitamin capsule Take 1 capsule by mouth boring machine operator helper before breakfast Active fish oil-dha-epa 1,200-144-216 mg capsule Take by mouth boring machine operator helper before breakfast Active zinc 50 mg [...] nasal spray Omnaris 50 mcg nasal spray [place] 2 sprays every day by intranasal route. 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 Not on file Not [...] 06/11/2025 1:30 PM CDT Plan of Treatment Not on file Procedures Procedure Name Priority Date/Time Associated Diagnosis Comments [place] ARTHROCENTESIS ASPIR&/INJ MAJOR JT/BURSA W/O US Routine 06/11/2025 1:30 PM CDT Primary osteoarthritis of knees, bilateral HEPATITIS C ANTIBODY Routine 08/10/2019 4:30 PM CDT Primary osteoarthritis of both knees from Last 3 Months or Most Recently Relevant to Health Maintenance Results * [place] ARTHROCENTESIS ASPIR&/INJ MAJOR JT/BURSA W/O US (06/11/2025 [...] CDT) Hep C Ab Nonreactive Nonreactive [facility] Comment: Interpretive Data Positive results should be confirmed by a molecular method. If positive, a second separately collected sample should be submitted for Hepatitis C Virus (HCV) RNA Detection and Quantitation by Real-Time Reverse Bottom Painter-PCR (RT-PCR). Current interpretive data was last revised on 2016. Blood specimen (specimen) 08/10/2019 4:30 PM CDT 08/10/2019 6:24 PM CDT us You Templeton MD LAB MICROBIOLOGY - GENERAL OR DERABLES Edited Result - Final Performing Organization Address City/State/[facility] Co de Phone Number [facility] [address] [place] [address] from Last 3 Months or Most Recently Relevant to [place] [id number] [facility] H[facility]/PPO Address: [address] [address] [place] [address] [place] [address] CIGNA Member Subscriber Plan / Payer (Ef fective 2013-Present) Name:Lorelei Medrano Relation to Subscriber:Self Name:Lorelei Medrano Payer ID:[id number] ([facility]) Type:CIGNA HMO/PPO Address: [facility] [id number] [place] [address] HEALTHLINK [facility] HEALTHLINK PPO POS HEALTHLINK PPO POS CIGNA [facility] HMO/PPO Address: [address] [address] [place] [address] Advance Directives For more information, please contact: [phone] * Full Code (Latest Code Status on File) Date Activated Date Inactivated Comments 08/19/2020 9:53 PM 08/20/2020 8:49 PM Care Teams Life Insurance Agent Relationship Specialty Start Date End Date Schueler, Kana F., MD PCP - General Family Medicine 05/15/19
[2025-07-02 09:42] LABS: Hematocrit 41.7 % (37.0-47.0); Hemoglobin 13.6 g/dL (12.0-15.0); Immature Granulocyte Percent A 0.4 % (0-0.5); Lymphocytes Absolute Auto 2.90 K/mm3 (0.9-3.2); Mean Corpuscular HGB Conc 32.6 g/dl (32-36); Mean Corpuscular Hemoglobin 26.1 pg (26-34); Mean Corpuscular Volume 80.0 fl (80-100); Nucleated Red Blood Cells Absolute Auto 0.000 K/mm3 (0.0-0.012); Nucleated Red Blood Cells Perc 0.0 % (0.0-0.2); Platelet Count Result 300 k/mm3 (150-375); Red Blood Count 5.21 M/mm3 (4.2-5.4); White Blood Count 10.7 K/mm3 (4.5-10.0)
[2025-07-02 09:46] LABS: Blood Urea Nitrogen 18 mg/dL (8-26); Carbon Dioxide 25 mmol/L (22-30); Chloride 101 mmol/L (98-109); Estimated Glomerular Filt Rate > 60; Glucose 120 mg/dL (70-105); Ionized Calcium (POC) 1.21 mmol/L (1.11-1.31); Potassium 3.8 mmol/L (3.5-4.9); Sodium 139 mmol/L (138-146)
[2025-07-02 14:14] LABS: Alanine Aminotransferase 29 U/L (6-35); Albumin Level 3.6 g/dL (3.5-5.1); Alkaline Phosphatase 168 U/L (38-126); Anion Gap 6 mmol/L (4-12); Aspartate Amino Transferase 52 U/L (14-36); Bilirubin,Total 0.4 mg/dL (0.2-1.3); Blood Urea Nitrogen 19 mg/dL (7-17); Calcium 9.4 mg/dL (8.4-10.2); Carbon Dioxide 26 mmol/L (22-30); Chloride 105 mmol/L (98-107); Estimated Glomerular Filt Rate > 60; Glucose 117 mg/dL (65-110); Potassium 3.9 mmol/L (3.4-5.0); Sodium 137 mmol/L (137-145); Total Protein 6.8 g/dL (6.3-8.2)
== END 2025-07-02 09:33 | disposition home or self-care (01) ==
LOC: ANHLAB 09:34
PROVIDERS: PCP Family Medicine; Visit Provider Internal Medicine Hematology & Oncology
DX: D75.1 Secondary polycythemia (principal)
CPT/HCPCS: 36415; 80047; 80053; 85025

== ENCOUNTER 2025-09-19 11:36 | Emergency (ER) | payer OTHER, SELFPAY ==
--- OUTSIDE RECORDS SUMMARY | 2025-09-19 11:38 | XMS_ITS | Clinical Summary ---
Author Organization [facility] Administrative Offices Address [address] [place] [address] Care Team Providers Care Event Security Officer Name Role Phone Kana Rankin MD Primary Care Provider [phone] Allergies No known active allergies Medications celecoxib [...] Take 20 mg by mouth daily. Active linaCLOtide (Linzess) 145 mcg capsule 5 Active Ozempic 1 mg/dose (4 mg/3 mL) Pen Injector 5 Active Active Problems No known active problems Encounters Date Type Department Care Team Description 08/18/2025 External Device Data STL ABSTRACTION Provider, Abstract 08/17/2025 External Device Data ST[facility] ABSTRACTION Provider, Abstract 07/06/2025 External Device Data ST[facility] ABSTRACTION Provider, Abstract 07/05/2025 Orders Only [facility] Oncology and Hematology - [place] [place] [address] Eduard Baumann MD 07/02/2025 9:45 AM CDT Office Visit [facility] Oncology and Hematology - [place] [place] [address] Eduard Baumann MD Polycythemia, secondary (Primary Dx) 07/02/2025 Orders Only [facility] Oncology and Hematology - [place] [place] [address] Eduard Baumann MD from Last [...] on file 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 Gender Identity Not on file Sexual Orientation Not on file Last Filed Vital Signs Vital Sign Reading Time Taken Comments Blood Pressure 117/74 07/02/2025 9:52 AM CDT Pulse 75 07/02/2025 9:52 AM CDT Temperature 36.4 C (97.6 F) 07/02/2025 9:52 AM CDT Respiratory Rate 15 07/02/2025 9:52 AM CDT Oxygen Saturation 96% 07/02/2025 9:52 AM CDT Inhaled Oxygen Concentration - - Weight 109.3 kg (241 lb) 07/02/2025 9:52 AM CDT Height - - Body Mass Index - - Plan of Treatment Upcoming Encounters Date Type Department Care Team (Late st Contact Info) Description 07/08/2026 9:45 AM CDT Office Visit [facility] Oncology and Hematology - [place] [place] [address] Eduard Baumann MD [address] [place] [address] Health Maintenance Due Date Last Done Comments [...] Q 5 years 2022 INFLUENZA VACCINE (#1) 2025 , 09/19/2020, 09/05/2019, Additional history exists COVID-19 Vaccine Completed 09/18/2024, , 02/17/2021 Procedures Procedure Name Priority Date/Time Associated Diagnosis Comments BASIC METABOLIC PANEL Routine 07/02/2025 11:48 AM CDT CBC WITH AUTODIFFERENTIAL Routine 2024 11:44 AM CDT COMPREHENSIVE METABOLIC PANEL Routine 07/02/2025 10:19 AM CDT from Last 3 Months Results * BASIC METABOLIC PANEL (07/02/2025 11:48 AM CDT) Blood us Eduard Baumann MD CHEMISTRY ORDERABLES Final Resu lt * CBC WITH AUTODIFFERENTIAL (07/02/2025 11:44 AM CDT) Blood us Eduard Baumann MD HEMATOLOGY ORDERABLES Final Res ult * COMPREHENSIVE METABOLIC PANEL (07/02/2025 10:19 AM CDT) Blood us Eduard Baumann MD CHEMISTRY ORDERABLES Final Resu lt from Last 3 Months Insurance [employer] OPEN ACCESS HMO Member Subscriber Plan / Payer (Ef fective 2022-Present) Name:LORELEI MEDRANO Relation to Subscriber:Spouse Name:Tray Medrano Date of :1949 (Home) (Work) Address: [address] [place] [id number] Payer ID:[id number] (NAIC) Type:HMO Address: [facility] [address] [place] [address] [employer] OPEN ACCESS O Member Subscriber Plan / Payer (Ef fective 2022-Present) Name:LORELEI MEDRANO Relation to Subscriber:Spouse Name:Rafael Tray Date of :1949 (Home) (Work) Address: [address] [place] [id number] Payer ID:[id number] (NAIC) Type:HMO Address: [address] [place] [address] [employer] OPEN ACCESS HMO Context Relevant O OPEN ACCESS [facility] [id number] Member Subscriber Plan / Payer (Ef fective 2022-Present) Name:LORELEI MEDRANO Relation to Subscriber:Spouse Name:Rafael Tray Date of :1947 (Home) (Work) Address: [address] [place] [id number] Payer ID:[id number] (NAIC) Type:HMO Address: [facility] [address] [place] [address] Care Teams Event Security Officer Relationship Specialty Start Date End Date Kana Rankin MD [address] [place] [address] PCP - General Family Practice 05/01/23
--- OUTSIDE RECORDS SUMMARY | 2025-09-19 11:38 | XMS_ITS | Encounter Summary ---
Author Organization [facility] Address 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 Gender Identity Not on file Sexual Orientation Not on file documented as of this encounter Plan of Treatment Upcoming Encounters Date Type Department Care Team (Late st Contact Info) Description 07/08/2026 9:45 AM CDT Office Visit [facility] Oncology and Hematology - [place] [address] [place] [address] [address] [place] [address] Eduard Baumann MD [address] [place] [address] [address] [place] [address] documented as of this encounter Visit Diagnoses Diagnosis Backache, unspecified- Primary documented in this encounter Care Teams Infection Prevention Specialist Relationship Specialty Start Date End Date Kana Rankin MD [address] [place] [address] PCP - General Family Practice 05/01/23 documented as of this encounter
--- OUTSIDE RECORDS SUMMARY | 2025-09-19 11:38 | XMS_ITS | Encounter Summary ---
Author Organization [facility] Address 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 [address] [place] [address] Eduard Baumann MD [address] [place] [address] [address] [place] [address] documented as of this encounter Visit Diagnoses Not on filedocumented in this encounter Care Teams Photographer Apprentice Lithographic Relationship Specialty Start Date End Date Kana Rankin MD [address] [place] [address] PCP - General Family Practice 05/01/23 documented as of this encounter
--- OUTSIDE RECORDS SUMMARY | 2025-09-19 11:39 | XMS_ITS | Clinical Summary ---
Author Organization [facility] Address [address] [place] [address] Care Team Providers Care Dowel Setting Machine Operator Name Role Phone Kana Rankin MD Primary Care Provider [phone] Allergies No known active allergies Medications celecoxib (CeleBREX) 200 mg capsule 200 in am and 100 in pm 1 04/09/20 19 Active hydroCHLOROthiazid e (HYDRODIURIL) 25 mg tabletIndications: hypertension Take 1 tablet (25 mg total) by mouth hostler helper before breakfast 1 05/11/20 19 Active [...] 1 tablet (10 mg total) by mouth hostler helper before breakfast Active multivitamin capsule Take 1 capsule by mouth hostler helper before breakfast Active fish oil-dha-epa 1,200-144-216 mg capsule Take by mouth hostler helper before breakfast Active zinc 50 mg [...] nasal spray Omnaris 50 mcg nasal spray [place] 2 sprays every day by intranasal route. 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 Current interpretive data was last revised on 2016. Blood specimen (specimen) 08/10/2019 4:30 PM CDT 08/10/2019 6:24 PM CDT us You Templeton MD LAB MICROBIOLOGY - GENERAL OR DERABLES Edited Result - Final [facility] [address] [place] [address] from Last 3 Months or Most Recently Relevant to Health Maintenance Insurance [facility] HMO/PPO Address: [address] [address] [place] [address] [facility] HEALTHLINK PPO POS [employer] PPO POS CIG[employer] [facility] HMO/PPO Address: [address] [address] [place] [address] Advance Directives For more information, please contact: [phone] * Full Code (Latest Code Status on File) Date Activated Date Inactivated Comments 08/19/2020 9:53 PM 08/20/2020 8:49 PM Care Teams Dowel Setting Machine Operator Relationship Specialty Start Date End Date Kana Rankin MD PCP - General Family Medicine 05/15/19
[2025-09-19 11:40] VITALS: BP 121/71; PULSE 94; RESP 20; TEMP 36.6; O2SAT 97
--- NOTE | 2025-09-19 11:42 | ED.URI ---
HPI - URI/Sore Throat General Chief Complaint: Upper Respiratory Infection Stated Complaint: head/nose congestion/ears Time Seen by Provider: 09/19/25 12:05 Source: patient, RN notes reviewed and old records reviewed Mode of arrival: ambulatory Limitations: no limitations History of Present Illness HPI Narrative: 49-year-old female presents to the [facility] with 7-10 days of head pressure, nasal drainage, postnasal drainage, ear pressure, wakes up the morning and her eyes are ?goopy. ? Patient reports that she just thought it was allergies the 1st week, over the last 3 days has gotten worse. Has been alternating Claritin and Zyrtec D, using saline rinses, Mucinex as well as using Flonase daily. Denies fevers. Onset (ago): day(s) (7-10) Treatments prior to arrival: cold medicine Related Data Home Medications ?Medication ?Instructions ?Recorded ?Confirmed ?Last Taken ?Type minoxidil 2.5 mg tablet 2.5 mg PO HS 02/15/25 09/19/25 04/27/25 History Hair Vitamins 09/19/25 Unknown History fiber pill 09/19/25 Unknown History Allergies Allergy/AdvReac Type Severity Reaction Status Date / Time No Known Allergies Allergy Verified 09/19/25 11:40 Review of Systems Review of Systems: All systems reviewed & are unremarkable except as noted in HPI and below Constitutional: Constitutional: Reports no additional constitutional complaints ENT: Reports as per HPI, Reports otalgia, Reports nasal congestion and Reports nasal discharge Cardiovascular: Cardiovascular: Reports no additional cardiovascular complaints, Denies chest pain and Denies dyspnea Respiratory: Respiratory: Reports no additional respiratory complaints, Denies chest congestion, Denies cough and Denies dyspnea Musculoskeletal: Musculoskeletal: Reports no additional musculoskeletal complaints Integumentary/Breasts: Skin/Breast: Reports system reviewed and no additional complaints, except as [facility]u [facility] Past Medical History Medical History BMI 34.0-34.9,adult KAYDEN (stress urinary incontinence, female) Consultation for female sterilization Urine frequency Irritation of left eye Elevated WBC count Hair loss Screening mammogram, encounter for GERD (gastroesophageal reflux disease) Sciatic nerve pain Hypokalemia Anemia Blood loss Travelers' diarrhea Menometrorrhagia Diabetes High cholesterol Rash COVID-19 BMI 37.0-37.9, adult Dysplasia of one kidney Essential hypertension Surgical History Surgical History History of hysteroscopy (06/28/23) Hysteroscopy with uterine curettings/ Endometrial ablation/ Laparoscopic right salpingectomy S/P skin biopsy (~1998) benign History of tonsillectomy (~1997) History of left salpingo-oophorectomy (05/22/18) RA LSO, left adnexal mass--benign History of cholecystectomy (11/18/20) Family History Family History Father Atrial fibrillation Pleurisy Diabetes mellitus Mother No problems noted. Sibling No problems noted. Other Depression Family history of hypercholesterolemia Hypertension Social History Social History Smoking status: Never smoker Second hand tobacco smoke exposure: No Substance use: never Substance use type: does not use Do You Feel Safe in your Home?: Yes Lack of Transportation: No Lack of Food: Never True Current Housing: I Have Housing Concerned About Future Housing: No Difficulty Paying Gas/Electric Bills: No Difficulty Paying for Meds: No Currently Unemployed: No Education: Master's Degree or Higher Difficulty w/ Childcare or Family Care: No Living arrangements: with family Additional living arrangements comments: with sp Occupation/Education: occupation 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 There is no relevant family history pertinent to the patient complaint. Exam Const: General: cooperative, healthy appearing, comfortable, no acute distress, well developed, alert and well nourished Nutritional Appearance: well nourished Orientation/consciousness: patient oriented x3 Limitations: no limitations HENMT: Head: normal to inspection Ears: hearing grossly normal bilaterally, external ears normal, EAC's normal, mastoids normal, no periauricular adenopathy and TM abnormal with fluid behind the TM bilateral Face/Nose/Sinus: No nasal discharge present, Abnormal mucous membranes and turbinates present boggy; not erythematous, face symmetric and sinus tenderness Face and sinus: face symmetric Mouth: Yes Normal oral and palatal mucosa present, Yes lip normal, Yes tongue normal and Yes moist mucous membranes abnormal Throat: posterior oropharynx normal, uvula midline and no uvular edema Eyes: General: appearance normal, both eyes and all related structures Alignment and Position: alignment normal Neck: Neck: normal visual inspection, full ROM, no lymphadenopathy and no meningeal signs Chest: Chest palpation & inspection: normal inspection of the chest Resp: Effort & Inspection: normal respiratory effort and able to speak in complete sentences Auscultation: clear to auscultation bilaterally, no crackles, no rales, no rhonchi and no wheezes Cardio: Rate: regular rate Skin: General skin exam: normal color and no rashes or lesions noted Neuro: General: patient oriented x3, gait normal, moves all extremities and no meningeal signs Cognition (Neuro): normal cognition Speech: normal speech Gait exam (Neuro): Normal gait present Extrem: General: normal to inspection, full ROM, capillary refill normal and normal gait Psych: Appearance: grossly normal and well kempt Mental Status: mental status grossly normal Speech and movement: Normal speech and movement present and Clear speech present Affect: normal affect Attitude: cooperative Course Course Level of Care: Express Care Visit Vital Signs Vital signs: Vital Signs Temperature 97.9 F 09/19/25 11:40 Pulse Rate 94 09/19/25 11:40 Respiratory Rate 20 09/19/25 11:40 Blood Pressure 121/71 09/19/25 11:40 Pulse Oximetry 97 09/19/25 11:40 Oxygen Delivery Room Air 09/19/25 11:40 Temperature 97.9 F 09/19/25 11:40 Pulse Rate 94 09/19/25 11:40 Respiratory Rate 20 09/19/25 11:40 Blood Pressure 121/71 09/19/25 11:40 Pulse Oximetry 97 09/19/25 11:40 Oxygen Delivery Room Air 09/19/25 11:40 Reviewed MDM - URI/Sore Throat MDM Narrative Medical decision making narrative: Patient sitting in exam room. Patient is nontoxic, vitals stable. Patient was sinus tenderness both maxillary and frontal. Reports head pressure. Has tried multiple byvo-xtu-[id number] products that she does take daily. due to symptoms of 7-10 days, no testing needed. Discussed covering with an antibiotic for possible secondary infection. Discussed that sinusitis can also be allergen as well as viral. Discussed doing nasal irrigations. Discussed using distilled water for nasal irrigations Patient is appropriate for outpatient treatment with close follow-up Discharge instructions reviewed with patient, as well as provided in writing per nursing staff. The instructions also include specific and strict return/GO TO THE ER as well as f/u information. All questions have been answered, and the patient deny any further questions with discharge and discharge plan. Some parts of this dictation were generated by voice recognition software and may contain typographical and/or grammatical inaccuracies. Differential Diagnosis Differential diagnosis: Likely upper respiratory infection, otitis media, sinusitis, viral infection, bronchitis, influenza and pharyngitis Critical Care Time Critical Care Time Critical Care Time: No Discharge Plan Discharge Clinical Impression: Sinusitis Qualifiers: Sinusitis location: pansinusitis Chronicity: acute Recurrence: recurrent Qualified Code(s): J01.41 - Acute recurrent pansinusitis Patient Disposition: Home Condition: Stable Instructions: Antibiotic Form, Sinusitis (ED) Additional Instructions: It is very important to treat your symptoms. Drink plenty of water, Gatorade, Pedialyte, ice pops or Jell-O. -Alternate Tylenol and Motrin per package directions for fever or pain. You can alternate every 4 hours -Antihistamine medication such as Zyrtec/Claritin/Luz Elena during the day can help improve symptoms. -doing daily nasal irrigations can help relieve pressure your sinuses. Things like a Neti pot or Navage -Use Flonase twice a day for 5 days then daily to help reduce the inflammation and dry up your sinuses. -You can also use Mucinex. Be sure to drink plenty of water with this medication at least 8 ounces with every dose and it is important to drink 8 to 10 glasses of water per day. Water is a natural decongestant -Eat and drink things that are easy to swallow, like tea or soup, or popsicles. -Oral rinses such as: Salt water gargles and/or may use topical anesthetic (eg. Chloraseptic spray) or lozenges to relieve dryness or throat pain). -Frequent hand washing or hand laminating machine operator is one of the best ways to prevent spread of infection. -Using a vaporizer or humidifier at night will also help thin secretions and help with coughing up phlegm. -Follow up with primary care provider in 7-10 days if condition is not improving - For new or worsening symptoms go directly to the nearest ER Patient Language: Gambian Prescriptions: New doxycycline monohydrate 100 mg tablet 100 mg PO BID Qty: 14 0RF No Action Hair Vitamins fiber pill minoxidil 2.5 mg tablet 2.5 mg PO HS Ozempic 1 mg/dose (4 mg/3 mL) pen injector 1 mg subcut WEEKLY Qty: 3 2RF celecoxib [Celebrex] 200 mg capsule 200 mg PO DAILY Qty: 90 0RF tramadol 50 mg tablet See Rx Instructions PO Q6H PRN (Reason: arthritic pain) Qty: 180 1RF Rx Instructions: 1-2 tabs orally every 6 hours PRN; 3mo supply fluticasone propionate [Allergy Relief (fluticasone)] 50 mcg/actuation spray,suspension 1 spray NASAL DAILY Qty: 54.6 2RF Rx Instructions: 3 month supply Linzess 145 mcg capsule 145 mcg PO DAILY Qty: 90 2RF omeprazole 40 mg capsule,delayed release(DR/EC) 40 mg PO DAILY Qty: 90 2RF atorvastatin 40 mg tablet See Rx Instructions .ROUTE .COMPLEX Qty: 90 3RF Dose Instruction: TAKE 1 TABLET DAILY AT BEDTIME Rx Instructions: TAKE 1 TABLET DAILY AT BEDTIME trazodone 100 mg tablet 100 mg PO QHS Qty: 90 1RF tolterodine 4 mg capsule,extended release 24hr 4 mg PO DAILY Qty: 90 1RF metformin 500 mg tablet See Rx Instructions .ROUTE .COMPLEX Qty: 360 3RF Dose Instruction: TAKE 2 TABLETS (1000 MG) TWICE A DAY (FOLLOW UP EVERY 3 MONTHS) Rx Instructions: TAKE 2 TABLETS (1000 MG) TWICE A DAY (FOLLOW UP EVERY 3 MONTHS) loratadine [Claritin] 10 mg tablet 10 mg PO DAILY PRN (Reason: allergic symptoms) Qty: 90 0RF progesterone micronized 100 mg capsule 100 mg PO QPM Qty: 90 1RF gabapentin 300 mg capsule 300 mg PO TID Qty: 90 3RF hydrochlorothiazide 12.5 mg tablet 12.5 mg PO DAILY Qty: 90 0RF Ozempic 2 mg/dose (8 mg/3 mL) pen injector 2 mg subcut WEEKLY Qty: 3 2RF Follow-up/Referrals: Kana Rankin MD [Primary Care Provider, Family Practice] - 2 Weeks Stand Alone Forms: Work/School Release IP Time of Disposition: 12:31
== END 2025-09-19 12:29 | disposition home or self-care (01) ==
PROVIDERS: Emergency Provider Nurse Practitioner; PCP Family Medicine
DX: J01.41 Acute recurrent pansinusitis (principal); E11.9 Type 2 diabetes mellitus without complications; Z79.84 Long term (current) use of oral hypoglycemic drugs; Z79.85 Long-term (current) use of injectable non-insulin antidiabetic drugs; I10 Essential (primary) hypertension; Q61.4 Renal dysplasia; E78.00 Pure hypercholesterolemia, unspecified; K21.9 Gastro-esophageal reflux disease without esophagitis
CPT/HCPCS: 99213; G0463

== ENCOUNTER 2025-10-27 08:27 | Outpatient (CLI) | payer OTHER, SELFPAY ==
[2025-10-27 09:07] LABS: Hematocrit 42.5 % (37.0-47.0); Hemoglobin 13.9 g/dL (12.0-15.0); Immature Granulocyte Percent A 0.2 % (0-0.5); Lymphocytes Absolute Auto 2.55 K/mm3 (0.9-3.2); Mean Corpuscular HGB Conc 32.7 g/dl (32-36); Mean Corpuscular Hemoglobin 26.7 pg (26-34); Mean Corpuscular Volume 81.6 fl (80-100); Nucleated Red Blood Cells Absolute Auto 0.000 K/mm3 (0.0-0.012); Nucleated Red Blood Cells Perc 0.0 % (0.0-0.2); Platelet Count Result 328 k/mm3 (150-375); Red Blood Count 5.21 M/mm3 (4.2-5.4); White Blood Count 9.0 K/mm3 (4.5-10.0)
[2025-10-27 10:36] LABS: MALB Creatinine Ratio 20.7 mg/g (0-30)
[2025-10-27 12:07] LABS: Alanine Aminotransferase 16 U/L (6-35); Albumin Level 3.9 g/dL (3.5-5.1); Alkaline Phosphatase 98 U/L (38-126); Anion Gap 3 mmol/L (4-12); Aspartate Amino Transferase 17 U/L (14-36); Bilirubin,Total 0.5 mg/dL (0.2-1.3); Blood Urea Nitrogen 16 mg/dL (7-17); Calcium 9.1 mg/dL (8.4-10.2); Carbon Dioxide 30 mmol/L (22-30); Chloride 105 mmol/L (98-107); Cholesterol 95 mg/dL (0-200); Estimated Glomerular Filt Rate > 60; Glucose 113 mg/dL (65-110); HDL Direct 30 mg/dL; Potassium 3.7 mmol/L (3.4-5.0); Sodium 138 mmol/L (137-145); Total Protein 6.9 g/dL (6.3-8.2); Triglycerides 146 mg/dL (<150)
[2025-10-27 12:37] LABS: Thyroid Stimulating Hormone 0.831 uIU/mL (0.465-4.680)
[2025-10-29 13:37] LABS: Iron 46 ug/dL (37-170)
[2025-10-29 14:13] LABS: Percent Iron Saturation 11 % (20-50)
[2025-10-29 14:18] LABS: Ferritin 10.20 ng/mL (6.24-137)
[2025-10-29 14:51] LABS: Vitamin B12 904.0 pg/mL (239-931)
== END 2025-10-27 08:28 | disposition home or self-care (01) ==
LOC: ANHLAB 08:28
PROVIDERS: PCP Family Medicine
DX: Z13.29 Encounter for screening for other suspected endocrine disorder (principal); D64.9 Anemia, unspecified; E11.9 Type 2 diabetes mellitus without complications; E55.9 Vitamin D deficiency, unspecified; Z13.220 Encounter for screening for lipoid disorders
CPT/HCPCS: 36415; 80053; 80061; 82043; 82306; 82607; 82728; 82746; 83540; 83550; 84443; 85025

== ENCOUNTER 2025-11-29 09:48 | Outpatient (CLI) | payer OTHER, SELFPAY ==
--- OUTSIDE RECORDS SUMMARY | 2025-11-29 10:10 | XMS_ITS | Clinical Summary ---
Author Organization [facility] Administrative Offices Address [address] [place] [address] Care Team Providers Care Shell Molder Name Role Phone Kana Rankin MD Primary Care Provider [phone] Allergies No known active allergies Medications celecoxib [...] Encounters Date Type Department Care Team Description 11/16/2025 External Device Data STL ABSTRACTION Provider, Abstract 10/05/2025 External Device Data STL ABSTRACTION Provider, Abstract 09/29/2025 External Device Data STL ABSTRACTION Provider, Abstract 09/28/2025 External Device Data STL ABSTRACTION Provider, Abstract 09/22/2025 External Device Data STL ABSTRACTION Provider, Abstract 09/21/2025 External Device Data STL ABSTRACTION Provider, Abstract [...] on file 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 Gender Identity Not on file Sexual Orientation [...] Description 07/08/2026 9:45 AM CDT Office Visit [facility] Oncology and Hematology [facility] [address] [facility] [address] [place] [address] Eduard Baumann MD [address] [facility] [address] [place] [address] Health Maintenance Due Date Last [...] 09/19/2020, 09/05/2019, Additional history exists COVID-19 Vaccine (2024-2 6 season) 2025 09/18/2024, 03/17/2021, 02/17/2021 Insurance [facility] OPEN ACCESS HMO [facility] [id number] [employer] OPEN ACCESS HMO [facility] OPEN ACCESS HMO Member Subscriber Plan / Payer (Ef fective 2013-Present) Name:Lorelei Medrano Relation to Subscriber:Self Name:Lorelei Medrano Payer ID:Not on file Type:HMO Address: [facility] [id number] [place] [id number] [employer] OPEN ACCESS [facility] [id number] Care Teams Shell Molder Relationship Specialty Start Date End Date Kana Rankin MD [address] [place] [address] PCP - General Family Practice 05/01/23
--- OUTSIDE RECORDS SUMMARY | 2025-11-29 10:10 | XMS_ITS | Encounter Summary ---
Author Organization [facility] Address 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 Gender Identity Not on file Sexual Orientation Not on file documented as of this encounter Plan of Treatment Upcoming Encounters Date Type Department Care Team (Late st Contact Info) Description 07/08/2026 9:45 AM CDT Office Visit [facility] Oncology and Hematology - [place] [address] [place] [address] Eduard Baumann MD [address] [place] [address] documented as of this encounter Visit Diagnoses Diagnosis Backache, unspecified- Primary documented in this encounter Care Teams Bus Dispatcher Interstate Relationship Specialty Start Date End Date Kana Rankin MD [address] [place] [address] PCP - General Family Practice 05/01/23 documented as of this encounter
--- OUTSIDE RECORDS SUMMARY | 2025-11-29 10:10 | XMS_ITS | Encounter Summary ---
Author Organization [facility] Address 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 Gender Identity Not on file Sexual Orientation Not on file documented as of this encounter Plan of Treatment Upcoming Encounters Date Type Department Care Team (Late st Contact Info) Description 07/08/2026 9:45 AM CDT Office Visit [facility] Oncology and Hematology - [place] [address] [place] [address] [address] [place] [address] Eduard Baumann MD [address] [place] [address] [address] [place] [address] documented as of this encounter Visit Diagnoses Not on filedocumented in this encounter Care Teams Occupational Health Manager Relationship Specialty Start Date End Date Kana Rankin MD [address] [place] [address] PCP - General Family Practice 05/01/23 documented as of this encounter
--- OUTSIDE RECORDS SUMMARY | 2025-11-29 10:10 | XMS_ITS | Clinical Summary ---
Author Organization [facility] Address [address] [place] [address] Care Team Providers Care Bisque Tile Burner Name Role Phone Kana Rankin MD Primary Care Provider [phone] Allergies No known active allergies Medications celecoxib (CeleBREX) 200 mg capsule 200 in am and 100 in pm 1 04/09/20 19 Active hydroCHLOROthiazid e (HYDRODIURIL) 25 mg tabletIndications: hypertension Take 1 tablet (25 mg total) by mouth cable stretcher and tester before breakfast 1 05/11/20 19 Active metFORMIN [...] 1 tablet (10 mg total) by mouth cable stretcher and tester before breakfast Active multivitamin capsule Take 1 capsule by mouth cable stretcher and tester before breakfast Active fish oil-dha-epa 1,200-144-216 mg capsule Take by mouth cable stretcher and tester before breakfast Active zinc 50 mg tablet [...] nasal spray Omnaris 50 mcg nasal spray Constantia 2 sprays every day by intranasal route. 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 Current interpretive data was last revised on 2016. Blood specimen (specimen) 08/10/2019 4:30 PM CDT 08/10/2019 6:24 PM CDT us You Templeton MD LAB MICROBIOLOGY - GENERAL OR DERABLES Edited Result - Final [facility] [address] [place] [address] from Last 3 Months or Most Recently Relevant to Health Maintenance Insurance [facility] HMO/PPO Address: [address] [address] [place] [address] [facility] [facility] [employer] PPO POS [employer] PPO POS [employer] [facility] HMO/PPO Address: [facility] [address] [place] [address] Advance Directives For more information, please contact: [phone] * Full Code (Latest Code Status on File) Date Activated Date Inactivated Comments 08/19/2020 9:53 PM 08/20/2020 8:49 PM Care Teams Bisque Tile Burner Relationship Specialty Start Date End Date Kana Rankin MD PCP - General Family Medicine 05/15/19
[2025-11-29 10:50] LABS: Albumin Level 3.8 g/dL (3.5-5.1); Anion Gap 7 mmol/L (4-12); Blood Urea Nitrogen 18 mg/dL (7-17); Calcium 8.8 mg/dL (8.4-10.2); Carbon Dioxide 25 mmol/L (22-30); Chloride 105 mmol/L (98-107); Estimated Glomerular Filt Rate > 60; Glucose 76 mg/dL (65-110); Potassium 4.0 mmol/L (3.4-5.0); Sodium 137 mmol/L (137-145)
[2025-11-29 10:58] LABS: Total Protein Urine Random < 5 mg/dL; Ur Ttl Prot Creatinine Ratio < 0.04 mg/mg (0-0.20)
[2025-11-29 11:00] LABS: Add Urine Microscopic? YES; Appearance Urine Cloudy (Clear); Glucose Urine UA Negative (Negative); Leukocyte Esterase Ur 1+ LEU/UL (Negative); Need Manual Microscopic Reviewed; Nitrate Urine Negative (Negative); Non Pathogenic Casts 0-2; Specific Grav Ur 1.029 (1.001-1.035)
[2025-11-30 16:08] LABS: ANA by IFA Rfx Titer/Pattern Negative (.)
== END 2025-11-29 09:49 | disposition home or self-care (01) ==
LOC: ANHLAB 09:49
PROVIDERS: PCP Family Medicine; Visit Provider Internal Medicine Nephrology
DX: N27.9 Small kidney, unspecified (principal)
CPT/HCPCS: 36415; 80069; 81001; 82570; 84156; 85652; 86038